=== PATIENT | female | born 1940 | race Caucasian/White ===

== ENCOUNTER → 2020-08-19 10:45 | Outpatient (CLI) | payer MEDICARE, SELFPAY ==
--- NOTE | ~2020-08-19 | XR_ITS ---
XR shoulder RT min 2V DATE: 08/19/2020 11:02 INDICATION: Right shoulder pain TECHNIQUE: 4 views COMPARISON: 04/13/2013 right shoulder FINDINGS: There is diffuse osteopenia. There is severe joint space narrowing and spurring at the right glenohumeral joint and mild inferior subluxation of the humeral head. No fracture or dislocation, periosteal reaction or bone destruction or abnormal soft tissue calcification is evident. IMPRESSION: Severe right glenohumeral osteoarthritis Diffuse osteopenia Reviewed, dictated and finalized at location A.
--- NOTE | ~2020-08-19 | XR_ITS ---
XR hip RT min 2V DATE: 08/19/2020 11:02 INDICATION: Right hip pain TECHNIQUE: AP and lateral views COMPARISON: None FINDINGS: No fracture or dislocation, avascular necrosis or bone destruction. IMPRESSION: No significant abnormality Reviewed, dictated and finalized at location A. IMPRESSION: No significant abnormality
== END ==
PROVIDERS: Visit Provider Physician Assistant
DX: M25.551 Pain in right hip (principal); M19.011 Primary osteoarthritis, right shoulder; M85.811 Other specified disorders of bone density and structure, right shoulder
CPT/HCPCS: 73030; 73502

== ENCOUNTER 2020-10-18 12:40 | Outpatient (CLI) | payer MEDICARE, SELFPAY ==
--- NOTE | ~2020-10-18 | CT_ITS ---
EXAMINATION: CT shoulder RT wo con DATE: 10/18/2020 13:51 INDICATION: Primary osteoarthritis of the right shoulder TECHNIQUE: High resolution computed tomography (CT) of the right shoulder was performed without intra venous contrast. Additional sagittal and coronal reconstructions were performed. Automated exposure c ontrol and iterative reconstruction technique were employed. The dose-length product was 446.77 mGy-c m. COMPARISON: Radiographs dated 08/19/2020 FINDINGS: Bone alignment is normal. No fracture. Moderate right acromioclavicular osteoarthritis. Advanced righ t glenohumeral osteoarthritis with remodeling with some loss of bone stock and flattening of the luigi cular surface of the superomedial aspect of the humeral head. There are large marginal osteophytes al pascual the inferior aspect of the humeral head. Additional remodeling and loss of bone stock at the fallon oid both anteriorly and more prominently posteriorly with marginal osteophytes is most prominent post eriorly. The remodeling results in approximately 20 degrees acquired retroversion of the glenoid. Moderate-sized right glenohumeral joint effusion. A couple small loose osteochondral bodies at the de ep subscapular recess. Residual tiny deposits of calcific debris at the posterior and axillary recess es of the joint space. There is extension of fluid into the subacromial/subdeltoid bursa which along with severe fatty atrophy of the supraspinatus muscle belly suggests and likely full-thickness rotato r cuff tear which is unable to be directly visualized on the non arthrographic, noncontrast CT. Addit ional mild fatty atrophy of the subscapularis and infraspinatus muscles. Heterotopic ossification filling the cephalad aspect of the intertubercular groove. The extra articul ar long head biceps tendon caudal to the level of the groove is either absent or significantly attenu ated suggesting at least partial tear. Visualized portion of the right lung is clear. No pathological ly enlarged lymphadenopathy at the right axilla or visualized portion of the right hilum and mediasti num. IMPRESSION: 1. Advanced right glenohumeral osteoarthritis with moderate-sized joint effusion. 2. Severe fatty atrophy of the supraspinatus muscle belly and fluid in the subacromial/subdeltoid bur sa suggesting a possible full-thickness rotator cuff tear. If this would affect clinical management w ould consider MRI for further evaluation. 3. Likely at least partial tear of the long head biceps tendon. Reviewed, dictated and finalized at location A. IMPRESSION: 1. Advanced right glenohumeral osteoarthritis with moderate-sized joint effusio n. 2. Severe fatty atrophy of the supraspinatus muscle belly and fluid in the suba cromial/subdeltoid bursa suggesting a possible full-thickness rotator cuff tear . If this would affect clinical management would consider MRI for further evalu ation. 3. Likely at least partial tear of the long head biceps tendon.
== END 2020-10-18 12:41 | disposition home or self-care (01) ==
PROVIDERS: PCP Family Medicine; Visit Provider Orthopaedic Surgery
DX: M19.011 Primary osteoarthritis, right shoulder (principal)
CPT/HCPCS: 73200

== ENCOUNTER 2020-11-20 12:08 | Outpatient (CLI) | payer MEDICARE, SELFPAY ==
--- NOTE | 2020-11-20 13:00 | ECG_ITS ---
Measurements Intervals [place] Rate: 60 P: 50 WA: 179 QRS: 38 QRSD: 94 T: 36 QT: 418 QTc: 421 Interpretive Statements SINUS RHYTHM NORMAL ECG Electronically Signed On 11-21-2020 8:37:05 CDT by Dain Travis D.O.
[2020-11-20 13:26] LABS: Basophils Percent Auto 0.5 % (0.2-1.2); Eosinophils Absolute Auto 0.1 K/mm3 (0-0.3); Eosinophils Percent Auto 1.3 % (0-4.4); Hematocrit 40.6 % (37.0-47.0); Hemoglobin 13.4 g/dL (12.0-15.0); Immature Granulocyte Absolute 0.01 K/mm3 (0.00-0.031); Immature Granulocyte Percent A 0.2 % (0-0.5); Lymphocytes Absolute Auto 0.99 K/mm3 (0.9-3.2); Lymphocytes Percent Auto 16.7 % (18.3-44.2); Mean Corpuscular Hemoglobin 33.2 pg (26-34); Mean Corpuscular Volume 100.5 fl (80-100); Monocytes Absolute Auto 0.5 K/mm3 (0.1-0.6); Monocytes Percent Auto 8.3 % (2.6-8.5); Neutrophils Absolute Auto 4.3 K/mm3 (1.3-6.7); Platelet Count Result 223 k/mm3 (150-375); Red Blood Count 4.04 M/mm3 (4.2-5.4); Red Cell Distribution Width 13.5 % (11.5-14.5); White Blood Count 5.9 K/mm3 (4.5-10.0)
[2020-11-20 13:37] LABS: Anion Gap 6 mmol/L (8-16); Blood Urea Nitrogen 25 mg/dL (7-17); Calcium 9.8 mg/dL (8.4-10.2); Carbon Dioxide 31 mmol/L (22-30); Chloride 100 mmol/L (98-107); Estimated Glomerular Filt Rate > 60; Glucose 102 mg/dL (65-110); Potassium 3.4 mmol/L (3.4-5.0); Sodium 137 mmol/L (137-145)
== END 2020-11-20 12:09 | disposition home or self-care (01) ==
LOC: ANHSURGERY 12:11
PROVIDERS: Anesthesiology; PCP Family Medicine; Visit Provider Orthopaedic Surgery
DX: Z01.812 Encounter for preprocedural laboratory examination (principal); I10 Essential (primary) hypertension; M19.011 Primary osteoarthritis, right shoulder
CPT/HCPCS: 36415; 80048; 85025; 87081; 93005

== ENCOUNTER 2020-12-06 13:19 | Outpatient (CLI) | payer MEDICARE, SELFPAY ==
--- NOTE | 2020-12-06 13:29 | ECHO_ITS ---
Patient Info Name: Sheila Fernández Age: 80 years : 1940 Gender: Female Ht: 65 in Wt: 180 lbs BSA: 1.96 m2 HR: 75 bpm BP: 134 / 79 mmHg Technical Quality: Fair Exam Date: 12/06/2020 2:14 PM Exam Location: [facility] Patient Status: Outpatient Admit Date: 12/06/2020 Staff Ordering Physician: Joel De Leon PA-C Freight Clerk: Maria Isabel Oliveros RDCS Attending Provider: Joel De Leon PA-C Referring Physician: Moises HAGAN; Exam Type: CA echo doppler color flow Study Info Indications - murmur Complete two-dimensional, color flow and Doppler transthoracic echocardiogram is performed. Summary 1. Complete two-dimensional, color flow and Doppler transthoracic echocardiogram is performed. 2. There is mildly increased left ventricular wall thickness. 3. Left ventricular systolic function is hyperdynamic, estimated at >70%. 4. The left ventricular diastolic function is grade I diastolic dysfunction. 5. Left atrial chamber dimension is mildly enlarged. 6. There is mild aortic valve calcification. 7. The aortic valve is trileaflet. 8. There is no aortic valve stenosis. 9. There is mild mitral valve regurgitation. 10. There is mild mitral valve calcification. 11. There is mild tricuspid valve regurgitation. 12. No pulmonary hypertension, estimated pulmonary arterial systolic pressure is 33 mmHg. Left Ventricle Left ventricular chamber dimension is normal. Left ventricular systolic function is hyperdynamic, estimated at >70%. There is mildly increased left ventricular wall thickness. Left ventricular septal wall motion is normal. The left ventricular diastolic function is grade I diastolic dysfunction. Right Ventricle Right ventricular chamber dimension is normal. Right ventricular systolic function is normal. Left Atria Left atrial chamber dimension is mildly enlarged. Right Atria Right atrial chamber dimension is normal. Atrial Septum Intact interatrial septum visualized by color flow imaging. Aortic Valve The aortic valve is trileaflet. There is no aortic valve stenosis. There is no aortic valve regurgitation. There is mild aortic valve calcification. Pulmonic Valve The pulmonic valve is normal. There is no pulmonic valve stenosis. There is no pulmonic regurgitation. Mitral Valve The mitral valve has normal leaflets. There is no mitral valve stenosis. There is mild mitral valve regurgitation. There is mild mitral valve calcification. Tricuspid Valve The tricuspid valve leaflets are normal. There is no significant tricuspid valve stenosis. There is mild tricuspid valve regurgitation. No pulmonary hypertension, estimated pulmonary arterial systolic pressure is 33 mmHg. Pericardium/Pleural The pericardium appears normal. There is no pericardial effusion. Inferior Vena Cava Normal inferior vena cava with >50% collapse upon inspiration consistent with normal right atrial pressure, 5 mmHg. Aorta The aortic root size at the sinus of Valsalva is normal. The prox ascending aorta size is normal. Left Ventricular Outflow Tract Name Value Normal LVOT 2D LVOT Diameter 2.0 cm LVOT Doppler
== END 2020-12-06 13:20 | disposition home or self-care (01) ==
PROVIDERS: PCP Family Medicine; Visit Provider Physician Assistant
DX: R01.1 Cardiac murmur, unspecified (principal); I34.0 Nonrheumatic mitral (valve) insufficiency; I36.1 Nonrheumatic tricuspid (valve) insufficiency; I35.1 Nonrheumatic aortic (valve) insufficiency
CPT/HCPCS: 93306

== ENCOUNTER 2020-12-12 01:14 | Day surgery (SDC) | payer MEDICARE, SELFPAY ==
[2020-11-20 12:17] VITALS: BMI 31.0
[2020-11-20 12:56] VITALS: BP 146/81; PULSE 62; RESP 16; TEMP 37.2; O2SAT 98
--- NOTE | 2020-12-11 16:52 | WPDANESEPPF ---
Anes - Initial Pre Proc Eval Procedure: Operation Date: 12/12/20 07:30 Proposed Procedures p Right Reverse Total Shoulder Arthroplasty - Mark Reynaga MD Date/Time: 12/11/20 16:52 Surgeon: Mark Reynaga MD Pre Op Diagnosis: primary OA right shoulder Patient Data Age: 80 Gender: F Height: 1.65 m Weight: 84.6 kg Last Vital Signs Temp 37.2 C 11/20/20 12:56 Pulse 62 11/20/20 12:56 Resp 16 11/20/20 12:56 BP 146/81 H 11/20/20 12:56 Pulse Ox 98 11/20/20 12:56 Allergies Allergy/AdvReac Type Severity Reaction Status Date / Time No Known Allergies Allergy Verified 12/12/20 06:14 Home Medications Medication Instructions Recorded Confirmed Type Glucosamine Sulf-Chondroitin 1 cap PO DAILY 04/11/19 12/12/20 History calcium carbonate-vitamin D3 1 tablet PO DAILY 04/11/19 12/12/20 History [Calcium 500 With D] multivitamin with minerals [Daily 1 tablet PO DAILY 04/11/19 12/12/20 History Multivitamin-Minerals] hydrochlorothiazide 25 mg tablet See Rx Instructions .ROUTE 05/25/20 12/12/20 Rx .COMPLEX #90 tablet cholecalciferol (vitamin D3) 50 mcg PO DAILY 11/20/20 12/12/20 History [Mtn-P-Fctusjv Forte] fish,bora,flax oils-om3,6,9no1 1 cap PO DAILY 11/20/20 12/12/20 History [[place] 3-6-9] ibuprofen 400 mg PO PRN PRN 11/20/20 12/12/20 History ferrous sulfate 325 mg (65 mg See Rx Instructions .ROUTE 11/21/20 12/12/20 Rx iron) tablet .COMPLEX #90 tablet irbesartan 300 mg tablet See Rx Instructions .ROUTE 11/21/20 12/12/20 Rx .COMPLEX #90 tablet Patient hx anesthesia problems: none Family hx anesthesia problems: none PMFSH Past Medical History Medical History Ankle fracture, right (~04/2019) Bilateral cataracts Fall as cause of accidental injury in home as place of occurrence History of ankle fracture HTN (hypertension) Laceration of occipital region of scalp Osteoarthritis Osteopenia Seasonal allergies Sleep apnea TIA (transient ischemic attack) 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 and removal Surgical History Surgical History History of appendectomy (~04/2014) History of bilateral cataract extraction (~2018) History of cataract surgery Status post laser ablation of incompetent vein (~11/2016) Status post phlebectomy (~12/2016) Family History Family History Grandparent Hypertension Family history of malignant neoplasm Mother Hypertension Family history of malignant neoplasm Sibling Family history of elevated blood lipids Father Family history of cardiovascular disease Family history of congestive heart failure Social History Social History Smoking packs per day: 0.5 Smoking cigarettes per day: 10.0 Years smoked: 4 Smoking pack-years: 2.00 Smoking status: Former smoker Tobacco type: cigarettes Smoking end date: 05/05/69 Alcohol intake: current Drinks per week: 21 Alcohol use details: WINE Living arrangements: alone Gender identity (if verbalized by the patient): Female Spiritual care concerns: No Agree to blood products: Yes Anes - Eval Final PreProcedure Day of Procedure 12/11/20 16:52 Patient weight: obese Heart: regular rate and rhythm Lungs: clear to auscultation and normal air movement Airway: Mallampati scale class II Neurological: alert and oriented Last oral intake: >/= 8 hours ASA classification: III Emergent: no Anesthetic plan: proceed Anesthesia type and monitoring: general ETT and standard monitoring Informed Consent: The patient's anesthetic plan and its attendant risks and benefits were discussed with the patient/family/POA. Questions were solicited and answers provided to the satisfaction of the patient/family/POA.
--- NOTE | 2020-12-11 16:54 | WPDANESPNB ---
Anes - Peripheral Nerve Block Date/Time: 12/11/20 16:54 I have discussed with the patient/family/POA the placement of a peripheral nerve block for post-operative pain management, including associated risks, benefits, complications, and side effects. Alternative methods of post-operative analgesia were detailed. Questions were solicited and answers provided to the satisfaction of the patient/family/POA. Time-Out: A pre-procedural Time-Out was completed immediately before starting the procedure and confirmed: Patient Identification, Site, Procedure, Patient Position and the Availability of Requisite Equipment. Clinical Indications: Acute post-operative pain management requested by the operative surgeon. Nerve Block Insertion Note Anes-nerve block: interscalene right Patient position: supine Skin prep: chlorhexidine Needle: 22 gauge, stimulating, insulated echogenic needle. Needle length: 50 mm Technique: ultrasound Injectate: bupivacaine 0.5% with epi 5 mcg/ml (30cc- no epi) Observations: tolerated well Complications: none Procedure start time:: 721 Procedure end time:: 724
[2020-12-12] VITALS (13 sets, daily range): BP systolic 108–151; BP diastolic 50–74; PULSE 63–84; RESP 12–20; TEMP 35.8–36.4; O2SAT 93–100
--- NOTE | ~2020-12-12 | XR_ITS ---
EXAMINATION: XR shoulder RT min 2V DATE: 12/12/2020 10:50 INDICATION: Reverse total right shoulder arthroplasty. Postop. TECHNIQUE: 2 views of right shoulder were obtained. COMPARISON: Right shoulder radiographs 08/19/2020 FINDINGS: There is a reverse stvm-rxk-gjbzob total right shoulder arthroplasty in near-anatomic align ment. No fracture. There is mild osteoarthritis of acromioclavicular joint. There is gas in the soft tissues, consistent with recent surgery. IMPRESSION: 1. Reverse scca-ezt-uytqta total right shoulder arthroplasty in near-anatomic alignment. Reviewed, dictated and finalized at location A. IMPRESSION: 1. Reverse mdcx-ibg-oswomi total right shoulder arthroplasty in near-anatomic a lignment.
[2020-12-12] MEDS: ACETAMINOPHEN 500 MG TABLET 1000 MG PO (06:20)
[2020-12-12] MEDS: LACTATED RINGERS 1,000 ML 30 ML IV CONT ×2 (06:30→10:15)
[2020-12-12] MEDS: TRANEXAMIC ACID 1,000MG/ISO100 1,000 MG/100 ML BAG 200 MG IVPB (07:07)
--- NOTE | 2020-12-12 07:20 | WPDHPUPDATE1 ---
History and Physical Update Update Date/Time: 12/12/20 07:20 History and Physical has been reviewed, including an updated exam of the patient. There are NO changes in the patient's condition. Risks, benefits, and alternatives have been discussed and questions answered. Patient agrees to proceed with procedure.
[2020-12-12] MEDS: ceFAZolin 2 GM/D5W 50 ML 2 GM/50 ML BAG IVPB ×2 (07:37→16:47)
[2020-12-12] MEDS: VANCOMYCIN HCL 1,000 MG VIAL 1000 MG TOPICAL (08:26)
--- NOTE | 2020-12-12 10:29 | W.PM.PROC2 ---
Procedure Note - Detailed Date of Procedure 12/12/20 Pre-op Diagnosis primary OA right shoulder Post-op Diagnosis same Procedure Performed Reverse total shoulder arthroplasty, right. Surgeon Mark Reynaga MD [employer] Tawnya Harkins PA-C Anesthesia general and regional ( Interscalene block.) Findings Moderate posterior bone loss. Significant proliferative capsulitis. Capsular laxity. Humerus 10? retroversion. Bone quality satisfactory. Description of Procedure Physician social and human services assistant, Tawnya Harkins PA-C, required for surgery; including patient positioning, draping, tissue retraction, maintaining instrument position, assisting joint reduction and dislocation, wound closure, and dressing/sling placement. OPERATIVE DETAILS: The patient was given an interscalene block in the preoperative area. Preoperative antibiotics were given. The patient was transferred to the operating room and a general anesthetic was administered. The beach chair position was used at 35-40 degrees. All bony prominences were padded. The head was carefully stabilized [facility] the [facility] maintain[facility]. A sterile prep and drape was performed in the usual manner with Chloraprep. A longitudinal incision was created at the anterior shoulder just lateral to the deltopectoral interval. Careful dissection was performed to expose the interval and protect the cephalic vein. The vein was retracted medially. The upper border of the pectoralis was slightly released. Anterior circumflex vessel branches were suture ligated. The biceps was tenodesed. A subscapularis tenotomy was performed. The inferior capsule was released, exposing the humeral head. Osteophytes were removed. Care was taken to stay on bone to protect the axillary nerve. The anatomic head cut was taken with the oscillating saw. Sounding and broaching was performed. The neck anteversion and inclination were carefully assessed. Head sizing and offset were determined. The cut protector was placed, and attention was turned to the glenoid. Retractors were placed. Releases were carried out for exposure. The subscapularis was mobilized, the inferior capsule and long head of triceps released, and the superior and middle glenohumeral ligaments released as well. Labral tissue was resected as needed. The sizing template was used to assess the baseplate position low on the glenoid. A guide pin was placed. The two step reaming system was used. Minimal reaming was used to accomplish a flat surface without violating the subchondral bone. Version was corrected according to preoperative templating. The central post was drilled. The real component was impacted into position. Supplemental screws were placed. The glenosphere was placed with the locking screw. The humeral components were trialed. The real humeral stem and tray, and insert were impacted into position. The shoulder was copiously irrigated periodically with pulsatile lavage. The shoulder was reduced and the subscapularis repaired with number 5 Ethibond suture modified hannah Luke sutures. The biceps tenodesis was incorporated with the pectoralis tendon repair. The deltopectoral space was reapproximated with number 2 Vicryl. The remained tissue was closed with 0 Quill and 2-0 Quill running suture and steri-strips. A sterile dressing and shoulder immobilizer was placed. The patient was transferred to the recovery room. Implants Wester Aequalis reversed glenoid base plate 25mm, reversed insert 9mm thickness; Aequalis Ascend Flex humeral stem size 4B. Aequalis Reversed II glenoid sphere 36 diameter; Reversed tray high offset at the 12 o'clock position. Estimated Blood Loss -200.0 Pathology none sent Complications No immediate complications Condition stable Disposition PACU
[2020-12-12] MEDS: fentaNYL CITRATE INJ (*CRX) 100 MCG/2 ML VIAL 25 MCG IV PUSH ×2 (10:42→10:57)
--- NOTE | 2020-12-12 11:30 | ADMGEN ---
This patient, Sheila Fernández, was admitted to Medical Room 247-. Patient/family oriented to hospital policies and general routines including ID bracelet, bed and alarms, visiting hours, pain management, procedures, bathroom and other care routines, personal items, smoking policy, room service/diet, and visiting hours. Information on how to activate the Rapid Response Team has been discussed. Patient/Family are encouraged to report perceived risks to care and to ask questions if they do not understand what they are told or what they should do.
[2020-12-12] MEDS: KETOROLAC 15 MG/ML VIAL (*BKC) IV PUSH ×2 (15:35→21:33)
[2020-12-12] MEDS: DOCUSATE SODIUM 100 MG CAPSULE PO (16:48)
[2020-12-12] MEDS: ASPIRIN 81 MG ENTERIC TABLET PO (16:48)
[2020-12-13] MEDS: oxyCODONE HCL (*CRX) 5 MG TAB IR PO (00:25)
[2020-12-13] MEDS: ceFAZolin 2 GM/D5W 50 ML 2 GM/50 ML BAG IVPB ×2 (00:26→08:15)
[2020-12-13 01:04] VITALS: BP 145/55; PULSE 72; RESP 18; TEMP 36.2; O2SAT 97
[2020-12-13] MEDS: KETOROLAC 15 MG/ML VIAL (*BKC) IV PUSH ×2 (03:23→08:15)
[2020-12-13 05:04] VITALS: BP 126/52; PULSE 64; RESP 18; TEMP 36.4; O2SAT 95
[2020-12-13] MEDS: ASPIRIN 81 MG ENTERIC TABLET PO (08:08)
[2020-12-13] MEDS: IRBESARTAN 150 MG TABLET 300 MG PO (08:08)
[2020-12-13] MEDS: DOCUSATE SODIUM 100 MG CAPSULE PO (08:08)
[2020-12-13] MEDS: THERAPEUTIC MULTIVITAMINS/MINERALS TAB (*BKC) 1 TABLET PO (08:08)
[2020-12-13] MEDS: CHOLECALCIFEROL 1,000 UNITS TABLET 2000 UNITS PO (08:08)
[2020-12-13] MEDS: hydroCHLOROthiazide 25 MG TABLET PO (08:08)
[2020-12-13 09:04] VITALS: BP 124/54; PULSE 62; RESP 18; TEMP 36.3; O2SAT 95
--- NOTE | 2020-12-13 09:07 | PM.DS ---
DS: Admitting Diagnosis Admitting Diagnosis Rotator cuff arthropathy DS: Discharge Diagnosis Discharge Diagnosis (1) Status post reverse total arthroplasty of right shoulder: Code(s): Z96.611 - Presence of right artificial shoulder joint Status: Acute Assessment and Plan: Postop day 1: Right reverse total shoulder arthroplasty. Patient tolerated procedure well. No complications. Pain manageable with pain medication. Notes some numbness still in her thumb and index finger. We discussed that this may take a few more hours to resolve. She is able to move her fingers, wrist, and elbow. We had a lengthy discussion regarding postoperative wound care, limitations, expectations, and exercises. Patient shows good understanding. He has had initial physical therapy and is tolerating it well. DVT prophylaxis: 81 mg baby aspirin b.i.d. for 14 days. Pain medication: Percocet. Ibuprofen. Patient has followup appointment with Dr. Reynaga in 3 weeks. DS: Summary Hospital Course Hospital Course: Right reverse total shoulder arthroplasty. No complications. Patient has had initial physical therapy and occupational therapy. Status at Discharge Functional status at discharge: independent ambulation Overall status at discharge: patient is progressing back to baseline Time Spent with Patient Time attestation: Total time spent providing and/or coordinating discharge services: Exam Narrative: Normal weight Female. Resting comfortably in chair. Wearing sling. Dressing dry and intact with no drainage. Moderate swelling. Moderate ecchymosis. No erythema. No hematoma. Range of motion limited due to pain. Calf nontender. Neurologic status intact. No varicosities. Distal pulses palpable. DS: Data Data Completed and Pending Labs on day of discharge: Labs from last 24 hours 12/12/20 06:12 Blood Type O Positive Antibody Screen Negative Discharge Plan Discharge Patient Disposition: Home, Self-Care Discharge Instructions: See instruction sheet Follow-up/Referrals: Tawnya Harkins PA [Physician Agricultural Education Instructor] - Discharge Medications: New aspirin 81 mg tablet,delayed release (DR/EC) 81 mg PO BID 14 Days Qty: 28 RF: 0 oxycodone-acetaminophen 5-325 mg tablet 1 - 2 tablet PO Q4-6H MDD 6 PRN (Reason: pain) Qty: 30 RF: 0 Continued multivitamin with minerals [Daily Multivitamin-Minerals] Tablet 1 tablet PO DAILY RF: 0 calcium carbonate-vitamin D3 [Calcium 500 With D] 500 mg(1,250mg) -400 unit Tablet 1 tablet PO DAILY RF: 0 Glucosamine Sulf-Chondroitin 500-400 mg Capsule 1 cap PO DAILY RF: 0 [place] 3-6-9 1,200 mg Capsule 1 cap PO DAILY RF: 0 Kod-Y-Vtbobbk Forte 50 mcg/drop (2, 000 unit/drop) Drops 50 mcg PO DAILY RF: 0 ibuprofen 400 mg Tablet 400 mg PO PRN PRN (Reason: Pain) RF: 0 hydrochlorothiazide 25 mg tablet See Rx Instructions .ROUTE .COMPLEX Qty: 90 RF: 3 ferrous sulfate 325 mg (65 mg iron) tablet See Rx Instructions .ROUTE .COMPLEX Qty: 90 RF: 2 irbesartan 300 mg tablet See Rx Instructions .ROUTE .COMPLEX Qty: 90 RF: 0
--- NOTE | 2020-12-13 10:00 | WPDANESPN ---
Anes - Prog Note Post-Op Date/Time: 12/13/20 10:00 Cardiovascular status: normal Respiratory status: normal Airway patency: baseline Mental status: baseline Post-Op hydration status: normal Vital Signs: Last Vital Signs Temp 36.4 C 12/13/20 05:04 Pulse 64 12/13/20 05:04 Resp 18 12/13/20 05:04 BP 126/52 L 12/13/20 05:04 Pulse Ox 95 12/13/20 05:04 Pain Score (VAS): 0/10 I/O: Intake & Output 12/12/20 12/13/20 12/13/20 23:59 07:59 15:59 Intake Total 590 750 240 Output Total 400 Balance 590 350 240 Post-procedural complaints: none Patient Feedback: Patient satisfied with anesthetic care.
== END 2020-12-13 12:55 | disposition home or self-care (01) ==
LOC: ANHSURGERY 05:45 → ANH2MED 11:21
PROVIDERS: PCP Family Medicine; Visit Provider Orthopaedic Surgery
PROC: (CPT 23472; principal; 2020-12-12 07:30)
DX: M19.011 Primary osteoarthritis, right shoulder (principal); G89.18 Other acute postprocedural pain; I10 Essential (primary) hypertension; G47.30 Sleep apnea, unspecified; Z86.73 Personal history of transient ischemic attack (TIA), and cerebral infarction without residual deficits; Z87.891 Personal history of nicotine dependence; E66.9 Obesity, unspecified; Z68.30 Body mass index [BMI] 30.0-30.9, adult
CPT/HCPCS: 23472; 64415; 36415; 73030; 80048; 85025; 86850; 86900; 86901; 87081; 93005; 97110; 97161; 97165; 97530; 97535; A4565; A9270; C1776; J0131; J0171; J0690; J1100; J1885; J2270; J2405; J2704; J2710; J2795; J3010; J3370; J7120

== ENCOUNTER 2021-04-06 12:09 | Outpatient (CLI) | payer MEDICARE, SELFPAY ==
--- NOTE | ~2021-04-06 | XR_ITS ---
EXAMINATION: XR chest 2V EXAM DATE: 04/06/2021 12:30 INDICATION: R05.9 - Cough, unspecified . TECHNIQUE: Frontal and lateral projections of the chest obtained and reviewed. There is no prior lester dy for comparison. FINDINGS: The lungs are clear. There are no pleural effusions. The cardiomediastinal silhouette is within normal limits. There is no pneumothorax suspected. Right shoulder replacement hardware. IMPRESSION: No acute cardiopulmonary findings. Reviewed, dictated and finalized at location B. L FLAT SURFACER
--- NOTE | ~2021-04-06 | XR_ITS ---
EXAMINATION: XR sinus min 3V DATE: 04/06/2021 12:30 INDICATION: Cough, unspecified. TECHNIQUE: 5 views of the paranasal sinuses were obtained. COMPARISON: Head CT 04/10/2019 FINDINGS: Bone alignment is normal. No fracture. The paranasal sinuses are clear. IMPRESSION: 1. Normal paranasal sinuses. Reviewed, dictated and finalized at location A. ER WASHER
== END 2021-04-06 12:10 | disposition home or self-care (01) ==
LOC: ANHIMG 12:11
PROVIDERS: PCP Family Medicine; Visit Provider Internal Medicine
DX: R05.9 Cough, unspecified (principal); J34.89 Other specified disorders of nose and nasal sinuses
CPT/HCPCS: 70220; 71046

== ENCOUNTER 2021-08-10 09:53 | Outpatient (CLI) | payer MEDICARE, SELFPAY ==
--- NOTE | ~2021-08-10 | CT_ITS ---
EXAMINATION: CT shoulder LT wo con DATE: 08/10/2021 10:16 INDICATION: Other specific arthropathies, not elsewhere classified. TECHNIQUE: Computed tomography (CT) of the left shoulder was performed without intravenous contrast. Automated exposure control and iterative reconstruction technique were employed. The dose-length prod uct was 442.79 mGy-cm. COMPARISON: Left shoulder radiographs 08/06/2021 FINDINGS: Bone alignment is normal. No fracture. There is severe osteoarthritis of the acromioclavicu lar joint. There is severe osteoarthritis of glenohumeral joint with bone volume loss of humeral head and glenoid. There is a large glenohumeral joint effusion with loose bodies. There is no asymmetric fatty atrophy of the rotator cuff muscle bellies. IMPRESSION: 1. Severe polyarticular osteoarthritis. 2. Large glenohumeral joint effusion with loose bodies. Reviewed, dictated and finalized at location A.
== END 2021-08-10 09:54 | disposition home or self-care (01) ==
PROVIDERS: PCP Internal Medicine; Visit Provider Orthopaedic Surgery
DX: M19.012 Primary osteoarthritis, left shoulder (principal); M24.012 Loose body in left shoulder; M25.412 Effusion, left shoulder
CPT/HCPCS: 73200

== ENCOUNTER 2021-09-05 11:45 | Outpatient (CLI) | payer MEDICARE, SELFPAY ==
[2021-09-05 12:59] LABS: Basophils Percent Auto 0.3 % (0.2-1.2); Eosinophils Absolute Auto 0.1 K/mm3 (0-0.3); Eosinophils Percent Auto 1.7 % (0-4.4); Hematocrit 36.5 % (37.0-47.0); Hemoglobin 12.2 g/dL (12.0-15.0); Immature Granulocyte Absolute 0.02 K/mm3 (0.00-0.031); Immature Granulocyte Percent A 0.3 % (0-0.5); Lymphocytes Absolute Auto 1.35 K/mm3 (0.9-3.2); Lymphocytes Percent Auto 23.2 % (18.3-44.2); Mean Corpuscular HGB Conc 33.4 g/dl (32-36); Mean Corpuscular Hemoglobin 32.8 pg (26-34); Mean Corpuscular Volume 98.1 fl (80-100); Mean Platelet Volume 10.4 fl (7.4-10.4); Monocytes Absolute Auto 0.5 K/mm3 (0.1-0.6); Monocytes Percent Auto 7.9 % (2.6-8.5); Neutrophils Absolute Auto 3.9 K/mm3 (1.3-6.7); Neutrophils Percent Auto 66.6 % (45.5-73.1); Platelet Count Result 240 k/mm3 (150-375); Red Blood Count 3.72 M/mm3 (4.2-5.4); Red Cell Distribution Width 14.5 % (11.5-14.5); White Blood Count 5.8 K/mm3 (4.5-10.0)
== END 2021-09-05 11:46 | disposition home or self-care (01) ==
LOC: ANHSURGERY 11:51
PROVIDERS: PCP Internal Medicine; Visit Provider Orthopaedic Surgery
DX: M12.812 Other specific arthropathies, not elsewhere classified, left shoulder (principal); Z01.818 Encounter for other preprocedural examination
CPT/HCPCS: 36415; 85025; 87081

== ENCOUNTER 2021-10-04 00:12 | Day surgery (SDC) | payer MEDICARE, SELFPAY ==
[2021-09-05 11:56] VITALS: BMI 30.9
--- NOTE | 2021-09-05 12:17 | PC.NURSE ---
Report to the Outpatient Waiting Room, entrance under the green pavilion located off [facility], at time _0600 on date __10/04/21 . OR Time: __729 . - You and your visitor will be asked a series of questions to screen for COVID 19 for your protection. - Only one visitor is allowed at this time. - The patient visitor is requested to leave or wait in car when not with patient. - A mask is required within the hospital. Patients may have clear liquids (water, carbonated beverages, clear teas, apple juice) until 3 hours prior to surgery with a maximum of 20 ounces. - No food from midnight until time of surgery - Infants may have breast milk until 4 hours before surgery, infant formula 6 hours prior to surgery. - Children will be allowed to drink immediately following surgery. If applicable, please bring a bottle or sippy cup to assist with drinking. Juice, water, soda, and popsicles are readily available. For infants on formula, please bring formula the day of surgery. Pacifiers are allowed. Take the following medications with a SIP of water the morning of surgery: _NONE Medications to discontinue per physician _ALL VITAMINS AND SUPPLEMENTS 3 DAYS PRE OP AND IBUPROFEN 7 DAYS PRE OP Date to take last dose__ALL VIT/SUPP 09/30/21 AND IBUPROFEN 09/26/21 Please no make-up, nail tongan, hairspray, perfume, deodorant, or body powder the day of surgery. No jewelry (including any body piercings) or valuables the day of surgery, leave them at home. Please take a shower or bath the night before, or the morning of, surgery with an antibacterial soap. Wear comfortable, loose fitting clothing. Children are encouraged to wear pajamas. - Jewelry must be removed prior to entering the operating room. Rings and piercings that are not removed may be cut off. - The hospital will not accept responsibility for valuables. - Please leave all valuables, including medications, at home the day of surgery. If you are going home after surgery, a licensed wrecker driver must drive you home. - NO public transportation without another adult. - We recommend that an adult stay with you for 24 hours following discharge. - We also recommend that you do not drive, make important decision, drink alcoholic beverages, or take any drugs that were not prescribed by your health care provider for at least 24 hours after your discharge time. Follow any additional instructions given to you from your surgeon. If you or anyone in your household have experienced Covid symptoms in the past week, please notify your surgeon or the nurse liaison at the phone number below for possible testing. VERBAL AND WRITTEN instructions given to __PATIENT and asked if any additional questions and then verbalized understanding. Patient advised to call surgeon office or pre surgery nurse liaison [phone] if any additional questions.
[2021-09-05 12:36] VITALS: BP 157/67; PULSE 70; RESP 18; TEMP 36.8; O2SAT 98
[2021-10-04] VITALS (15 sets, daily range): BP systolic 96–152; BP diastolic 57–78; PULSE 60–76; RESP 16–22; TEMP 36.1–36.9; O2SAT 93–100
--- NOTE | ~2021-10-04 | XR_ITS ---
EXAMINATION: XR shoulder LT min 2V DATE: 10/05/2021 11:56 INDICATION: Reversal total shoulder arthroplasty. Postop. TECHNIQUE: 2 views of left shoulder were obtained. COMPARISON: Left shoulder radiographs 08/06/2021 FINDINGS: There is a reverse kegm-pxo-bkraia total left shoulder arthroplasty in near-anatomic alignm ent. No fracture. There is moderate osteoarthritis of acromioclavicular joint. IMPRESSION: 1. Reverse uhfb-jqr-jvxpqd total left shoulder arthroplasty in near-anatomic alignment. 2. Moderate osteoarthritis of left acromioclavicular joint. Reviewed, dictated and finalized at location A. IMPRESSION: 1. Reverse mhqx-rth-jqpvel total left shoulder arthroplasty in near-anatomic al ignment. 2. Moderate osteoarthritis of left acromioclavicular joint.
[2021-10-04] MEDS: ACETAMINOPHEN 500 MG TABLET 1000 MG PO (06:33)
[2021-10-04] MEDS: LACTATED RINGERS 1,000 ML 30 ML IV CONT ×2 (06:52→10:21)
--- NOTE | 2021-10-04 06:54 | WPDANESEPPF ---
Anes - Initial Pre Proc Eval Procedure: Operation Date: 10/04/21 07:30 Proposed Procedures p Left Reverse Total Shoulder Arthroplasty - Mark Reynaga MD Date/Time: 10/04/21 06:54 Surgeon: Mark Reynaga MD Pre Op Diagnosis: left shoulder rotator cuff arthropathy Patient Data Age: 80 Gender: F Height: 1.66 m Weight: 83.8 kg Last Vital Signs Temp 36.9 C 10/04/21 06:11 Pulse 70 10/04/21 06:11 Resp 16 10/04/21 06:11 BP 152/70 H 10/04/21 06:11 Pulse Ox 98 10/04/21 06:11 O2 Del Method Room Air 10/04/21 06:11 Allergies Allergy/AdvReac Type Severity Reaction Status Date / Time No Known Allergies Allergy Verified 10/04/21 06:21 Home Medications Medication Instructions Recorded Confirmed Type calcium carbonate 500 mg-vitamin 1 tablet PO DAILY 04/11/19 10/04/21 History D3 10 mcg (400 unit) tablet (Calcium 500 With D) multivitamin with minerals (Daily 1 tablet PO DAILY 04/11/19 10/04/21 History Multivitamin-Minerals) cholecalciferol (vitamin D3) 50 mcg PO DAILY 11/20/20 10/04/21 History (Qae-G-Ouxkqnw Forte) ferrous sulfate 325 mg (65 mg See Rx Instructions .Route 11/21/20 10/04/21 Rx iron) tablet .COMPLEX #90 tabs chondrosomaine-S 1 tab-cap BYMOUTH DAILY 04/06/21 10/04/21 History fish, borage, flaxseed oils-omega 2 cap PO DAILY 04/06/21 10/04/21 History 3,6,9 comb no.1 1,200 mg capsule ([place] 3-6-9) cetirizine 10 mg tablet (Zyrtec) 10 mg PO DAILY PRN Allergy Symptoms 08/06/21 10/04/21 History fluticasone propionate 50 2 spray intranasal DAILY 08/06/21 10/04/21 History mcg/actuation nasal spray,suspension ibuprofen 400 mg tablet 400 mg PO Q6H PRN Pain 09/05/21 10/04/21 History solifenacin 10 mg tablet 10 mg PO DAILY #90 tabs 09/13/21 10/04/21 Rx atorvastatin 20 mg tablet 20 mg PO DAILY 10/04/21 10/04/21 History hydrochlorothiazide 25 mg tablet 25 mg PO DAILY 10/04/21 10/04/21 History irbesartan 300 mg tablet 300 mg PO DAILY 10/04/21 10/04/21 History Patient hx anesthesia problems: none Family hx anesthesia problems: none Results Review: All pre-operative results and documents have been reviewed as part of the pre-operative evaluation. [facility] Past Medical History Medical History Ankle fracture, right (~04/2019) Bilateral cataracts Cough DJD (degenerative joint disease) Encounter for Medicare annual wellness exam Encounter for routine adult health examination without abnormal findings Encounter to establish care Eustachian tube dysfunction Fall as cause of accidental injury in home as place of occurrence Hearing loss History of ankle fracture HTN (hypertension) Hyperlipidemia Iron deficiency anemia Laceration of occipital region of scalp Mitral valve regurgitation ARMEN (obstructive sleep apnea) Osteoarthritis Osteopenia Seasonal allergies Sleep apnea TIA (transient ischemic attack) Urinary urgency 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 and removal Surgical History Surgical History History of appendectomy (~04/2014) History of bilateral cataract extraction (~2018) History of cataract surgery History of reverse total replacement of right shoulder joint (~12/12/20) Status post laser ablation of incompetent vein (~11/2016) Status post phlebectomy (~12/2016) Family History Family History Grandparent Hypertension Family history of malignant neoplasm Mother Hypertension Family history of malignant neoplasm Sibling Family history of elevated blood lipids Father Family history of cardiovascular disease Family history of congestive heart failure Social History Social History Smoking packs per day: 0.5 Smoking cigarettes per day: 10.0 Years smoked: 4 Smoking pack-years: 2.00 Smoking status: Former smoke
[2021-10-04] MEDS: TRANEXAMIC ACID 1,000MG/ISO100 1,000 MG/100 ML BAG 200 MG IVPB (07:07)
--- NOTE | 2021-10-04 07:15 | WPDHPUPDATE1 ---
History and Physical Update Update Date/Time: 10/04/21 07:15 History and Physical has been reviewed, including an updated exam of the patient. There are NO changes in the patient's condition. Risks, benefits, and alternatives have been discussed and questions answered. Patient agrees to proceed with procedure.
--- NOTE | 2021-10-04 07:23 | WPDANESPNB ---
Anes - Peripheral Nerve Block Date/Time: 10/04/21 07:23 I have discussed with the patient/family/POA the placement of a peripheral nerve block for post-operative pain management, including associated risks, benefits, complications, and side effects. Alternative methods of post-operative analgesia were detailed. Questions were solicited and answers provided to the satisfaction of the patient/family/POA. Time-Out: A pre-procedural Time-Out was completed immediately before starting the procedure and confirmed: Patient Identification, Site, Procedure, Patient Position and the Availability of Requisite Equipment. Clinical Indications: Acute post-operative pain management requested by the operative surgeon. Nerve Block Insertion Note Anes-nerve block: interscalene left Patient position: supine Skin prep: chlorhexidine Needle: 22 gauge, stimulating, insulated echogenic needle. Needle length: 50 mm Technique: ultrasound Injectate: bupivacaine 0.5% with epi 5 mcg/ml (30cc no epi) and dexamethasone (mg) (8) Procedure start time:: 714 Procedure end time:: 719
[2021-10-04] MEDS: ceFAZolin 2 GM/D5W 50 ML 2 GM/50 ML BAG IVPB ×3 (07:32→23:46)
[2021-10-04] MEDS: VANCOMYCIN HCL 1,000 MG VIAL 1000 MG TOPICAL (08:43)
--- NOTE | 2021-10-04 11:28 | ADMGEN ---
This patient, Sheila Fernández, was admitted to 2 Medical Room 256-. Patient/family oriented to hospital policies and general routines including ID bracelet, bed and alarms, visiting hours, pain management, procedures, bathroom and other care routines, personal items, smoking policy, room service/diet, and visiting hours. Information on how to activate the Rapid Response Team has been discussed. Patient/Family are encouraged to report perceived risks to care and to ask questions if they do not understand what they are told or what they should do.
[2021-10-04] MEDS: SOLIFENACIN 5 MG TABLET 10 MG PO (13:30)
[2021-10-04] MEDS: ATORVASTATIN 20 MG TABLET PO (13:30)
[2021-10-04] MEDS: hydroCHLOROthiazide 25 MG TABLET PO (13:30)
[2021-10-04] MEDS: IRBESARTAN 150 MG TABLET 300 MG PO (13:30)
[2021-10-04] MEDS: ASPIRIN 81 MG ENTERIC TABLET PO (16:18)
--- NOTE | 2021-10-04 17:58 | W.PM.PROC2 ---
Procedure Note - Detailed Date of Procedure 10/04/21 Pre-op Diagnosis Left shoulder rotator cuff arthropathy Post-op Diagnosis Same Procedure Performed Reverse total shoulder arthroplasty, left. Surgeon Mark Reynaga MD Golf Club Weighter Tawnya Layne PA-C Anesthesia General and Regional (Interscalene block.) Findings Advanced arthritis with flattening of the humeral head. Proliferative synovitis. Significant osteophytes were quite soft. Otherwise bone quality was satisfactory. Significant posterior and some superior wear of the glenoid as identified on [address] scan. Based on the planning software, a 15 degree augment was used. This was placed at about the 1:30 position. Minimal reaming was necessary on the glenoid. Good screw purchase obtained. Description of Procedure The patient was given an interscalene block in the preoperative area. Preoperative antibiotics were given. The patient was transferred to the operating room and a general anesthetic was administered. The beach chair position was used at 45 degrees. All bony prominences were padded. The head was carefully stabilized on the [facility]. A sterile prep and drape was performed in the usual manner with ChloraPrep. A longitudinal incision was created at the anterior shoulder just lateral to the deltopectoral interval. Hydrogen peroxide was placed on the incision and then rinsed after one minute. Careful dissection was performed to expose the interval and protect the cephalic vein. The vein was retracted medially. The upper border of the pectoralis was released. Anterior circumflex vessel branches were suture ligated. The biceps was tenodesed. A subscapularis tenotomy was performed. The inferior capsule was released, exposing the humeral head. Osteophytes were removed. Care was taken to stay on bone to protect the axillary nerve. The anatomic head cut was taken with the oscillating saw. The guide pin was placed, central drilling performed, and the broach trial inserted. The neck anteversion and inclination were carefully assessed. The cut protector was placed, and attention was turned to the glenoid. Retractors were placed. Releases were carried out for exposure. The subscapularis was mobilized, the inferior capsule and long head of triceps released, and the superior and middle glenohumeral ligaments released as well. Labral tissue was resected as needed. The sizing template was used to assess the baseplate position. A guide pin was placed. The 15 degree angled Reamer was used. Minimal reaming was used to accomplish a flat surface without violating the subchondral bone. Version was corrected according to preoperative templating. The boss was drilled, and the real component was impacted into position. Supplemental locking screws were placed centrally, superiorly, and inferiorly. The glenosphere was impacted into the taper. The proximal humerus was reamed for the inset component. The humeral components were trialed. The real humeral stem, tray, and insert were impacted into position. The shoulder was copiously irrigated periodically with pulsatile lavage. The shoulder was reduced and stability confirmed. 1 gram of Vancomycin powder was placed in the joint. The biceps tenodesis was incorporated with the pectoralis tendon repair. The deltopectoral space was reapproximated with number 1 Vicryl. The remaining tissue was closed with 0 Quill and 2-0 Quill running suture and steri-strips. A sterile silver occlusive dressing and shoulder immobilizer were placed. The patient was transferred to the recovery room. Hydrogen peroxide was used after initial excision incision, and just prior to skin closure. Physician data control assistant, Tawnya Layne PA-C, required for surgery; including patient positioning, draping, tissue retraction, maintaining instrument position, wound closure, and dressing placement. Implants Shoulder Innovations reverse TSA size 0 stem. +0 polyethylene insert. 15 degree lateral
[2021-10-04] MEDS: FAMOTIDINE 20 MG TABLET PO (19:57)
[2021-10-05 00:46] VITALS: BP 122/58; PULSE 63; RESP 16; TEMP 36.8; O2SAT 98
[2021-10-05 06:04] VITALS: BP 126/60; PULSE 66; RESP 16; TEMP 36.4; O2SAT 97
[2021-10-05] MEDS: ceFAZolin 2 GM/D5W 50 ML 2 GM/50 ML BAG IVPB (07:54)
[2021-10-05] MEDS: ATORVASTATIN 20 MG TABLET PO (08:00)
[2021-10-05] MEDS: SOLIFENACIN 5 MG TABLET 10 MG PO (08:00)
[2021-10-05] MEDS: hydroCHLOROthiazide 25 MG TABLET PO (08:00)
[2021-10-05] MEDS: SENNA/DOCUSATE SODIUM TABLET 2 TAB PO (08:00)
[2021-10-05] MEDS: IRBESARTAN 150 MG TABLET 300 MG PO (08:00)
[2021-10-05] MEDS: ASPIRIN 81 MG ENTERIC TABLET PO (08:00)
[2021-10-05] MEDS: FAMOTIDINE 20 MG TABLET PO (08:00)
[2021-10-05] MEDS: polyethylene glycoL 3350 17 GM POWD.PACK PO (08:01)
--- NOTE | 2021-10-05 09:12 | WPDANESPN ---
Anes - Prog Note Post-Op Date/Time: 10/05/21 09:12 Vital Signs: Last Vital Signs Temp 36.4 C 10/05/21 06:04 Pulse 66 10/05/21 06:04 Resp 16 10/05/21 06:04 BP 126/60 10/05/21 06:04 Pulse Ox 97 10/05/21 06:04 O2 Del Method Room Air 10/04/21 22:03 O2 Flow Rate 6 10/04/21 10:35 Pain Score (VAS): 0 I/O: Intake & Output 10/04/21 10/05/21 10/05/21 23:59 07:59 15:59 Intake Total 690 500 Balance 690 500 Patient Feedback: Patient satisfied with anesthetic care.
--- NOTE | 2021-10-05 09:22 | PM.DS ---
DS: Admitting Diagnosis Discharge Date 10/05/21 Admitting Diagnosis Rotator cuff arthropathy DS: Discharge Diagnosis Discharge Diagnosis Plan Postop day 1: Left reverse total shoulder arthroplasty. Patient tolerated procedure well. No complications. Pain manageable with pain medication. No numbness or tingling. We had a lengthy discussion regarding postoperative wound care, limitations, expectations, and exercises. Patient shows good understanding. Patient has had initial physical therapy and is tolerating it well. DVT prophylaxis: 81 mg baby aspirin b.i.d. for 14 days. Short frequent walks. Pain medication: Percocet. Ibuprofen. Patient has followup appointment with Dr. Reynaga in 3 weeks DS: Summary Hospital Course Hospital Course: Left reverse total shoulder arthroplasty. No complications. Patient has had initial physical therapy and occupational therapy. Status at Discharge Functional status at discharge: independent ambulation Overall status at discharge: patient is progressing back to baseline Time Spent with Patient Time attestation: Total time spent providing and/or coordinating discharge services: Exam Narrative: Overweight 80 y/o Female. Resting comfortably in chair. Wearing sling. Dressing dry and intact with no drainage. Moderate swelling. Moderate ecchymosis. No erythema. No hematoma. Range of motion limited due to pain. Neurologic status intact. No varicosities. Distal pulses palpable. Discharge Plan Discharge Patient Disposition: Home, Self-Care Discharge Instructions: See green instruction sheet Patient has pain medications at home from previous surgery and does not want a new script. Stand Alone Forms: General Discharge Instructions Follow-up/Referrals: Tawnya Layne PA [Physician Rail Car Repair Carman] - Discharge Medications: New aspirin 81 mg tablet,delayed release (DR/EC) 81 mg PO BID 14 Days Qty: 28 0RF Continued cetirizine [Zyrtec] 10 mg tablet 10 mg PO DAILY PRN (Reason: Allergy Symptoms) fluticasone propionate 50 mcg/actuation spray,suspension 2 spray intranasal DAILY Rx Instructions: administer into each nostril solifenacin 10 mg tablet 10 mg PO DAILY Qty: 90 1RF [place] 3-6-9 1,200 mg capsule 2 cap PO DAILY chondrosomaine-S 1 tab-cap BYMOUTH DAILY Daily Multivitamin-Minerals Tablet 1 tablet PO DAILY calcium carbonate-vitamin D3 [Calcium 500 With D] 500 mg(1,250mg) -400 unit Tablet 1 tablet PO DAILY ibuprofen 400 mg Tablet 400 mg PO Q6H PRN (Reason: Pain) atorvastatin 20 mg tablet 20 mg PO DAILY Rx Instructions: TAKE 1 TABLET BY MOUTH EVERY DAY hydrochlorothiazide 25 mg tablet 25 mg PO DAILY Rx Instructions: TAKE 1 TABLET BY MOUTH EVERY DAY irbesartan 300 mg tablet 300 mg PO DAILY Rx Instructions: TAKE 1 TABLET BY MOUTH EVERY DAY Neh-J-Fmlagrm Forte 50 mcg/drop (2, 000 unit/drop) Drops 50 mcg PO DAILY ferrous sulfate 325 mg (65 mg iron) tablet See Rx Instructions .ROUTE .COMPLEX Qty: 90 2RF Dose Instruction: TAKE 1 TABLET BY MOUTH EVERY DAY Rx Instructions: TAKE 1 TABLET BY MOUTH EVERY DAY
[2021-10-05] MEDS: IBUPROFEN 400 MG TABLET PO (11:36)
== END 2021-10-05 12:50 | disposition home or self-care (01) ==
LOC: ANHSURGERY 05:56 → ANH2MED 11:19
PROVIDERS: PCP Internal Medicine; Visit Provider Orthopaedic Surgery
PROC: (CPT 23472; principal; 2021-10-04 07:30)
DX: M19.012 Primary osteoarthritis, left shoulder (principal); M65.812 Other synovitis and tenosynovitis, left shoulder; G89.18 Other acute postprocedural pain; M19.90 Unspecified osteoarthritis, unspecified site; I10 Essential (primary) hypertension; E78.5 Hyperlipidemia, unspecified; D50.0 Iron deficiency anemia secondary to blood loss (chronic); I34.0 Nonrheumatic mitral (valve) insufficiency; G47.33 Obstructive sleep apnea (adult) (pediatric); Z86.73 Personal history of transient ischemic attack (TIA), and cerebral infarction without residual deficits; Z87.891 Personal history of nicotine dependence; E66.9 Obesity, unspecified; Z68.30 Body mass index [BMI] 30.0-30.9, adult
CPT/HCPCS: 23472; 64415; 36415; 73030; 85025; 86850; 86900; 86901; 87081; 97110; 97161; 97165; 97530; 97535; A4565; A9270; J0131; J0171; J0330; J0690; J1100; J1885; J2270; J2405; J2704; J2795; J3010; J3370; J7120

== ENCOUNTER 2022-04-02 09:49 | Outpatient (CLI) | payer MEDICARE, SELFPAY | END 2022-04-02 09:50 | disposition home or self-care (01) | LOC: ANHAUDIO 09:50 | PROVIDERS: PCP Internal Medicine; Visit Provider Otolaryngology | DX: H90.42 Sensorineural hearing loss, unilateral, left ear, with unrestricted hearing on the contralateral side (principal) | CPT/HCPCS: 92557; 92567 ==

== ENCOUNTER 2022-09-18 12:21 | Outpatient (CLI) | payer MEDICARE, SELFPAY ==
--- NOTE | 2022-09-18 12:46 | ECHO_ITS ---
Patient Info Name: Sheila Fernández Age: 81 years : 1940 Gender: Female Ht: 66 in Wt: 180 lbs BSA: 1.97 m2 HR: 65 bpm BP: 147 / 72 mmHg Heart Rhythm: Sinus Rhythm Technical Quality: Good Exam Date: 09/18/2022 12:57 PM Exam Location: [facility] Pulmonary Patient Status: Outpatient Admit Date: 09/18/2022 Staff Ordering Physician: Felipe Bautista MD Business Machine Mechanic: Jessica Dewitt RDCS Attending Provider: Felipe Bautista MD Referring Physician: Michele WILLIS; Exam Type: CA echo doppler color flow Study Info Indications R01.1 - Cardiac murmur, unspecified Complete two-dimensional, color flow and Doppler transthoracic echocardiogram is performed. Summary 1. Complete two-dimensional, color flow and Doppler transthoracic echocardiogram is performed. 2. Left ventricular chamber dimension is normal. 3. Left ventricular systolic function is normal, estimated at 60-65%. 4. There is mild concentric increased left ventricular wall thickness. 5. The left ventricular diastolic function is grade I diastolic dysfunction. 6. E/e' 19 is elevated. 7. Left atrial chamber dimension is moderately enlarged. 8. Right atrial chamber dimension is mildly enlarged. 9. There is moderate aortic valve sclerosis. 10. The mitral valve has moderately calcified annulus. 11. There is mild tricuspid valve regurgitation. 12. No pulmonary hypertension, estimated pulmonary arterial systolic pressure is 34 mmHg. Left Ventricle E/e' 19 is elevated. Left ventricular chamber dimension is normal. Left ventricular systolic function is normal, estimated at 60-65%. There is mild concentric increased left ventricular wall thickness. The left ventricular diastolic function is grade I diastolic dysfunction. Right Ventricle Right ventricular systolic function is normal and with normal TAPSE 2.5 cm. Right ventricular chamber dimension is normal. Left Atria Left atrial chamber dimension is moderately enlarged. Right Atria Right atrial chamber dimension is mildly enlarged. Aortic Valve The aortic valve is trileaflet. There is moderate aortic valve sclerosis. There is no aortic valve stenosis. There is no aortic valve regurgitation. Pulmonic Valve There is no pulmonic regurgitation. Mitral Valve The mitral valve has moderately calcified annulus. There is no mitral valve stenosis. There is no mitral valve regurgitation. Tricuspid Valve There is mild tricuspid valve regurgitation. No pulmonary hypertension, estimated pulmonary arterial systolic pressure is 34 mmHg. Pericardium/Pleural There is no pericardial effusion. Inferior Vena Cava Normal inferior vena cava with >50% collapse upon inspiration consistent with normal right atrial pressure, 5 mmHg. Aorta The aortic root size at the sinus of Valsalva is normal. Left Ventricular Outflow Tract Name Value Normal LVOT 2D LVOT Diameter 1.9 cm LVOT Doppler LVOT Peak Gradient 14 mmHg LVOT Mean Gradient 9 mmHg LVOT VTI 45 cm LVOT VTI/AV VTI Ratio 0.8 LVOT Stroke Volume 130 ml LVOT CO 9.9 l/min
== END 2022-09-18 12:22 | disposition home or self-care (01) ==
PROVIDERS: PCP Internal Medicine; Visit Provider Internal Medicine
DX: R01.1 Cardiac murmur, unspecified (principal); I36.1 Nonrheumatic tricuspid (valve) insufficiency
CPT/HCPCS: 93306

== ENCOUNTER 2023-03-20 07:36 | Outpatient (CLI) | payer MEDICARE, SELFPAY ==
--- NOTE | ~2023-03-20 | US_ITS ---
Limited Abdominal Sonogram: Real-time sonographic imaging of the right upper quadrant was performed. Clinical History: Abnormal serum enzyme levels Findings: The liver appears echogenic, with no evidence of mass lesion or bile duct dilatation. Main portal vein demonstrates normal direction of flow. The gallbladder is well distended, and appears no rmal with no evidence of gallstone or wall thickening. The common bile duct measures 4 mm. Probable 8 mm cystic lesion at the pancreatic head region. Visualized aorta and IVC are unremarkable. Impression: Diffuse fatty infiltration of liver. Probable 8 mm cystic lesion at pancreatic head. Reviewed, dictated and finalized at location . HIKER Impression: Diffuse fatty infiltration of liver. Probable 8 mm cystic lesion at pancreatic head.
== END 2023-03-20 07:37 | disposition home or self-care (01) ==
PROVIDERS: PCP Internal Medicine; Visit Provider Internal Medicine
DX: R74.8 Abnormal levels of other serum enzymes (principal); K76.0 Fatty (change of) liver, not elsewhere classified
CPT/HCPCS: 76705

== ENCOUNTER 2023-04-04 08:31 | Outpatient (CLI) | payer MEDICARE, SELFPAY ==
--- NOTE | ~2023-04-04 | MR_ITS ---
EXAMINATION: MR MRCP wo/w con/w 3D wo ind DATE: 04/04/2023 09:57 INDICATION: Abnormal findings on diagnostic imaging. Cystic lesion in the pancreas. TECHNIQUE: Magnetic resonance imaging (MRI) of the abdomen was performed without and with 16 mL Multi Momo intravenous contrast. Sequences included coronal T2-weighted FS FSE, coronal T2-weighted FSE, a xial T1-weighted LAVA, coronal FS FIESTA, axial dual-echo T1-weighted SPGR, coronal lava-FLEX, sagitt al T2-weighted FSE, axial T2-weighted FSE, and axial DWI. Thick-slab T2-weighted FSE images were obta ined for magnetic resonance cholangiopancreatography (MRCP). Maximum intensity projection 3-D reconst ructions of the volumetric data were created by the technologist. Postcontrast sequences included cor onal LAVA-flex and time course of axial T1-weighted LAVA. COMPARISON: Abdomen MRI 08/07/2015, abdomen ultrasound 03/20/2023 FINDINGS: ABDOMEN MRI: There is diffuse hepatic steatosis. There are 2 masses in the liver measuring up to 18 m m with interrupted peripheral puddling of contrast, consistent with hemangiomas. There is a large sli ding hiatal hernia. The gallbladder and spleen are normal. There are 3 cystic lesions of the pancreas measuring up to 10 mm. The largest is stable from 08/07/15, but the other two are new from that time. The adrenal glands are normal. There are cysts in the kidneys measuring up to 3.4 cm on the left. The re are no dilated loops of bowel. There are no pathologically enlarged lymph nodes. There is no free intraperitoneal fluid. ABDOMEN MRCP: The common duct is normal and measures 5 mm. No choledocholithiasis. IMPRESSION: 1. Small cystic lesions of the pancreas. The differential diagnosis includes pseudocyst, intraductal papillary mucinous neoplasm (IPMN), mucinous cystic neoplasm (MCN), serous cystadenoma, and neuroendo crine tumor. Consider abdomen MRI without and with contrast in 2 years. Reviewed, dictated and finalized at location A. B IMPRESSION: 1. Small cystic lesions of the pancreas. The differential diagnosis includes ps eudocyst, intraductal papillary mucinous neoplasm (IPMN), mucinous cystic neopl asm (MCN), serous cystadenoma, and neuroendocrine tumor. Consider abdomen MRI w ithout and with contrast in 2 years.
== END 2023-04-04 08:32 | disposition home or self-care (01) ==
PROVIDERS: PCP Internal Medicine; Visit Provider Internal Medicine
DX: R93.5 Abnormal findings on diagnostic imaging of other abdominal regions, including retroperitoneum (principal)
CPT/HCPCS: 74183; 76376; A9577

== ENCOUNTER 2023-07-17 07:59 | Observation (INO) | payer MEDICARE, SELFPAY ==
[2023-07-17] VITALS (37 sets, daily range): BP systolic 93–188; BP diastolic 51–91; PULSE 81–160; RESP 13–28; TEMP 36.1–36.8; O2SAT 94–100; BMI 30.7
--- NOTE | ~2023-07-17 | XR_ITS ---
EXAMINATION: XR chest 2V DATE: 07/17/2023 09:03 INDICATION: Palpitations. Hypertension. TECHNIQUE: Frontal and lateral views of the chest were obtained. COMPARISON: Chest 2 views 04/06/2021 FINDINGS: There is no pneumonia, pleural effusion, or pneumothorax. The heart size is normal. There i s a moderate-sized hiatal hernia. There are bilateral shoulder arthroplasties. IMPRESSION: 1. Moderate-sized hiatal hernia. Reviewed, dictated and finalized at location A.
--- NOTE | 2023-07-17 08:08 | ECG_ITS ---
Measurements Intervals [place] Rate: 158 P: [place]: 0 QRS: 46 QRSD: 92 T: 0 QT: 288 QTc: 467 Interpretive Statements ATRIAL FLUTTER/TACHYCARDIA WITH RAPID VENTRICULAR RESPONSE ST-T WAVE ABNORMALITY IN ANTEROLATERAL LEADS- CONSIDER ISCHEMIA BASELINE ARTIFACT- I, II, AVR, AVL, V1 ABNORMAL ECG COMPARED TO ECG 11/20/2020 13:16:06 A[address] FLUTTER NOW PRESENT [address]-T WAVE ABNORMALITY NOW PRESENT Electronically Signed On 07-17-2023 9:33:15 CDT by Dain Travis D.O.
[2023-07-17] MEDS: dilTIAZem HCl INJ 25 MG/5 ML VIAL 10 MG IV PUSH ×3 (08:21→10:15)
[2023-07-17] MEDS: SODIUM CHLORIDE 0.9% IV 1,000 ML 999 ML IV CONT (08:25)
[2023-07-17 08:35] LABS: Basophils Percent Auto 0.4 % (0.2-1.2); Eosinophils Absolute Auto 0.1 K/mm3 (0-0.3); Eosinophils Percent Auto 0.9 % (0-4.4); Hemoglobin 13.8 g/dL (12.0-15.0); Immature Granulocyte Absolute 0.02 K/mm3 (0.00-0.031); Immature Granulocyte Percent A 0.3 % (0-0.5); Lymphocytes Absolute Auto 1.35 K/mm3 (0.9-3.2); Lymphocytes Percent Auto 19.9 % (18.3-44.2); Mean Corpuscular HGB Conc 33.7 g/dl (32-36); Mean Corpuscular Hemoglobin 34.9 pg (26-34); Mean Corpuscular Volume 103.8 fl (80-100); Mean Platelet Volume 10.9 fl (7.4-10.4); Monocytes Absolute Auto 0.6 K/mm3 (0.1-0.6); Monocytes Percent Auto 8.5 % (2.6-8.5); Neutrophils Absolute Auto 4.8 K/mm3 (1.3-6.7); Platelet Count Result 274 k/mm3 (150-375); Red Blood Count 3.95 M/mm3 (4.2-5.4); Red Cell Distribution Width 14.6 % (11.5-14.5); White Blood Count 6.8 K/mm3 (4.5-10.0)
--- NOTE | 2023-07-17 08:44 | ECG_ITS ---
Measurements Intervals [place] Rate: 118 P: [place]: 0 QRS: 39 QRSD: 90 T: -30 QT: 341 QTc: 479 Interpretive Statements ATRIAL FLUTTER/TACHYCARDIA WITH RAPID VENTRICULAR RESPONSE EARLY PRECORDIAL R/S TRANSITION NONSPECIFIC ST & T-WAVE ABNORMALITY- DIFFUSE LEADS BASELINE ARTIFACT- I, III, AVR, AVL, AVF, V1 ABNORMAL ECG COMPARED TO ECG 07/17/2023 08:10:56 HEART RATE HAS DECREASED Electronically Signed On 07-17-2023 9:35:53 CDT by Dain Travis D.O.
--- NOTE | 2023-07-17 08:44 | PC.NURSE ---
Nurse notified of lab redraw needed [facility]
[2023-07-17 09:16] LABS: Prothrombin Time 13.7 Seconds (11.1-14.7)
[2023-07-17 09:17] LABS: Partial Thromboplastin Time 25.9 Seconds (22.3-36.8)
--- NOTE | 2023-07-17 09:19 | ED.ARRPALP ---
HPI - Arrhythmia/Palpitations General Chief Complaint: Arrhythmia/Palpitations Stated Complaint: SVT Time Seen by Provider: 07/17/23 08:00 History of Present Illness HPI narrative: Patient is an 82-year-old female who presents ER with heart palpitations. She noticed around 2:00 a.m. that her heart was racing. No real chest pain or shortness of breath. She feels slightly lightheaded. Denies history of arrhythmia in the past. She went to her PCP this morning who noted that her heart rate was quite elevated and they brought her down to the ER for evaluation. Patient reports no caffeine or stimulant use. She does drink wine regularly and had 3-4 glasses last night. Patient appears to be in atrial flutter with a rate in the 150s. Related Data Home Medications Medication Instructions Recorded Confirmed calcium carbonate 500 mg-vitamin 1 tablet PO DAILY 04/11/19 07/17/23 D3 10 mcg (400 unit) tablet (Calcium 500 With D) multivitamin with minerals (Daily 1 tablet PO DAILY 04/11/19 07/17/23 Multivitamin-Minerals tablet) fish, borage, flaxseed oils-omega 1 cap PO DAILY 04/06/21 07/17/23 3,6,9 comb no.1 1,200 mg capsule ([place] 3-6-9) atorvastatin 20 mg tablet 20 mg PO DAILY 07/17/23 07/17/23 ferrous sulfate 325 mg (65 mg 325 mg PO Q12H 07/17/23 07/17/23 iron) tablet hydrochlorothiazide 25 mg tablet 25 mg PO DAILY 07/17/23 07/17/23 irbesartan 300 mg tablet 300 mg PO DAILY 07/17/23 07/17/23 Allergies Allergy/AdvReac Type Severity Reaction Status Date / Time solifenacin AdvReac Mild hair loss Verified 07/17/23 15:35 Review of Systems Review of Systems: All systems reviewed & are unremarkable except as noted in HPI and below Constitutional: Constitutional: Reports no additional constitutional complaints ENT: Reports system reviewed and no additional complaints, except as documented Cardiovascular: Cardiovascular: Denies chest pain, Reports rapid heart rate, Denies radiating jaw, neck or arm pain and Denies slow heart rate Respiratory: Respiratory: Reports no additional respiratory complaints Musculoskeletal: Musculoskeletal: Reports no additional musculoskeletal complaints Neurologic: Reports system reviewed and no additional complaints, except as documented [facility] Past Medical History Medical History (Updated 07/17/23 @ 14:55 by Esperanza Sawyer APRN) Actinic keratosis Alcohol consumption of four to five drinks per day Anemia Ankle fracture, right (~04/2019) Bilateral cataracts Bright red blood per rectum Cough Diaphragmatic hernia without obstruction or gangrene DJD (degenerative joint disease) Eczema coxsackium Eustachian tube dysfunction Fall as cause of accidental injury in home as place of occurrence Fatigue due to depression Gastro-esophageal reflux disease without esophagitis Hair loss History of ankle fracture HTN (hypertension) Hyperlipidemia Iron deficiency anemia Mitral valve regurgitation Obesity ARMEN (obstructive sleep apnea) Osteoarthritis Osteopenia Seasonal allergies Skin lesion Sleep apnea Thin nails TIA (transient ischemic attack) Urinary urgency 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 and removal Surgical History Surgical History History of appendectomy (~04/2014) History of bilateral cataract extraction (~2018) History of cataract surgery History of left shoulder replacement History of reverse total replacement of right shoulder joint (~12/12/20) Status post laser ablation of incompetent vein (~11/2016) Status post phlebectomy (~12/2016) Family History Family History (Updated 07/17/23 @ 15:58 by Mala Jones RN) Grandparent Family history of malignant neoplasm Hypertension Mother Family history of malignant neoplasm Hypertension Sibling Family history of elevated blood lipids Father Family history of cardiovascular disease Family history of congestive heart failure Grandparent Leukemia
[2023-07-17 09:21] LABS: Alanine Aminotransferase 34 U/L (6-35); Albumin Level 4.1 g/dL (3.5-5.1); Alkaline Phosphatase 95 U/L (38-126); Anion Gap 6 mmol/L (8-16); Aspartate Amino Transferase 43 U/L (14-36); Bilirubin,Total 0.6 mg/dL (0.2-1.3); Blood Urea Nitrogen 27 mg/dL (7-17); Calcium 9.4 mg/dL (8.4-10.2); Carbon Dioxide 27 mmol/L (22-30); Chloride 99 mmol/L (98-107); Estimated CRCL calculation 47 ml/min; Estimated Glomerular Filt Rate 60; Glucose 133 mg/dL (65-110); Potassium 3.6 mmol/L (3.4-5.0); Sodium 132 mmol/L (137-145)
[2023-07-17 09:33] LABS: NT Pro B Type Natriuretic Pept 2480 pg/mL (19.9-100); Troponin I 0.032 ng/mL (0.000-0.034)
[2023-07-17] MEDS: dilTIAZem 100 MG/100 ML 100 MG/100 ML BAG 10 MG IV CONT ×2 (10:15→18:46)
[2023-07-17] MEDS: ENOXAPARIN 80 MG/0.8 ML SYRINGE 85 MG SUB-Q (10:16)
[2023-07-17 10:54] LABS: Magnesium 1.8 mg/dL (1.6-2.3)
--- NOTE | 2023-07-17 11:36 | ECG_ITS ---
Measurements Intervals [place] Rate: 99 P: [place]: 0 QRS: 44 QRSD: 90 T: -70 QT: 346 QTc: 446 Interpretive Statements ATRIAL FLUTTER/TACHYCARDIA INCOMPLETE RIGHT BUNDLE BRANCH BLOCK NONSPECIFIC ST & T-WAVE ABNORMALITY- DIFFUSE LEADS ABNORMAL ECG COMPARED TO ECG 07/17/2023 08:46:39 HEART RATE HAS DECREASED Electronically Signed On 07-17-2023 12:45:52 CDT by Dain Travis D.O.
[2023-07-17 12:14] LABS: Troponin I 0.028 ng/mL (0.000-0.034)
--- NOTE | 2023-07-17 12:55 | PC.NURSE ---
food tray ordered
--- NOTE | 2023-07-17 14:28 | PM.IMHP ---
H&P: HPI History of Present Illness Date/Time: 07/17/23 14:28 Chief Complaint: Tachycardia Narrative: 82 y/o F presents here with tachycardia with PMH of YESI, HLD, ARMEN, daily alcohol use, and TIA. Patient presented here via EMS from Michele OSUNA's office. Patient at office for her 4 month BP check. Found to have elevated HR in the 150's. At arrival patient endorsed palpitations today and increased fatigue as of late. No previous palpitations. No associated chest pain, syncope, or dizziness that is new from baseline. Reports some head fullness/dizziness at baseline secondary to her allergies/congestion. No previous hx of dysrhythmia. Denies caffeine or stimulant use. Endorses daily ETOH consumption - approx 3-4 glasses of wine daily. Denies any previous history of thyroid dysfunction, CAD, or OH. not currently experiencing any palpitations or symptoms. Initial VS at presentation: 98.2 F, HR 158, RR 16, 118/66, 99% on RA. ED workup showed: normal WBC and Hgb, MCV 103.8, Na 132, glucose 133, AST 43, trop negative x3, TSH 1.99, and CXR showed moderate sized hiatal hernia. Initial EKG showed atrial flutter/tachycardia with RVR (rate 158). Review of Systems Review of Systems: All systems reviewed & are unremarkable except as noted in HPI and below [facility] Past Medical History Medical History (Updated 07/17/23 @ 14:55 by Esperanza Sawyer, [employer]) Actinic keratosis Alcohol consumption of four to five drinks per day Anemia Ankle fracture, right (~04/2019) Bilateral cataracts Bright red blood per rectum Cough Diaphragmatic hernia without obstruction or gangrene DJD (degenerative joint disease) Eczema coxsackium Eustachian tube dysfunction Fall as cause of accidental injury in home as place of occurrence Fatigue due to depression Gastro-esophageal reflux disease without esophagitis Hair loss History of ankle fracture HTN (hypertension) Hyperlipidemia Iron deficiency anemia Mitral valve regurgitation Obesity ARMEN (obstructive sleep apnea) Osteoarthritis Osteopenia Seasonal allergies Skin lesion Sleep apnea Thin nails TIA (transient ischemic attack) Urinary urgency 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 and removal Surgical History Surgical History History of appendectomy (~04/2014) History of bilateral cataract extraction (~2018) History of cataract surgery History of left shoulder replacement History of reverse total replacement of right shoulder joint (~12/12/20) Status post laser ablation of incompetent vein (~11/2016) Status post phlebectomy (~12/2016) Family History Family History (Updated 07/17/23 @ 15:58 by Mala Jones RN) Grandparent Family history of malignant neoplasm Hypertension Mother Family history of malignant neoplasm Hypertension Sibling Family history of elevated blood lipids Father Family history of cardiovascular disease Family history of congestive heart failure Grandparent Leukemia Social History Social History Smoking packs per day: 0.5 Smoking cigarettes per day: 10.0 Years smoked: 5 Smoking pack-years: 2.50 Smoking status: Former smoker Alcohol intake: current Drinks per week: 28 Alcohol use details: WINE Substance use: never Substance use type: does not use Other substance usage details: 3-4 glasses of wine/a bottle a day Do You Feel Safe in your Home?: Yes Lack of Transportation: No Lack of Food: Never True Current Housing: I Have Housing Concerned About Future Housing: No Difficulty Paying Gas/Electric Bills: No Difficulty Paying for Meds: No Currently Unemployed: No Education: High School Diploma/GED Difficulty w/ Childcare or Family Care: No Living arrangements: alone Gender identity (if verbalized by the patient): Female Spiritual care concerns: No Agree to blood products: Yes Meds Home Medications and Aller
--- NOTE | 2023-07-17 15:10 | ADMGEN ---
This patient, Sheila Fernández, was admitted to IMU Room 212-01. Patient/family oriented to hospital policies and general routines including ID bracelet, bed and alarms, visiting hours, pain management, procedures, bathroom and other care routines, personal items, smoking policy, room service/diet, and visiting hours. Information on how to activate the Rapid Response Team has been discussed. Patient/Family are encouraged to report perceived risks to care and to ask questions if they do not understand what they are told or what they should do.
[2023-07-17 17:52] LABS: Folic Acid > 20.0 ng/mL (2.76->20)
[2023-07-17] MEDS: FERROUS SULFATE 325 MG TABLET DR PO (20:08)
[2023-07-17] MEDS: ENOXAPARIN 100 MG/ML SYRINGE 84 MG SUB-Q (20:09)
[2023-07-17] MEDS: HYDROcodone/acetaminophen (*CRX) 5-325 MG TABLET 1 TAB PO (23:14)
[2023-07-18] VITALS (13 sets, daily range): BP systolic 114–129; BP diastolic 58–70; PULSE 72–105; RESP 18–20; TEMP 36.4–37.3; O2SAT 97–100
--- NOTE | 2023-07-18 | ECHO_ITS ---
Patient Info Name: Sheila Fernández Age: 82 years : 1940 Gender: Female Ht: 65 in Wt: 185 lbs BSA: 1.99 m2 HR: 99 bpm BP: 114 / 63 mmHg Heart Rhythm: Atrial Fibrillation Technical Quality: Fair Exam Date: 07/18/2023 10:18 AM Exam Location: Echo Lab Exam [place]: [facility] [place] [facility] [place] Patient Status: Inpatient Admit Date: 07/17/2023 Staff Ordering Physician: Esperanza Sawyer APRN Infant Nanny: Maria Isabel Oliveros RDCS Attending Provider: Juan R Patel MD Exam Type: CA echo doppler color flow Study Info Complete two-dimensional, color flow and Doppler transthoracic echocardiogram is performed. Summary 1. Complete two-dimensional, color flow and Doppler transthoracic echocardiogram is performed. 2. Left ventricular hypertrophy with normal size and vigorous systolic contractility. 3. Severe biatrial dilation. 4. Calcified mitral valve annulus. 5. Mildly stenotic aortic valve valve area 1.6 cm2. 6. Atrial fibrillation. Left Ventricle Left ventricular chamber dimension is normal. Left ventricular systolic function is normal, estimated at 65-70%. There is moderate concentric increased left ventricular wall thickness. The left ventricular diastolic function is indeterminate. Right Ventricle Right ventricular chamber dimension is normal. Left Atria Left atrial chamber dimension is severely enlarged. Right Atria Right atrial chamber dimension is severely enlarged. Aortic Valve The aortic valve is trileaflet. There is mild aortic valve sclerosis. There is mild aortic valve stenosis with a peak velocity of 240 cm/s, mean gradient of 14 mmHg, and aortic valve area of 1.4 cm2. Pulmonic Valve The pulmonic valve is not well visualized. Mitral Valve The mitral valve has normal leaflets. The mitral valve annulus is moderately calcified. Tricuspid Valve The tricuspid valve leaflets are normal. Pericardium/Pleural The pericardium appears normal. Aorta The aortic root size at the sinus of Valsalva is normal. Left Ventricular Outflow Tract Name Value Normal LVOT 2D LVOT Diameter 2.0 cm LVOT Doppler LVOT Peak Gradient 6 mmHg LVOT Mean Gradient 4 mmHg LVOT VTI 21 cm LVOT VTI/AV VTI Ratio 0.5 LVOT Stroke Volume 65 ml LVOT CO 17.6 l/min LVOT CI 8.8 l/min/m2 Pulmonic Valve Name Value Normal PV Doppler PV Peak Gradient 3 mmHg PV Regurgitation Doppler FL Peak End Diastolic Velocity 106 cm/s Mitral Valve Name Value Normal MV Doppler
[2023-07-18 06:00] LABS: Basophils Percent Auto 0.9 % (0.2-1.2); Eosinophils Absolute Auto 0.1 K/mm3 (0-0.3); Eosinophils Percent Auto 1.8 % (0-4.4); Hematocrit 37.6 % (37.0-47.0); Hemoglobin 12.6 g/dL (12.0-15.0); Hemoglobin A1C 4.9 % (<5.7); Immature Granulocyte Absolute 0.01 K/mm3 (0.00-0.031); Immature Granulocyte Percent A 0.2 % (0-0.5); Lymphocytes Absolute Auto 1.52 K/mm3 (0.9-3.2); Lymphocytes Percent Auto 33.9 % (18.3-44.2); Mean Corpuscular HGB Conc 33.5 g/dl (32-36); Mean Corpuscular Hemoglobin 35.3 pg (26-34); Mean Corpuscular Volume 105.3 fl (80-100); Mean Platelet Volume 10.7 fl (7.4-10.4); Monocytes Absolute Auto 0.6 K/mm3 (0.1-0.6); Monocytes Percent Auto 12.7 % (2.6-8.5); Neutrophils Absolute Auto 2.3 K/mm3 (1.3-6.7); Neutrophils Percent Auto 50.5 % (45.5-73.1); Platelet Count Result 221 k/mm3 (150-375); Red Blood Count 3.57 M/mm3 (4.2-5.4); Red Cell Distribution Width 14.6 % (11.5-14.5); White Blood Count 4.5 K/mm3 (4.5-10.0)
[2023-07-18 06:02] LABS: Alanine Aminotransferase 30 U/L (6-35); Albumin Level 3.9 g/dL (3.5-5.1); Alkaline Phosphatase 72 U/L (38-126); Anion Gap 4 mmol/L (8-16); Aspartate Amino Transferase 39 U/L (14-36); Bilirubin,Total 0.7 mg/dL (0.2-1.3); Blood Urea Nitrogen 30 mg/dL (7-17); Calcium 8.9 mg/dL (8.4-10.2); Carbon Dioxide 28 mmol/L (22-30); Chloride 100 mmol/L (98-107); Estimated CRCL calculation 52 ml/min; Estimated Glomerular Filt Rate > 60; Glucose 95 mg/dL (65-110); Potassium 3.5 mmol/L (3.4-5.0); Sodium 132 mmol/L (137-145)
--- NOTE | 2023-07-18 08:25 | PM.CNCAR ---
Assessment and Plan Assessment and plan (1) Atrial flutter with rapid ventricular response: Code(s): I48.92 - Unspecified atrial flutter Status: Acute Assessment and Plan: This is a new diagnosis. I discussed the pathophysiology, management strategies, and complications with her. She is currently rate controlled on Diltiazem gtt @ 10mg/hr Will continue with rate control strategy for now with plan for outpatient DCCV in ~4 weeks Will shift her to p.o. diltiazem today, 240mg daily [id number] score of 4 (female gender, age, HTN), so anticoagulation is indicated. Will d/c lovenox and start Eliquis 5mg p.o. b.i.d. Echo has been ordered and is pending She has ARMEN but does not use CPAP - encouraged compliance Alcohol moderation/cessation advised If her rate remains controlled on p.o. Diltiazem, she could be discharged later today from a cardiac perspective (2) Essential (primary) hypertension: Code(s): I10 - Essential (primary) hypertension Status: Chronic Assessment and Plan: At goal. (3) Hyperlipidemia: Qualifiers: Hyperlipidemia type: mixed hyperlipidemia Qualified Code(s): E78.2 - Mixed hyperlipidemia Code(s): E78.5 - Hyperlipidemia, unspecified Status: Acute Assessment and Plan: Continue statin. History of Present Illness History of Present Illness Consult date/time: 07/18/23 08:25 Requesting physician: Avinash Gutierrez MD Consult reason: atrial fibrillation Reason For Visit: A flutter w/RVR Narrative: Sheila Fernández is an 82 year old female with hypertension, hyperlipidemia, and new diagnosis of atrial flutter. She was at her primary care doctor's office yesterday for a blood pressure check when her heart rate was recognized to be elevated in the 150's. She was sent to the emergency department where an EKG performed showed atrial flutter with rapid ventricular response. She was given IV diltiazem which resulted in control of her heart rate and she was admitted for observation. She denies any history of cardiac problems including any arrhythmias. She did notice some palpitations yesterday but prior to that denies any palpitations, chest pain, shortness of breath. She does have lower extremity swelling when she eats too much salt. At the time of my visit with her she is lying comfortably in bed and has no complaints. Review of Systems Review of Systems: All systems reviewed & are unremarkable except as noted in HPI and below PMFSH Past Medical History Medical History Actinic keratosis Alcohol consumption of four to five drinks per day Anemia Ankle fracture, right (~04/2019) Bilateral cataracts Bright red blood per rectum Cough Diaphragmatic hernia without obstruction or gangrene DJD (degenerative joint disease) Eczema coxsackium Eustachian tube dysfunction Fall as cause of accidental injury in home as place of occurrence Fatigue due to depression Gastro-esophageal reflux disease without esophagitis Hair loss History of ankle fracture HTN (hypertension) Hyperlipidemia Iron deficiency anemia Mitral valve regurgitation Obesity ARMEN (obstructive sleep apnea) Osteoarthritis Osteopenia Seasonal allergies Skin lesion Sleep apnea Thin nails TIA (transient ischemic attack) Urinary urgency 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 and removal Surgical History Surgical History History of appendectomy (~04/2014) History of bilateral cataract extraction (~2018) History of cataract surgery History of left shoulder replacement History of reverse total replacement of right shoulder joint (~12/12/20) Status post laser ablation of incompetent vein (~11/2016) Status post phlebectomy (~12/2016) Family History Family History Grandparent Family history of malignant neoplasm Hyperten
[2023-07-18] MEDS: CALCIUM/VITAMIN D 500 MG/5 MCG (200 I.U.) TABLET PO (09:17)
[2023-07-18] MEDS: FERROUS SULFATE 325 MG TABLET DR PO (09:17)
[2023-07-18] MEDS: IRBESARTAN 150 MG TABLET 300 MG PO (09:17)
[2023-07-18] MEDS: THERAPEUTIC MULTIVITAMINS/MINERALS TAB (*BKC) 1 TABLET PO (09:17)
[2023-07-18] MEDS: dilTIAZem HCL CD 240 MG CAP.24HR PO (09:17)
[2023-07-18] MEDS: OMEGA 3 POLYUNSAT FATTY ACIDS 1 GM CAP PO (09:17)
[2023-07-18] MEDS: ATORVASTATIN 20 MG TABLET PO (09:18)
[2023-07-18] MEDS: hydroCHLOROthiazide 25 MG TABLET PO (09:18)
[2023-07-18] MEDS: POTASSIUM CHLORIDE 20 MEQ ER TABLET 40 MEQ PO (12:13)
[2023-07-18] MEDS: THIAMINE HCL 50 MG TABLET PO (12:14)
[2023-07-18] MEDS: APIXABAN 5 MG TABLET PO (12:14)
--- NOTE | 2023-07-18 14:20 | PM.DS ---
DS: Admitting Diagnosis Discharge Date 07/18/2023: Admitting Diagnosis (1) Atrial flutter with rapid ventricular response: ?Code(s): I48.92 - Unspecified atrial flutter ?Status:?Acute ?Assessment and Plan: - EKG, initial:? Atrial flutter/tachycardia with RVR, ST-T-wave abnormality in anterolateral leads, baseline artifact. When compared to EKG done in [address]-T-wave abnormality now present. - EKG, most recent repeat:? Atrial flutter/tachycardia, incomplete RBBB nonspecific ST and T-wave abnormality.? When compared to EKG done previously today, heart rate has decreased. - Troponin:? 0.032 -> 0.028 -> 0.030 - CHADSVasc: 6 - cardiology consulted, awaiting recs - started on diltiazem gtt, currently @10 mg/hr, given 10 mg IVP of dilt x3 - given Lovenox 85 mg SQ, continue as 1 mg/kg Q12H (84 mg) - previous echo (09/2022): EF 60-65%, LV systolic function normal grade 1 diastolic dysfunction no pulmonary HTN see full read for further details - update echo, BNP 2480 - add TSH w/reflex, historically normal - telemetry monitoring and admission to IMU (2) Alcohol consumption of four to five drinks per day: ?Code(s): Z78.9 - Other specified health status ?Status:?Acute ?Assessment and Plan: - daily drinker: 3-4 glasses of wine - AST 43, ALT 34, alk-phos 95, total bili 0.6 - no anemia, MCV 103.8 - add folate, thiamine, and B12 levels. Last done in 2020 and normal. - add thiamine and folic acid supplementation (3) HTN (hypertension): ?Code(s): I10 - Essential (primary) hypertension ?Status:?Acute ?Assessment and Plan: - chronic, currently 125/75 - continue home medications:? hydrochlorothiazide 25 mg p.o. daily and irbesartan 300 mg p.o. 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: Code(s): Z79.899 - Other intermediate accountant (current) drug therapy Status: Acute (2) Concussion: Code(s): S06.0X9A - Concussion with loss of consciousness of unspecified duration, initial encounter Status: Acute (3) Mitral murmur: Code(s): I34.0 - Nonrheumatic mitral (valve) insufficiency Status: Chronic (4) Essential (primary) hypertension: Code(s): I10 - Essential (primary) hypertension Status: Chronic (5) Atherosclerosis of aorta: Code(s): I70.0 - Atherosclerosis of aorta Status: Chronic (6) Obesity (BMI 30.0-34.9): Code(s): E66.9 - Obesity, unspecified Status: Acute (7) Arthritis of shoulder region, right: Code(s): M19.011 - Primary osteoarthritis, right shoulder Status: Acute (8) DJD (degenerative joint disease): Qualifiers: Osteoarthritis location: hand Osteoarthritis type: primary Laterality: bilateral Qualified Code(s): M19.041 - Primary osteoarthritis, right hand; M19.042 - Primary osteoarthritis, left hand Code(s): M19.90 - Unspecified osteoarthritis, unspecified site Status: Acute (9) Hyperlipidemia: Qualifiers: Hyperlipidemia type: mixed hyperlipidemia Qualified Code(s): E78.2 - Mixed hyperlipidemia Code(s): E78.5 - Hyperlipidemia, unspecified Status: Acute (10) Tinnitus: Qualifiers: Laterality: bilateral Qualified Code(s): H93.13 - Tinnitus, bilateral Code(s): H93.19 - Tinnitus, unspecified ear Status: Acute (11) Esophageal reflux: Qualifiers: Esophagitis presence: esophagitis presence not specified Qualified Code(s): K21.9 - Gastro-esophageal reflux disease without esophagitis Code(s): K21.9 - Gastro-esophageal reflux disease without esophagitis Status: Acute (12) Alcohol consumption of four to five drinks per day: Code(s): Z78.9 - Other specified health status Status: Acute (13) Atrial flutter with rapid ventricular response: Code(s): I48.92 - Unspecified atrial flutter Status: Acute
[2023-07-23 14:17] LABS: Vitamin B1 24 nmol/L (8-30)
== END 2023-07-18 16:36 | disposition home or self-care (01) ==
LOC: ANHED 09:46 → ANHIMU 11:33
PROVIDERS: Student in an Organized Health Care Education/Training Program; Admitting Provider Internal Medicine; Emergency Provider Emergency Medicine; PCP Internal Medicine; Visit Provider Family Medicine
DX: I48.92 Unspecified atrial flutter (principal); I45.10 Unspecified right bundle-branch block; K44.9 Diaphragmatic hernia without obstruction or gangrene; I10 Essential (primary) hypertension; E78.2 Mixed hyperlipidemia; D50.9 Iron deficiency anemia, unspecified; I35.0 Nonrheumatic aortic (valve) stenosis; I34.81 Nonrheumatic mitral (valve) annulus calcification; E66.9 Obesity, unspecified; Z68.30 Body mass index [BMI] 30.0-30.9, adult; G47.33 Obstructive sleep apnea (adult) (pediatric); Z86.73 Personal history of transient ischemic attack (TIA), and cerebral infarction without residual deficits; Z96.611 Presence of right artificial shoulder joint; Z87.891 Personal history of nicotine dependence; F10.90 Alcohol use, unspecified, uncomplicated; Z79.899 Other long term (current) drug therapy
CPT/HCPCS: 36415; 71046; 80053; 82607; 82746; 83036; 83735; 83880; 84425; 84443; 84484; 85025; 85610; 85730; 93005; 93306; 96361; 96365; 96366; 96372; 96375; 96376; 99285; A9270; G0378; J1650; J7030

== ENCOUNTER 2023-07-31 15:52 | Outpatient (CLI) | payer MEDICARE, SELFPAY ==
--- NOTE | ~2023-07-31 | DEXA_ITS ---
Bone Density Report Name: NAZARIO TATUM Age: 82 Sex: Female Ethnicity: White Date of : 1940 Indication: postmenopausal; screening for osteoporosis; height loss; Referring Provider: LILLY GIMENEZ Study: Bone densitometry was performed. Exam Date: July 31, 2023 Accession number: [id number] Bone Density: Region BMD T-score Z-score Classification AP Spine(L1-L4) 1.001 -0.4 2.3 Normal Femoral Neck (Left) 0.562 -2.6 -0.2 Osteoporosis Total Hip (Left) 0.841 -0.8 1.3 Normal Femoral Neck (Right) 0.571 -2.5 -0.2 Osteoporosis Total Hip (Right) 0.787 -1.3 0.8 Osteopenia Total Hip Mean 0.814 -1.1 1.1 Osteopenia World Health Organization criteria for BMD impression classify patients as: Normal (T-score at or above -1.0), Osteopenia (T-score between -1.0 and -2.5), or Osteoporosis (T-score at or below -2.5). 10-year Fracture Risk: FRAX not reported because: Some T-score for Spine Total or Hip Total or Femoral Neck at or below -2.5 Clinical Information Provided by Patient: Has used the following medications: Vitamin D, Calcium Patient maximum height was 66.5 No regular weight bearing exercise Does not regularly consume dairy products Onset of menses at age 17 Number of children 0 Impression: The patient has osteoporosis, based on the Left Femoral Neck T-score. Discussion: INCREASED RISK OF FRACTURE. BONE DENSITY IS UNDESIRABLY LOW AT ONE OR MORE SKELETAL SITES, CONSISTENT WITH POSTMENOPAUSAL OSTEOPOROSIS. This patient's lowest T-score meets the World Health Organization's (WHO) criteria for osteoporosis at one or more sites (T-score -2.5 or below). In untreated patients, the risk of osteoporotic fracture increases approximately two-fold for each 1.0 SD decrease in T-score. Low bone density is not the only risk factor for fracture; also consider factors such as patient's age, frailty or poor health, risk of falling, risk of injury, previous osteoporotic fracture, family history of osteoporosis, cigarette smoking, low body weight, etc. Not everyone with low bone mineral density has osteoporosis; osteomalacia and other metabolic bone disorders should also be considered. Patients who have osteoporosis should be evaluated for specific diseases and conditions (secondary causes) that may cause or contribute to bone loss. The [place] [employer]ocrinologists (AACE) and National Osteoporosis Foundation (NOF) recommend pharmacologic intervention for all postmenopausal women whose T-score is in this range. The patient should follow a healthful lifestyle (good nutrition with adequate calcium and vitamin D, and appropriate weight-bearing exercise). Follow-Up: Consider a repeat BMD and Vertebral Fracture Assessment (VFA) exam in 2 years or sooner if medically necessary, to reassess this p
== END 2023-07-31 15:53 | disposition home or self-care (01) ==
PROVIDERS: PCP Internal Medicine; Visit Provider Nurse Practitioner Family
DX: Z78.0 Asymptomatic menopausal state (principal); M81.0 Age-related osteoporosis without current pathological fracture; M85.851 Other specified disorders of bone density and structure, right thigh
CPT/HCPCS: 77080

== ENCOUNTER 2023-09-24 15:11 | Outpatient (CLI) | payer MEDICARE, SELFPAY ==
--- NOTE | ~2023-09-24 | MM_ITS ---
EXAMINATION: MM screening savage BI w tao HISTORY: Screening TECHNIQUE: Craniocaudal and mediolateral oblique 3-D tomosynthesis images were obtained and synthetic 2-D images were generated. CAD analysis was submitted and interpreted. COMPARISON: Comparison to multiple prior studies sequentially, with oldest reviewed study dated 01/30. BREAST PARENCHYMAL COMPOSITION: Not dense: There are scattered areas of fibroglandular density. FINDINGS: There is no evidence of suspicious mass, calcification, or architectural distortion to sugg est malignancy in either breast. There has been no suspicious interval change. IMPRESSION: 1. No mammographic evidence of malignancy. 2. Recommend routine screening mammography in one year. BI-RADS Category 1: Negative Reviewed, dictated and finalized at location A.
== END 2023-09-24 15:12 | disposition home or self-care (01) ==
LOC: ANHIMG 15:13
PROVIDERS: PCP Internal Medicine; Visit Provider Internal Medicine
DX: Z12.31 Encounter for screening mammogram for malignant neoplasm of breast (principal)
CPT/HCPCS: 77063; 77067

== ENCOUNTER 2023-11-10 01:07 | Day surgery (SDC) | payer MEDICARE, SELFPAY ==
[2023-11-07 11:15] VITALS: BMI 31.8
[2023-11-10] VITALS (11 sets, daily range): BP systolic 96–134; BP diastolic 62–105; PULSE 88–122; RESP 14–23; TEMP 36.3; O2SAT 96–98; BMI 30.8
--- NOTE | 2023-11-10 07:11 | WPDANESEPPF ---
Anes - Initial Pre Proc Eval Procedure: Operation Date: 11/10/23 09:00 Proposed Procedures p Electrical Cardioversion - Michael Bolden MD Date/Time: 11/10/23 07:11 Surgeon: Michael Bolden MD Pre Op Diagnosis: a-fib Patient Data Age: 82 Gender: F Height: 1.63 m Weight: 84.1 kg Allergies Allergy/AdvReac Type Severity Reaction Status Date / Time solifenacin AdvReac Mild hair loss Verified 11/07/23 11:26 Home Medications Medication Instructions Recorded Confirmed Type calcium carbonate 500 mg-vitamin 1 tablet PO DAILY 04/11/19 11/07/23 History D3 10 mcg (400 unit) tablet (Calcium 500 With D) multivitamin with minerals (Daily 1 tablet PO DAILY 04/11/19 07/31/23 History Multivitamin-Minerals tablet) fish, borage, flaxseed oils-omega 1 cap PO DAILY 04/06/21 07/31/23 History 3,6,9 comb no.1 1,200 mg capsule ([place] 3-6-9) triamcinolone acetonide 0.5 % 1 applic topical BID PRN eczema 05/02/23 07/31/23 Rx topical cream #30 grams ferrous sulfate 325 mg (65 mg 325 mg PO Q12H 07/17/23 07/31/23 History iron) tablet atorvastatin 20 mg tablet See Rx Instructions .Route 08/01/23 11/07/23 Rx .COMPLEX #90 tabs irbesartan 300 mg tablet See Rx Instructions .Route 08/01/23 11/07/23 Rx .COMPLEX #90 tabs hydrochlorothiazide 25 mg tablet 25 mg PO DAILY #90 tabs 08/08/23 11/07/23 Rx Xarelto 20 mg tablet (rivaroxaban) 20 mg PO DAILY #90 tabs 08/13/23 11/07/23 Rx diltiazem HCl 240 mg 240 mg PO QAM #30 caps 10/09/23 11/07/23 Rx capsule,extended release 24 hr, controlled Patient hx anesthesia problems: none Family hx anesthesia problems: none Results Review: All pre-operative results and documents have been reviewed as part of the pre-operative evaluation. [facility] Past Medical History Medical History Actinic keratosis Alcohol consumption of four to five drinks per day Anemia Ankle fracture, right (~04/2019) Bilateral cataracts Bright red blood per rectum Cough Diaphragmatic hernia without obstruction or gangrene DJD (degenerative joint disease) Eczema coxsackium Eustachian tube dysfunction Fall as cause of accidental injury in home as place of occurrence Fatigue due to depression Gastro-esophageal reflux disease without esophagitis Hair loss History of ankle fracture HTN (hypertension) Hyperlipidemia Iron deficiency anemia Mitral valve regurgitation Obesity ARMEN (obstructive sleep apnea) Osteoarthritis Osteopenia Seasonal allergies Skin lesion Sleep apnea Thin nails TIA (transient ischemic attack) Urinary urgency 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 and removal Surgical History Surgical History History of appendectomy (~04/2014) History of bilateral cataract extraction (~2018) History of cataract surgery History of left shoulder replacement History of reverse total replacement of right shoulder joint (~12/12/20) Status post laser ablation of incompetent vein (~11/2016) Status post phlebectomy (~12/2016) Family History Family History Grandparent Family history of malignant neoplasm Hypertension Mother Family history of malignant neoplasm Hypertension Sibling Family history of elevated blood lipids Father Family history of cardiovascular disease Family history of congestive heart failure Grandparent Leukemia Social History Social History Smoking packs per day: 0.5 Smoking cigarettes per day: 10.0 Years smoked: 5 Smoking pack-years: 2.50 Smoking status: Former smoker Alcohol intake: current Drinks per week: 28 Alcohol use details: WINE Substance use: never Substance use type: does not use Other substance usage details: 3-4 glasses of wine/a bottle a day Do You Feel Safe in your Home?: Yes Lack of Tr
--- NOTE | 2023-11-10 07:30 | ECG_ITS ---
Test Date: 2023-11-10 07:28:40 Measurements Intervals [place] Rate: 122 P: 0 TN: 0 QRS: 39 QRSD: 92 T: 11 QT: 288 QTc: 411 Interpretive Statements ATRIAL FIBRILLATION WITH RAPID VENTRICULAR RESPONSE INCOMPLETE RIGHT BUNDLE BRANCH BLOCK NONSPECIFIC ST & T-WAVE ABNORMALITY- DIFFUSE LEADS BASELINE ARTIFACT- I, II, III ABNORMAL ECG No previous ECG available for comparison Electronically Signed On 11-10-2023 08:25:13 CDT by Dain Travis D.O.
[2023-11-10 07:56] LABS: Anion Gap 12 mmol/L (4-12); Blood Urea Nitrogen 16 mg/dL (7-17); Calcium 9.7 mg/dL (8.4-10.2); Carbon Dioxide 26 mmol/L (22-30); Chloride 96 mmol/L (98-107); Estimated CRCL calculation 59 ml/min; Estimated Glomerular Filt Rate > 60; Glucose 98 mg/dL (65-110); Magnesium 1.5 mg/dL (1.6-2.3); Potassium 3.4 mmol/L (3.4-5.0); Sodium 134 mmol/L (137-145)
--- NOTE | 2023-11-10 08:56 | PM.IMHP ---
H&P: HPI History of Present Illness Date/Time: 11/10/23 08:56 Chief Complaint: Recently diagnosed atrial fibrillation, scheduled DC cardioversion Narrative: This is a 82-year-old patient with a history of hypertension and hyperlipidemia who was found to have atrial fibrillation in July of this year during on appointment with her PCP. She was admitted to the hospital and was treated with rate control and anticoagulation. Echocardiogram at the time of that admission did not show any LV dysfunction or significant valvular dysfunction. She does have mild aortic valve stenosis with a valve area of 1.6 cm2. There was also severe biatrial dilation. She was seen in the office in follow-up and was clinically stable an attempt at restoring sinus rhythm electrically has been recommended. She is admitted today for that purpose. Review of Systems Constitutional: Constitutional: Reports no additional constitutional complaints Eyes: Eyes: Reports no additional eye complaints ENT: Reports system reviewed and no additional complaints, except as documented Cardiovascular: Cardiovascular: Reports no additional cardiovascular complaints Respiratory: Respiratory: Reports no additional respiratory complaints Gastrointestinal: Gastrointestinal: Reports no additional gastrointestinal complaints Musculoskeletal: Musculoskeletal: Reports no additional musculoskeletal complaints Integumentary/Breasts: Skin/Breast: Reports system reviewed and no additional complaints, except as docu Neurologic: Reports system reviewed and no additional complaints, except as documented [facility] Past Medical History Medical History Actinic keratosis Alcohol consumption of four to five drinks per day Anemia Ankle fracture, right (~04/2019) Bilateral cataracts Bright red blood per rectum Cough Diaphragmatic hernia without obstruction or gangrene DJD (degenerative joint disease) Eczema coxsackium Eustachian tube dysfunction Fall as cause of accidental injury in home as place of occurrence Fatigue due to depression Gastro-esophageal reflux disease without esophagitis Hair loss History of ankle fracture HTN (hypertension) Hyperlipidemia Iron deficiency anemia Mitral valve regurgitation Obesity ARMEN (obstructive sleep apnea) Osteoarthritis Osteopenia Seasonal allergies Skin lesion Sleep apnea Thin nails TIA (transient ischemic attack) Urinary urgency 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 and removal Surgical History Surgical History History of appendectomy (~04/2014) History of bilateral cataract extraction (~2018) History of cataract surgery History of left shoulder replacement History of reverse total replacement of right shoulder joint (~12/12/20) Status post laser ablation of incompetent vein (~11/2016) Status post phlebectomy (~12/2016) Family History Family History Grandparent Family history of malignant neoplasm Hypertension Mother Family history of malignant neoplasm Hypertension Sibling Family history of elevated blood lipids Father Family history of cardiovascular disease Family history of congestive heart failure Grandparent Leukemia Social History Social History Smoking packs per day: 0.5 Smoking cigarettes per day: 10.0 Years smoked: 5 Smoking pack-years: 2.50 Smoking status: Former smoker Alcohol intake: current Drinks per week: 28 Alcohol use details: WINE Substance use: never Substance use type: does not use Other substance usage details: 3-4 glasses of wine/a bottle a day Do You Feel Safe in your Home?: Yes Lack of Transportation: No Lack of Food: Never True Current Housing: I Have Housing Concerned About Future Housing: No Difficulty Paying Gas/Electric Bills: No Difficu
--- NOTE | 2023-11-10 09:27 | WPDCARDPROC ---
Cardiac Cath Procedure Note Date of procedure:: 11/10/23 Performing physician:: Michael Bolden MD Indication:: Recent onset atrial fibrillation/persistent Brief clinical history:: This is an 82-year-old woman who was recently found to have atrial fibrillation which has been treated with rate control and anticoagulation. An attempt at restoring sinus rhythm electrically has been recommended for today. She is anticoagulated with Xarelto. Heart rate control is being provided with diltiazem. Procedure Procedure performed:: DC cardioversion Sedation/Medication given:: See separately dictated anesthesia no Estimated blood loss:: None Procedure note:: Patient was brought to the postanesthesia unit in the cath cardiac catheterization lab where she was in the postabsorptive state. Defibrillator patches were placed in the AP position. IV access was established in the right arm. She was then sedated by the anesthesia service. When she was well sedated she was counter shocked with 200 joules in a synchronized fashion which transiently restored sinus rhythm for about 3-4 complexes and then atrial fibrillation recurred. I tried this a 2nd time with the exact same response. Findings:: As above Conclusion:: 1. DC cardioversion of atrial fibrillation restoring sinus rhythm only transiently and and then resumption of rate controlled atrial fibrillation. Unsuccessful attempt at restoring and maintaining sinus rhythm Michael Bolden MD [facility]
== END 2023-11-10 12:18 | disposition home or self-care (01) ==
PROVIDERS: PCP Internal Medicine; Visit Provider Specialist
PROC: 5A2204Z Restoration of Cardiac Rhythm, Single (ICD-10-PCS; principal; 2023-11-10 09:00)
DX: I48.19 Other persistent atrial fibrillation (principal); I10 Essential (primary) hypertension; E78.5 Hyperlipidemia, unspecified; I35.0 Nonrheumatic aortic (valve) stenosis; G47.33 Obstructive sleep apnea (adult) (pediatric); D64.9 Anemia, unspecified; K21.9 Gastro-esophageal reflux disease without esophagitis; Z86.73 Personal history of transient ischemic attack (TIA), and cerebral infarction without residual deficits; Z79.01 Long term (current) use of anticoagulants; Z87.891 Personal history of nicotine dependence; E66.9 Obesity, unspecified; Z68.30 Body mass index [BMI] 30.0-30.9, adult
CPT/HCPCS: 36415; 80048; 83735; 92960; J7030

== ENCOUNTER 2024-01-28 08:24 | Outpatient (CLI) | payer MEDICARE, SELFPAY ==
--- NOTE | ~2024-01-28 | US_ITS ---
COMPLETE ABDOMINAL ULTRASOUND Ordering provider: Negra Carlos APRN History: . R74.01 - Elevation of levels of liver transaminase levels . Comparison: March 20, 2023 FINDINGS: LIVER: Normal size and increased echotexture. No focal hepatic lesions or perihepatic fluid collectio ns are identified. Hypoechoic lesion is seen in the right lobe measures 1.4 x 1 x 1.4 cm. Normal flow of the portal vein. GALLBLADDER: Sludge is seen. No evidence for stones, gallbladder wall thickening or pericholecystic f luid collections. A negative sonographic Diana's sign was noted. BILIARY DUCTS: No evidence for intra or extrahepatic biliary dilation. Common bile duct measures 6.3 mm in diameter which is within normal limits. PANCREAS: Normal echotexture and size. Cystic-appearing area of the head of the pancreas which measur es 1.2 x 0.6 x 0.8 cm. UPPER ABDOMINAL AORTA: Normal in caliber. IVC: Patent. FREE FLUID: None. IMPRESSION: Fat infiltration of the liver. Hypoechoic area in the right lobe of the liver which may be a complex cyst versus a small mass versus a fat sparing area. Follow-up advised. Gallbladder sludge. Small cystic area in the head of the pancreas. Unchanged from previous examination. Follow-up advised . Reviewed, dictated and finalized at location A. IMPRESSION: Fat infiltration of the liver. Hypoechoic area in the right lobe of the liver which may be a complex cyst vers us a small mass versus a fat sparing area. Follow-up advised. Gallbladder sludge. Small cystic area in the head of the pancreas. Unchanged from previous examinat ion. Follow-up advised.
== END 2024-01-28 08:25 | disposition home or self-care (01) ==
PROVIDERS: PCP Internal Medicine; Visit Provider Nurse Practitioner Family
DX: R74.01 Elevation of levels of liver transaminase levels (principal); K86.2 Cyst of pancreas
CPT/HCPCS: 76705

== ENCOUNTER 2024-03-29 11:06 | Outpatient (CLI) | payer MEDICARE, SELFPAY ==
--- NOTE | ~2024-03-29 | XR_ITS ---
XR chest 2V Ordering provider: Felipe Bautista MD History: 83 years Female with . R06.02 - Shortness of breath/COUGH/WHEEZING/WEAKNESS . Comparison: None. FINDINGS: MEDIASTINUM: The cardiac silhouette is not enlarged. LUNGS: No infiltrates, effusions or pneumothorax. Emphysematous changes of the lungs. Prominent bronc hovascular markings in the right lower lobe. Early pneumonia is not excluded. OTHER: No free air under the diaphragm. Bilateral shoulder arthroplasty. Degenerative the spine. IMPRESSION: Prominent bronchovascular markings in the right lower lobe with possible early pneumonia. Follow-up a dvised. Reviewed, dictated and finalized at location A. SCOUT IMPRESSION: Prominent bronchovascular markings in the right lower lobe with possible early pneumonia. Follow-up advised.
--- NOTE | ~2024-03-29 | CT_ITS ---
EXAMINATION: CT brain wo con DATE: 03/29/2024 12:02 INDICATION: Unspecified fall, initial encounter. TECHNIQUE: Computed tomography (CT) of the head was performed without intravenous contrast. The mA wa s adjusted according to patient size. Iterative reconstruction technique was employed. The dose-lengt h product was 605.33 mGy-cm. COMPARISON: Head CT 04/10/19 FINDINGS: There are scattered areas of low attenuation in the cerebral white matter. There is no intr acranial hemorrhage, acute infarction, or abnormal intracranial mass lesion. The ventricles are linh l in size. There are likely changes of ocular lens replacement surgeries. There is mild mucosal thick ening in the ethmoid sinuses. The mastoid air cells are normal. IMPRESSION: 1. Worsened moderate nonspecific cerebral white matter disease, which likely represents chronic small vessel ischemic disease. Reviewed, dictated and finalized at location A. WELDER IMPRESSION: 1. Worsened moderate nonspecific cerebral white matter disease, which likely re presents chronic small vessel ischemic disease.
[2024-03-29 11:52] LABS: Basophils Percent Auto 0.3 % (0.2-1.2); Eosinophils Percent Auto 0.2 % (0-4.4); Hematocrit 39.9 % (37.0-47.0); Hemoglobin 13.3 g/dL (12.0-15.0); Immature Granulocyte Absolute 0.02 K/mm3 (0.00-0.031); Immature Granulocyte Percent A 0.3 % (0-0.5); Lymphocytes Absolute Auto 0.66 K/mm3 (0.9-3.2); Lymphocytes Percent Auto 10.5 % (18.3-44.2); Mean Corpuscular HGB Conc 33.3 g/dl (32-36); Mean Corpuscular Hemoglobin 34.2 pg (26-34); Mean Corpuscular Volume 102.6 fl (80-100); Mean Platelet Volume 10.5 fl (7.4-10.4); Monocytes Absolute Auto 0.6 K/mm3 (0.1-0.6); Monocytes Percent Auto 9.7 % (2.6-8.5); Platelet Count Result 270 k/mm3 (150-375); Red Blood Count 3.89 M/mm3 (4.2-5.4); Red Cell Distribution Width 15.2 % (11.5-14.5); White Blood Count 6.3 K/mm3 (4.5-10.0)
[2024-03-29 12:11] LABS: Alanine Aminotransferase 58 U/L (6-35); Albumin Level 3.8 g/dL (3.5-5.1); Alkaline Phosphatase 109 U/L (38-126); Anion Gap 10 mmol/L (4-12); Aspartate Amino Transferase 99 U/L (14-36); Bilirubin,Total 1.2 mg/dL (0.2-1.3); Blood Urea Nitrogen 23 mg/dL (7-17); CRP 1.6 mg/dL (<1.0); Calcium 9.3 mg/dL (8.4-10.2); Carbon Dioxide 30 mmol/L (22-30); Chloride 94 mmol/L (98-107); Cholesterol 159 mg/dL (0-200); Estimated Glomerular Filt Rate > 60; Glucose 102 mg/dL (65-110); HDL Direct 71 mg/dL; Potassium 3.4 mmol/L (3.4-5.0); Sodium 134 mmol/L (137-145); Triglycerides 107 mg/dL (<150)
[2024-03-29 12:21] LABS: Add Urine Microscopic? YES; Appearance Urine Turbid (Clear); Bacteria Urine 4+ /hpf; Bilirubin Urine 3+ (Negative); Blood Urine Non-Hemolyzed Trace (Negative); Color Urine Dark Yellow (Yellow); Glucose Urine UA Negative (Negative); Ketones Urine 1+ mg/dL (Negative); Leukocyte Esterase Ur 3+ LEU/UL (Negative); Need Manual Microscopic Reviewed; Nitrate Urine Positive (Negative); Non Pathogenic Casts >20; Protein Urine 2+ mg/dL (Negative); RBC Urine 21-50 /hpf (0-2); Specific Grav Ur 1.027 (1.001-1.035); Squamous Epithelial Cell Urine Moderate /hpf (Few); WBC Clumps Urine Present /HPF; WBC Urine >100 /hpf (0-3); pH Urine 5.5 (5.0-9.0)
[2024-03-29 12:22] LABS: LDL Cholesterol Direct 56 mg/dL
[2024-03-29 12:32] LABS: Hemoglobin A1C 5.8 % (<5.7)
[2024-03-29 12:40] LABS: Thyroid Stimulating Hormone 0.316 uIU/mL (0.465-4.680)
[2024-03-29 12:49] LABS: Free T4 Free Thyroxine 2.78 ng/mL (0.78-2.19); Vitamin D 25 Hydroxy 62.7 ng/mL
[2024-03-29 14:50] LABS: Erythrocyte Sedimentation Rate 16 mm/hr (0-20)
== END 2024-03-29 11:07 | disposition home or self-care (01) ==
PROVIDERS: PCP Internal Medicine; Visit Provider Internal Medicine
DX: E55.9 Vitamin D deficiency, unspecified (principal); E78.5 Hyperlipidemia, unspecified; I10 Essential (primary) hypertension; R53.1 Weakness; R06.02 Shortness of breath; S09.90XA Unspecified injury of head, initial encounter; W19.XXXA Unspecified fall, initial encounter; Z13.29 Encounter for screening for other suspected endocrine disorder; Z13.1 Encounter for screening for diabetes mellitus; Z79.01 Long term (current) use of anticoagulants; Z79.899 Other long term (current) drug therapy
CPT/HCPCS: 36415; 70450; 71046; 80053; 80061; 81001; 82306; 83036; 84439; 84443; 85025; 85652; 86140; 87077; 87086; 87186

== ENCOUNTER 2024-03-30 11:26 | Outpatient (CLI) | payer MEDICARE, SELFPAY ==
[2024-03-31 09:27] LABS: Triiodothyronine T3 Free 2.9 pg/mL (2.3-4.2)
[2024-04-05 19:18] LABS: Thyroglobulin 29.6 ng/mL; Thyroglobulin Antibodies <1 IU/mL (< or = 1); Thyroid Peroxidase Antibodies 1 IU/mL (<9)
== END 2024-03-30 11:27 | disposition home or self-care (01) ==
LOC: ANHLAB 11:30
PROVIDERS: PCP Internal Medicine; Visit Provider Internal Medicine
DX: R79.89 Other specified abnormal findings of blood chemistry (principal)
CPT/HCPCS: 36415; 84432; 84481; 86376; 86800

== ENCOUNTER 2024-03-30 11:56 | Outpatient (CLI) | payer MEDICARE, SELFPAY ==
--- NOTE | ~2024-03-30 | US_ITS ---
EXAMINATION: US thyroid DATE: 03/30/2024 12:19 INDICATION: Other specified abnormal findings of blood chemistry. Hyperthyroidism. TECHNIQUE: Multiple ultrasound images of the thyroid were obtained. COMPARISON: None. FINDINGS: The right thyroid lobe measures 3.6 x 1.4 x 1.8 cm. The left thyroid lobe measures 2.5 x 1.4 x 1.4 c m. In the right thyroid lobe, there is a 6 mm solid, hypoechoic, wider than tall nodule with smooth margin without echogenic foci (TI-RADS TR4). In the right thyroid lobe, there is a 4 mm nodule. In th e left thyroid lobe, there is a 7 mm mixed cystic and solid, hypoechoic, wider than tall nodule with smooth margin without echogenic foci (TR3). IMPRESSION: 1. Small thyroid nodules, likely not clinically significant. No follow-up is needed. Reviewed, dictated and finalized at location A. NING MULE TENDER IMPRESSION: 1. Small thyroid nodules, likely not clinically significant. No follow-up is ne eded.
== END 2024-03-30 11:57 | disposition home or self-care (01) ==
LOC: MICIMG 11:56
PROVIDERS: PCP Internal Medicine; Visit Provider Internal Medicine
DX: R79.89 Other specified abnormal findings of blood chemistry (principal); E04.2 Nontoxic multinodular goiter
CPT/HCPCS: 76536

== ENCOUNTER 2024-06-28 09:02 | Outpatient (CLI) | payer MEDICARE, SELFPAY ==
--- NOTE | ~2024-06-28 | US_ITS ---
EXAMINATION: US venous doppler [facility] DATE: 06/28/2024 09:50 INDICATION: Bilateral lower limb pain and swelling. Asymptomatic varicose veins. TECHNIQUE: Grayscale ultrasound images without and with compression and Doppler ultrasound images of the bilateral lower extremity veins were obtained. COMPARISON: None. FINDINGS: The visualized portions of right common femoral vein, profunda (deep) femoral vein, femoral vein, pop liteal vein, posterior tibial veins, peroneal veins, gastrocnemius vein and greater saphenous vein ou tflow are patent. Subcutaneous edema at the right calf. The visualized portions of left common femoral vein, profunda femoral vein, femoral vein, popliteal v ein, posterior tibial veins, peroneal veins, gastrocnemius vein and greater saphenous vein outflow ar e patent. Subcutaneous edema at the left calf. IMPRESSION: 1. No deep venous thrombosis in either lower limb. Reviewed, dictated and finalized at location B. RUNNER
--- OUTSIDE RECORDS SUMMARY | 2024-06-28 09:40 | XMS_ITS | Clinical Summary ---
Author Organization [facility] Address [facility] [place] [address] Care Team Providers Care Vehicle Body Maker Name Role Phone Jorge Luis Peters MD Primary Care Provider [phone] Source Comments [facility],non-owned Affiliates and Associated Physician Practices is amultiple site organization consisting of ambulatory clinics and hospital sitesin [place], [place], [place] and [place]. This disclosure is being madepursuant to the Care Everywhere program and may not contain all information available regarding this patient. Last updated 18.[facility] [employer] Medications * Be aware that medications may not be up to date on this document. Alwaysverify current medications with the patient. Medication Sig Dispensed Refills Start Date End Date Status Multiple Vitamins-Minerals (CENTRUM SILVER) TABS Take 1 tablet by mouth DAILY. 12/11/2016 Active calcium citrate-vitamin D (CITRACAL PLUS D) 315-200 MG-UNIT tablet Take 1 tablet by mouth DAILY. 08/27/2016 Active hydroCHLOROthiazide (HYDRODIURIL) 25 MG tablet Take 25 mg by mouth DAILY. 07/21/2016 Active lisinopril (PRINIVIL; ZESTRIL) 40 MG tablet Take 40 mg by mouth DAILY. 07/21/2016 Active aspirin (ASPIRIN) 81 MG tablet Take 81 mg by mouth DAILY. 08/27/2016 Active Cyanocobalamin (B-12) 1000 MCG Take 1 tablet by mouth DAILY. 08/27/2016 Active Active Problems Problem Noted Date Diagnosed Date Venous insufficiency (chronic) (peripheral) 10/2016 Varicose veins of right lowe r extremity with other complications 08/27/2016 Family History Medical History Relation Name Comments Heart Disease Father Status: Deceas ed Cancer Mother Status: d Relation Name Status Comments Father Mother Social History Tobacco Use Types Packs/Day Years Used Date Smoking Tobacco: Former Cigarettes Q uit: 05/05/1972 Smokeless Tobacco: Never Alcohol Use Standard Drinks/Week Comments Yes 3 (1 standard drink = 0.6 oz pur e alcohol) Sex and Gender Information Value Date Recorded Sex Assigned at Not on file Gender Identity Not on file Sexual Orientation Not on file Last Filed Vital Signs Vital Sign Reading Time Taken Comments Blood Pressure 149/78 12/24/2016 2:57 PM CDT Pulse 77 12/24/2016 2:57 PM CDT Temperature 36.6 C (97.8 F) 12/16/2016 10:00 AM CDT Respiratory Rate 18 12/16/2016 10:45 AM CDT Oxygen Saturation 96% 12/24/2016 2:57 PM CDT Inhaled Oxygen Concentration - - Weight 88 kg (194 lb) 12/24/2016 2:57 PM CDT Height 165.1 cm (5' 5 ) 12/24/2016 2:57 PM CDT Body Mass Index 32.28 12/24/2016 2:57 PM CDT Plan of Treatment Health Maintenance Due Date Last Done Comments BONE DENSITY TESTING 1942 DTAP/TDAP/TD VACCINES (1 - Tdap) 1961 PNEUMOCOCCAL VACCINE 50+ (1 of 1 - PCV) 1992 ZOSTER VACCINE (1 of 2) 1992 Respiratory Syncytial Virus (RSV) Vaccine Pt: or over 60 yrs (1 - 1-dose 75+ series) 2017 COVID-19 VACCINE ( - 2023-2 5 season) 2024 INFLUENZA VACCINE (#1) 2024 DEPRESSION SCREENING 05/05/2024 HEPATITIS B VACCINE Aged Out No longe r eligible based on patient's age to complete this topic HIB VACCINE Aged Out No longer eligi ble based on patient's age to complete this topic HPV VACCINE Aged Out No longer eligi ble based on patient's age to complete this topic MENINGOCOCCAL (Group B) VACCINE Aged Out No longer eligible based on patient's age to complete this topic MENINGOCOCCAL VACCINE Aged Out No tiffanie diane eligible based on patient's age to complete this topic Care Teams Vehicle Body Maker Relationship Specialty Start Date End Date Jorge Luis Peters MD [address] [place] [address] PCP - General 04/12/14
--- OUTSIDE RECORDS SUMMARY | 2024-06-28 09:40 | XMS_ITS | Patient Health Summary ---
Author Organization [facility] Address [address] [place] [address] Care Team Providers Care Clinical Documentation Consultant Name Role Phone Jorge Luis Peters MD Primary Care Provider [phone] [facility],non-owned Affiliates and Associated Physician Practices is amultiple site organization consisting of ambulatory clinics and hospital sitesin [place], [place], [place] and [place]. This disclosure is being madepursuant to the Care Everywhere program and may not contain all information available regarding this patient. Last updated 18.[facility] Medications * Be aware that medications may not be up to date on this document. Alwaysverify current medications with the patient. * Multiple Vitamins-Minerals (CENTRUM SILVER) TABS(Started 12/11/2016) Take 1 tablet by mouth DAILY. * calcium citrate-vitamin D (CITRACAL PLUS D) 315-200 MG-UNIT tablet(Started 08/27/2016) Take 1 tablet by mouth DAILY. * hydroCHLOROthiazide (HYDRODIURIL) 25 MG tablet(Started 07/21/2016) Take 25 mg by mouth DAILY. * lisinopril (PRINIVIL; ZESTRIL) 40 MG tablet(Started 07/21/2016) Take 40 mg by mouth DAILY. * aspirin (ASPIRIN) 81 MG tablet(Started 08/27/2016) Take 81 mg by mouth DAILY. * Cyanocobalamin (B-12) 1000 MCG(Started 08/27/2016) Take 1 tablet by mouth DAILY. Active Problems Problem Noted Date Diagnosed Date Venous insufficiency (chronic) (peripheral) 10/2016 Varicose veins of right lowe r extremity with other complications 08/27/2016 Social History Tobacco Use Types Packs/Day Years [...] Mass Index 32.28 12/24/2016 2:57 PM CDT Procedures * BASIC METABOLIC PANEL (CALCIUM TOTAL)(Performed 12/16/2016) * FECAL LEUKOCYTES(Performed 04/08/2014) * CULTURE STOOL+ E COLI SHIGA-LIKE TOXIN(Performed 04/08/2014) * C DIFFICILE GDH AG + TOXIN A+B(Performed 04/08/2014) Results * (ABNORMAL) BASIC METABOLIC PANEL (CALCIUM TOTAL) (12/16/2016 7:00 AM CDT) BUN 27(H) 7 - 26 mg/dL [facility] Creatinine 0.8 0.6 - 1.2 mg/dL [facility] Sodium 142 136 - 145 mmol/L [facility] Potassium 3.5 3.5 - 4.5 mmol/L [facility] Chloride 102 98 - 107 mmol/L [facility] CO2 29 22 - 29 mmol/L [facility] Glucose 105 70 - 115 mg/dL [facility] Calcium 9.1 8.4 - 10.2 mg/dL [facility] Anion Gap 15 8 - 18 [facility] BUN/Creatinine Ratio 34(H) 7 - 23 [facility] Osmolality Calculated 299 270 - 300 mOsm/kg [facility] eGFR >60 >60 mL/min/1.7 3 m2 [facility] Blood specimen (specimen) BLOOD SPECIMEN / Unknown 12/16/2016 7:00 AM CDT 12/16/2016 7:03 AM CDT Robbi Ramos MD LAB - CHEMISTRY [facility] [address] [phone] * CULTURE STOOL+ E COLI SHIGA-LIKE TOXIN (04/08/2014 7:00 AM COUNTER TACKER) Culture Feces No Salmonella, Shigella, Yersinia, Campylobacter or Escherichia Coli 0157:H7 isolated. Negative for Shiga Toxin by Immunoassay. [facility] Stool specimen (specimen) STOOL SPECIMEN / Unknown 04/08/2014 7:00 AM COUNTER TACKER 04/08/2014 1:56 PM COUNTER TACKER Narrative [facility] - 04/12/2014 12:14 PM COUNTER TACKER AndersonSpecimen#[id number] Sergei Loc/Rm/Bed: 2 SURG Historical Provider LAB - MICROBIOLOG Y ORDERABLES Performing Organization Address City/[facility]/ZIP Co de Phone Number [address] [phone] * CLOSTRIDIUM DIFFICILE [facility] + TOXIN A+B (04/08/2014 7:00 AM COUNTER TACKER) C difficile Antigen Negative Negative [facility] C difficile Toxin Negative Negative [facility] Stool specimen (specimen) STOOL SPECIMEN / Unknown 04/08/2014 7:00 AM COUNTER TACKER 04/08/2014 1:56 PM COUNTER TACKER Narrative [facility] - 04/08/2014 8:13 PM COUNTER TACKER AndersonSpecimen#[id number] Sergei Loc/Rm/Bed: 2 SURG Historical Provider LAB - MICROBIOLOG Y ORDERABLES Performing Organization Address [facility]/ZIP Co de Phone Number [address] [phone] * FECAL LEUKOCYTES (04/08/2014 7:00 AM COUNTER TACKER) Fecal Leukocytes No White Blood Cells seen. [facility] Stool specimen (specimen) STOOL SPECIMEN / Unknown 04/08/2014 7:00 AM COUNTER TACKER 04/08/2014 1:56 PM COUNTER TACKER Narrative [facility] - 04/08/2014 3:59 PM COUNTER TACKER AndersonSpecimen#[id number] Sergei Loc/Rm/Bed: 2 SURG/203/01 Historical Provider LAB - BODY FLUID ORDERABLES [address] [phone] Care Teams Clinical Documentation Consultant Relationship Specialty Start Date End Date Jorge Luis Peters MD [address] [place] [address] PCP - General 04/12/14
--- OUTSIDE RECORDS SUMMARY | 2024-06-28 09:40 | XMS_ITS | Referral Summary ---
Author Organization [facility] Address [address] [place] [address] Care Team Providers Care Guest Services Associate Name Role Phone Jorge Luis Peters MD Primary Care Provider [phone] Source Comments [facility],non-owned Affiliates and Associated Physician Practices is amultiple site organization consisting of ambulatory clinics and hospital sitesin [place], [place], [place] and [place]. This disclosure is being madepursuant to the Care Everywhere program and may not contain all information available regarding this patient. Last updated 18.[facility] [employer] Medications * Be aware that medications may [...] 12/24/2016 2:57 PM CDT Plan of Treatment Not on file Care Teams Guest Services Associate Relationship Specialty Start Date End Date Jorge Luis Peters MD [address] [place] [id number] PCP - General 04/12/14
== END 2024-06-28 09:03 | disposition home or self-care (01) ==
PROVIDERS: PCP Internal Medicine; Visit Provider Internal Medicine
DX: M79.89 Other specified soft tissue disorders (principal)
CPT/HCPCS: 93970

== ENCOUNTER 2024-08-06 07:19 | Outpatient (CLI) | payer MEDICARE, SELFPAY ==
--- NOTE | ~2024-08-06 | US_ITS ---
Limited Abdominal Sonogram: Real-time sonographic imaging of the right upper quadrant was performed. Clinical History: Abnormal serum enzyme levels Findings: The liver demonstrate nodular contour, compatible cirrhosis. No mass lesion or intrahepati c below dilatation seen. Main portal vein demonstrates normal direction of flow. The gallbladder is w ell distended, and appears normal with no evidence of gallstone or wall thickening. The common bile d uct measures 6 mm. The visualized pancreas, aorta, and IVC are unremarkable. Also mildly prominent p eripancreatic lymph node measuring 1 cm in maximum diameter. Impression: Cirrhotic morphology of liver. No hepatic mass seen. Mildly prominent probable peripancreatic lymph node measuring 1 cm in diameter, nonspecific. Reviewed, dictated and finalized at location M. Impression: Cirrhotic morphology of liver. No hepatic mass seen. Mildly prominent probable peripancreatic lymph node measuring 1 cm in diameter, nonspecific.
--- OUTSIDE RECORDS SUMMARY | 2024-08-06 07:22 | XMS_ITS | Clinical Summary ---
Author Organization [facility] Address [facility] [facility] [place] [address] Care Team Providers Care Chief Pilot Name Role Phone Jorge Luis Peters MD Primary Care Provider [phone] Source Comments [facility],non-owned Affiliates and Associated Physician Practices is amultiple site organization consisting of ambulatory clinics and hospital sitesin [place], [place], [place] and [place]. This disclosure is being madepursuant to the Care Everywhere program and may not contain all information available regarding this patient. Last updated 18.[facility] Intuit Medications * Be aware that medications may [...] to complete this topic MENINGOCOCCAL (Group B) VACC INE SHARED DECISION-MAKING Aged Out No longer eligibl e based on patient's age to complete this topic MENINGOCOCCAL GROUPS A/C/Y/W VACCINE Aged Out No longer eligible b ased on patient's age to complete this topic Care Teams Chief Pilot Relationship Specialty Start Date End Date Jorge Luis Peters MD [address] [place] [address] PCP - General 04/12/14
== END 2024-08-06 07:20 | disposition home or self-care (01) ==
PROVIDERS: PCP Internal Medicine; Visit Provider Nurse Practitioner Family
DX: R74.8 Abnormal levels of other serum enzymes (principal)
CPT/HCPCS: 76705

== ENCOUNTER 2024-10-13 20:09 | Inpatient (IN) | payer MEDICARE, SELFPAY ==
--- NOTE | ~2024-10-13 | XR_ITS ---
XR chest 2V Ordering provider: Chevy Bull MD History: 83 years Female with . chest pain, SOB . Comparison: March 29, 2024 FINDINGS: MEDIASTINUM: The cardiac silhouette is slightly enlarged. LUNGS: No pneumothorax. Bilateral basal atelectasis versus pneumonia with bilateral pleural effusion. OTHER: No free air under the diaphragm. Bilateral shoulder arthroplasty. IMPRESSION: Bilateral basal atelectasis versus pneumonia with bilateral pleural effusion. Slight cardiomegaly. Possibility of pericardial effusion cannot be excluded. Reviewed, dictated and finalized at location A.
--- NOTE | 2024-10-13 20:11 | ECG_ITS ---
Test Date: 2024-10-13 20:17:05 Measurements Intervals [place] Rate: 98 P: 0 [place]: 0 QRS: 50 QRSD: 99 T: -36 QT: 356 QTc: 455 Interpretive Statements ATRIAL FIBRILLATION WITH ABERRANT CONDUCTION OR VENTRICULAR PREMATURE COMPLEXES LOW QRS VOLTAGE IN PRECORDIAL LEADS INCOMPLETE RIGHT BUNDLE BRANCH BLOCK BORDERLINE ST-T WAVE ABNORMALITY- ANTEROLAT/INF LEADS BASELINE ARTIFACT- I, II ABNORMAL ECG Compared to ECG 11/10/2023 07:28:40 HEART RATE HAS DECREASED Electronically Signed On 10-14-2024 06:00:21 CDT by Dain Travis D.O.
--- OUTSIDE RECORDS SUMMARY | 2024-10-13 20:11 | XMS_ITS | Clinical Summary ---
Author Organization [facility] Address [facility] [facility] [place] [address] Care Team Providers Care Veneer Manufacturer Name Role Phone Jorge Luis Peters MD Primary Care Provider Source Comments [facility],non-owned Affiliates and Associated Physician Practices is amultiple site organization consisting of ambulatory clinics and hospital sitesin [place], [place], [place] and [place]. This disclosure is being madepursuant to the Care Everywhere program and may not contain all information available regarding this patient. Last updated 18.[facility] Symptify Medications * Be aware that medications may not be up to date on this document. Alwaysverify current medications with the patient. Multiple Vitamins-Mineral s (CENTRUM SILVER) TABS Take 1 tablet by mouth DAILY. 12/11/2016 Active calcium citrate-vitamin D (CITRACAL PLUS D) 315-200 MG-UNIT tablet Take 1 tablet by mouth DAILY. 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
--- OUTSIDE RECORDS SUMMARY | 2024-10-13 20:11 | XMS_ITS ---
Author Name Auto Generated, Auto Generated Organization [facility] Address [address] [place] [address] Phone [phone] Care Team Providers Care Records Technician Name Role Phone Alannah Soto Unavailable Unavailable Juan Bautistaor Toño Unavailable [phone] Functional Status No Results Mental Status No Results Allergies and Intolerances Name Onset Date Reaction Severity solifenacin (Allergy) FriOct 04 12:27:00 EDT 20 red (food color) (Allergy) FriOct 04 12:27:00 E DT 2024 Encounters Program Name Primary Diagnosis Admission Date/Time Dis charge Date/Time [facility] FriJul 05 19:00:00 EST 2024Aug 27 19:59:00 EDT 2024 Home Care Essential (primary) hypertension FriSeptember 23 20:00:00 EDT 2024 null FriJun 30 19:00 :00 EST 2024 Medications Medication Directions Start Date End Date metoprolol succinate ER 50 mg tablet,extended release 24 hr 1 TAB TABLET, EXTENDED RELEASE 24 HR Oral 2 Times Daily FriSeptember 24 01:00:00 EDT 2024 atorvastatin 20 mg tablet 1 TAB TABLET O ral Every 1 Day FriSeptember 24:00:00 EDT 2024 potassium chloride ER 10 mEq tablet,extended release 1 TAB TABLET, EXTENDED RELEASE Oral Every 1 Day FriSeptember 24:00:00 EDT 2024 furosemide 20 mg tablet 1 TAB TABLET Ora l Every 1 Day FriSeptember 24:00:00 EDT 2024 Xarelto 20 mg tablet 1 TAB TABLET Oral E very 1 Day FriSeptember 24:00:00 EDT 2024 irbesartan 300 mg tablet 1 TAB TABLET Or al Every 1 Day FriSeptember 24 01:00:00 EDT 2024 Super B-50 Complex capsule 1 CAP CAPSULE Oral Every 1 Day FriSeptember 24 01:00:00 EDT 2024 Hair,Skin and Nails tablet 2 GUMMIES TAB LET Oral Every 1 Day FriSeptember 24 01:00:00 EDT 2024 Calcium 600 mg D3 800 IU 1 TAB Oral 2 Ti mes Daily FriSeptember 24 01:00:00 EDT 2024 Cipro 250 mg tablet 1 TAB TABLET Oral 2 Times Daily for 10 Days FriSeptember 24 01:00:00 EDT 2024Oct 04 00:59:00 EDT 2024 acetaminophen 500 mg tablet 1-2 TAB TABL ET Oral PRN Every 6 Hours PRN PAIN OR FEVER FriSeptember 24 01:00:00 EDT 2024 Problems Active Concerns * Localized edema* Code: * Start Date: FriJul 06 00:00:00 EST 2024 * End Date: * Text: * Weakness* Code: * Start Date: FriJul 06 00:00:00 EST 2024 * End Date: * Text: * Personal history of transient ischemic attack (TIA), and cerebral infarction without residual deficits* Code: * Start Date: FriJul 06 00:00:00 EST 2024 * End Date: * Text: * Cognitive communication deficit* Code: * Start Date: FriJul 06 00:00:00 EST 2024 * End Date: * Text: * Presence of left artificial shoulder joint* Code: * Start Date: FriSeptember 24 00:00:00 EDT 2024 * End Date: * Text: * Presence of right artificial shoulder joint* Code: * Start Date: FriSeptember 24 00:00:00 EDT 2024 * End Date: * Text: * Personal history of nicotine dependence* Code: * Start Date: FriSeptember 24 00:00:00 EDT 2024 * End Date: * Text: * 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 therapy* Code: * Start Date: FriSeptember 24 00:00:00 EDT 2024 * End Date: * Text: * Dependence on other enabling machines and devices* Code: * Start Date: FriSeptember 24 00:00:00 EDT 2024 * End Date: * Text: * Thyrotoxicosis, unspecified without thyrotoxic crisis or storm* Code: * Start Date: FriSeptember 24 00:00:00 EDT 2024 * End Date: * Text: * Anemia, unspecified* Code: * Start Date: FriSeptember 24 00:00:00 EDT 2024 * End Date: * Text: * Hyperlipidemia, unspecified* Code: * Start Date: FriSeptember 24 00:00:00 EDT 2024 * End Date: * Text: * Orthostatic hypotension* Code: * Start Date: FriSeptember 24 00:00:00 EDT 2024 * End Date: * Text: * Obstructive sleep apnea (adult) (pediatric)* Code: * Start Date: FriSeptember 24 00:00:00 EDT 2024 * End Date: * Text: * Unspecified cataract* Code: * Start Date: FriSeptember 24 00:00:00 EDT 2024 * End Date: * Text: * Gastro-esophageal reflux disease without esophagitis* Code: * Start Date: FriSeptember 24 00:00:00 EDT 2024 * End Date: * Text: * Cardiac murmur, unspecified* Code: * Start Date: FriSeptember 24 00:00:00 EDT 2024 * End Date: * Text: * Other seasonal allergic rhinitis* Code: * Start Date: FriSeptember 24 00:00:00 EDT 2024 * End Date: * Text: * Other specified disorders of bone density and structure, unspecified site* Code: * Start Date: FriSeptember 24 00:00:00 EDT 2024 * End Date: * Text: * Unspecified hearing loss, bilateral* Code: * Start Date: FriSeptember 24 00:00:00 EDT 2024 * End Date: * Text: * Cyst of pancreas* Code: * Start Date: FriSeptember 24 00:00:00 EDT 2024 * End Date: * Text: * Unspecified atrial fibrillation* Code: * Start Date: FriSeptember 24 00:00:00 EDT 2024 * End Date: * Text: * Essential (primary) hypertension* Code: * Start Date: FriSeptember 24 00:00:00 EDT 2024 * End Date: * Text: Reason for Referral
[2024-10-13 20:13] VITALS: BP 104/63; PULSE 98; RESP 22; TEMP 36.7; O2SAT 99
[2024-10-13 21:08] VITALS: O2SAT 96
[2024-10-13 21:12] LABS: Basophils Percent Auto 0.4 % (0.2-1.2); Eosinophils Absolute Auto 0.1 K/mm3 (0-0.3); Eosinophils Percent Auto 1.5 % (0-4.4); Hematocrit 25.5 % (37.0-47.0); Immature Granulocyte Absolute 0.02 K/mm3 (0.00-0.031); Immature Granulocyte Percent A 0.4 % (0-0.5); Lymphocytes Absolute Auto 0.64 K/mm3 (0.9-3.2); Lymphocytes Percent Auto 14.1 % (18.3-44.2); Mean Corpuscular HGB Conc 27.1 g/dl (32-36); Mean Corpuscular Hemoglobin 19.3 pg (26-34); Mean Corpuscular Volume 71.4 fl (80-100); Mean Platelet Volume 10.3 fl (7.4-10.4); Monocytes Absolute Auto 0.8 K/mm3 (0.1-0.6); Monocytes Percent Auto 17.1 % (2.6-8.5); Neutrophils Percent Auto 66.5 % (45.5-73.1); Nucleated Red Blood Cells Perc 1.1 % (0.0-0.2); Platelet Count Result 332 k/mm3 (150-375); Red Blood Count 3.57 M/mm3 (4.2-5.4); Red Cell Distribution Width 20.1 % (11.5-14.5); White Blood Count 4.6 K/mm3 (4.5-10.0)
--- NOTE | 2024-10-13 21:14 | ED_ITS ---
HPI - General Adult General Chief complaint: Chest Pain Stated complaint: chest pain, sob Time Seen by Provider: 10/13/24 20:49 History of Present Illness HPI narrative: 83-year-old female with history of AFib anticoagulation presenting for progressive dyspnea over last several months. [facility] Since then she has had progressively worse swelling of her lower extremities and now has pain edema to her hips. She has been unable to participate in physical therapy due to dyspnea on minimal amounts of exertion. She is unable to lay flat at night. She denies fevers chills chest pain abdominal pain urinary symptoms nausea vomiting diarrhea. She has no history of congestive heart failure. Related Data Home Medications ?Medication ?Instructions ?Recorded ?Confirmed ?Last Taken ?Type biotin 10,000 mcg chewable tablet 20,000 mcg PO 04/27/24 10/12/24 Unknown History (Hair, Skin and Nails (biotin)) vitamin B complex 1 tablet PO DAILY 04/30/24 10/12/24 Unknown History Calcium BYMOUTH 09/08/24 10/12/24 Unknown History Allergies Allergy/AdvReac Type Severity Reaction Status Date / Time red dye AdvReac Severe Rash Verified 10/13/24 20:09 solifenacin AdvReac Mild hair loss Verified 10/13/24 20:09 [facility] Past Medical History Medical History Actinic keratosis Alcohol consumption of four to five drinks per day Anemia Ankle fracture, right (~04/2019) Bilateral cataracts Bilateral edema of lower extremity BMI 27.0-27.9,adult BMI 28.0-28.9,adult BMI 29.0-29.9,adult BMI 30.0-30.9,adult BMI 31.0-31.9,adult BMI 34.0-34.9,adult Bright red blood per rectum Cough Diaphragmatic hernia without obstruction or gangrene DJD (degenerative joint disease) Eczema coxsackium Eustachian tube dysfunction Fall Fall as cause of accidental injury in home as place of occurrence Fatigue due to depression Gastro-esophageal reflux disease without esophagitis Hair loss History of ankle fracture HTN (hypertension) Hyperlipidemia Hyperthyroidism Impaired functional mobility, balance, gait, and endurance Iron deficiency anemia Mitral valve regurgitation Obesity Orthostatic hypotension ARMEN (obstructive sleep apnea) Osteoarthritis Osteopenia Pedal edema Seasonal allergies Skin lesion Sleep apnea Thin nails TIA (transient ischemic attack) Urinary urgency 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 and removal Weakness Surgical History Surgical History History of appendectomy (~04/2014) History of bilateral cataract extraction (~2018) History of cataract surgery History of left shoulder replacement History of reverse total replacement of right shoulder joint (~12/12/20) Status post laser ablation of incompetent vein (~11/2016) Status post phlebectomy (~12/2016) Family History Family History Grandparent Family history of malignant neoplasm Hypertension Mother Family history of malignant neoplasm Hypertension Sibling Family history of elevated blood lipids Father Family history of cardiovascular disease Family history of congestive heart failure Grandparent Leukemia Social History Social History Smoking packs per day: 0.5 Smoking cigarettes per day: 10.0 Years smoked: 5 Smoking pack-years: 2.50 Smoking status: Former smoker Alcohol intake: current Drinks per week: 28 Alcohol use details: WINE Substance use: never Substance use type: does not use Other substance usage details: 3-4 glasses of wine/a bottle a day Do You Feel Safe in your Home?: Yes Lack of Transportation: No Lack of Food: Never True Current Housing: I Have Housing Concerned About Future Housing: No Difficulty Paying Gas/Electric Bills: No Difficulty Paying for Meds: No Currently Unemployed: No Education: High School Diploma/GED Difficulty w/ Childcare or Family Care: No Living arrangements: alone Gender identity (if verbalized by the patient): Female Spiritual care concerns: No Agree to blood products: Yes Exam 2 Narrative: APPEARANCE: No apparent distress. Head: atraumatic. EYES: EOMI, NOSE: Atraumatic NECK: Trachea midline RESPIRATORY: 4-5 word dyspnea saturating well on room air, faint end-expiratory wheeze, CARDIOVASCULAR: RRR, pitting edema through the hips ABDOMINAL: Non-distended soft nontender MUSCULOSKELETAl: No obvious deformities NEURO: Alert. Moving 4/4 extremities SKIN:: Warm, dry. Normal color PSYCHIATRIC: Normal affect Course Vital Signs Vital signs: Vital Signs Temperature 98.1 F 10/13/24 20:13 Pulse Rate 98 10/13/24 20:13 Respiratory Rate 22 H 10/13/24 20:13 Blood Pressure 104/63 10/13/24 20:13 Pulse Oximetry 99 10/13/24 20:13 Oxygen Delivery Room Air 10/13/24 20:13 Temperature 98.1 F 10/13/24 20:13 Pulse Rate 98 10/13/24 20:13 Respiratory Rate 22 H 10/13/24 20:13 Blood Pressure 104/63 10/13/24 20:13 Pulse Oximetry 96 10/13/24 21:08 Oxygen Delivery Room Air 10/13/24 21:08 Medical Decision Making MDM Narrative Medical decision making narrative: -Course: This is an 83-year-old female presenting for worsening shortness of breath. She has had progressively worse swelling of her lower extremities. She has orthopnea. Workup significant for hemoglobin of 6.9 with an MCV of 71. Rectal exam did not reveal melanotic or bloody stools. Hemoccult negative. Patient received 1 normal PRBCs for symptomatic anemia. BNP elevated at 2300. Tropes negative. EKG showed Atrial fibrillation Chest x- ray shows mild cardiomegaly w/ pleural effusion. Review of previous echocardiogram 07/16 showed vigorous systolic contractility significant biatrial enlargement and mild aortic stenosis w/ area of 1.4-1.6cm2. Patient given 40 mg of IV Lasix for diuresis. Patient be admitted hospital for further management. -DDX includes but is not limited to: Symptomatic anemia, GI bleed, high output heart failure, congestive heart failure, debility Vital Signs Vital Signs: Vital Signs Temperature 98.1 F 10/13/24 20:13 Pulse Rate 98 10/13/24 20:13 Respiratory Rate 22 H 10/13/24 20:13 Blood Pressure 104/63 10/13/24 20:13 Pulse Oximetry 99 10/13/24 20:13 Oxygen Delivery Room Air 10/13/24 20:13 Temperature 98.1 F 10/13/24 20:13 Pulse Rate 98 10/13/24 20:13 Respiratory Rate 22 H 10/13/24 20:13 Blood Pressure 104/63 10/13/24 20:13 Pulse Oximetry 96 10/13/24 21:08 Oxygen Delivery Room Air 10/13/24 21:08 Lab Data 10/13/24 21:07 10/13/24 21:07 Labs: Lab Results 10/13/24 Range/Units 21:07 WBC 4.6 (4.5-10.0) K/mm3 RBC 3.57 L (4.2-5.4) M/mm3 Hgb 6.9 L* D (12.0-15.0) g/dL Hct 25.5 L (37.0-47.0) % MCV 71.4 L (80-100) fl MCH 19.3 L (26-34) pg MCHC 27.1 L (32-36) g/dl RDW 20.1 H (11.5-14.5) % Plt Count 332 (150-375) k/mm3 MPV 10.3 (7.4-10.4) fl Immature Gran % (Auto) 0.4 (0-0.5) % Neut % (Auto) 66.5 (45.5-73.1) % Lymph % (Auto) 14.1 L (18.3-44.2) % Calloway % (Auto) 17.1 H (2.6-8.5) % Eos % (Auto) 1.5 (0-4.4) % Baso % (Auto) 0.4 (0.2-1.2) % Lymph # (Auto) 0.64 L (0.9-3.2) K/mm3 Calloway # (Auto) 0.8 H (0.1-0.6) K/mm3 Eos # (Auto) 0.1 (0-0.3) K/mm3 Baso # (Auto) 0.0 (0.0-0.1) K/mm3 Abs Immat Gran (auto) 0.02 (0.00-0.031) K/mm3 Absolute Neuts (auto) 3.0 (1.3-6.7) K/mm3 Absolute Nucleated RBC 0.050 H (0.0-0.012) K/mm3 Band Neutrophils % 0 (0-6) % Nucleated RBC % 1.1 H (0.0-0.2) % Platelet Estimate Adequate (Adequate) Hypochromasia 1+ Target Cells 1+ Ovalocytes 1+ Schistocytes None seen PT 19.6 H (11.1-14.7) Seconds INR 1.7 APTT 31.4 (22.3-36.8) Seconds Sodium 141 (137-145) mmol/L Potassium 3.6 (3.4-5.0) mmol/L Chloride 102 (98-107) mmol/L Carbon Dioxide 33 H (22-30) mmol/L Anion Gap 6 (4-12) mmol/L BUN 29 H (7-17) mg/dL Creatinine 0.99 (0.7-1.0) mg/dL Estim Creat Clear Calc 44 ml/min Estimated GFR 54 L (59 - ) Glucose 90 (65-110) mg/dL Calcium 8.5 (8.4-10.2) mg/dL Iron Pending TIBC Pending % Saturation Pending Ferritin Pending Total Bilirubin 0.8 (0.2-1.3) mg/dL AST 44 H (14-36) U/L ALT 34 (6-35) U/L Alkaline Phosphatase 103 (38-126) U/L Troponin I < 0.012 (0.000-0.034) ng/mL NT-Pro-B Natriuret Pep 2300 H (19.9-100) pg/mL Total Protein 6.5 (6.3-8.2) g/dL Albumin 3.5 (3.5-5.1) g/dL Lipase 111 (23-300) U/L Vitamin B12 Pending Folate Pending TSH (Reflex) Pending Influenza A (RT-PCR) Negative (Negative) Influenza B (RT-PCR) Negative (Negative) RSV (RT-PCR) Negative (Negative) SARS-CoV-2 RNA (RT-PCR) Negative (Negative) Discharge Plan Discharge Clinical Impression: Debility, Anemia, Edema, Orthopnea Patient Disposition: Still a Patient Condition: Stable Patient Language: Andorran Prescriptions: No Action potassium chloride [Klor-Con 10] 10 mEq tablet extended release 10 meq PO DAILY 30 Days Qty: 30 2RF Xarelto 20 mg tablet 20 mg PO DAILY Qty: 90 0RF Rx Instructions: must administer with evening meal Hair, Skin and Nails (biotin) 10,000 mcg tablet,chewable 20,000 mcg PO vitamin B complex Tablet 1 tablet PO DAILY Calcium BYMOUTH furosemide 20 mg tablet 20 mg PO QAM Qty: 90 1RF Rx Instructions: Please D/C the HCTZ. Thank you metoprolol succinate 50 mg tablet extended release 24 hr 50 mg PO BID Qty: 180 1RF irbesartan 300 mg tablet See Rx Instructions .ROUTE .COMPLEX Qty: 90 1RF Dose Instruction: TAKE 1 TABLET BY MOUTH EVERY DAY Rx Instructions: TAKE 1 TABLET BY MOUTH EVERY DAY atorvastatin 20 mg tablet See Rx Instructions .ROUTE .COMPLEX Qty: 90 0RF Dose Instruction: TAKE 1 TABLET BY MOUTH EVERY DAY Rx Instructions: TAKE 1 TABLET BY MOUTH EVERY DAY ciprofloxacin HCl 250 mg tablet 250 mg PO Q12H Qty: 20 0RF Follow-up/Referrals: Felipe Bautista MD [Primary Care Provider] -
--- OUTSIDE RECORDS SUMMARY | 2024-10-13 21:25 | XMS_ITS | Clinical Summary ---
Author Organization [facility] Address [facility] [facility] [address] [place] [address] Care Team Providers Care Junior Staff Accountant Name Role Phone Jorge Luis Peters MD Primary Care Provider [phone] Source Comments [facility],non-owned Affiliates and Associated Physician Practices is amultiple site organization consisting of ambulatory clinics and hospital sitesin [place], [place], [place] and [place]. This disclosure is being madepursuant to the Care Everywhere program and may not contain all information available regarding this patient. 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
--- OUTSIDE RECORDS SUMMARY | 2024-10-13 21:25 | XMS_ITS ---
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
[2024-10-13 21:32] LABS: Hemoglobin 6.9 g/dL (12.0-15.0)
[2024-10-13 21:35] LABS: Band Neutrophils Percent 0 % (0-6); Hypochromasia 1+; Ovalocytes 1+; Platelet Estimate Adequate (Adequate); Schistocytes None Seen; Target Cells 1+
[2024-10-13 21:41] LABS: Alanine Aminotransferase 34 U/L (6-35); Albumin Level 3.5 g/dL (3.5-5.1); Alkaline Phosphatase 103 U/L (38-126); Anion Gap 6 mmol/L (4-12); Aspartate Amino Transferase 44 U/L (14-36); Bilirubin,Total 0.8 mg/dL (0.2-1.3); Blood Urea Nitrogen 29 mg/dL (7-17); Calcium 8.5 mg/dL (8.4-10.2); Carbon Dioxide 33 mmol/L (22-30); Chloride 102 mmol/L (98-107); Estimated CRCL calculation 44 ml/min; Estimated Glomerular Filt Rate 54; Glucose 90 mg/dL (65-110); Lipase 111 U/L (23-300); Potassium 3.6 mmol/L (3.4-5.0); Sodium 141 mmol/L (137-145); Total Protein 6.5 g/dL (6.3-8.2)
[2024-10-13 21:48] LABS: Influenza A QL RT-PCR Negative (Negative); Influenza B QL RT-PCR Negative (Negative); RSV RNA, RT-PCR Negative (Negative); SARS-CoV-2 RNA PCR Negative (Negative)
[2024-10-13 21:53] LABS: NT Pro B Type Natriuretic Pept 2300 pg/mL (19.9-100); Troponin I < 0.012 ng/mL (0.000-0.034)
[2024-10-13 22:08] LABS: INR 1.7; Prothrombin Time 19.6 Seconds (11.1-14.7)
[2024-10-13 22:09] LABS: Partial Thromboplastin Time 31.4 Seconds (22.3-36.8)
--- NOTE | 2024-10-13 23:44 | ECG_ITS ---
Test Date: 2024-10-13 23:28:55 Measurements Intervals [place] Rate: 97 P: 0 [place]: 0 QRS: 60 QRSD: 93 T: -36 QT: 358 QTc: 455 Interpretive Statements ATRIAL FIBRILLATION INCOMPLETE RIGHT BUNDLE BRANCH BLOCK DELAYED PRECORDIAL R/S TRANSITION NONSPECIFIC ST & T-WAVE ABNORMALITY- INF/LAT LEADS BASELINE ARTIFACT- I, II, III, AVR, AVL, AVF, V1 ABNORMAL ECG Compared to ECG 10/13/2024 20:17:05 NO SIGNIFICANT CHANGE Electronically Signed On 10-14-2024 05:50:35 CDT by Dain Travis D.O.
[2024-10-14] VITALS (22 sets, daily range): BP systolic 114–142; BP diastolic 70–95; PULSE 55–109; RESP 16–28; TEMP 36.2–36.7; O2SAT 93–100; BMI 36.9
--- NOTE | 2024-10-14 | ECHO_ITS ---
Patient Info Name: Sheila Fernández Age: 83 years : 1940 Gender: Female Ht: 65 in Wt: 199 lbs BSA: 2.07 m2 HR: 100 bpm BP: 117 / 81 mmHg Technical Quality: Good Exam Date: 10/14/2024 8:33 AM Patient Status: I Admit Date: 10/14/2024 Exam Type: CA echo doppler color flow Complete two-dimensional, color flow and Doppler transthoracic echocardiogram is performed. Staff Referring Physician: Chevy Bull [employer] Silverer: Misty Oneal Attending Provider: Verónica Alvarado Summary 1. Complete two-dimensional, color flow and Doppler transthoracic echocardiogram is performed. 2. The left ventricle is normal in size and systolic function. There is severe concentric hypertrophy. The left ventricular ejection fraction is visually estimated to be 60-65%. 3. The right ventricle is moderately dilated with normal systolic function. 4. There is a atrial septal defect. 5. The aortic valve is trileaflet and heavily calcified. The Doppler gradients are suboptimal and there appears to be at least mild aortic stenosis visually. 6. The tricuspid valve is normal. There is malcoaptation of the tricuspid valve leaflets likely secondary to annular dilatation. There is massive tricuspid regurgitation. 7. Dilated inferior vena cava with <50% collapse upon inspiration consistent with significantly elevated right atrial pressure, 15 mmHg. 8. Pulmonary arterial systolic pressure is estimated at 63 mmHg. There is moderate pulmonary hypertension. 9. There is small amount of pericardial effusion. Left Ventricle The left ventricle is normal in size and systolic function. There is severe concentric hypertrophy. The left ventricular ejection fraction is visually estimated to be 60-65%. Right Ventricle The right ventricle is moderately dilated with normal systolic function. Left Atria The left atrium is mildly dilated. Right Atria The right atrium is severely dilated. Atrial Septum There is a atrial septal defect. Aortic Valve The aortic valve is trileaflet and heavily calcified. The Doppler gradients are suboptimal and there appears to be at least mild aortic stenosis visually. Pulmonic Valve The pulmonic valve is grossly normal. There is trace pulmonic valve regurgitation. Mitral Valve The mitral valve leaflets open well. There is mild mitral regurgitation. Tricuspid Valve The tricuspid valve is normal. There is malcoaptation of the tricuspid valve leaflets likely secondary to annular dilatation. There is massive tricuspid regurgitation. Pulmonary Arteries Pulmonary arterial systolic pressure is estimated at 63 mmHg. There is moderate pulmonary hypertension. Pericardium/Pleural There is small amount of pericardial effusion. Inferior Vena Cava Dilated inferior vena cava with <50% collapse upon inspiration consistent with significantly elevated right atrial pressure, 15 mmHg. Aorta The proximal ascending aorta and the visualized portions of measures 3.9 cm in diameter. Left Ventricular Outflow Tract Name Value Normal LVOT 2D LVOT Diameter 1.9 cm LVOT Doppler LVOT Peak Velocity 210 cm/s LVOT Peak Gradient 18 mmHg LVOT Mean Gradient 8 mmHg LVOT VTI 31 cm LVOT VTI/AV VTI Ratio 0.7 LVOT Stroke Volume 84 ml LVOT CO 9.7 l/min LVOT CI 4.7 l/min/m2 Pulmonic Valve Name Value Normal PV Doppler PV Peak Velocity 115 cm/s PV Peak Gradient 5 mmHg Mitral Valve Name Value Normal MV 2D/MM MV Area (Planimetry) 5.3 cm2 MV Doppler MV Peak Gradient 6 mmHg MV Mean Gradient 2 mmHg MV Area (Cont Eq VTI) 3.5 cm2 MV Regurgitation Doppler MR Peak Gradient 108 mmHg Tricuspid Valve Name Value Normal TV Regurgitation Doppler TR Peak Velocity 346 cm/s TR Peak Gradient 48 mmHg Estimated PAP/RSVP RA Pressure 15 mmHg <=5 PA Systolic Pressure 63 mmHg <36 RV Systolic Pressure 63 mmHg <36 TV Annular TDI TV Lateral Therese s' Velocity 9.3 cm/s >=9.5 Aortic Valve Name Value Normal AV 2D/MM AV Area (Planimetry) 1.3 cm2 AV Doppler AV Peak Velocity 231 cm/s AV Peak Gradient 21 mmHg AV Mean Gradient 11 mmHg AV VTI 43 cm AV Area (Cont Eq VTI) 1.9 cm2 >=3.0 AV Area (Cont Eq Josue) 2.5 cm2 AV DI (Josue) 0.91 AV Regurgitation 2D LVOT Area 2.7 cm2 Ventricles Name Value Normal LV Dimensions 2D/MM IVS Diastolic Thickness (2D) 1.5 cm 0.6-1.0 LVID Diastole (2D) 3.6 cm 3.8-5.2 LVIW Diastolic Thickness (2D) 1.4 cm 0.6-0.9 LVID Systole (2D) 2.9 cm 2.2-3.5 LVOT Diameter 1.9 cm LV Mass (2D Cubed) 193.51 g 67.00-162.00 LV Mass Index (2D Cubed) 94 g/m2 43-95 Relative Wall Thickness (2D) 0.81 <=0.42 LV Fractional Shortening/Ejection Fraction 2D/MM LV Fractional Shortening (2D) 19 % 27-45 LV EF (2D Teichholz) 40 % LV Diastolic Volume (4C MOD) 51 ml LV EF (4C MOD) 57 % LV Diastolic Volume (2C MOD) 59 ml LV EF (2C MOD) 64 % LV Diastolic Volume (BP MOD) 59 ml 46-106 LV Diastolic Volume Index (BP MOD) 29 ml/m2 29-61 LV Systolic Volume (BP MOD) 23 ml 14-42 LV Systolic Volume Index (BP MOD) 11 ml/m2 8-24 LV EF (BP MOD) 62 % 54-74 LV Diastolic Length (4C) 6.3 cm LV Systolic Length (4C) 5.7 cm LV Stroke Volume (4C MOD) 29 ml Atria Name Value Normal LA Dimensions LA Volume (4C A-L) 74 ml LA Volume (BP A-L) 74 ml RA Dimensions RA Systolic Major [place] Length (4C) 6.6 cm 2.2-2.8 RA Area (4C) 27.5 cm2 <=18.0 Report Signatures
[2024-10-14 00:35] LABS: Thyroid Stimulating Hormone Reflex 0.034 uIU/mL (0.465-4.68)
[2024-10-14] MEDS: SODIUM CHLORIDE 0.9% IV 250 ML 30 ML IV CONT (00:50)
[2024-10-14] MEDS: TUBING, BLOOD SET 1 EACH XX (00:51)
[2024-10-14 00:55] LABS: Iron 26 ug/dL (37-170)
[2024-10-14 01:03] LABS: Troponin I < 0.012 ng/mL (0.000-0.034)
[2024-10-14 01:03] LABS: Percent Iron Saturation 6 % (20-50)
[2024-10-14 01:33] LABS: Ferritin 5.93 ng/mL (11.1-264)
--- NOTE | 2024-10-14 01:40 | ADMGEN ---
This patient, Sheila Fernández, was admitted to Medical Room 250-01. Patient/family oriented to hospital policies and general routines including ID bracelet, bed and alarms, visiting hours, pain management, procedures, bathroom and other care routines, personal items, smoking policy, room service/diet, and visiting hours. Information on how to activate the Rapid Response Team has been discussed. Patient/Family are encouraged to report perceived risks to care and to ask questions if they do not understand what they are told or what they should do.
[2024-10-14 02:02] LABS: Folic Acid > 20.0 ng/mL (2.76->20); Vitamin B12 > 1000.0 pg/mL (239-931)
--- NOTE | 2024-10-14 04:29 | PM.IMHP ---
H&P: HPI History of Present Illness Date/Time: 10/14/24 04:29 Chief Complaint: Shortness of breath Narrative: 83-year-old female with a past medical history diastolic heart failure, chronic atrial fibrillation on chronic anticoagulation with Xarelto,obstructive sleep apnea intolerant to CPAP, essential hypertension, heavy alcohol consumption, GERD and hyperthyroidism among other comorbidities who presented to the ER with shortness of breath. The patient reports that she is always somewhat short of breath but became more acutely short of breath on the day of presentation to the ER. She has noticed progressive lower extremity swelling over the last several weeks up to mid the last couple of months. Her lower extremity edema is increased from her lower extremities up into her thighs and abdomen. She reports chronic orthopnea and sleeps in a recliner. However she has noticed increased orthopnea if she laser recliner completely flat. She denies any palpitations or chest pain. She has become so short of breath that she is no longer able to participate in physical therapy. She denies any fevers or chills. She has noticed abdominal distension. She denies any dysuria and did not start having any increased urinary frequency above her baseline until after I gave her Lasix. She actually denies history of heart failure but prior echo does demonstrate diastolic dysfunction and she is on Lasix at home. She did have a prior outpatient visit with Gastroenterology July 2024. She had prior abdominal ultrasound in March 2023 demonstrating hepatic steatosis and MRCP in April of 2023 demonstrating cyst of the pancreas. She had her last EGD in 2004 demonstrating hiatal hernia and last colonoscopy in 2018 demonstrating diverticuli and uncomplicated internal hemorrhoids. Her labs at that time had demonstrated resolution of prior iron deficiency anemia according to GI office notes. She denies any hematochezia or melena. Her last bowel movement was on the day of presentation to the hospital and was normally formed. According to the medical record... The patient's weight back in July was 79 kg August she had increased up to 84 kg and in September she was 93 kg she is now up to 100 kg. (21 kg up in 3 months) Patient provided majority of history with supplementation from past medical records. Review of Systems Review of Systems: 12 systems were reviewed with pertinent positives and negatives per HPI. Except as documented in the HPI, all other systems were reviewed and are negative. [facility] Past Medical History Medical History (Updated 10/14/24 @ 08:35 by Lauren Damon DO) Chronic anticoagulation Chronic atrial fibrillation Hearing loss, bilateral Osteoporosis Impaired functional mobility, balance, gait, and endurance Orthostatic hypotension Hyperthyroidism HTN (hypertension) Eczema coxsackium Anemia Alcohol consumption of four to five drinks per day Actinic keratosis Diaphragmatic hernia without obstruction or gangrene Hyperlipidemia DJD (degenerative joint disease) Mitral valve regurgitation Iron deficiency anemia ARMEN (obstructive sleep apnea) Intolerant to CPAP and noncompliant with oral appliance Ankle fracture, right (~04/2019) Gastro-esophageal reflux disease without esophagitis Osteoarthritis 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 and removal TIA (transient ischemic attack) Seasonal allergies Surgical History Surgical History History of left shoulder replacement History of reverse total replacement of right shoulder joint (~12/12/20) History of bilateral cataract extraction (~2018) Status post phlebectomy (~12/2016) Status post laser ablation of incompetent vein (~11/2016) History of appendectomy (~04/2014) Family History Family History Grandparent Family history of malignant neoplasm Hypertension Mother Family history of malignant neoplasm Hypertension Sibling Family history of elevated blood lipids Father Family history of cardiovascular disease Family history of congestive heart failure Grandparent Leukemia Social History Social History (Updated 10/14/24 @ 08:42 by Lauren Damon DO) Social History: Code status: Full code (she states she would not want to be on ventilator long-term are to have long-term feeding tube.) Healthcare power of garden worker: Merly Pedersen (stepdaughter) Smoking packs per day: 0.5 Smoking cigarettes per day: 10.0 Years smoked: 5 Smoking pack-years: 2.50 Smoking status: Former smoker Alcohol intake: current Drinks per week: 1 Alcohol use details: Patient used to drink 4-7 glasses of wine a day. She states she is down to 1 glass a day. Substance use: never Substance use type: does not use Do You Feel Safe in your Home?: Yes Lack of Transportation: No Lack of Food: Never True Current Housing: I Have Housing Concerned About Future Housing: No Difficulty Paying Gas/Electric Bills: No Difficulty Paying for Meds: No Currently Unemployed: No Education: Trade/Vocational Certificate Difficulty w/ Childcare or Family Care: No Living arrangements: alone Additional living arrangements comments: She has been from her 2nd for about 20 years. She has 1 adopted daughter and 2 stepdaughters. She ambulates with a walker. Gender identity (if verbalized by the patient): Female Spiritual care concerns: No Agree to blood products: Yes Meds Home Medications and Allergies Home Medications ?Medication ?Instructions ?Recorded ?Confirmed ?Type biotin 10,000 mcg chewable tablet 20,000 mcg PO DAILY 04/27/24 10/14/24 History (Hair, Skin and Nails (biotin)) vitamin B complex 1 tablet PO DAILY 04/30/24 10/14/24 History metoprolol succinate 50 mg 50 mg PO BID #180 tabs 06/09/24 10/14/24 Rx tablet,extended release 24 hr irbesartan 300 mg tablet See Rx Instructions .Route 07/02/24 10/14/24 Rx .COMPLEX #90 tabs atorvastatin 20 mg tablet See Rx Instructions .Route 07/22/24 10/14/24 Rx .COMPLEX #90 tabs Xarelto 20 mg tablet (rivaroxaban) 20 mg PO DAILY #90 tabs 08/11/24 10/14/24 Rx potassium chloride 10 mEq 10 meq PO DAILY 30 days #30 tabs 08/11/24 10/14/24 Rx tablet,extended release (Klor-Con) Calcium 600 mg BYMOUTH BID 09/08/24 10/14/24 History furosemide 20 mg tablet 20 mg PO QAM #90 tabs 09/08/24 10/14/24 Rx Allergies Allergy/AdvReac Type Severity Reaction Status Date / Time red dye AdvReac Severe Rash Verified 10/13/24 20:09 solifenacin AdvReac Mild hair loss Verified 10/13/24 20:09 Vital Signs Vital Signs - 24 hr 10/13/24 20:13 10/13/24 21:08 10/14/24 00:21 Temperature 98.1 F Pulse Rate 98 109 H Respiratory Rate 22 H 22 H Blood Pressure 104/63 114/85 Pulse Oximetry 99 96 99 Oxygen Delivery Room Air Room Air 10/14/24 00:43 10/14/24 01:04 10/14/24 01:37 Temperature 97.6 F 97.6 F Pulse Rate 84 90 109 H Respiratory Rate 26 H 24 H 22 H Blood Pressure 122/95 H 122/76 114/85 Pulse Oximetry 98 99 99 Oxygen Delivery 10/14/24 01:39 10/14/24 01:42 10/14/24 01:46 Temperature 97.6 F 97.6 F Pulse Rate 85 55 L 55 L Respiratory Rate 16 16 Blood Pressure 120/70 120/70 Pulse Oximetry 99 100 Oxygen Delivery 10/14/24 02:00 10/14/24 02:04 10/14/24 02:44 Temperature 97.6 F 97.6 F Pulse Rate 55 L 102 H Respiratory Rate 16 16 Blood Pressure 120/70 120/70 Pulse Oximetry 99 100 Oxygen Delivery Room Air 10/14/24 03:04 10/14/24 04:04 Temperature 97.1 F L 98.0 F Pulse Rate 104 H 92 Respiratory Rate 20 28 H Blood Pressure 122/85 137/95 H Pulse Oximetry 95 95 Oxygen Delivery Exam Narrative: Weight 100.8 kg BMI 37 Const: Other: Acutely ill-appearing, obese, appears stated HENMT: Other: Significant conjunctival pallor, no scleral icterus, pupils are equal and reactive with bilateral lens implants noted, head is normocephalic atraumatic, crowded posterior oropharynx, large neck circumference Eyes: Other: See above Neck: Other: See above Resp: Other: Crackles anterior posterior lung babb, end-expiratory wheezing, tachypnea Cardio: Other: Irregularly irregular, mildly tachycardic, 2+ bilateral radial and pedal pulses GI: Other: Obese, soft, hypoactive bowel sounds, nontender Skin: Other: Legs are tight in weeping, generalized pallor, non jaundice, no petechiae Neuro: Other: Alert oriented x4, speech is clear, no facial asymmetry, moves all extremities equally Extrem: Other: 3+ pitting edema up through the thighs and into the abdomen skin is tight weak being, no cyanosis, no clubbing Psych: Other: Appropriate mood and affect, cooperative, judgment and insight intact H&P: Results Labs Labs: Laboratory Tests 10/13/24 21:07 10/13/24 21:07 10/13/24 10/13/24 10/14/24 21:07 23:01 00:35 WBC 4.6 RBC 3.57 L Hgb 6.9 L* D Hct 25.5 L MCV 71.4 L MCH 19.3 L MCHC 27.1 L RDW 20.1 H Plt Count 332 MPV 10.3 Immature Gran % (Auto) 0.4 Neut % (Auto) 66.5 Lymph % (Auto) 14.1 L [place] % (Auto) 17.1 H Eos % (Auto) 1.5 Baso % (Auto) 0.4 Lymph # (Auto) 0.64 L [place] # (Auto) 0.8 H Eos # (Auto) 0.1 Baso # (Auto) 0.0 Abs Immat Gran (auto) 0.02 Absolute Neuts (auto) 3.0 Absolute Nucleated RBC 0.050 H Band Neutrophils % 0 Nucleated RBC % 1.1 H Platelet Estimate Adequate Hypochromasia 1+ Target Cells 1+ Ovalocytes 1+ Schistocytes None seen PT 19.6 H INR 1.7 APTT 31.4 Sodium 141 Potassium 3.6 Chloride 102 Carbon Dioxide 33 H Anion Gap 6 BUN 29 H Creatinine 0.99 Estim Creat Clear Calc 44 Estimated GFR 54 L Glucose 90 Calcium 8.5 Iron 26 L TIBC 470 H % Saturation 6 L Ferritin 5.93 L Total Bilirubin 0.8 AST 44 H ALT 34 Alkaline Phosphatase 103 Troponin I < 0.012 < 0.012 NT-Pro-B Natriuret Pep 2300 H Total Protein 6.5 Albumin 3.5 Lipase 111 Vitamin B12 > 1000.0 H Folate > 20.0 H TSH (Reflex) 0.034 L Free T4 Pending Influenza A (RT-PCR) Negative Influenza B (RT-PCR) Negative RSV (RT-PCR) Negative SARS-CoV-2 RNA (RT-PCR) Negative Blood Type O Positive Antibody Screen Negative Crossmatch See Detail Impressions Chest X-Ray 10/13/24 21:38 IMPRESSION: Bilateral basal atelectasis versus pneumonia with bilateral pleural effusion. Slight cardiomegaly. Possibility of pericardial effusion cannot be excluded. EKG: AFib the with apparent duct conduction delay are premature complexes low-voltage QRS precordial leads incomplete right bundle-branch block minimal ST depression with new ST T-wave deviation compared to prior cardiology interpretation pending Assessment and Plan Assessment and plan (1) Symptomatic anemia: Code(s): D64.9 - Anemia, unspecified Status: Acute (2) Acute exacerbation of CHF (congestive heart failure): Qualifiers: Heart failure type: unspecified Qualified Code(s): I50.9 - Heart failure, unspecified Code(s): I50.9 - Heart failure, unspecified Status: Acute (3) Chronic anticoagulation: Code(s): Z79.01 - watermaster (current) use of anticoagulants Status: Acute Plan Patient has acute on chronic anemia with low% saturation, low ferritin low iron and high TIBC all parameters consistent with iron deficiency anemia with specimen being obtained from initial labs in the ER. Patient received 1 unit packed red blood cells after anemia labs have been obtained. I will order 1 dose of Venofer 500 mg IV x1. Patient will benefit from oral iron supplementation. She states she has quit taking oral iron supplements in the past due to constipation but that was many years ago. Will hold patient's home Xarelto. Patient does have evidence of congestive heart failure with marked edema and 21 kg weight gain. Patient has dyspnea on exertion, orthopnea and likely has some component of diastolic heart failure and possible high-output heart failure given acute anemia. Will give dose of IV Lasix following blood transfusion and then start patient on b.i.d. Lasix 40 mg. Will monitor strict I&O's and daily weights. Will obtain echocardiogram to evaluate the patient's current cardiac function. Patient's last echo was 2 years ago. Will repeat CBC and electrolyte panel in a.m.. Will continue patient's home beta-siri and angiotensin receptor siri. Patient denies heartburn symptoms but will place patient on Protonix and check stool occult blood. Will place consult to Gastroenterology. Quality VTE Prophylaxis VTE prophylaxis: mechanical ordered (SCDs) Hospitalist MIPS Advance Care Plan I have confirmed that the patient's Advanced Care Plan is present, code status is documented, or surrogate decision maker is listed in patient medical record.: Yes Medication Reconciliation I have utilized all available resources to obtain, update and review the patients current medications (includes all prescriptions, OTC, herbals, cannabis, and nutritional supplements).: Yes
[2024-10-14] MEDS: FUROSEMIDE INJ 40 MG/4 ML VIAL IV PUSH ×2 (04:49→17:21)
[2024-10-14 05:59] LABS: Hematocrit 28.4 % (37.0-47.0); Hemoglobin 7.8 g/dL (12.0-15.0); Immature Platelet Fraction Pct 5.1 % (0.9-11.2); Mean Corpuscular HGB Conc 27.5 g/dl (32-36); Mean Corpuscular Hemoglobin 20.7 pg (26-34); Mean Corpuscular Volume 75.3 fl (80-100); Mean Platelet Volume 11.4 fl (7.4-10.4); Platelet Count Result 267 k/mm3 (150-375); Red Blood Count 3.77 M/mm3 (4.2-5.4); Red Cell Distribution Width 21.9 % (11.5-14.5); White Blood Count 4.9 K/mm3 (4.5-10.0)
[2024-10-14 06:09] LABS: Anion Gap 8 mmol/L (4-12); Blood Urea Nitrogen 28 mg/dL (7-17); Calcium 8.2 mg/dL (8.4-10.2); Carbon Dioxide 28 mmol/L (22-30); Chloride 104 mmol/L (98-107); Estimated CRCL calculation 49 ml/min; Estimated Glomerular Filt Rate 58; Glucose 137 mg/dL (65-110); Potassium 3.8 mmol/L (3.4-5.0); Sodium 140 mmol/L (137-145)
[2024-10-14 06:15] LABS: Free T4 Free Thyroxine Reflex 2.24 ng/dL (0.78-2.19)
[2024-10-14 06:19] LABS: Magnesium 2.1 mg/dL (1.6-2.3)
--- NOTE | 2024-10-14 07:05 | PM.IMPN ---
Progress Note: A&P Assessment and Plan (1) Symptomatic anemia: Code(s): D64.9 - Anemia, unspecified Status: Acute Assessment and Plan: H/H 6.9/25.5 on admission, given 1pRBC. Repeat H/H 7.8/28.4. - Iron panel: iron 26, TIBC 470, % sat 6, ferritin 5.93 - B12 and folate WNL - IV iron 400 mg x1 on 10/14 - holding chronic anticoagulation for afib, xarelto 20 mg daily on hold. SCD for DVT ppx. - Per ED note rectal exam did not reveal melanotic or bloody stools. Hemoccult negative. (2) Acute exacerbation of CHF (congestive heart failure): Qualifiers: Heart failure type: unspecified Qualified Code(s): I50.9 - Heart failure, unspecified Code(s): I50.9 - Heart failure, unspecified Status: Acute Assessment and Plan: No prior history of CHF. Risk factors: HTN and Afib [facility] cardi[facility] on 08[facility]. Remain off diltiazem. Continue metoprolol. Continue Xarelto for stroke ppx. - Symptoms: lower extremity edema with dyspnea and orthopnea - Current home medications: lasix 20 mg daily, irbesartan 300 mg daily, metoprolol 50 mg BID - Started on lasix 40 mg IV BID, remains on home irbesartan and metoprolol - BNP: 2300, Trop negative - EKG: Afib - Chest XR: Bilateral basal atelectasis vs pneumonia with bilateral pleural effusion and slight cardiomegaly. Possiblity of pericardial effusion cannot be excluded. Likely atelectasis secondary to effusion and not pneumonia given patient is afebrile without leukocytosis - Echo ordered Prior echo 07/18/23: LV hypertrophy with normal size and vigorous systolic contractility. Normal EF. - Monitor vital signs, I&Os, BUN/creatinine, daily weights, neuro status and patient is a fall risk - Monitor serum electrolytes, Keep serum Potassium>4 and serum Magnesium>2 and CBC (3) Essential (primary) hypertension: Code(s): I10 - Essential (primary) hypertension Status: Chronic Assessment and Plan: Chronic - continue metoprolol 50 mg BID, irbesartan 150 mg daily - started on lasix 40 mg IV BID - blood pressures remain stable, continue to monitor (4) Abnormal thyroid stimulating hormone (TSH) level: Code(s): R79.89 - Other specified abnormal findings of blood chemistry Status: Acute Assessment and Plan: TSH 0.034 with T4 2.24. Per patient followed by PCP. Evaluated by endocrinology on 09/07/24, per their note patients labs are normal based on biotin Monitor. Time Spent With Patient Time with patient: 25 - 35 minutes Subjective Date/time seen: 10/14/24 07:05 Interval history: 83 year old female with past medical history of atrial fibrillation on anticoagulation, hypertension, hyperlipidemia, iron deficiency anemia, GERD, and ARMEN presents to the hospital for lower extremity edema, dyspnea and orthopnea. Patient is pleasant lying comfortably in bed. She continues to endorse dyspnea with exertion but notes that her shortness of breath at rest has resolved. She continues to endorse bilateral lower extremity edema up to her hips. States that she takes her medications as scheduled but notes intermittently missing her Lasix about once a month. She has no other complaints denying chest pain, palpitations, nausea/vomiting, abdominal pain. Review of Systems Review of Systems: All systems reviewed & are unremarkable except as noted in HPI and below Exam Narrative: AF HR 100 RR 20 SPO2 93 BP 117/81 General: female in no acute respiratory distress who is nontoxic appearing, lying semi recumbent in bed. HEENT: Normocephalic. Atraumatic. Extraocular movement intact. Sclera clear and anicteric. No facial asymmetry. Chest: Lungs are crackles to auscultation bilateral lower bases. No wheezes. CV: Heart was irregular irregular rate and rhythm. Abd: Abdomen was soft. Nontender. Nondistended. Positive bowel sounds. Ext: No clubbing, cyanosis. DP pulses bilaterally. Bilateral lower extremity edema extending to the mid thigh. No weeping noted. Neuro: Patient is alert and oriented x3. Speech is clear. Objective Data Vital Signs Vital Signs: Vital Signs - 24 hr 10/13/24 20:13 10/13/24 21:08 10/14/24 00:21 Temperature 98.1 F Pulse Rate 98 109 H Respiratory Rate 22 H 22 H Blood Pressure 104/63 114/85 Pulse Oximetry 99 96 99 Oxygen Delivery Room Air Room Air 10/14/24 00:43 10/14/24 01:04 10/14/24 01:37 Temperature 97.6 F 97.6 F Pulse Rate 84 90 109 H Respiratory Rate 26 H 24 H 22 H Blood Pressure 122/95 H 122/76 114/85 Pulse Oximetry 98 99 99 Oxygen Delivery 10/14/24 01:39 10/14/24 01:42 10/14/24 01:46 Temperature 97.6 F 97.6 F Pulse Rate 85 55 L 55 L Respiratory Rate 16 16 Blood Pressure 120/70 120/70 Pulse Oximetry 99 100 Oxygen Delivery 10/14/24 02:00 10/14/24 02:04 10/14/24 02:44 Temperature 97.6 F 97.6 F Pulse Rate 55 L 102 H Respiratory Rate 16 16 Blood Pressure 120/70 120/70 Pulse Oximetry 99 100 Oxygen Delivery Room Air 10/14/24 03:04 10/14/24 04:00 10/14/24 04:04 Temperature 97.1 F L 98.0 F Pulse Rate 104 H 98 92 Respiratory Rate 20 28 H Blood Pressure 122/85 137/95 H Pulse Oximetry 95 95 Oxygen Delivery 10/14/24 06:05 Temperature 98.0 F Pulse Rate 100 Respiratory Rate 20 Blood Pressure 117/81 Pulse Oximetry 95 Oxygen Delivery Intake/Output Intake/Output: Intake & Output 10/11/24 10/12/24 10/13/24 10/14/24 23:59 23:59 23:59 23:59 Intake Total 350 Output Total 450 Balance -100 Meds/Results Medications: Active Medications Generic Name Dose Route Start Last Admin Trade Name Freq PRN Reason Stop Dose Admin Atorvastatin Calcium 20 mg 10/14/24 09:00 Atorvastatin 20 Mg Tablet BY MOUTH DAILY [facility] Calcium Carbonate 500 mg 10/14/24 09:00 Calcium Carbonate (Oscal) 500 Mg Tablet PO BID [facility] Furosemide 40 mg 10/14/24 17:00 Furosemide Inj 40 Mg/4 Ml Vial IV PUSH BID [facility] Iron Sucrose 400 mg/ Iron 275 mls @ 78.571 mls/hr 10/14/24 06:56 Sucrose 100 mg/ Sodium IVPB 10/14/24 10:25 Chloride ONCE ONE Irbesartan 150 mg 10/14/24 09:00 Irbesartan 150 Mg Tablet PO DAILY [facility] Metoprolol Succinate 50 mg 10/14/24 09:00 Metoprolol Succinate Ext Rel 50 Mg Tabcr PO Q12HR [facility] Perflutren Lipid Microsphere 0 ml 10/13/24 23:45 Perflutren Lipid Microspheres 1.5 Ml Vial Diluted To 10 Ml Total Volume IV PUSH 10/16/24 23:45 ONCE PRN adequate visualization Protocol Perflutren Lipid Microsphere 0 ml 10/14/24 04:36 Perflutren Lipid Microspheres 1.5 Ml Vial Diluted To 10 Ml Total Volume IV PUSH 10/17/24 04:36 ONCE PRN adequate visualization Protocol Potassium Chloride 10 meq 10/14/24 08:00 Potassium Chloride 10 Meq Er Tablet PO DAILY@0800 [facility] Rivaroxaban 20 mg 10/14/24 17:00 Rivaroxaban 20 Mg Tablet PO DAILY@1700 [facility] Vitamin B Complex 1 cap 10/14/24 09:00 Vitamin B Complex Capsule PO DAILY [facility] Radiology Results: ITS Impressions Chest X-Ray 10/13/24 21:38 IMPRESSION: Bilateral basal atelectasis versus pneumonia with bilateral pleural effusion. Slight cardiomegaly. Possibility of pericardial effusion cannot be excluded. Labs Labs: Laboratory Results - last 24 hr 10/13/24 10/13/24 10/14/24 21:07 23:01 00:35 WBC 4.6 RBC 3.57 L Hgb 6.9 L* D Hct 25.5 L MCV 71.4 L MCH 19.3 L MCHC 27.1 L RDW 20.1 H Plt Count 332 MPV 10.3 Immature Gran % (Auto) 0.4 Neut % (Auto) 66.5 Lymph % (Auto) 14.1 L Gallia % (Auto) 17.1 H Eos % (Auto) 1.5 Baso % (Auto) 0.4 Lymph # (Auto) 0.64 L Gallia # (Auto) 0.8 H Eos # (Auto) 0.1 Baso # (Auto) 0.0 Abs Immat Gran (auto) 0.02 Absolute Neuts (auto) 3.0 Absolute Nucleated RBC 0.050 H Band Neutrophils % 0 Nucleated RBC % 1.1 H Platelet Estimate Adequate % Immature Plt Fraction Hypochromasia 1+ Target Cells 1+ Ovalocytes 1+ Schistocytes None seen PT 19.6 H INR 1.7 APTT 31.4 Sodium 141 Potassium 3.6 Chloride 102 Carbon Dioxide 33 H Anion Gap 6 BUN 29 H Creatinine 0.99 Estim Creat Clear Calc 44 Estimated GFR 54 L Glucose 90 Calcium 8.5 Magnesium Iron 26 L TIBC 470 H % Saturation 6 L Ferritin 5.93 L Total Bilirubin 0.8 AST 44 H ALT 34 Alkaline Phosphatase 103 Troponin I < 0.012 < 0.012 NT-Pro-B Natriuret Pep 2300 H Total Protein 6.5 Albumin 3.5 Lipase 111 Vitamin B12 > 1000.0 H Folate > 20.0 H TSH (Reflex) 0.034 L Free T4 2.24 H Influenza A (RT-PCR) Negative Influenza B (RT-PCR) Negative RSV (RT-PCR) Negative SARS-CoV-2 RNA (RT-PCR) Negative Blood Type O Positive Antibody Screen Negative Crossmatch See Detail 10/14/24 05:14 WBC 4.9 RBC 3.77 L Hgb 7.8 L Hct 28.4 L MCV 75.3 L D MCH 20.7 L D MCHC 27.5 L RDW 21.9 H Plt Count 267 MPV 11.4 H Immature Gran % (Auto) Neut % (Auto) Lymph % (Auto) Gallia % (Auto) Eos % (Auto) Baso % (Auto) Lymph # (Auto) Gallia # (Auto) Eos # (Auto) Baso # (Auto) Abs Immat Gran (auto) Absolute Neuts (auto) Absolute Nucleated RBC Band Neutrophils % Nucleated RBC % Platelet Estimate % Immature Plt Fraction 5.1 Hypochromasia Target Cells Ovalocytes Schistocytes PT INR APTT Sodium 140 Potassium 3.8 Chloride 104 Carbon Dioxide 28 Anion Gap 8 BUN 28 H Creatinine 0.93 Estim Creat Clear Calc 49 Estimated GFR 58 L Glucose 137 H Calcium 8.2 L Magnesium 2.1 Iron TIBC % Saturation Ferritin Total Bilirubin AST ALT Alkaline Phosphatase Troponin I NT-Pro-B Natriuret Pep Total Protein Albumin Lipase Vitamin B12 Folate TSH (Reflex) Free T4 Influenza A (RT-PCR) Influenza B (RT-PCR) RSV (RT-PCR) SARS-CoV-2 RNA (RT-PCR) Blood Type Antibody Screen Crossmatch Quality VTE Prophylaxis VTE prophylaxis: mechanical ordered
[2024-10-14] MEDS: IRON SUCROSE COMPLEX 400 MG, IRON SUCROSE COMPLEX 100 MG in SODIUM CHLORIDE 0.9% IV 250 ML 78.57 MG IVPB (08:35)
[2024-10-14] MEDS: IRBESARTAN 150 MG TABLET PO (08:36)
[2024-10-14] MEDS: VITAMIN B COMPLEX CAPSULE 1 CAP PO (08:36)
[2024-10-14] MEDS: CALCIUM CARBONATE (OSCAL) 500 MG TABLET PO ×2 (08:36→17:21)
[2024-10-14] MEDS: POTASSIUM CHLORIDE 10 MEQ ER TABLET PO (08:36)
[2024-10-14] MEDS: METOPROLOL SUCCINATE EXT REL 50 MG TABCR PO ×2 (08:36→20:09)
[2024-10-14] MEDS: ATORVASTATIN 20 MG TABLET BY MOUTH (08:36)
[2024-10-14] MEDS: PANTOPRAZOLE SODIUM IV 40 MG VIAL IV PUSH ×2 (09:45→20:09)
--- NOTE | 2024-10-14 18:03 | P.CONGI_ITS ---
Assessment and Plan Assessment and plan (1) Iron deficiency anemia: Code(s): D50.9 - Iron deficiency anemia, unspecified Status: Acute Assessment and Plan: This patient has a history of recurrent iron deficiency anemia, with a comprehensive workup (upper and lower endoscopies) five years ago yielding negative results. This long-standing, non-aggressive presentation reduces the likelihood of a new malignancy. Considering the prior negative scopes, repeat EGD and colonoscopy are not anticipated to identify a source of bleeding. Consequently, attention is now directed to the small bowel, with arteriovenous malformations being a likely etiology (by frequency), likely exacerbated by her (necessary) anticoagulation. We will arrange for an outpatient capsule endoscopy to further investigate this possibility post-discharge. Ongoing management will include serial hemoglobin monitoring by her primary care physician and outpatient iron infusions to ensure complete repletion of iron stores. GI Consult Note Consult date/time: 10/14/24 18:03 Reason for consult: Iron deficiency anemia HPI: Sheila Fernández is an 83-year-old female admitted yesterday with atrial fibrillation (worsening), progressive dyspnea over several weeks, and lower extremity edema. Her medical history includes obstructive sleep apnea and she is on Xarelto for anticoagulation. On admission, she was found to have severe iron deficiency anemia (hemoglobin 6.9, ferritin 5.93, iron saturation 6%). Prior GI workup for iron deficiency anemia in December 2018 (normal EGD, colonoscopy with diverticulosis/hemorrhoids) was negative for active bleeding sources. During this hospitalization, she received an iron infusion and packed red blood cell transfusion. Review of Systems 2 Review of Systems: All systems reviewed & are unremarkable except as noted in HPI and below [facility] Past Medical History Medical History (Updated 10/14/24 @ 18:07 by Flash Mo MD) Chronic anticoagulation Chronic atrial fibrillation Hearing loss, bilateral Osteoporosis Impaired functional mobility, balance, gait, and endurance Orthostatic hypotension Hyperthyroidism HTN (hypertension) Eczema coxsackium Anemia Alcohol consumption of four to five drinks per day Actinic keratosis Diaphragmatic hernia without obstruction or gangrene Hyperlipidemia DJD (degenerative joint disease) Mitral valve regurgitation Iron deficiency anemia ARMEN (obstructive sleep apnea) Intolerant to CPAP and noncompliant with oral appliance Ankle fracture, right (~04/2019) Gastro-esophageal reflux disease without esophagitis Osteoarthritis 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 and removal TIA (transient ischemic attack) Seasonal allergies Surgical History Surgical History History of left shoulder replacement History of reverse total replacement of right shoulder joint (~12/12/20) History of bilateral cataract extraction (~2018) Status post phlebectomy (~12/2016) Status post laser ablation of incompetent vein (~11/2016) History of appendectomy (~04/2014) Family History Family History Grandparent Family history of malignant neoplasm Hypertension Mother Family history of malignant neoplasm Hypertension Sibling Family history of elevated blood lipids Father Family history of cardiovascular disease Family history of congestive heart failure Grandparent Leukemia Social History Social History (Updated 10/14/24 @ 08:42 by Lauren Damon DO) Social History: Code status: Full code (she states she would not want to be on ventilator long- term are to have long-term feeding tube.) Healthcare power of peanut separator: Merly Pedersen (stepdaughter) Smoking packs per day: 0.5 Smoking cigarettes per day: 10.0 Years smoked: 5 Smoking pack-years: 2.50 Smoking status: Former smoker Alcohol intake: current Drinks per week: 1 Alcohol use details: Patient used to drink 4-7 glasses of wine a day. She states she is down to 1 glass a day. Substance use: never Substance use type: does not use Do You Feel Safe in your Home?: Yes Lack of Transportation: No Lack of Food: Never True Current Housing: I Have Housing Concerned About Future Housing: No Difficulty Paying Gas/Electric Bills: No Difficulty Paying for Meds: No Currently Unemployed: No Education: Trade/Vocational Certificate Difficulty w/ Childcare or Family Care: No Living arrangements: alone Additional living arrangements comments: She has been from her 2nd for about 20 years. She has 1 adopted daughter and 2 stepdaughters. She ambulates with a walker. Gender identity (if verbalized by the patient): Female Spiritual care concerns: No Agree to blood products: Yes Meds Home Medications and Allergies Home Medications ?Medication ?Instructions ?Recorded ?Confirmed ?Type biotin 10,000 mcg chewable tablet 20,000 mcg PO DAILY 04/27/24 10/14/24 History (Hair, Skin and Nails (biotin)) vitamin B complex 1 tablet PO DAILY 12/27/24 06/12/25 History metoprolol succinate 50 mg 50 mg PO BID #180 tabs 06/09/24 10/14/24 Rx tablet,extended release 24 hr irbesartan 300 mg tablet See Rx Instructions .Route 07/02/24 10/14/24 Rx .COMPLEX #90 tabs atorvastatin 20 mg tablet See Rx Instructions .Route 07/22/24 10/14/24 Rx .COMPLEX #90 tabs Xarelto 20 mg tablet (rivaroxaban) 20 mg PO DAILY #90 tabs 08/11/24 10/14/24 Rx potassium chloride 10 mEq 10 meq PO DAILY 30 days #30 tabs 08/11/24 10/14/24 Rx tablet,extended release (Klor-Con) Calcium 600 mg BYMOUTH BID 09/08/24 10/14/24 History furosemide 20 mg tablet 20 mg PO QAM #90 tabs 09/08/24 10/14/24 Rx Allergies Allergy/AdvReac Type Severity Reaction Status Date / Time red dye AdvReac Severe Rash Verified 10/13/24 20:09 solifenacin AdvReac Mild hair loss Verified 10/13/24 20:09 Vital Signs Vital Signs - 24 hr 10/13/24 20:13 10/13/24 21:08 10/14/24 00:21 Temperature 98.1 F Pulse Rate 98 109 H Respiratory Rate 22 H 22 H Blood Pressure 104/63 114/85 Pulse Oximetry 99 96 99 Oxygen Delivery Room Air Room Air 10/14/24 00:43 10/14/24 01:04 10/14/24 01:37 Temperature 97.6 F 97.6 F Pulse Rate 84 90 109 H Respiratory Rate 26 H 24 H 22 H Blood Pressure 122/95 H 122/76 114/85 Pulse Oximetry 98 99 99 Oxygen Delivery 10/14/24 01:39 10/14/24 01:42 10/14/24 01:46 Temperature 97.6 F 97.6 F Pulse Rate 85 55 L 55 L Respiratory Rate 16 16 Blood Pressure 120/70 120/70 Pulse Oximetry 99 100 Oxygen Delivery 10/14/24 02:00 10/14/24 02:04 10/14/24 02:44 Temperature 97.6 F 97.6 F Pulse Rate 55 L 102 H Respiratory Rate 16 16 Blood Pressure 120/70 120/70 Pulse Oximetry 99 100 Oxygen Delivery Room Air 10/14/24 03:04 10/14/24 04:00 10/14/24 04:04 Temperature 97.1 F L 98.0 F Pulse Rate 104 H 98 92 Respiratory Rate 20 28 H Blood Pressure 122/85 137/95 H Pulse Oximetry 95 95 Oxygen Delivery 10/14/24 06:05 10/14/24 08:00 10/14/24 08:00 Temperature 98.0 F Pulse Rate 100 102 H Respiratory Rate 20 Blood Pressure 117/81 Pulse Oximetry 95 Oxygen Delivery Room Air 10/14/24 08:36 10/14/24 09:33 10/14/24 12:00 Temperature 97.4 F L Pulse Rate 100 88 Respiratory Rate 20 Blood Pressure 140/80 Pulse Oximetry 93 96 Oxygen Delivery Room Air 10/14/24 12:00 10/14/24 14:00 10/14/24 16:00 Temperature 97.3 F L 97.3 F L Pulse Rate 82 91 90 Respiratory Rate 20 20 Blood Pressure 142/83 H 140/80 Pulse Oximetry 96 96 Oxygen Delivery 10/14/24 16:00 Temperature Pulse Rate 89 Respiratory Rate Blood Pressure Pulse Oximetry Oxygen Delivery Exam 2 Narrative: AF HR 100 RR 20 SPO2 93 BP 117/81 General: female in no acute respiratory distress who is nontoxic appearing, lying semi recumbent in bed. HEENT: Normocephalic. Atraumatic. Extraocular movement intact. Sclera clear and anicteric. No facial asymmetry. Chest: Lungs are crackles to auscultation bilateral lower bases. No wheezes. CV: Heart was irregular irregular rate and rhythm. Abd: Abdomen was soft. Nontender. Nondistended. Positive bowel sounds. Ext: No clubbing, cyanosis. DP pulses bilaterally. Bilateral lower extremity edema extending to the mid thigh. No weeping noted. Neuro: Patient is alert and oriented x3. Speech is clear. Results Labs 10/14/24 05:14 10/14/24 05:14 Labs: Short CBC 10/13/24 10/14/24 Range/Units 21:07 05:14 WBC 4.6 4.9 (4.5-10.0) K/mm3 Hgb 6.9 L* D 7.8 L (12.0-15.0) g/dL Hct 25.5 L 28.4 L (37.0-47.0) % Plt Count 332 267 (150-375) k/mm3 BMP 10/13/24 10/14/24 21:07 05:14 Sodium 141 140 Potassium 3.6 3.8 Chloride 102 104 Carbon Dioxide 33 H 28 BUN 29 H 28 H Creatinine 0.99 0.93 Glucose 90 137 H Calcium 8.5 8.2 L Cardiac Enzymes 10/13/24 10/14/24 Range/Units 21:07 00:35 Troponin I < 0.012 < 0.012 (0.000-0.034) ng/mL Liver Function 10/13/24 Range/Units 21:07 Total Bilirubin 0.8 (0.2-1.3) mg/dL AST 44 H (14-36) U/L ALT 34 (6-35) U/L Alkaline Phosphatase 103 (38-126) U/L Albumin 3.5 (3.5-5.1) g/dL
[2024-10-15] VITALS (11 sets, daily range): BP systolic 104–124; BP diastolic 62–73; PULSE 62–103; RESP 16–17; TEMP 36.4–36.8; O2SAT 91–97
--- NOTE | 2024-10-15 | ECHO_ITS ---
Patient Info Name: Sheila Fernández Age: 83 years : 1940 Gender: Female Ht: 65 in Wt: 217 lbs BSA: 2.17 m2 HR: 72 bpm BP: 108 / 62 mmHg Technical Quality: Good Exam Date: 10/15/2024 2:20 PM Patient Status: I Admit Date: 10/14/2024 Exam Type: CA echo limited w bubble study Complete two-dimensional, color flow and Doppler transthoracic echocardiogram is performed with agitated saline. Staff Referring Physician: Verónica Alvarado Lidar Technician: Lynn Nuñez Attending Provider: Verónica Alvarado Contrast/Agitated Saline Contrast/Ag. Saline: Agitated Saline Amount: 20.00 ml Administered By: Lynn Nuñez Existing IV Access: Yes IV Access Condition: patent with no signs of infiltration Summary 1. Agitated saline study did not review any [id number] shunting. 2. Consider outpatient re-evaluation of atrial septum with transesophageal echocardiogram or other forms of advanced imaging. Atrial Septum Agitated saline study did not review any [id number] shunting. Report Signatures
[2024-10-15 06:01] LABS: Hematocrit 26.5 % (37.0-47.0); Hemoglobin 7.5 g/dL (12.0-15.0); Mean Corpuscular HGB Conc 28.3 g/dl (32-36); Mean Corpuscular Hemoglobin 20.4 pg (26-34); Mean Platelet Volume 10.5 fl (7.4-10.4); Platelet Count Result 260 k/mm3 (150-375); Red Blood Count 3.68 M/mm3 (4.2-5.4); Red Cell Distribution Width 21.7 % (11.5-14.5); White Blood Count 5.3 K/mm3 (4.5-10.0)
[2024-10-15 06:17] LABS: Alanine Aminotransferase 26 U/L (6-35); Albumin Level 3.1 g/dL (3.5-5.1); Alkaline Phosphatase 103 U/L (38-126); Anion Gap 4 mmol/L (4-12); Aspartate Amino Transferase 40 U/L (14-36); Bilirubin,Total 1.1 mg/dL (0.2-1.3); Blood Urea Nitrogen 26 mg/dL (7-17); Calcium 8.2 mg/dL (8.4-10.2); Carbon Dioxide 34 mmol/L (22-30); Chloride 100 mmol/L (98-107); Estimated CRCL calculation 50 ml/min; Estimated Glomerular Filt Rate 60; Glucose 88 mg/dL (65-110); Potassium 3.5 mmol/L (3.4-5.0); Sodium 138 mmol/L (137-145); Total Protein 5.8 g/dL (6.3-8.2)
[2024-10-15] MEDS: POTASSIUM CHLORIDE 10 MEQ ER TABLET PO (08:40)
[2024-10-15] MEDS: ATORVASTATIN 20 MG TABLET BY MOUTH (08:41)
[2024-10-15] MEDS: PANTOPRAZOLE SODIUM IV 40 MG VIAL IV PUSH ×2 (08:41→20:25)
[2024-10-15] MEDS: IRBESARTAN 150 MG TABLET PO (08:41)
[2024-10-15] MEDS: METOPROLOL SUCCINATE EXT REL 50 MG TABCR PO ×2 (08:41→20:20)
[2024-10-15] MEDS: VITAMIN B COMPLEX CAPSULE 1 CAP PO (08:41)
[2024-10-15] MEDS: FUROSEMIDE INJ 40 MG/4 ML VIAL IV PUSH ×2 (08:41→16:43)
[2024-10-15] MEDS: CALCIUM CARBONATE (OSCAL) 500 MG TABLET PO ×2 (08:41→16:43)
--- NOTE | 2024-10-15 08:48 | P.PNIM_ITS ---
Progress Note: A&P Assessment and Plan (1) Symptomatic anemia: Code(s): D64.9 - Anemia, unspecified Status: Acute Assessment and Plan: H/H 6.9/25.5 on admission, given 1pRBC. Repeat H/H 7.8/28.4. - H/H stable at 7.5/26.5 on am labs - Iron panel: iron 26, TIBC 470, % sat 6, ferritin 5.93 - B12 and folate WNL - IV iron 400 mg x1 on 10/14 - holding chronic anticoagulation for afib, xarelto 20 mg daily on hold. SCD for DVT ppx. See Atrial fibrillation plan below. - Per ED note rectal exam did not reveal melanotic or bloody stools. Hemoccult negative. - GI consulted Considering the prior negative scopes, repeat EGD and colonoscopy are not anticipated to identify a source of bleeding. Consequently, attention is now directed to the small bowel, with arteriovenous malformations being a likely etiology (by frequency), likely exacerbated by her (necessary) anticoagulation. Plan for outpatient capsule endoscopy to further investigate this possibility post-discharge. Ongoing management will include serial hemoglobin monitoring by her primary care physician and outpatient iron infusions to ensure complete repletion of iron stores. (2) Acute exacerbation of CHF (congestive heart failure): Qualifiers: Heart failure type: unspecified Qualified Code(s): I50.9 - Heart f ailure, unspecified Code(s): I50.9 - Heart failure, unspecified Status: Acute Assessment and Plan: No prior history of CHF. Risk factors: HTN and Afib Previously seen by [facility] cardiologyMercedes on 08/02. Remain off diltiazem. Continue metoprolol. Continue Xarelto for stroke ppx. - Symptoms: lower extremity edema with dyspnea and orthopnea - Current home medications: lasix 20 mg daily, irbesartan 300 mg daily, metoprolol 50 mg BID - Started on lasix 40 mg IV BID, remains on home irbesartan and metoprolol - BNP: 2300, Trop negative - EKG: Afib - Chest XR: Bilateral basal atelectasis vs pneumonia with bilateral pleural effusion and slight cardiomegaly. Possibility of pericardial effusion cannot be excluded. Likely atelectasis secondary to effusion and not pneumonia given patient is afebrile without leukocytosis - Echo: LVEF 60-65% with severe concentric hypertrophy, atrial septal defect, heavily calcified aortic valve with mild , massive tricuspid regurgitation, and moderate pulmonary hypertension. Given ASD seen on echo will order bubble study to further evaluate. - Monitor vital signs, I&Os, BUN/creatinine, daily weights, neuro status and patient is a fall risk - Monitor serum electrolytes, Keep serum Potassium>4 and serum Magnesium>2 and CBC - Evaluated by cardiology Continue lasix 40 mg IV BID Patient continues to have 3+ pitting edema to the bilateral lower extremities extending to the mid thigh. Shortness of breath is improved since admission. Continues to endorse dyspnea with exertion. (3) Atrial fibrillation: Code(s): I48.91 - Unspecified atrial fibrillation Status: Acute Assessment and Plan: Patient is persistently in atrial fibrillation Rate controlled on metoprolol 50 mg b.i.d. Given her anemia and concern for GI bleed, anticoagulation Xarelto is currently on hold Cardiology evaluated patient continue holding Xarelto at this time with plan of follow-up in the outpatient setting for a possible left atrial appendage closure Plan for CT scan to assess left atrial appendage for thrombus as well as sizing for device Follow-up in 2-[address] scan to further discuss procedure (4) Atrial septal defect: Code(s): Q21.10 - Atrial septal defect, unspecified Status: Acute Assessment and Plan: Echo showing atrial septal defect Will obtain a bubble study to further evaluate and confirm atrial septal defect is in fact present Cardiology following (5) Essential (primary) hypertension: Code(s): I10 - Essential (primary) hypertension Status: Chronic Assessment and Plan: Chronic - continue metoprolol 50 mg BID, irbesartan 150 mg daily - started on lasix 40 mg IV BID - blood pressures remain stable, continue to monitor (6) Abnormal thyroid stimulating hormone (TSH) level: Code(s): R79.89 - Other specified abnormal findings of blood chemistry Status: Acute Assessment and Plan: TSH 0.034 with T4 2.24. Per patient followed by PCP. Evaluated by endocrinology on 09/07/24, per their note patients labs are normal based on biotin Monitor. Time Spent With Patient Time with patient: 25 - 35 minutes Subjective Date/time seen: 10/15/24 08:48 Interval history: 83 year old female with past medical history of atrial fibrillation on anticoagulation, hypertension, hyperlipidemia, iron deficiency anemia, GERD, and ARMEN presents to the hospital for lower extremity edema, dyspnea and orthopnea. Patient is pleasant sitting up comfortably in her chair with daughter bedside. She states that her shortness of breath is about the same as yesterday but does note that is improved since admission. She continues to endorse increased dyspnea with exertion but again states that this has improved since admission. She also endorses continued bilateral lower extremity edema and states that this has started weeping again. She has no other complaints denying chest pain, palpitations, nausea/vomiting, abdominal pain, and dizziness/lightheadedness. Spoke with Dr. Wasserman in regards to patient's anticoagulation and he states to continue holding at this time with plan of follow-up in the outpatient setting to discuss a left atrial appendage closure given patient's anemia and concern of GI bleed. He is in agreement with the bubble study to re-evaluate the patient's ASD. He states that this will also be followed in the outpatient setting. Review of Systems Review of Systems: All systems reviewed & are unremarkable except as noted in HPI and below Exam Narrative: AF HR 68 RR 16 Spo2 94 BP 108/62 General: female in no acute respiratory distress who is nontoxic appearing, lying semi recumbent in bed. HEENT: Normocephalic. Atraumatic. Extraocular movement intact. Sclera clear and anicteric. No facial asymmetry. Chest: Lungs are crackles to auscultation bilateral lower bases. No wheezes. CV: Heart was irregular irregular rate and rhythm. Abd: Abdomen was soft. Nontender. Nondistended. Positive bowel sounds. Ext: No clubbing, cyanosis. DP pulses bilaterally. Bilateral lower extremity edema extending to the mid thigh. Weeping noted. Neuro: Patient is alert and oriented x3. Speech is clear. Objective Data Vital Signs Vital Signs: Vital Signs - 24 hr 10/14/24 09:33 10/14/24 12:00 10/14/24 12:00 Temperature 97.4 F L Pulse Rate 88 82 Respiratory Rate 20 Blood Pressure 140/80 Pulse Oximetry 93 96 Oxygen Delivery Room Air 10/14/24 14:00 10/14/24 16:00 10/14/24 16:00 Temperature 97.3 F L 97.3 F L Pulse Rate 91 90 89 Respiratory Rate 20 20 Blood Pressure 142/83 H 140/80 Pulse Oximetry 96 96 Oxygen Delivery 10/14/24 19:49 10/14/24 20:00 10/14/24 20:00 Temperature 97.8 F Pulse Rate 93 83 Respiratory Rate 16 Blood Pressure 132/86 Pulse Oximetry 97 Oxygen Delivery Room Air 10/14/24 20:09 10/15/24 00:00 10/15/24 01:21 Temperature 97.7 F Pulse Rate 85 103 H 62 Respiratory Rate 16 Blood Pressure 119/73 Pulse Oximetry 93 Oxygen Delivery 10/15/24 04:00 10/15/24 06:14 10/15/24 08:41 Temperature 98.1 F Pulse Rate 78 72 72 Respiratory Rate 16 Blood Pressure 104/64 Pulse Oximetry 93 Oxygen Delivery Intake/Output Intake/Output: Intake & Output 10/12/24 10/13/24 10/14/24 10/15/24 23:59 23:59 23:59 23:59 Intake Total 1965 400 Output Total 2150 1200 Balance -185 -800 Meds/Results Medications: Active Medications Generic Name Dose Route Start Last Admin Trade Name Freq PRN Reason Stop Dose Admin Atorvastatin Calcium 20 mg 10/14/24 09:00 10/15/24 08:41 Atorvastatin 20 Mg Tablet BY MOUTH 20 mg DAILY [place] Administration Calcium Carbonate 500 mg 10/14/24 09:00 10/15/24 08:41 Calcium Carbonate (Oscal) 500 Mg Tablet PO 500 mg BID [place] Administration Furosemide 40 mg 10/14/24 17:00 10/15/24 08:41 Furosemide Inj 40 Mg/4 Ml Vial IV PUSH 40 mg BID [place] Administration Irbesartan 150 mg 10/14/24 09:00 10/15/24 08:41 Irbesartan 150 Mg Tablet PO 150 mg DAILY [place] Administration Metoprolol Succinate 50 mg 10/14/24 09:00 10/15/24 08:41 Metoprolol Succinate Ext Rel 50 Mg Tabcr PO 50 mg Q12HR [place] Administration Pantoprazole Sodium 40 mg 10/14/24 09:00 10/15/24 08:41 Pantoprazole Sodium Iv 40 Mg Vial IV PUSH 40 mg Q12HR [place] Administration Perflutren Lipid Microsphere 0 ml 10/13/24 23:45 Perflutren Lipid Microspheres 1.5 Ml Vial Diluted To 10 Ml Total Volume IV PUSH 10/16/24 23:45 ONCE PRN adequate visualization Protocol Perflutren Lipid Microsphere 0 ml 10/14/24 04:36 Perflutren Lipid Microspheres 1.5 Ml Vial Diluted To 10 Ml Total Volume IV PUSH 10/17/24 04:36 ONCE PRN adequate visualization Protocol Perflutren Lipid Microsphere 0 ml 10/15/24 08:47 Perflutren Lipid Microspheres 1.5 Ml Vial Diluted To 10 Ml Total Volume IV PUSH 10/18/24 08:47 ONCE PRN adequate visualization Protocol Potassium Chloride 10 meq 10/14/24 08:00 10/15/24 08:40 Potassium Chloride 10 Meq Er Tablet PO 10 meq DAILY@0800 [facility] Administration Rivaroxaban 20 mg 10/14/24 17:00 Rivaroxaban 20 Mg Tablet PO DAILY@1700 [facility] Vitamin B Complex 1 cap 10/14/24 09:00 10/15/24 08:41 Vitamin B Complex Capsule PO 1 cap DAILY [facility] Administration Radiology Results: ITS Impressions Chest X-Ray 10/13/24 21:38 IMPRESSION: Bilateral basal atelectasis versus pneumonia with bilateral pleural effusion. Slight cardiomegaly. Possibility of pericardial effusion cannot be excluded. Labs Labs: Laboratory Results - last 24 hr 10/15/24 05:37 WBC 5.3 RBC 3.68 L Hgb 7.5 L Hct 26.5 L MCV 72.0 L MCH 20.4 L MCHC 28.3 L RDW 21.7 H Plt Count 260 MPV 10.5 H Sodium 138 Potassium 3.5 Chloride 100 Carbon Dioxide 34 H Anion Gap 4 BUN 26 H Creatinine 0.90 Estim Creat Clear Calc 50 Estimated GFR 60 Glucose 88 Calcium 8.2 L Total Bilirubin 1.1 AST 40 H ALT 26 Alkaline Phosphatase 103 Total Protein 5.8 L Albumin 3.1 L Quality VTE Prophylaxis VTE prophylaxis: mechanical ordered
--- NOTE | 2024-10-15 13:01 | PM.CNCAR ---
Assessment and Plan Assessment and plan (1) Acute exacerbation of CHF (congestive heart failure): Qualifiers: Heart failure type: unspecified Qualified Code(s): I50.9 - Heart failure, unspecified Code(s): I50.9 - Heart failure, unspecified Status: Acute (2) Chronic atrial fibrillation: Code(s): I48.20 - Chronic atrial fibrillation, unspecified Status: Acute (3) Tricuspid regurgitation: Code(s): I07.1 - Rheumatic tricuspid insufficiency Status: Acute (4) Aortic stenosis: Code(s): I35.0 - Nonrheumatic aortic (valve) stenosis Status: Acute Plan 83-year-old woman with chronic diastolic heart failure, persistent atrial fibrillation, and hyperlipidemia presented with shortness of breath found to be anemic the exacerbated by Xarelto in setting of AV malformation Persistent atrial fibrillation -rate control on Toprol 50 mg p.o. b.i.d. -given her severe anemia and risk of bleeding, can hold her Xarelto for now -I have discussed in depth with her the alternative option to decreasing stroke risk with left atrial appendage occlusion device -patient and her daughter have agreed to proceed forward -I will set her up with CT scan to assess left atrial appendage for thrombus as well as sizing for device -I will see her in clinic in 2-[address] scan to discuss the risks, benefits, and alternatives Chronic diastolic heart failure with RV dilation -continue Lasix 40 mg IV push b.i.d. Atrial septal defect -we will perform an agitated saline study today to confirm if the atrial septal defect is present -if present, it would explain her RV dilation as well as her severe right atrial dilation Mild aortic stenosis -the echocardiogram has had poor visualization but there is at least mild aortic stenosis by visualization -the CT scan for the left atrial appendage sizing will provide further clarification -if more information is required, we can reassess on the transesophageal echocardiogram that will need to be perform either way after Amulet device deployed Massive tricuspid regurgitation -this is likely secondary to annular dilatation from severe right atrial as well as RV dilation -this will need to be addressed likely in the outpatient setting with possible conversation on tricuspid clip versus endovascular valve replacement Patient of Dr. Bolden who can provide longitudinal cardiac care. She can see me for the LAAO in 2-4 weeks History of Present Illness History of Present Illness Consult date/time: 10/15/24 13:01 Requesting physician: Verónica Alvarado PA-C Reason For Visit: Shortness of breath Narrative: 83-year-old woman with chronic diastolic heart failure, persistent atrial fibrillation, and hyperlipidemia presented with shortness of breath found to be anemic the exacerbated by Xarelto in setting of AV malformation. In discussion with her daughter at bedside, it would appear that her exertional shortness of breath has been worsening since spring time of last year. She we used to be able to live on her own and take care of her activities of daily living with some exertional shortness of breath. However in the last few months, they have noted that she continually need more aid with her activities of daily living such as changing herself given her exertional dyspnea. They would also find her to be in the same clothes because of the shortness of breath from exertion. This has accumulated to the point where she is now in the assisted living facility where more aid can be provided to her. They have also noted lower extremity swelling that has worsened over the last few months. She has some mild degree of orthopnea that is stable. No syncopal events. No complaints of exertional chest pain. Review of Systems Cardiovascular: Cardiovascular: Reports as per HPI Respiratory: Respiratory: Reports as per HPI [facility] Past Medical History Medical History (Updated 10/15/24 @ 13:11 by Gutierrez Wasserman MD) Chronic anticoagulation Chronic atrial fibrillation Hearing loss, bilateral Osteoporosis Impaired functional mobility, balance, gait, and endurance Orthostatic hypotension Hyperthyroidism HTN (hypertension) Eczema coxsackium Anemia Alcohol consumption of four to five drinks per day Actinic keratosis Diaphragmatic hernia without obstruction or gangrene Hyperlipidemia DJD (degenerative joint disease) Mitral valve regurgitation Iron deficiency anemia ARMEN (obstructive sleep apnea) Intolerant to CPAP and noncompliant with oral appliance Ankle fracture, right (~04/2019) Gastro-esophageal reflux disease without esophagitis Osteoarthritis 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 and removal TIA (transient ischemic attack) Seasonal allergies Surgical History Surgical History History of left shoulder replacement History of reverse total replacement of right shoulder joint (~12/12/20) History of bilateral cataract extraction (~2018) Status post phlebectomy (~12/2016) Status post laser ablation of incompetent vein (~11/2016) History of appendectomy (~04/2014) Family History Family History Grandparent Family history of malignant neoplasm Hypertension Mother Family history of malignant neoplasm Hypertension Sibling Family history of elevated blood lipids Father Family history of cardiovascular disease Family history of congestive heart failure Grandparent Leukemia Social History Social History (Updated 10/14/24 @ 08:42 by Lauren Damon DO) Social History: Code status: Full code (she states she would not want to be on ventilator long-term are to have long-term feeding tube.) Healthcare power of regulatory attorney: Merly Pedersen (stepdaughter) Smoking packs per day: 0.5 Smoking cigarettes per day: 10.0 Years smoked: 5 Smoking pack-years: 2.50 Smoking status: Former smoker Alcohol intake: current Drinks per week: 1 Alcohol use details: Patient used to drink 4-7 glasses of wine a day. She states she is down to 1 glass a day. Substance use: never Substance use type: does not use Do You Feel Safe in your Home?: Yes Lack of Transportation: No Lack of Food: Never True Current Housing: I Have Housing Concerned About Future Housing: No Difficulty Paying Gas/Electric Bills: No Difficulty Paying for Meds: No Currently Unemployed: No Education: Trade/Vocational Certificate Difficulty w/ Childcare or Family Care: No Living arrangements: alone Additional living arrangements comments: She has been from her 2nd for about 20 years. She has 1 adopted daughter and 2 stepdaughters. She ambulates with a walker. Gender identity (if verbalized by the patient): Female Spiritual care concerns: No Agree to blood products: Yes Meds Home Medications and Allergies Home Medications ?Medication ?Instructions ?Recorded ?Confirmed ?Type biotin 10,000 mcg chewable tablet 20,000 mcg PO DAILY 04/27/24 10/14/24 History (Hair, Skin and Nails (biotin)) vitamin B complex 1 tablet PO DAILY 04/30/24 10/14/24 History metoprolol succinate 50 mg 50 mg PO BID #180 tabs 06/09/24 10/14/24 Rx tablet,extended release 24 hr irbesartan 300 mg tablet See Rx Instructions .Route 07/02/24 10/14/24 Rx .COMPLEX #90 tabs atorvastatin 20 mg tablet See Rx Instructions .Route 07/22/24 10/14/24 Rx .COMPLEX #90 tabs Xarelto 20 mg tablet (rivaroxaban) 20 mg PO DAILY #90 tabs 08/11/24 10/14/24 Rx potassium chloride 10 mEq 10 meq PO DAILY 30 days #30 tabs 08/11/24 10/14/24 Rx tablet,extended release (Klor-Con) Calcium 600 mg BYMOUTH BID 09/08/24 10/14/24 History furosemide 20 mg tablet 20 mg PO QAM #90 tabs 09/08/24 10/14/24 Rx Allergies Allergy/AdvReac Type Severity Reaction Status Date / Time red dye AdvReac Severe Rash Verified 10/13/24 20:09 solifenacin AdvReac Mild hair loss Verified 10/13/24 20:09 Vital Signs Vital Signs - 24 hr 10/14/24 14:00 10/14/24 16:00 10/14/24 16:00 Temperature 36.3 C L 36.3 C L Pulse Rate 91 90 89 Respiratory Rate 20 20 Blood Pressure 142/83 H 140/80 Pulse Oximetry 96 96 Oxygen Delivery 10/14/24 19:49 10/14/24 20:00 10/14/24 20:00 Temperature 36.6 C Pulse Rate 93 83 Respiratory Rate 16 Blood Pressure 132/86 Pulse Oximetry 97 Oxygen Delivery Room Air 10/14/24 20:09 10/15/24 00:00 10/15/24 01:21 Temperature 36.5 C Pulse Rate 85 103 H 62 Respiratory Rate 16 Blood Pressure 119/73 Pulse Oximetry 93 Oxygen Delivery 10/15/24 04:00 10/15/24 06:14 10/15/24 08:00 Temperature 36.7 C 36.6 C Pulse Rate 78 72 68 Respiratory Rate 16 16 Blood Pressure 104/64 108/62 Pulse Oximetry 93 94 Oxygen Delivery 10/15/24 08:41 10/15/24 09:59 10/15/24 10:21 Temperature Pulse Rate 72 Respiratory Rate Blood Pressure Pulse Oximetry Oxygen Delivery Room Air Room Air Exam Const: General: no acute distress HENMT: Mouth: Yes moist mucous membranes Eyes: EOM: EOMs intact bilaterally Neck: Neck: no JVD Resp: Effort & Inspection: normal respiratory effort Auscultation: clear to auscultation bilaterally Cardio: Rate: regular rate Rhythm: abnormal rhythm Heart sounds: Murmur heart sound present Extrem: General: edema and pedal edema Results Labs and Meds 10/15/24 05:37 10/15/24 05:37 Lab results: Cardiac Enzymes 10/15/24 Range/Units 05:37 AST 40 H (14-36) U/L CBC 10/15/24 Range/Units 05:37 WBC 5.3 (4.5-10.0) K/mm3 RBC 3.68 L (4.2-5.4) M/mm3 Hgb 7.5 L (12.0-15.0) g/dL Hct 26.5 L (37.0-47.0) % Plt Count 260 (150-375) k/mm3 Comprehensive Metabolic Panel 10/15/24 Range/Units 05:37 Sodium 138 (137-145) mmol/L Potassium 3.5 (3.4-5.0) mmol/L Chloride 100 (98-107) mmol/L Carbon Dioxide 34 H (22-30) mmol/L BUN 26 H (7-17) mg/dL Creatinine 0.90 (0.7-1.0) mg/dL Glucose 88 (65-110) mg/dL Calcium 8.2 L (8.4-10.2) mg/dL AST 40 H (14-36) U/L ALT 26 (6-35) U/L Alkaline Phosphatase 103 (38-126) U/L Total Protein 5.8 L (6.3-8.2) g/dL Albumin 3.1 L (3.5-5.1) g/dL Intake and Output 10/14/24 10/15/24 10/15/24 23:59 07:59 15:59 Intake Total 740 400 240 Output Total 1700 1200 Balance -960 -800 240 Intake: Oral 740 400 240 Output: Urine 1700 1200 Other: # Unmeasured Voids 6 Number of Bowel Movements Today 1 Patient Weight 10/15/24 23:59 Weight 98.7 kg
[2024-10-16] VITALS (11 sets, daily range): BP systolic 93–120; BP diastolic 54–71; PULSE 71–93; RESP 16–22; TEMP 36.4–37; O2SAT 94–100
[2024-10-16 05:51] LABS: Hematocrit 26.2 % (37.0-47.0); Hemoglobin 7.5 g/dL (12.0-15.0); Mean Corpuscular HGB Conc 28.6 g/dl (32-36); Mean Corpuscular Hemoglobin 20.7 pg (26-34); Mean Corpuscular Volume 72.4 fl (80-100); Mean Platelet Volume 10.6 fl (7.4-10.4); Platelet Count Result 273 k/mm3 (150-375); Red Blood Count 3.62 M/mm3 (4.2-5.4); Red Cell Distribution Width 22.5 % (11.5-14.5); White Blood Count 5.2 K/mm3 (4.5-10.0)
[2024-10-16 06:14] LABS: Alanine Aminotransferase 23 U/L (6-35); Albumin Level 3.1 g/dL (3.5-5.1); Alkaline Phosphatase 119 U/L (38-126); Anion Gap 3 mmol/L (4-12); Aspartate Amino Transferase 34 U/L (14-36); Bilirubin,Total 0.7 mg/dL (0.2-1.3); Blood Urea Nitrogen 24 mg/dL (7-17); Calcium 8.1 mg/dL (8.4-10.2); Carbon Dioxide 37 mmol/L (22-30); Chloride 98 mmol/L (98-107); Estimated CRCL calculation 47 ml/min; Estimated Glomerular Filt Rate 56; Glucose 95 mg/dL (65-110); Potassium 3.3 mmol/L (3.4-5.0); Sodium 138 mmol/L (137-145); Total Protein 5.7 g/dL (6.3-8.2)
--- NOTE | 2024-10-16 08:30 | PM.IMPN ---
Progress Note: A&P Assessment and Plan (1) Symptomatic anemia: Code(s): D64.9 - Anemia, unspecified Status: Acute Assessment and Plan: H/H 6.9/25.5 on admission, given 1pRBC. Repeat H/H 7.8/28.4. - H/H stable at 7.5/26.2 on am labs - Iron panel: iron 26, TIBC 470, % sat 6, ferritin 5.93 - B12 and folate WNL - IV iron 400 mg x1 on 10/14 - holding chronic anticoagulation for afib, xarelto 20 mg daily on hold. SCD for DVT ppx. See Atrial fibrillation plan below. - Per ED note rectal exam did not reveal melanotic or bloody stools. Hemoccult negative. - GI consulted Considering the prior negative scopes, repeat EGD and colonoscopy are not anticipated to identify a source of bleeding. Consequently, attention is now directed to the small bowel, with arteriovenous malformations being a likely etiology (by frequency), likely exacerbated by her (necessary) anticoagulation. Plan for outpatient capsule endoscopy to further investigate this possibility post-discharge. Ongoing management will include serial hemoglobin monitoring by her primary care physician and outpatient iron infusions to ensure complete repletion of iron stores. (2) Acute exacerbation of CHF (congestive heart failure): Qualifiers: Heart failure type: unspecified Qualified Code(s): I50.9 - Heart failure, unspecified Code(s): I50.9 - Heart failure, unspecified Status: Acute Assessment and Plan: No prior history of CHF. Risk factors: HTN and Afib [facility] on 08[facility]. Remain off diltiazem. Continue metoprolol. Continue Xarelto for stroke ppx. - Symptoms: lower extremity edema with dyspnea and orthopnea - Current home medications: lasix 20 mg daily, irbesartan 300 mg daily, metoprolol 50 mg BID - Lasix increased to 60 mg IV BID given continued pitting edema to BLE, started on spironolactone 25 mg daily, remains on home irbesartan and metoprolol - BNP: 2300, Trop negative - EKG: Afib - Chest XR: Bilateral basal atelectasis vs pneumonia with bilateral pleural effusion and slight cardiomegaly. Possibility of pericardial effusion cannot be excluded. Likely atelectasis secondary to effusion and not pneumonia given patient is afebrile without leukocytosis - Echo: LVEF 60-65% with severe concentric hypertrophy, atrial septal defect, heavily calcified aortic valve with mild , massive tricuspid regurgitation, and moderate pulmonary hypertension. Given ASD seen on echo will order bubble study to further evaluate. - Monitor vital signs, I&Os, BUN/creatinine, daily weights, neuro status and patient is a fall risk - Monitor serum electrolytes, Keep serum Potassium>4 and serum Magnesium>2 and CBC - Evaluated by cardiology Lasix was increased. Now on 60 mg IV q.12 Spironolactone also added which is also reasonable. Follow electrolytes. Patient continues to have 3+ pitting edema to the bilateral lower extremities extending to the mid thigh. Lasix increased to 60 mg IV BID. Started on spironolactone 25 mg daily. Cardiology continues to follow. (3) Atrial fibrillation: Code(s): I48.91 - Unspecified atrial fibrillation Status: Acute Assessment and Plan: Patient is persistently in atrial fibrillation Rate controlled on metoprolol 50 mg b.i.d. Given her anemia and concern for GI bleed, anticoagulation Xarelto is currently on hold Cardiology evaluated patient continue holding Xarelto at this time with plan of follow-up in the outpatient setting for a possible left atrial appendage closure Plan for CT scan to assess left atrial appendage for thrombus as well as sizing for device Follow-up in 2-[address] scan to further discuss procedure (4) Atrial septal defect: Code(s): Q21.10 - Atrial septal defect, unspecified Status: Acute Assessment and Plan: Echo showing atrial septal defect Bubble study did not review any right to left shunting, consider outpatient EUFEMIA to reevaluate Cardiology following (5) Essential (primary) hypertension: Code(s): I10 - Essential (primary) hypertension Status: Chronic Assessment and Plan: Chronic - continue metoprolol 50 mg BID, irbesartan 150 mg daily - started on lasix 60 mg IV BID - blood pressures remain stable, continue to monitor (6) Abnormal thyroid stimulating hormone (TSH) level: Code(s): R79.89 - Other specified abnormal findings of blood chemistry Status: Acute Assessment and Plan: TSH 0.034 with T4 2.24. Per patient followed by PCP. Evaluated by endocrinology on 09/07/24, per their note patients labs are normal based on biotin Monitor. Time Spent With Patient Time with patient: 25 - 35 minutes Subjective Date/time seen: 10/16/24 08:30 Interval history: 83 year old female with past medical history of atrial fibrillation on anticoagulation, hypertension, hyperlipidemia, iron deficiency anemia, GERD, and ARMEN presents to the hospital for lower extremity edema, dyspnea and orthopnea. Patient is pleasant sitting up comfortably in her chair with her legs elevated. She continues to endorse lower extremity swelling but states that it has slightly improved since admission. She also states that her dyspnea with exertion has slightly improved as well. She has no other complaints denying chest pain, shortness a breath, palpitations, nausea/vomiting, abdominal pain. Review of Systems Review of Systems: All systems reviewed & are unremarkable except as noted in HPI and below Exam Narrative: AF HR 78 RR 18 SpO2 100 BP 110/54 General: female in no acute respiratory distress who is nontoxic appearing, sitting up in chair HEENT: Normocephalic. Atraumatic. Extraocular movement intact. Sclera clear and anicteric. No facial asymmetry. Chest: Lungs are crackles to auscultation bilateral lower bases. No wheezes. CV: Heart was irregular irregular rate and rhythm. Abd: Abdomen was soft. Nontender. Nondistended. Positive bowel sounds. Ext: No clubbing, cyanosis. DP pulses bilaterally. Bilateral lower extremity edema extending to the mid thigh. Weeping noted. Neuro: Patient is alert and oriented x3. Speech is clear. Objective Data Vital Signs Vital Signs: Vital Signs - 24 hr 10/15/24 08:41 10/15/24 09:00 10/15/24 09:59 Temperature Pulse Rate 72 Respiratory Rate Blood Pressure Pulse Oximetry Oxygen Delivery Room Air Room Air 10/15/24 10:21 10/15/24 12:00 10/15/24 12:00 Temperature 98 F Pulse Rate 86 100 Respiratory Rate 17 Blood Pressure 124/68 Pulse Oximetry 93 Oxygen Delivery Room Air 10/15/24 16:00 10/15/24 16:00 10/15/24 20:00 Temperature 98.2 F Pulse Rate 89 78 71 Respiratory Rate 17 16 Blood Pressure 120/73 Pulse Oximetry 91 97 Oxygen Delivery Room Air 10/15/24 20:00 10/15/24 20:18 10/15/24 20:20 Temperature 97.6 F Pulse Rate 95 94 71 Respiratory Rate 16 Blood Pressure 107/63 Pulse Oximetry 97 Oxygen Delivery 10/16/24 00:00 10/16/24 01:00 10/16/24 04:00 Temperature 97.6 F Pulse Rate 87 86 88 Respiratory Rate 16 Blood Pressure 103/71 Pulse Oximetry 97 Oxygen Delivery 10/16/24 04:38 10/16/24 08:00 Temperature 97.8 F 98.0 F Pulse Rate 87 71 Respiratory Rate 16 18 Blood Pressure 108/65 120/62 Pulse Oximetry 98 94 Oxygen Delivery Intake/Output Intake/Output: Intake & Output 10/13/24 10/14/24 10/15/24 10/16/24 23:59 23:59 23:59 23:59 Intake Total 1965 1000 350 Output Total 2150 2100 1000 Balance -185 1100 -650 Meds/Results Medications: Active Medications Generic Name Dose Route Start Last Admin Trade Name Freq PRN Reason Stop Dose Admin Atorvastatin Calcium 20 mg 10/14/24 09:00 10/15/24 08:41 Atorvastatin 20 Mg Tablet BY MOUTH 20 mg DAILY [facility] Administration Calcium Carbonate 500 mg 10/14/24 09:00 10/15/24 16:43 Calcium Carbonate (Oscal) 500 Mg Tablet PO 500 mg BID [facility] Administration Furosemide 40 mg 10/14/24 17:00 10/15/24 16:43 Furosemide Inj 40 Mg/4 Ml Vial IV PUSH 40 mg BID [facility] Administration Irbesartan 150 mg 10/14/24 09:00 10/15/24 08:41 Irbesartan 150 Mg Tablet PO 150 mg DAILY [facility] Administration Metoprolol Succinate 50 mg 10/14/24 09:00 10/15/24 20:20 Metoprolol Succinate Ext Rel 50 Mg Tabcr PO 50 mg Q12HR [facility] Administration Pantoprazole Sodium 40 mg 10/14/24 09:00 10/15/24 20:25 Pantoprazole Sodium Iv 40 Mg Vial IV PUSH 40 mg Q12HR [facility] Administration Perflutren Lipid Microsphere 0 ml 10/13/24 23:45 Perflutren Lipid Microspheres 1.5 Ml Vial Diluted To 10 Ml Total Volume IV PUSH 10/16/24 23:45 ONCE PRN adequate visualization Protocol Perflutren Lipid Microsphere 0 ml 10/14/24 04:36 Perflutren Lipid Microspheres 1.5 Ml Vial Diluted To 10 Ml Total Volume IV PUSH 10/17/24 04:36 ONCE PRN adequate visualization Protocol Perflutren Lipid Microsphere 0 ml 10/15/24 08:47 Perflutren Lipid Microspheres 1.5 Ml Vial Diluted To 10 Ml Total Volume IV PUSH 10/18/24 08:47 ONCE PRN adequate visualization Protocol Potassium Chloride 10 meq 10/14/24 08:00 10/15/24 08:40 Potassium Chloride 10 Meq Er Tablet PO 10 meq DAILY@0800 [facility] Administration Rivaroxaban 20 mg 10/14/24 17:00 Rivaroxaban 20 Mg Tablet PO DAILY@1700 [facility] Vitamin B Complex 1 cap 10/14/24 09:00 10/15/24 08:41 Vitamin B Complex Capsule PO 1 cap DAILY [facility] Administration Radiology Results: ITS Impressions Chest X-Ray 10/13/24 21:38 IMPRESSION: Bilateral basal atelectasis versus pneumonia with bilateral pleural effusion. Slight cardiomegaly. Possibility of pericardial effusion cannot be excluded. Labs Labs: Laboratory Results - last 24 hr 10/16/24 05:28 WBC 5.2 RBC 3.62 L Hgb 7.5 L Hct 26.2 L MCV 72.4 L MCH 20.7 L MCHC 28.6 L RDW 22.5 H Plt Count 273 MPV 10.6 H Sodium 138 Potassium 3.3 L Chloride 98 Carbon Dioxide 37 H Anion Gap 3 L BUN 24 H Creatinine 0.96 Estim Creat Clear Calc 47 Estimated GFR 56 L Glucose 95 Calcium 8.1 L Total Bilirubin 0.7 AST 34 ALT 23 Alkaline Phosphatase 119 Total Protein 5.7 L Albumin 3.1 L Quality VTE Prophylaxis VTE prophylaxis: mechanical ordered
--- NOTE | 2024-10-16 09:15 | P.PNCA_ITS ---
Progress Note: A&P Assessment and Plan (1) Acute exacerbation of CHF (congestive heart failure): Qualifiers: Heart failure type: unspecified Qualified Code(s): I50.9 - Heart failure, unspecified Code(s): I50.9 - Heart failure, unspecified Status: Acute (2) Chronic atrial fibrillation: Code(s): I48.20 - Chronic atrial fibrillation, unspecified Status: Acute (3) Tricuspid regurgitation: Code(s): I07.1 - Rheumatic tricuspid insufficiency Status: Acute (4) Aortic stenosis: Code(s): I35.0 - Nonrheumatic aortic (valve) stenosis Status: Acute Plan 83-year-old woman with chronic diastolic heart failure, persistent atrial fibrillation, and hyperlipidemia presented with shortness of breath found to be anemic the exacerbated by Xarelto in setting of AV malformation Persistent atrial fibrillation -rate control on Toprol 50 mg p.o. b.i.d. -given her severe anemia and risk of bleeding, can hold her Xarelto for now - CT scan to assess left atrial appendage for thrombus as well as sizing for device as outpatient - follow-up in clinic in 2-[address] scan to discuss the risks, benefits, and alternatives Chronic diastolic heart failure with RV dilation - Lasix was increased. Now on 60 mg IV q.12 Spironolactone also added which is also reasonable. Follow electrolytes. Atrial septal defect -if present, it would explain her RV dilation as well as her severe right atrial dilation Mild aortic stenosis -the echocardiogram has had poor visualization but there is at least mild aortic stenosis by visualization -the CT scan for the left atrial appendage sizing will provide further clarification -if more information is required, we can reassess on the transesophageal echocardiogram that will need to be perform either way after Amulet device deployed Massive tricuspid regurgitation -this is likely secondary to annular dilatation from severe right atrial as well as RV dilation -this will need to be addressed likely in the outpatient setting with possible conversation on tricuspid clip versus endovascular valve replacement Patient of Dr. Bolden who can provide longitudinal cardiac care. Follow-up with Dr. Wasserman for the [facility] in 2-4 weeks Subjective Date/time seen: 10/16/24 09:15 Interval history: 83-year-old woman with chronic diastolic heart failure, persistent atrial fibrillation, and hyperlipidemia presented with shortness of breath found to be anemic the exacerbated by Xarelto in setting of AV malformation. In discussion with her daughter at bedside, it would appear that her exertional shortness of breath has been worsening since spring time of last year. She we used to be able to live on her own and take care of her activities of daily living with some exertional shortness of breath. However in the last few months, they have noted that she continually need more aid with her activities of daily living such as changing herself given her exertional dyspnea. Date of service 10/16/2024 does feel little bit less swollen but still short of breath walking to and from the bathroom. No chest pain. Review of Systems Constitutional: Constitutional: Denies chills Eyes: Eyes: Denies blurry vision ENT: Reports Normal hearing present Cardiovascular: Cardiovascular: Denies chest pain, Reports pedal edema and Reports leg edema Respiratory: Respiratory: Reports dyspnea Gastrointestinal: Gastrointestinal: Denies abdominal pain Genitourinary: Genitourinary: Denies hematuria Exam Narrative: Appears stated age Const: General: no acute distress HENMT: Mouth: Yes moist mucous membranes Eyes: Sclera: sclerae normal Neck: Neck: no JVD Resp: Effort & Inspection: normal respiratory effort Auscultation: wheezes Cardio: Rate: regular rate Rhythm: abnormal rhythm Heart sounds: Murmur heart sound present GI: Inspection: non-distended GI Palp: Yes Soft to palpation Skin: General skin exam: normal color Neuro: Speech: normal speech Sensory Exam: normal sensation Extrem: General: edema and pedal edema Other: massive lower extremity edema to the hips Psych: Mental Status: mental status grossly normal Objective Data Vital Signs Vital Signs: Vital Signs - 24 hr 10/15/24 09:59 10/15/24 10:21 10/15/24 12:00 Temperature 36.6 C Pulse Rate 86 Respiratory Rate 17 Blood Pressure 124/68 Pulse Oximetry 93 Oxygen Delivery Room Air Room Air 10/15/24 12:00 10/15/24 16:00 10/15/24 16:00 Temperature 36.8 C Pulse Rate 100 89 78 Respiratory Rate 17 Blood Pressure 120/73 Pulse Oximetry 91 Oxygen Delivery 10/15/24 20:00 10/15/24 20:00 10/15/24 20:18 Temperature 36.4 C Pulse Rate 71 95 94 Respiratory Rate 16 16 Blood Pressure 107/63 Pulse Oximetry 97 97 Oxygen Delivery Room Air 10/15/24 20:20 10/16/24 00:00 10/16/24 01:00 Temperature 36.4 C Pulse Rate 71 87 86 Respiratory Rate 16 Blood Pressure 103/71 Pulse Oximetry 97 Oxygen Delivery 10/16/24 04:00 10/16/24 04:38 10/16/24 08:00 Temperature 36.6 C 36.7 C Pulse Rate 88 87 71 Respiratory Rate 16 18 Blood Pressure 108/65 120/62 Pulse Oximetry 98 94 Oxygen Delivery Intake/Output Intake/Output: Intake & Output 10/13/24 10/14/24 10/15/24 10/16/24 23:59 23:59 23:59 23:59 Intake Total 1965 1000 350 Output Total 2150 2100 1000 Balance -185 1100 -650 Meds/Results Medications: Active Medications Generic Name Dose Route Start Last Admin Trade Name Freq PRN Reason Stop Dose Admin Atorvastatin Calcium 20 mg 10/14/24 09:00 10/15/24 08:41 Atorvastatin 20 Mg Tablet BY MOUTH 20 mg DAILY [facility] Administration Calcium Carbonate 500 mg 10/14/24 09:00 10/15/24 16:43 Calcium Carbonate (Oscal) 500 Mg Tablet PO 500 mg BID [facility] Administration Furosemide 60 mg 10/16/24 09:00 Furosemide Inj 100 Mg/10 Ml Vial IV PUSH BID [facility] Irbesartan 150 mg 10/14/24 09:00 10/15/24 08:41 Irbesartan 150 Mg Tablet PO 150 mg DAILY [facility] Administration Metoprolol Succinate 50 mg 10/14/24 09:00 10/15/24 20:20 Metoprolol Succinate Ext Rel 50 Mg Tabcr PO 50 mg Q12HR [facility] Administration Pantoprazole Sodium 40 mg 10/14/24 09:00 10/15/24 20:25 Pantoprazole Sodium Iv 40 Mg Vial IV PUSH 40 mg Q12HR [facility] Administration Perflutren Lipid Microsphere 0 ml 10/15/24 08:47 Perflutren Lipid Microspheres 1.5 Ml Vial Diluted To 10 Ml Total Volume IV PUSH 10/18/24 08:47 ONCE PRN adequate visualization Protocol Potassium Chloride 10 meq 10/14/24 08:00 10/15/24 08:40 Potassium Chloride 10 Meq Er Tablet PO 10 meq DAILY@0800 [facility] Administration Rivaroxaban 20 mg 10/14/24 17:00 Rivaroxaban 20 Mg Tablet PO DAILY@1700 [facility] Spironolactone 25 mg 10/16/24 09:00 Spironolactone 25 Mg Tablet PO QAM [facility] Vitamin B Complex 1 cap 10/14/24 09:00 10/15/24 08:41 Vitamin B Complex Capsule PO 1 cap DAILY [facility] Administration Radiology Results: ITS Impressions Chest X-Ray 10/13/24 21:38 IMPRESSION: Bilateral basal atelectasis versus pneumonia with bilateral pleural effusion. Slight cardiomegaly. Possibility of pericardial effusion cannot be excluded. Labs Labs: Laboratory Results - last 24 hr 10/16/24 05:28 WBC 5.2 RBC 3.62 L Hgb 7.5 L Hct 26.2 L MCV 72.4 L MCH 20.7 L MCHC 28.6 L RDW 22.5 H Plt Count 273 MPV 10.6 H Sodium 138 Potassium 3.3 L Chloride 98 Carbon Dioxide 37 H Anion Gap 3 L BUN 24 H Creatinine 0.96 Estim Creat Clear Calc 47 Estimated GFR 56 L Glucose 95 Calcium 8.1 L Total Bilirubin 0.7 AST 34 ALT 23 Alkaline Phosphatase 119 Total Protein 5.7 L Albumin 3.1 L
[2024-10-16] MEDS: POTASSIUM CHLORIDE 20 MEQ ER TABLET 40 MEQ PO (09:52)
[2024-10-16] MEDS: IRBESARTAN 150 MG TABLET PO (09:52)
[2024-10-16] MEDS: ATORVASTATIN 20 MG TABLET BY MOUTH (09:52)
[2024-10-16] MEDS: PANTOPRAZOLE SODIUM IV 40 MG VIAL IV PUSH ×2 (09:53→21:59)
[2024-10-16] MEDS: POTASSIUM CHLORIDE 10 MEQ ER TABLET PO (09:53)
[2024-10-16] MEDS: CALCIUM CARBONATE (OSCAL) 500 MG TABLET PO ×2 (09:53→16:54)
[2024-10-16] MEDS: METOPROLOL SUCCINATE EXT REL 50 MG TABCR PO ×2 (09:53→21:59)
[2024-10-16] MEDS: VITAMIN B COMPLEX CAPSULE 1 CAP PO (09:53)
[2024-10-16] MEDS: SPIRONOLACTONE 25 MG TABLET PO (10:09)
[2024-10-16] MEDS: FUROSEMIDE INJ 100 MG/10 ML VIAL 60 MG IV PUSH ×2 (10:09→16:54)
[2024-10-17] VITALS (13 sets, daily range): BP systolic 96–129; BP diastolic 53–77; PULSE 82–105; RESP 16–18; TEMP 36.3–37.2; O2SAT 95–100
[2024-10-17 05:38] LABS: Hematocrit 28.1 % (37.0-47.0); Hemoglobin 7.8 g/dL (12.0-15.0); Mean Corpuscular HGB Conc 27.8 g/dl (32-36); Mean Corpuscular Hemoglobin 20.5 pg (26-34); Mean Corpuscular Volume 73.9 fl (80-100); Mean Platelet Volume 10.6 fl (7.4-10.4); Platelet Count Result 291 k/mm3 (150-375); Red Cell Distribution Width 23.3 % (11.5-14.5); White Blood Count 5.1 K/mm3 (4.5-10.0)
[2024-10-17 05:57] LABS: Alanine Aminotransferase 25 U/L (6-35); Albumin Level 3.1 g/dL (3.5-5.1); Alkaline Phosphatase 112 U/L (38-126); Aspartate Amino Transferase 38 U/L (14-36); Bilirubin,Total 0.7 mg/dL (0.2-1.3); Blood Urea Nitrogen 24 mg/dL (7-17); Calcium 8.2 mg/dL (8.4-10.2); Carbon Dioxide > 40 mmol/L (22-30); Chloride 94 mmol/L (98-107); Estimated CRCL calculation 43 ml/min; Estimated Glomerular Filt Rate 50; Glucose 94 mg/dL (65-110); Potassium 3.4 mmol/L (3.4-5.0); Sodium 139 mmol/L (137-145); Total Protein 5.9 g/dL (6.3-8.2)
--- NOTE | 2024-10-17 08:38 | PM.IMPN ---
Progress Note: A&P Assessment and Plan (1) Symptomatic anemia: Code(s): D64.9 - Anemia, unspecified Status: Acute Assessment and Plan: H/H 6.9/25.5 on admission, given 1pRBC. Repeat H/H 7.8/28.4. - H/H stable at 7.8/28.1 on am labs - Iron panel: iron 26, TIBC 470, % sat 6, ferritin 5.93 - B12 and folate WNL - IV iron 400 mg x1 on 10/14 - holding chronic anticoagulation for afib, xarelto 20 mg daily on hold. SCD and low dose lovenox for DVT ppx. See Atrial fibrillation plan below. - Per ED note rectal exam did not reveal melanotic or bloody stools. Hemoccult negative. - GI consulted Considering the prior negative scopes, repeat EGD and colonoscopy are not anticipated to identify a source of bleeding. Consequently, attention is now directed to the small bowel, with arteriovenous malformations being a likely etiology (by frequency), likely exacerbated by her (necessary) anticoagulation. Plan for outpatient capsule endoscopy to further investigate this possibility post-discharge. Ongoing management will include serial hemoglobin monitoring by her primary care physician and outpatient iron infusions to ensure complete repletion of iron stores. (2) Acute exacerbation of CHF (congestive heart failure): Qualifiers: Heart failure type: unspecified Qualified Code(s): I50.9 - Heart failure, unspecified Code(s): I50.9 - Heart failure, unspecified Status: Acute Assessment and Plan: No prior history of CHF. Risk factors: HTN and Afib Previously [facility] on [facility]. Remain off diltiazem. Continue metoprolol. Continue Xarelto for stroke ppx. - Symptoms: lower extremity edema with dyspnea and orthopnea - Current home medications: lasix 20 mg daily, irbesartan 300 mg daily, metoprolol 50 mg BID - Lasix increased to 60 mg IV BID given continued pitting edema to BLE, started on spironolactone 25 mg daily, remains on home irbesartan and metoprolol - BNP: 2300, Trop negative - EKG: Afib - Chest XR: Bilateral basal atelectasis vs pneumonia with bilateral pleural effusion and slight cardiomegaly. Possibility of pericardial effusion cannot be excluded. Likely atelectasis secondary to effusion and not pneumonia given patient is afebrile without leukocytosis - Echo: LVEF 60-65% with severe concentric hypertrophy, atrial septal defect, heavily calcified aortic valve with mild , massive tricuspid regurgitation, and moderate pulmonary hypertension. Given ASD seen on echo will order bubble study to further evaluate. - Monitor vital signs, I&Os, BUN/creatinine, daily weights, neuro status and patient is a fall risk - Monitor serum electrolytes, Keep serum Potassium>4 and serum Magnesium>2 and CBC - Evaluated by cardiology Lasix was increased. Now on 60 mg IV q.12 Spironolactone also added which is also reasonable. Follow electrolytes. Bicarb levels continue to rise, likely secondary to continued diuresis causing contraction alkalosis. Patient remains asymptomatic. Will obtain a VBG in the am to further assess pH level. (3) Atrial fibrillation: Code(s): I48.91 - Unspecified atrial fibrillation Status: Acute Assessment and Plan: Patient is persistently in atrial fibrillation Rate controlled on metoprolol 50 mg b.i.d. Given her anemia and concern for GI bleed, anticoagulation Xarelto is currently on hold Cardiology evaluated patient continue holding Xarelto at this time with plan of follow-up in the outpatient setting for a possible left atrial appendage closure. Started on low dose lovenox for DVT ppx. Plan for CT scan to assess left atrial appendage for thrombus as well as sizing for device Follow-up in 2-[address] scan to further discuss procedure (4) Atrial septal defect: Code(s): Q21.10 - Atrial septal defect, unspecified Status: Acute Assessment and Plan: Echo showing atrial septal defect Bubble study did not review any right to left shunting, consider outpatient EUFEMIA to reevaluate Cardiology following (5) Essential (primary) hypertension: Code(s): I10 - Essential (primary) hypertension Status: Chronic Assessment and Plan: Chronic - continue metoprolol 50 mg BID, irbesartan 150 mg daily - started on lasix 60 mg IV BID and spironolactone 25 mg daily - blood pressures remain stable, continue to monitor (6) Abnormal thyroid stimulating hormone (TSH) level: Code(s): R79.89 - Other specified abnormal findings of blood chemistry Status: Acute Assessment and Plan: TSH 0.034 with T4 2.24. Per patient followed by PCP. Evaluated by endocrinology on 09/07/24, per their note patients labs are normal based on biotin Monitor. Time Spent With Patient Time with patient: 25 - 35 minutes Subjective Date/time seen: 10/17/24 08:38 Interval history: 83 year old female with past medical history of atrial fibrillation on anticoagulation, hypertension, hyperlipidemia, iron deficiency anemia, GERD, and ARMEN presents to the hospital for lower extremity edema, dyspnea and orthopnea. Patient is pleasant sitting up comfortably in her chair. She continues to endorse shortness of breath worse with exertion. She continues to have bilateral lower extremity swelling but states that it is improving each day. She has no other complaints denying chest pain, palpitations, nausea/vomiting, abdominal pain. Review of Systems Review of Systems: All systems reviewed & are unremarkable except as noted in HPI and below Exam Narrative: AF HR 91 RR 18 SPO2 100 BP 117/58 General: female in no acute respiratory distress who is nontoxic appearing, sitting up in chair HEENT: Normocephalic. Atraumatic. Extraocular movement intact. Sclera clear and anicteric. No facial asymmetry. Chest: Lungs are diminished to auscultation bilateral lower bases. No wheezes. CV: Heart was irregular irregular rate and rhythm. Abd: Abdomen was soft. Nontender. Nondistended. Positive bowel sounds. Ext: No clubbing, cyanosis. DP pulses bilaterally. Bilateral lower extremity edema 3+ to the knee and 1+ extending to the mid thigh . Weeping noted. Neuro: Patient is alert and oriented x3. Speech is clear. Objective Data Vital Signs Vital Signs: Vital Signs - 24 hr 10/16/24 09:53 10/16/24 12:00 10/16/24 12:00 Temperature 97.8 F Pulse Rate 71 78 88 Respiratory Rate 18 Blood Pressure 110/54 L Pulse Oximetry 100 Oxygen Delivery 10/16/24 16:00 10/16/24 16:00 10/16/24 20:00 Temperature 97.6 F Pulse Rate 85 81 87 Respiratory Rate 18 Blood Pressure 120/64 Pulse Oximetry 100 Oxygen Delivery 10/16/24 21:04 10/16/24 21:04 10/16/24 21:59 Temperature 98.6 F Pulse Rate 88 88 Respiratory Rate 22 H Blood Pressure 93/60 L Pulse Oximetry 99 98 Oxygen Delivery Room Air 10/17/24 00:00 10/17/24 00:13 10/17/24 04:00 Temperature 98.4 F Pulse Rate 93 86 97 Respiratory Rate 16 Blood Pressure 129/77 Pulse Oximetry 95 Oxygen Delivery 10/17/24 08:04 Temperature 97.6 F Pulse Rate 105 H Respiratory Rate 17 Blood Pressure 114/73 Pulse Oximetry 95 Oxygen Delivery Intake/Output Intake/Output: Intake & Output 10/14/24 10/15/24 10/16/24 10/17/24 23:59 23:59 23:59 23:59 Intake Total 1965 1000 1150 250 Output Total 2150 2100 3600 500 Balance -185 -1100 -2450 -250 Meds/Results Medications: Active Medications Generic Name Dose Route Start Last Admin Trade Name Freq PRN Reason Stop Dose Admin Atorvastatin Calcium 20 mg 10/14/24 09:00 10/16/24 09:52 Atorvastatin 20 Mg Tablet BY MOUTH 20 mg DAILY [place] Administration Calcium Carbonate 500 mg 10/14/24 09:00 10/16/24 16:54 Calcium Carbonate (Oscal) 500 Mg Tablet PO 500 mg BID [place] Administration Furosemide 60 mg 10/16/24 09:00 10/16/24 16:54 Furosemide Inj 100 Mg/10 Ml Vial IV PUSH 60 mg BID [place] Administration Irbesartan 150 mg 10/14/24 09:00 10/16/24 09:52 Irbesartan 150 Mg Tablet PO 150 mg DAILY [place] Administration Metoprolol Succinate 50 mg 10/14/24 09:00 10/16/24 21:59 Metoprolol Succinate Ext Rel 50 Mg Tabcr PO 50 mg Q12HR [place] Administration Pantoprazole Sodium 40 mg 10/14/24 09:00 10/16/24 21:59 Pantoprazole Sodium Iv 40 Mg Vial IV PUSH 40 mg Q12HR [place] Administration Perflutren Lipid Microsphere 0 ml 10/15/24 08:47 Perflutren Lipid Microspheres 1.5 Ml Vial Diluted To 10 Ml Total Volume IV PUSH 10/18/24 08:47 ONCE PRN adequate visualization Protocol Potassium Chloride 10 meq 10/14/24 08:00 10/16/24 09:53 Potassium Chloride 10 Meq Er Tablet PO 10 meq DAILY@0800 [place] Administration Rivaroxaban 20 mg 10/14/24 17:00 Rivaroxaban 20 Mg Tablet PO DAILY@1700 [facility] Spironolactone 25 mg 10/16/24 09:00 10/16/24 10:09 Spironolactone 25 Mg Tablet PO 25 mg QAM [facility] Administration Vitamin B Complex 1 cap 10/14/24 09:00 10/16/24 09:53 Vitamin B Complex Capsule PO 1 cap DAILY [place] Administration Radiology Results: ITS Impressions Chest X-Ray 10/13/24 21:38 IMPRESSION: Bilateral basal atelectasis versus pneumonia with bilateral pleural effusion. Slight cardiomegaly. Possibility of pericardial effusion cannot be excluded. Labs Labs: Laboratory Results - last 24 hr 10/17/24 04:55 WBC 5.1 RBC 3.80 L Hgb 7.8 L Hct 28.1 L MCV 73.9 L MCH 20.5 L MCHC 27.8 L RDW 23.3 H Plt Count 291 MPV 10.6 H Sodium 139 Potassium 3.4 Chloride 94 L Carbon Dioxide > 40 H Anion Gap BUN 24 H Creatinine 1.05 H Estim Creat Clear Calc 43 Estimated GFR 50 L Glucose 94 Calcium 8.2 L Total Bilirubin 0.7 AST 38 H ALT 25 Alkaline Phosphatase 112 Total Protein 5.9 L Albumin 3.1 L Quality VTE Prophylaxis VTE prophylaxis: mechanical ordered
[2024-10-17] MEDS: VITAMIN B COMPLEX CAPSULE 1 CAP PO (08:56)
[2024-10-17] MEDS: METOPROLOL SUCCINATE EXT REL 50 MG TABCR PO ×2 (08:56→21:33)
[2024-10-17] MEDS: ATORVASTATIN 20 MG TABLET BY MOUTH (08:56)
[2024-10-17] MEDS: POTASSIUM CHLORIDE 10 MEQ ER TABLET PO (08:56)
[2024-10-17] MEDS: FUROSEMIDE INJ 100 MG/10 ML VIAL 60 MG IV PUSH ×2 (08:56→17:52)
[2024-10-17] MEDS: PANTOPRAZOLE SODIUM IV 40 MG VIAL IV PUSH ×2 (08:56→21:33)
[2024-10-17] MEDS: CALCIUM CARBONATE (OSCAL) 500 MG TABLET PO ×2 (08:56→17:52)
[2024-10-17] MEDS: SPIRONOLACTONE 25 MG TABLET PO (08:56)
[2024-10-17] MEDS: IRBESARTAN 150 MG TABLET PO (08:57)
--- NOTE | 2024-10-17 10:00 | PM.PNCARD ---
Progress Note: A&P Assessment and Plan (1) Acute exacerbation of CHF (congestive heart failure): Qualifiers: Heart failure type: unspecified Qualified Code(s): I50.9 - Heart failure, unspecified Code(s): I50.9 - Heart failure, unspecified Status: Acute (2) Chronic atrial fibrillation: Code(s): I48.20 - Chronic atrial fibrillation, unspecified Status: Acute (3) Tricuspid regurgitation: Code(s): I07.1 - Rheumatic tricuspid insufficiency Status: Acute (4) Aortic stenosis: Code(s): I35.0 - Nonrheumatic aortic (valve) stenosis Status: Acute Plan 83-year-old woman with chronic diastolic heart failure, persistent atrial fibrillation, and hyperlipidemia presented with shortness of breath found to be anemic the exacerbated by Xarelto in setting of AV malformation Persistent atrial fibrillation -rate control on Toprol 50 mg p.o. b.i.d. -given her severe anemia and risk of bleeding, can hold her Xarelto for now - CT scan to assess left atrial appendage for thrombus as well as sizing for device as outpatient - follow-up in clinic in 2-[address] scan to discuss the risks, benefits, and alternatives Chronic diastolic heart failure with RV dilation -continue IV furosemide. BUN and creatinine have bumped up a little bit. May need to reduce the rate of diuresis. Will not make any changes today but follow renal function and adjust as need be. Potassium is low today at 3.4. Will replace with 40 mEq of potassium chloride p.o. x1. Spironolactone also added which is also reasonable. Follow electrolytes. Atrial septal defect -if present, it would explain her RV dilation as well as her severe right atrial dilation Mild aortic stenosis -the echocardiogram has had poor visualization but there is at least mild aortic stenosis by visualization -the CT scan for the left atrial appendage sizing will provide further clarification -if more information is required, we can reassess on the transesophageal echocardiogram that will need to be perform either way after Amulet device deployed Massive tricuspid regurgitation -this is likely secondary to annular dilatation from severe right atrial as well as RV dilation -this will need to be addressed likely in the outpatient setting with possible conversation on tricuspid clip versus endovascular valve replacement Patient of Dr. Bolden who can provide longitudinal cardiac care. Follow-up with Dr. Ko for the LAAO in 2-4 weeks She at least needs DVT dose prophylaxis enoxaparin so will initiate 40 mg subQ daily. I actually think she would tolerate full anticoagulation until her appendage occluder is performed which obviously would protect her from having a stroke but will start was some low-dose enoxaparin to make sure her hemoglobin does not drop significantly. Subjective Date/time seen: 10/17/24 10:00 Interval history: 83-year-old woman with chronic diastolic heart failure, persistent atrial fibrillation, and hyperlipidemia presented with shortness of breath found to be anemic the exacerbated by Xarelto in setting of AV malformation. In discussion with her daughter at bedside, it would appear that her exertional shortness of breath has been worsening since spring time of last year. She we used to be able to live on her own and take care of her activities of daily living with some exertional shortness of breath. However in the last few months, they have noted that she continually need more aid with her activities of daily living such as changing herself given her exertional dyspnea. Date of service 10/16/2024 does feel little bit less swollen but still short of breath walking to and from the bathroom. No chest pain. Date of service 10/17/2024: She is still swollen and short of breath. No chest pain. Review of Systems Constitutional: Constitutional: Denies chills Eyes: Eyes: Denies blurry vision ENT: Reports Normal hearing present Cardiovascular: Cardiovascular: Reports as per HPI, Denies chest pain, Reports pedal edema, Reports leg edema and Reports dyspnea Respiratory: Respiratory: Reports as per HPI and Reports dyspnea Gastrointestinal: Gastrointestinal: Denies abdominal pain Genitourinary: Genitourinary: Denies hematuria Neurologic: Reports Normal hearing present Exam Narrative: Appears stated age Const: General: no acute distress HENMT: Mouth: Yes moist mucous membranes Eyes: Sclera: sclerae normal EOM: EOMs intact bilaterally Neck: Neck: no JVD Resp: Effort & Inspection: normal respiratory effort Auscultation: clear to auscultation bilaterally and wheezes Cardio: Rate: regular rate Rhythm: abnormal rhythm Heart sounds: Murmur heart sound present GI: Inspection: non-distended Skin: General skin exam: normal color Neuro: Cranial nerves: Yes Normal hearing present Speech: normal speech Sensory Exam: normal sensation Extrem: General: edema and pedal edema Other: massive lower extremity edema to the hips Psych: Mental Status: mental status grossly normal Objective Data Vital Signs Vital Signs: Vital Signs - 24 hr 10/16/24 12:00 10/16/24 12:00 10/16/24 16:00 Temperature 36.6 C 36.4 C Pulse Rate 78 88 85 Respiratory Rate 18 18 Blood Pressure 110/54 L 120/64 Pulse Oximetry 100 100 Oxygen Delivery 10/16/24 16:00 10/16/24 20:00 10/16/24 21:04 Temperature 37.0 C Pulse Rate 81 87 88 Respiratory Rate 22 H Blood Pressure 93/60 L Pulse Oximetry 99 Oxygen Delivery 10/16/24 21:04 10/16/24 21:59 10/17/24 00:00 Temperature Pulse Rate 88 93 Respiratory Rate Blood Pressure Pulse Oximetry 98 Oxygen Delivery Room Air 10/17/24 00:13 10/17/24 04:00 10/17/24 08:04 Temperature 36.9 C 36.4 C Pulse Rate 86 97 105 H Respiratory Rate 16 17 Blood Pressure 129/77 114/73 Pulse Oximetry 95 95 Oxygen Delivery 10/17/24 08:56 Temperature Pulse Rate 105 H Respiratory Rate Blood Pressure Pulse Oximetry Oxygen Delivery Intake/Output Intake/Output: Intake & Output 10/14/24 10/15/24 10/16/24 10/17/24 23:59 23:59 23:59 23:59 Intake Total 1965 1000 1150 250 Output Total 2150 2100 3600 500 Balance -185 -1100 -2450 -250 Meds/Results Medications: Active Medications Generic Name Dose Route Start Last Admin Trade Name Joseq PRN Reason Stop Dose Admin Atorvastatin Calcium 20 mg 10/14/24 09:00 10/17/24 08:56 Atorvastatin 20 Mg Tablet BY MOUTH 20 mg DAILY [place] Administration Calcium Carbonate 500 mg 10/14/24 09:00 10/17/24 08:56 Calcium Carbonate (Oscal) 500 Mg Tablet PO 500 mg BID [place] Administration Furosemide 60 mg 10/16/24 09:00 10/17/24 08:56 Furosemide Inj 100 Mg/10 Ml Vial IV PUSH 60 mg BID [place] Administration Irbesartan 150 mg 10/14/24 09:00 10/17/24 08:57 Irbesartan 150 Mg Tablet PO 150 mg DAILY [place] Administration Metoprolol Succinate 50 mg 10/14/24 09:00 10/17/24 08:56 Metoprolol Succinate Ext Rel 50 Mg Tabcr PO 50 mg Q12HR [place] Administration Pantoprazole Sodium 40 mg 10/14/24 09:00 10/17/24 08:56 Pantoprazole Sodium Iv 40 Mg Vial IV PUSH 40 mg Q12HR [place] Administration Perflutren Lipid Microsphere 0 ml 10/15/24 08:47 Perflutren Lipid Microspheres 1.5 Ml Vial Diluted To 10 Ml Total Volume IV PUSH 10/18/24 08:47 ONCE PRN adequate visualization Protocol Potassium Chloride 10 meq 10/14/24 08:00 10/17/24 08:56 Potassium Chloride 10 Meq Er Tablet PO 10 meq DAILY@0800 [place] Administration Rivaroxaban 20 mg 10/14/24 17:00 Rivaroxaban 20 Mg Tablet PO DAILY@1700 [facility] Spironolactone 25 mg 10/16/24 09:00 10/17/24 08:56 Spironolactone 25 Mg Tablet PO 25 mg QAM [place] Administration Vitamin B Complex 1 cap 10/14/24 09:00 10/17/24 08:56 Vitamin B Complex Capsule PO 1 cap DAILY [place] Administration Radiology Results: ITS Impressions Chest X-Ray 10/13/24 21:38 IMPRESSION: Bilateral basal atelectasis versus pneumonia with bilateral pleural effusion. Slight cardiomegaly. Possibility of pericardial effusion cannot be excluded. Labs Labs: Laboratory Results - last 24 hr 10/17/24 04:55 WBC 5.1 RBC 3.80 L Hgb 7.8 L Hct 28.1 L MCV 73.9 L MCH 20.5 L MCHC 27.8 L RDW 23.3 H Plt Count 291 MPV 10.6 H Sodium 139 Potassium 3.4 Chloride 94 L Carbon Dioxide > 40 H Anion Gap BUN 24 H Creatinine 1.05 H Estim Creat Clear Calc 43 Estimated GFR 50 L Glucose 94 Calcium 8.2 L Total Bilirubin 0.7 AST 38 H ALT 25 Alkaline Phosphatase 112 Total Protein 5.9 L Albumin 3.1 L
[2024-10-17] MEDS: POTASSIUM CHLORIDE 20 MEQ ER TABLET 40 MEQ PO (11:35)
[2024-10-18] VITALS (10 sets, daily range): BP systolic 110–123; BP diastolic 52–73; PULSE 79–95; RESP 16–20; TEMP 36.5–36.7; O2SAT 99–100
[2024-10-18 04:32] LABS: Fractional Inspired Oxygen 21 %; HCO3 VBG 33.3 mEq/l (24.0-30.0); PCO2 VBG 49.9 mmHg (42.0-48.0)
[2024-10-18 04:35] LABS: Device ROOM AIR; pH VBG 7.442 (7.300-7.400)
[2024-10-18 05:14] LABS: Hematocrit 27.6 % (37.0-47.0); Hemoglobin 7.6 g/dL (12.0-15.0); Mean Corpuscular HGB Conc 27.5 g/dl (32-36); Mean Corpuscular Hemoglobin 21.1 pg (26-34); Mean Corpuscular Volume 76.7 fl (80-100); Mean Platelet Volume 10.9 fl (7.4-10.4); Platelet Count Result 274 k/mm3 (150-375); Red Cell Distribution Width 24.4 % (11.5-14.5); White Blood Count 5.8 K/mm3 (4.5-10.0)
[2024-10-18 05:24] LABS: Alanine Aminotransferase 25 U/L (6-35); Albumin Level 3.2 g/dL (3.5-5.1); Alkaline Phosphatase 129 U/L (38-126); Aspartate Amino Transferase 36 U/L (14-36); Bilirubin,Total 0.6 mg/dL (0.2-1.3); Blood Urea Nitrogen 23 mg/dL (7-17); Carbon Dioxide > 40 mmol/L (22-30); Chloride 93 mmol/L (98-107); Estimated CRCL calculation 37 ml/min; Estimated Glomerular Filt Rate 44; Glucose 109 mg/dL (65-110); Potassium 3.3 mmol/L (3.4-5.0); Sodium 139 mmol/L (137-145); Total Protein 5.9 g/dL (6.3-8.2)
[2024-10-18] MEDS: SPIRONOLACTONE 25 MG TABLET PO (08:04)
[2024-10-18] MEDS: POTASSIUM CHLORIDE 10 MEQ ER TABLET PO (08:04)
[2024-10-18] MEDS: VITAMIN B COMPLEX CAPSULE 1 CAP PO (08:04)
[2024-10-18] MEDS: CALCIUM CARBONATE (OSCAL) 500 MG TABLET PO ×2 (08:04→16:22)
[2024-10-18] MEDS: METOPROLOL SUCCINATE EXT REL 50 MG TABCR PO ×2 (08:04→21:32)
[2024-10-18] MEDS: ATORVASTATIN 20 MG TABLET BY MOUTH (08:04)
[2024-10-18] MEDS: ENOXAPARIN 40 MG/0.4 ML SYRINGE SUB-Q (08:05)
[2024-10-18] MEDS: IRBESARTAN 150 MG TABLET PO (08:05)
[2024-10-18] MEDS: FUROSEMIDE INJ 100 MG/10 ML VIAL 60 MG IV PUSH ×2 (08:06→16:22)
[2024-10-18] MEDS: PANTOPRAZOLE SODIUM IV 40 MG VIAL IV PUSH ×2 (08:11→21:32)
--- NOTE | 2024-10-18 08:41 | PM.IMPN ---
Progress Note: A&P Assessment and Plan (1) Symptomatic anemia: Code(s): D64.9 - Anemia, unspecified Status: Acute Assessment and Plan: H/H 6.9/25.5 on admission, given 1pRBC. Repeat H/H 7.8/28.4. - H/H stable at 7.8/28.1 on am labs - Iron panel: iron 26, TIBC 470, % sat 6, ferritin 5.93 - B12 and folate WNL - IV iron 400 mg x1 on 10/14 - started on po iron supplementation - holding chronic anticoagulation for afib, xarelto 20 mg daily on hold. SCD and low dose lovenox for DVT ppx. See Atrial fibrillation plan below. - Per ED note rectal exam did not reveal melanotic or bloody stools. Hemoccult negative. - GI consulted Considering the prior negative scopes, repeat EGD and colonoscopy are not anticipated to identify a source of bleeding. Consequently, attention is now directed to the small bowel, with arteriovenous malformations being a likely etiology (by frequency), likely exacerbated by her (necessary) anticoagulation. Plan for outpatient capsule endoscopy to further investigate this possibility post-discharge. Ongoing management will include serial hemoglobin monitoring by her primary care physician and outpatient iron infusions to ensure complete repletion of iron stores. (2) Acute exacerbation of CHF (congestive heart failure): Qualifiers: Heart failure type: unspecified Qualified Code(s): I50.9 - Heart failure, unspecified Code(s): I50.9 - Heart failure, unspecified Status: Acute Assessment and Plan: No prior history of CHF. Risk factors: HTN and Afib Previously [facility] cardiologyMercedes on 08/02. Remain off diltiazem. Continue metoprolol. Continue Xarelto for stroke ppx. - Symptoms: lower extremity edema with dyspnea and orthopnea - Current home medications: lasix 20 mg daily, irbesartan 300 mg daily, metoprolol 50 mg BID - Lasix increased to 60 mg IV BID given continued pitting edema to BLE, started on spironolactone 25 mg daily, remains on home irbesartan and metoprolol - BNP: 2300, Trop negative - EKG: Afib - Chest XR: Bilateral basal atelectasis vs pneumonia with bilateral pleural effusion and slight cardiomegaly. Possibility of pericardial effusion cannot be excluded. Likely atelectasis secondary to effusion and not pneumonia given patient is afebrile without leukocytosis - Echo: LVEF 60-65% with severe concentric hypertrophy, atrial septal defect, heavily calcified aortic valve with mild , massive tricuspid regurgitation, and moderate pulmonary hypertension. Given ASD seen on echo will order bubble study to further evaluate. - Monitor vital signs, I&Os, BUN/creatinine, daily weights, neuro status and patient is a fall risk - Monitor serum electrolytes, Keep serum Potassium>4 and serum Magnesium>2 and CBC - Evaluated by cardiology Lasix was increased. Now on 60 mg IV q.12 Spironolactone also added which is also reasonable. Follow electrolytes. Bicarb levels continue to rise, likely secondary to continued diuresis causing contraction alkalosis. Patient remains asymptomatic. VBG: pH 7.442, pCO2 49.9, HCO3 33.3. VBG to ABG conversion per uptodate showed WNL ABG values. Continue diuretics as scheduled. (3) Atrial fibrillation: Code(s): I48.91 - Unspecified atrial fibrillation Status: Acute Assessment and Plan: Patient is persistently in atrial fibrillation Rate controlled on metoprolol 50 mg b.i.d. Given her anemia and concern for GI bleed, anticoagulation Xarelto is currently on hold Cardiology evaluated patient continue holding Xarelto at this time with plan of follow-up in the outpatient setting for a possible left atrial appendage closure. Started on low dose lovenox for DVT ppx. Plan for CT scan to assess left atrial appendage for thrombus as well as sizing for device Follow-up in 2-[address] scan to further discuss procedure (4) Atrial septal defect: Code(s): Q21.10 - Atrial septal defect, unspecified Status: Acute Assessment and Plan: Echo showing atrial septal defect Bubble study did not review any right to left shunting, consider outpatient EUFEMIA to reevaluate Cardiology following (5) Essential (primary) hypertension: Code(s): I10 - Essential (primary) hypertension Status: Chronic Assessment and Plan: Chronic - continue metoprolol 50 mg BID, irbesartan 150 mg daily - started on lasix 60 mg IV BID and spironolactone 25 mg daily - blood pressures remain stable, continue to monitor (6) Abnormal thyroid stimulating hormone (TSH) level: Code(s): R79.89 - Other specified abnormal findings of blood chemistry Status: Acute Assessment and Plan: TSH 0.034 with T4 2.24. Per patient followed by PCP. Evaluated by endocrinology on 09/07/24, per their note patients labs are normal based on biotin Monitor. Time Spent With Patient Time with patient: 25 - 35 minutes Subjective Date/time seen: 10/18/24 08:41 Interval history: 83 year old female with past medical history of atrial fibrillation on anticoagulation, hypertension, hyperlipidemia, iron deficiency anemia, GERD, and ARMEN presents to the hospital for lower extremity edema, dyspnea and orthopnea. Patient is pleasant sitting up in her chair with daughter at bedside. She states that her shortness of breath with exertion has slightly improved since admission. She continues to endorse weakness with states that this is slightly improved with continued therapy. She notes that her legs are feeling less tight and appear to improved as well, noting she has increased range of motion to the ankles. She has no other complaints denying chest pain, palpitations, nausea/vomiting, abdominal pain. Review of Systems Review of Systems: All systems reviewed & are unremarkable except as noted in HPI and below Exam Narrative: AF HR 93 RR 19 SpO2 100 BP 110/68 General: female in no acute respiratory distress who is nontoxic appearing, sitting up in chair HEENT: Normocephalic. Atraumatic. Extraocular movement intact. Sclera clear and anicteric. No facial asymmetry. Chest: Lungs are clear to the uppers with slight diminishment to auscultation bilateral lower bases. No wheezes. CV: Heart was irregular irregular rate and rhythm. Abd: Abdomen was soft. Nontender. Nondistended. Positive bowel sounds. Ext: No clubbing, cyanosis. DP pulses bilaterally. Bilateral lower extremity edema 3+ to the knee and trivial edema to the mid thigh . Weeping noted but improved. Neuro: Patient is alert and oriented x3. Speech is clear. Objective Data Vital Signs Vital Signs: Vital Signs - 24 hr 10/17/24 08:56 10/17/24 12:00 10/17/24 12:23 Temperature 97.3 F L Pulse Rate 105 H 90 91 Respiratory Rate 18 Blood Pressure 117/58 L Pulse Oximetry 100 Oxygen Delivery 10/17/24 16:00 10/17/24 18:06 10/17/24 20:00 Temperature 97.5 F L Pulse Rate 89 82 83 Respiratory Rate 17 Blood Pressure 96/58 L Pulse Oximetry 97 Oxygen Delivery 10/17/24 20:00 10/17/24 21:45 10/17/24 23:20 Temperature 98.3 F 98.9 F Pulse Rate 90 90 85 Respiratory Rate 18 18 18 Blood Pressure 106/69 107/53 L Pulse Oximetry 99 99 98 Oxygen Delivery Room Air 10/18/24 00:00 10/18/24 04:00 10/18/24 08:02 Temperature 97.9 F Pulse Rate 90 82 85 Respiratory Rate 16 Blood Pressure 123/67 Pulse Oximetry 99 Oxygen Delivery 10/18/24 08:04 Temperature Pulse Rate 85 Respiratory Rate Blood Pressure Pulse Oximetry Oxygen Delivery Intake/Output Intake/Output: Intake & Output 10/15/24 10/16/24 10/17/24 10/18/24 23:59 23:59 23:59 23:59 Intake Total 1000 1150 2120 Output Total 2100 3600 2800 500 Balance -1100 -2450 -680 -500 Meds/Results Medications: Active Medications Generic Name Dose Route Start Last Admin Trade Name Freq PRN Reason Stop Dose Admin Atorvastatin Calcium 20 mg 10/14/24 09:00 10/18/24 08:04 Atorvastatin 20 Mg Tablet BY MOUTH 20 mg DAILY [place] Administration Calcium Carbonate 500 mg 10/14/24 09:00 10/18/24 08:04 Calcium Carbonate (Oscal) 500 Mg Tablet PO 500 mg BID [place] Administration Enoxaparin Sodium 40 mg 10/18/24 09:00 10/18/24 08:05 Enoxaparin 40 Mg/0.4 Ml Syringe SUB-Q 40 mg DAILY [place] Administration Furosemide 60 mg 10/16/24 09:00 10/18/24 08:06 Furosemide Inj 100 Mg/10 Ml Vial IV PUSH 60 mg BID [place] Administration Irbesartan 150 mg 10/14/24 09:00 10/18/24 08:05 Irbesartan 150 Mg Tablet PO 150 mg DAILY [place] Administration Metoprolol Succinate 50 mg 10/14/24 09:00 10/18/24 08:04 Metoprolol Succinate Ext Rel 50 Mg Tabcr PO 50 mg Q12HR [place] Administration Pantoprazole Sodium 40 mg 10/14/24 09:00 10/18/24 08:11 Pantoprazole Sodium Iv 40 Mg Vial IV PUSH 40 mg Q12HR [place] Administration Perflutren Lipid Microsphere 0 ml 10/15/24 08:47 Perflutren Lipid Microspheres 1.5 Ml Vial Diluted To 10 Ml Total Volume IV PUSH 10/18/24 08:47 ONCE PRN adequate visualization Protocol Potassium Chloride 10 meq 10/14/24 08:00 10/18/24 08:04 Potassium Chloride 10 Meq Er Tablet PO 10 meq DAILY@0800 [facility] Administration Rivaroxaban 20 mg 10/14/24 17:00 Rivaroxaban 20 Mg Tablet PO DAILY@1700 [facility] Spironolactone 25 mg 10/16/24 09:00 10/18/24 08:04 Spironolactone 25 Mg Tablet PO 25 mg QAM [facility] Administration Vitamin B Complex 1 cap 10/14/24 09:00 10/18/24 08:04 Vitamin B Complex Capsule PO 1 cap DAILY [facility] Administration Radiology Results: ITS Impressions Chest X-Ray 10/13/24 21:38 IMPRESSION: Bilateral basal atelectasis versus pneumonia with bilateral pleural effusion. Slight cardiomegaly. Possibility of pericardial effusion cannot be excluded. Labs Labs: Laboratory Results - last 24 hr 10/18/24 10/18/24 04:22 04:25 WBC 5.8 RBC 3.60 L Hgb 7.6 L Hct 27.6 L MCV 76.7 L MCH 21.1 L MCHC 27.5 L RDW 24.4 H Plt Count 274 MPV 10.9 H VBG pH 7.442 H* VBG pCO2 49.9 H VBG pO2 37.0 VBG HCO3 33.3 H O2 Delivery Device Room air O2 Liters/Min Not Reportable FiO2 21 Sodium 139 Potassium 3.3 L Chloride 93 L Carbon Dioxide > 40 H Anion Gap BUN 23 H Creatinine 1.19 H Estim Creat Clear Calc 37 Estimated GFR 44 L Glucose 109 Calcium 8.0 L Total Bilirubin 0.6 AST 36 ALT 25 Alkaline Phosphatase 129 H Total Protein 5.9 L Albumin 3.2 L Quality VTE Prophylaxis VTE prophylaxis: mechanical ordered
[2024-10-18] MEDS: FERROUS GLUCONATE 324 MG TABLET PO (16:30)
[2024-10-19] VITALS (9 sets, daily range): BP systolic 96–114; BP diastolic 45–81; PULSE 65–91; RESP 18–22; TEMP 36.3–36.6; O2SAT 95–99
[2024-10-19 05:22] LABS: Hematocrit 28.5 % (37.0-47.0); Hemoglobin 7.8 g/dL (12.0-15.0); Immature Platelet Fraction Pct 8.1 % (0.9-11.2); Mean Corpuscular HGB Conc 27.4 g/dl (32-36); Mean Corpuscular Hemoglobin 20.9 pg (26-34); Mean Corpuscular Volume 76.4 fl (80-100); Platelet Count Result 221 k/mm3 (150-375); Red Blood Count 3.73 M/mm3 (4.2-5.4); Red Cell Distribution Width 26.5 % (11.5-14.5); White Blood Count 5.4 K/mm3 (4.5-10.0)
[2024-10-19 05:36] LABS: Alanine Aminotransferase 24 U/L (6-35); Albumin Level 2.9 g/dL (3.5-5.1); Alkaline Phosphatase 117 U/L (38-126); Aspartate Amino Transferase 39 U/L (14-36); Bilirubin,Total 0.7 mg/dL (0.2-1.3); Blood Urea Nitrogen 26 mg/dL (7-17); Calcium 7.9 mg/dL (8.4-10.2); Carbon Dioxide > 40 mmol/L (22-30); Chloride 93 mmol/L (98-107); Estimated CRCL calculation 46 ml/min; Estimated Glomerular Filt Rate 56; Glucose 87 mg/dL (65-110); Potassium 3.6 mmol/L (3.4-5.0); Sodium 136 mmol/L (137-145); Total Protein 5.7 g/dL (6.3-8.2)
[2024-10-19] MEDS: FERROUS GLUCONATE 324 MG TABLET PO (08:48)
[2024-10-19] MEDS: CALCIUM CARBONATE (OSCAL) 500 MG TABLET PO (08:48)
[2024-10-19] MEDS: VITAMIN B COMPLEX CAPSULE 1 CAP PO (08:48)
[2024-10-19] MEDS: IRBESARTAN 150 MG TABLET PO (08:48)
[2024-10-19] MEDS: SPIRONOLACTONE 25 MG TABLET PO (08:48)
[2024-10-19] MEDS: ATORVASTATIN 20 MG TABLET BY MOUTH (08:49)
[2024-10-19] MEDS: PANTOPRAZOLE SODIUM IV 40 MG VIAL IV PUSH (08:49)
[2024-10-19] MEDS: FUROSEMIDE INJ 100 MG/10 ML VIAL 60 MG IV PUSH (08:49)
[2024-10-19] MEDS: ENOXAPARIN 40 MG/0.4 ML SYRINGE SUB-Q (08:49)
[2024-10-19] MEDS: METOPROLOL SUCCINATE EXT REL 50 MG TABCR PO (08:49)
[2024-10-19] MEDS: POTASSIUM CHLORIDE 10 MEQ ER TABLET PO (08:49)
--- NOTE | 2024-10-19 10:12 | P.CDI_ITS ---
CDI Query Clarification Request Please clarify type and acuity of heart failure if known. * Acute * Chronic * Acute on Chronic * Unknown * Systolic * Diastolic * Combined Systolic and Diastolic * Unknown The medical chart reflects the followin-year-old female with history of AFib anticoagulation presenting for progressive dyspnea over last several months. Patient was moved into [facility] in June. Since then she has had progressively worse swelling of her lower extremities and now has pain edema to her hips. She has been unable to participate in physical therapy due to dyspnea on minimal amounts of exertion. She is unable to lay flat at night. She denies fevers chills chest pain abdominal pain urinary symptoms nausea vomiting diarrhea. She has no history of congestive heart failure. Hospitalist documented: (2) Acute exacerbation of CHF (congestive heart failure): Qualifiers: Heart failure type: unspecified Qualified Code(s): I50.9 - Heart failure, unspecified Code(s): I50.9 - Heart failure, unspecified Status: Acute Assessment and Plan: No prior history of CHF. Risk factors: HTN and Afib Previously [facility] by [facility] cardiologyMercedes on 08/02. Remain off diltiazem. Continue metoprolol. Continue Xarelto for stroke ppx. - Symptoms: lower extremity edema with dyspnea and orthopnea - Current home medications: lasix 20 mg daily, irbesartan 300 mg daily, metoprolol 50 mg BID - Lasix increased to 60 mg IV BID given continued pitting edema to BLE, started on spironolactone 25 mg daily, remains on home irbesartan and metoprolol - BNP: 2300, Trop negative - EKG: Afib - Chest XR: Bilateral basal atelectasis vs pneumonia with bilateral pleural effusion and slight cardiomegaly. Possibility of pericardial effusion cannot be excluded. Likely atelectasis secondary to effusion and not pneumonia given patient is afebrile without leukocytosis - Echo: LVEF 60-65% with severe concentric hypertrophy, atrial septal defect, heavily calcified aortic valve with mild , massive tricuspid regurgitation, and moderate pulmonary hypertension. Given ASD seen on echo will order bubble study to further evaluate. - Monitor vital signs, I&Os, BUN/creatinine, daily weights, neuro status and patient is a fall risk - Monitor serum electrolytes, Keep serum Potassium>4 and serum Magnesium>2 and CBC - Evaluated by cardiology Lasix was increased. Now on 60 mg IV q.12 Spironolactone also added which is also reasonable. Follow electrolytes. Cardiology documented: 83-year-old woman with chronic diastolic heart failure, persistent atrial fibrillation, and hyperlipidemia presented with shortness of breath found to be anemic the exacerbated by Xarelto in setting of AV malformation Persistent atrial fibrillation -rate control on Toprol 50 mg p.o. b.i.d. -given her severe anemia and risk of bleeding, can hold her Xarelto for now - CT scan to assess left atrial appendage for thrombus as well as sizing for device as outpatient - follow-up in clinic in 2-[address] scan to discuss the risks, benefits, and alternatives Chronic diastolic heart failure with RV dilation -continue IV furosemide. BUN and creatinine have bumped up a little bit. May need to reduce the rate of diuresis. Will not make any changes today but follow renal function and adjust as need be. Potassium is low today at 3.4. Will replace with 40 mEq of potassium chloride p.o. x1. Spironolactone also added which is also reasonable. Follow electrolytes. ECHO 10/14 Summary 1. Complete two-dimensional, color flow and Doppler transthoracic echocardiogram is performed. 2. The left ventricle is normal in size and systolic function. There is severe concentric hypertrophy. The left ventricular ejection fraction is visually estimated to be 60-65%. 3. The right ventricle is moderately dilated with normal systolic function. 4. There is a atrial septal defect. 5. The aortic valve is trileaflet and heavily calcified. The Doppler gradients are suboptimal and there appears to be at least mild aortic stenosis visually. 6. The tricuspid valve is normal. There is malcoaptation of the tricuspid valve leaflets likely secondary to annular dilatation. There is massive tricuspid regurgitation. 7. Dilated inferior vena cava with <50% collapse upon inspiration consistent with significantly elevated right atrial pressure, 15 mmHg. 8. Pulmonary arterial systolic pressure is estimated at 63 mmHg. There is moderate pulmonary hypertension. 9. There is small amount of pericardial effusion. Lasix 60 mg IV BID 10/13 BNP 2300 <Blanca Boateng RN - Last Filed: 10/19/24 10:17> Clarified Diagnosis Clarified Diagnosis: acute on chronic diastolic heart failure <Verónica Alvarado PA-C - Last Filed: 10/19/24 16:07>
--- NOTE | 2024-10-19 15:11 | P.DS_ITS ---
DS: Admitting Diagnosis Discharge Date 10/19/2024 Admitting Diagnosis symptomatic anemia acute exacerbation of CHF afib asd htn abnormal tsh DS: Discharge Diagnosis Discharge Diagnosis (1) Symptomatic anemia: Code(s): D64.9 - Anemia, unspecified Status: Acute (2) Acute exacerbation of CHF (congestive heart failure): Qualifiers: Heart failure type: unspecified Qualified Code(s): I50.9 - Heart failure, unspecified Code(s): I50.9 - Heart failure, unspecified Status: Acute (3) Atrial fibrillation: Code(s): I48.91 - Unspecified atrial fibrillation Status: Acute (4) Atrial septal defect: Code(s): Q21.10 - Atrial septal defect, unspecified Status: Acute (5) Essential (primary) hypertension: Code(s): I10 - Essential (primary) hypertension Status: Chronic (6) Abnormal thyroid stimulating hormone (TSH) level: Code(s): R79.89 - Other specified abnormal findings of blood chemistry Status: Acute DS: Summary Hospital Course Reason for hospitalization: symptomatic anemia acute exacerbation of CHF afib asd htn abnormal tsh Hospital Course: 83 year old female with past medical history of atrial fibrillation on anticoagulation, hypertension, hyperlipidemia, iron deficiency anemia, GERD, and ARMEN presents to the hospital for lower extremity edema, dyspnea and orthopnea. On admission patients H/H was 6.9/25.5 and she was given a unit pRBC. H/H responded appropriately and remained stable throughout the rest of admission. GI was consulted for concern of GI bleed. Anticoagulation placed on hold. Per GI considering the prior negative scopes, repeat EGD and colonoscopy are not anticipated to identify a source of bleeding. Plan for outpatient capsule endoscopy to further investigate. GI also recommended ongoing management will include serial hemoglobin monitoring by her primary care physician and outpatient iron infusions to ensure complete repletion of iron stores. Outpatient iron infusion ordered at [facility]. Patient is to also obtain an H/H in 5 days to reassess. PCP to follow. During admission patient was also treated for a heart failure exacerbation. BNP elevated and chest xr showed bilateral basal atelectasis vs pneumonia with bilateral pleural effusion and slight cardiomegaly. Possibility of pericardial effusion cannot be excluded. L ikely atelectasis secondary to effusion and not pneumonia given patient is afebrile without leukocytosis. Patient started on IV lasix and po spironolactone. Echo showed LVEF 60-65% with severe concentric hypertrophy, atrial septal defect, heavily calcified aortic valve with mild , massive tricuspid regurgitation, and moderate pulmonary hypertension. Given ASD seen on echo a bubble study was done and did not review any right to left shunting. Cardiology was consulted. Per cardiology continue holding Xarelto given severeity of anemia at this time with plan of follow-up in the outpatient [facility] for a possible left atrial appendage closure. Plan for CT scan to assess left atrial appendage for thrombus as well as sizing for device. Follow-up in 2-[address] scan to further discuss procedure. At time of discharge patients PO lasix was increased and she was continued on spironolactone At time of discharge patient had no complaints denying chest pain, shortness of breath, palpitations, nausea/vomiting, dizziness/lightheadedness and abdominal pain. Patient discharged in a stable condition to SNF. she is to follow up with her pcp in 1 week and cardiology as scheduled. Status at Discharge Functional status at discharge: uses cane/walker Time Spent with Patient Time attestation: Total time spent providing and/or coordinating discharge services: Time spent: Greater than 30 minutes Exam Narrative: AF HR 65 RR 18 SPO2 99 BP 105/51 General: female in no acute respiratory distress who is nontoxic appearing, sitting up in chair HEENT: Normocephalic. Atraumatic. Extraocular movement intact. Sclera clear and anicteric. No facial asymmetry. Chest: Lungs are clear to auscultation. No wheezes. CV: Heart was irregular irregular rate and rhythm. Abd: Abdomen was soft. Nontender. Nondistended. Positive bowel sounds. Ext: No clubbing, cyanosis. DP pulses bilaterally. Bilateral lower extremity edema 2+ to the calves and 1+ to the knee without weeping. Neuro: Patient is alert and oriented x3. Speech is clear. DS: Data Data Completed and Pending Completed studies during hospitalization: chest xr Labs on day of discharge: Labs from last 24 hours 10/19/24 05:00 WBC 5.4 RBC 3.73 L Hgb 7.8 L Hct 28.5 L MCV 76.4 L MCH 20.9 L MCHC 27.4 L RDW 26.5 H Plt Count 221 MPV 11.0 H % Immature Plt Fraction 8.1 Sodium 136 L Potassium 3.6 Chloride 93 L Carbon Dioxide > 40 H Anion Gap BUN 26 H Creatinine 0.95 Estim Creat Clear Calc 46 Estimated GFR 56 L Glucose 87 Calcium 7.9 L Total Bilirubin 0.7 AST 39 H ALT 24 Alkaline Phosphatase 117 Total Protein 5.7 L Albumin 2.9 L Discharge Plan Discharge Attending physician on discharge: Saud Richardson Consulting providers: Jose C Roberts Discharging Clinician: Verónica Alvarado Anticipated Discharge Date/Time: 10/19/24 14:58 Patient Disposition: SNF Activity: as tolerated Diet: as tolerated and heart healthy Discharge Instructions: Discharge disposition: Patient was anemic on admission requiring blood transfusion, blood levels remain stable Evaluated by GI for concern of GI bleed Plan for outpatient capsule endoscopy to further investigate this possibility post-discharge. Ongoing management will include serial hemoglobin monitoring by her primary care physician and outpatient iron infusions to ensure complete repletion of ir on stores. Iron infusion has been ordered. [facility] [place] to call for appointment. Obtain a blood draw in 5 days to reassess hemoglobin levels. Follow up with GI Given the patients anemia her xarelto has been placed on hold Cardiology aware, plan for follow up in clinic in 2-[address] Wasserman Patient treated for a heart failure exacerbation during admission Take medications as prescribed Lasix dose increased from 20 mg daily to 40 mg twice a day Started on spironolactone 25 mg daily Attached is information on these medications Maintain a cardiac diet, 2 g sodium, do not over hydrate Remain active Monitor urine output Daily weights, if you gain more than 3 lb within 1 day or 5 lb in 1 week notify your primary care provider Monitor blood pressures Take caution while standing, rising, or moving Change positions slowly taking a break between each position change If you standing feel dizzy sit back down and take a break Follow up with night clerk auditor Encouraged to continue with yearly vaccinations Return to the emergency department if he developed sudden shortness of breath, chest pain, nausea, vomiting, upset stomach or intractable diarrhea Return to the emergency department if you develop fever greater than 101.5 Follow-up with the primary care physician within 1-2 weeks Thank you for choosing [facility] for your healthcare needs Patient Instructions: Heart Failure (DC), Gastrointestinal Bleeding (DC) Patient Language: Zambian Stand Alone Forms: General Discharge Information Follow-up/Referrals: Felipe Bautista MD [Primary Care Provider] - Gutierrez Wasserman MD [Physician] - 2 Weeks Discharge Medications: New spironolactone 25 mg Tablet 25 mg PO QAM Qty: 30 0RF ferrous gluconate 324 mg (38 mg iron) Tablet 324 mg PO BIDWM Qty: 60 0RF Continued potassium chloride [Klor-Con 10] 10 mEq tablet extended release 10 meq PO DAILY 30 Days Qty: 30 2RF Hair, Skin and Nails (biotin) 10,000 mcg tablet,chewable 20,000 mcg PO DAILY vitamin B complex Tablet 1 tablet PO DAILY Calcium 600 mg BYMOUTH BID metoprolol succinate 50 mg tablet extended release 24 hr 50 mg PO BID Qty: 180 1RF irbesartan 300 mg tablet See Rx Instructions .ROUTE .COMPLEX Qty: 90 1RF Dose Instruction: TAKE 1 TABLET BY MOUTH EVERY DAY Rx Instructions: TAKE 1 TABLET BY MOUTH EVERY DAY atorvastatin 20 mg tablet See Rx Instructions .ROUTE .COMPLEX Qty: 90 0RF Dose Instruction: TAKE 1 TABLET BY MOUTH EVERY DAY Rx Instructions: TAKE 1 TABLET BY MOUTH EVERY DAY Changed furosemide 20 mg tablet 40 mg PO BID Qty: 90 1RF Rx Instructions: Please D/C the HCTZ. Thank you Held Xarelto 20 mg tablet 20 mg PO DAILY Qty: 90 0RF Hold Instructions: Resume on 11/02/24. Hold until follow up with cardiology and GI. Rx Instructions: must administer with evening meal Other Ambulatory Orders: Basic Metabolic Panel (Routine) Timeframe: 5 Days Location: Determined by Patient Ordered By: Verónica Alvarado Hemoglobin and Hematocrit (Routine) Timeframe: 5 Days Location: Determined by Patient Ordered By: Verónica Alvarado Date of admission: 10/14/24 00:06 Primary Care Provider: Felipe Bautista Admitting Provider: Lauren Damon Attending physician on admission: Verónica Alvarado Condition: Stable Hospitalist MIPS Heart Failure (Exclusion) Patient has history of Heart Transplant or Left Ventricular Assistive Device?: No IF YES, STOP HERE Heart Failure (Qualifier) Patient has current or prior documentation of LVEF less than or equal to 40%, or mod/servere depressed LVSF?: No IF NO, STOP HERE
== END 2024-10-19 17:50 | DRG 291 ==
LOC: ANHED 22:58 → ANH2MED 10-14 00:18
PROVIDERS: Student in an Organized Health Care Education/Training Program; Admitting Provider Internal Medicine; Emergency Provider Emergency Medicine; PCP Internal Medicine; Visit Provider Student in an Organized Health Care Education/Training Program
DX: I11.0 Hypertensive heart disease with heart failure (principal); I50.33 Acute on chronic diastolic (congestive) heart failure; I48.19 Other persistent atrial fibrillation; D50.9 Iron deficiency anemia, unspecified; I36.1 Nonrheumatic tricuspid (valve) insufficiency; I34.0 Nonrheumatic mitral (valve) insufficiency; I35.0 Nonrheumatic aortic (valve) stenosis; E78.5 Hyperlipidemia, unspecified; E03.9 Hypothyroidism, unspecified; K44.9 Diaphragmatic hernia without obstruction or gangrene; K21.9 Gastro-esophageal reflux disease without esophagitis; L30.9 Dermatitis, unspecified; G47.33 Obstructive sleep apnea (adult) (pediatric); M85.80 Other specified disorders of bone density and structure, unspecified site; M19.90 Unspecified osteoarthritis, unspecified site; F10.90 Alcohol use, unspecified, uncomplicated; Z20.822 Contact with and (suspected) exposure to COVID-19; Z96.612 Presence of left artificial shoulder joint; Z96.611 Presence of right artificial shoulder joint; Z79.01 Long term (current) use of anticoagulants; Z86.73 Personal history of transient ischemic attack (TIA), and cerebral infarction without residual deficits; Z87.891 Personal history of nicotine dependence
CPT/HCPCS: 36415; 36430; 71046; 80048; 80053; 82607; 82728; 82746; 82803; 83540; 83550; 83690; 83735; 83880; 84439; 84443; 84484; 85025; 85027; 85055; 85610; 85730; 86850; 86900; 86901; 86923; 87637; 93005; 93306; 93308; 96361; 96374; 96375; 97110; 97116; 97161; 97165; 97530; 97535; 99285; A9270; J1650; J1756; J1938; J2470; J7050; P9016

== ENCOUNTER 2024-11-30 05:27 | Outpatient (CLI) | payer MEDICARE, SELFPAY ==
--- OUTSIDE RECORDS SUMMARY | 2024-11-30 05:30 | XMS_ITS | Clinical Summary ---
Author Organization [facility] Address [facility] [facility] [place] [address] Care Team Providers Care Master Baker Name Role Phone Jorge Luis Peters MD Primary Care Provider [phone] Source Comments [facility],non-owned Affiliates and Associated Physician Practices is amultiple site organization consisting of ambulatory clinics and hospital sitesin [place], [place], [place] and [place]. This disclosure is being madepursuant to the Care Everywhere program and may not contain all information available regarding this patient. Last updated 18.[facility] Cordium Medications * Be aware that medications may [...] on file Legal Sex Female 5:31 PM [employer] Gender Identity Not on file Sexual Orientation [...] season) 2024 DEPRESSION SCREENING 05/05/2024 INFLUENZA VACCINE (#1) 2025 HEPATITIS B VACCINE Aged Out No [...] age to complete this topic Care Teams Master Baker Relationship Specialty Start Date End Date Jorge Luis Peters MD [address] [place] [id number] PCP - General 04/12/14
--- OUTSIDE RECORDS SUMMARY | 2024-11-30 05:30 | XMS_ITS ---
Author Name Auto Generated, Auto Generated Organization [facility] Address [address] [place] [address] Phone [phone] Care Team Providers Care Driller'S Offsider Name Role Phone Ivette Ford Unavailable Summer Garcia Unavailable Bronwyn Lopes Unavailable Functional Status No Results Mental Status No Results Allergies and Intolerances Name Onset Date Reaction Severity solifenacin (Allergy) FriOct 04 12:27:00 EDT 20 25 red (food color) (Allergy) FriOct 04 12:27:00 E DT 2024 Encounters Program Name Primary Diagnosis Admission Date/Time Dis charge Date/Time Assisted Living Area Hypertensive heart disease with heart failure FriNov 02 08:00:00 EDT 20[facility] FriOct 19 14:15:00 EDT 2024Nov 02 07:00:00 EDT 2024 [facility] September 23 20:00 :00 EDT 2024Oct 13 19:59:59 EDT 2024 [facility] FriJul 05 19:00:00 EST 2024Aug 27 19:59:00 EDT 2024 [facility] FriNov 02 20:00:00 EDT 2024 null FriJun 30 19:00 :00 EST 2024Nov 02 08:23:00 EDT 2024 Immunizations Name Dates Status TST-PPD intradermal Sat Oct 23 01:00:00 EDT 2024 Completed TST-PPD intradermal [facility] Oct 21 01:00:00 ED2024 Completed Medications Medication Directions Start Date End Date polyethylene glycoL 3350 17 gram/dose oral powder 4.1oz bottle POWDER (GRAM) Oral 2 Times Daily for 1 Day Indication: Capsule Endoscopy Prep At lunch time (day before procedure) Fri11/29/2024 you should mix 4.1oz bottle of MiraLAX with 34oz of Gatorade (no red or purple) and refrigerate for later.At 6pm (Fri11/29/2024 day before procedure) begin drinking MiraLAX mixture, try to drink 8oz every 15min until its finished. Remember no clear liquids after 10pm FriNov 29 01:00:00 EDT 2024Nov 30 00:59:00 ED2024 Blood Pressure Kit 1 KIT Other 2 Times Monthly Indication: vital signs PSYCHOLOGY ASSOCIATE to obtain FriNov 03 01:00:00 ED2024 T.E.D. Anti-Embolism Stocking 1 EACH Other 2 Times Daily Indication: edema PSYCHOLOGY ASSOCIATE to apply Trey hose in the AM and remove at HS. FriNov 04 01:00:00 ED2024 vitamin B complex tablet 1 tablet TABLET Oral 1 Time Daily Indication: supplement PSYCHOLOGY ASSOCIATE supervision x1 FriNov 02 15:00:00 2024 biotin 10,000 mcg capsule 2 capsules CAP ANITA Oral 1 Time Daily Indication: supplement PSYCHOLOGY ASSOCIATE supervision x12 capsules = 20,000mcg FriNov 02 15:00:00 ED2024 spironolactone 25 mg tablet 1 tablet TAB LET Oral 1 Time Daily Indication: heart failure PSYCHOLOGY ASSOCIATE supervision x1 FriNov 02 15:00:00 2024 ferrous gluconate 324 mg (38 mg iron) tablet 1 tablet TABLET Oral 2 Times Daily Indication: anemia PSYCHOLOGY ASSOCIATE supervision x1, x4 FriNov 02 15:00:00 ED2024 irbesartan 300 mg tablet 1 tablet TABLET Oral 1 Time Daily Indication: HTN BP and/or Pulse Hold: Systolic Blood Pressure < 100 Hold;PSYCHOLOGY ASSOCIATE supervision x1 FriNov 02 15:00:00 ED2024 atorvastatin 20 mg tablet 1 tablet TABLE T Oral 1 Time Daily Indication: HDL PSYCHOLOGY ASSOCIATE supervision x1 FriNov 02 15:00:00 ED2024 Calcium-500 500 mg (as calcium carbonate 1,250 mg) chewable tablet 1 tablet TABLET,CHEWABLE Oral 2 Times Daily Indication: supplement PSYCHOLOGY ASSOCIATE supervision x1, x4 FriNov 02 15:00:00 EDT 2024 furosemide 40 mg tablet 40 mg TABLET Ora l 2 Times Daily Indication: heart failure PSYCHOLOGY ASSOCIATE supervision x1, x2 FriNov 02 15:00:00 EDT 2024 metoprolol succinate ER 50 mg tablet,extended release 24 hr 1 tablet TABLET, EXTENDED RELEASE 24 HR Oral 2 Times Daily Indication: HTN BP and/or Pulse Hold: Systolic Blood Pressure < 100 Hold;PSYCHOLOGY ASSOCIATE supervision x1, x4 FriNov 02 15:00:00 EDT 2024 Nystop 100,000 unit/gram topical powder One application POWDER (GRAM) Topical 2 Times Daily Indication: Redness PSYCHOLOGY ASSOCIATE apply powder to red skin folds in groin area BID FriNov 02 15:00:00 ED2024 potassium chloride ER 20 mEq tablet,extended release 2 tablets TABLET, EXTENDED RELEASE Oral 1 Time Daily Indication: hypokalemia PSYCHOLOGY ASSOCIATE supervision x1 FriNov 02 15:00:00 ED2024 TubersoL 5 tub. unit/0.1 mL intradermal injection solution 0.1 Milliliter VIAL (ML) Intradermal 1 Time Weekly for 1 Week Indication: . 1 Step PPD- Read between 48 and 72 hours FriOct 20 18:00:00 EDT 2024Oct 27 17:59:00 EDT 2024 TubersoL 5 tub. unit/0.1 mL intradermal injection solution 1 Application VIAL (ML) Other 1 Time Weekly for 1 Week Indication: . Read results between 48-72 hours after 1st and 2nd (1 week apart). Any reading of 10mm or greater results in a positive test, an x-ray will need to be ordered as a follow up. FriOct 20 17:00:00 EDT 2024Oct 27 16:59:00 EDT 2024 potassium chloride ER 20 mEq tablet,extended release 2 tabs TABLET, EXTENDED RELEASE Oral 1 Time Daily Indication: hypokalemia FriOct 21 09:00:00 EDT 2024Nov 02 01:00:00 EDT 2024 vitamin B complex tablet 1 tablet TABLET Oral 1 Time Daily Indication: supplement FriOct 19 14:00:00 EDT 2024Nov 02 01:00:00 EDT 2024 metoprolol succinate ER 50 mg tablet,extended release 24 hr 50 mg TABLET, EXTENDED RELEASE 24 HR Oral 1 Time Daily Indication: HTN FriOct 19 19:00:00 EDT 2024Oct 19 19:12:00 EDT 2024 biotin 10,000 mcg capsule 20,000 mcg CAP ANITA Oral 1 Time Daily Indication: supplement FriOct 19 19:00:00 EDT 2024Nov 02:00:00 EDT 2024 spironolactone 25 mg tablet 25 mg TABLET Oral 1 Time Daily Indication: heart failure FriOct 19 19:00:00 EDT 2024Nov 02:00:00 EDT 2024 ferrous gluconate 324 mg (38 mg iron) tablet 1 tab TABLET Oral 2 Times Daily Indication: anemia FriOct 19 19:00:00 EDT 2024Nov 02:00:00 EDT 2024 irbesartan 300 mg tablet 300 mg TABLET O ral 1 Time Daily Indication: HTN FriOct 19 19:00:00 EDT 2024Nov 02:00:00 EDT 2024 atorvastatin 20 mg tablet 20 mg TABLET O ral 1 Time Daily Indication: HDL FriOct 20 21:00:00 EDT 2024Nov 02 01:00:00 EDT 2024 potassium chloride ER 10 mEq tablet,extended release 10 meq TABLET, EXTENDED RELEASE Oral 1 Time Daily Indication: supplement FriOct 19 19:00:00 EDT 2024Oct 20 18:51:00 EDT 2024 Calcium-500 500 mg (as calcium carbonate 1,250 mg) chewable tablet 500 mg TABLET,CHEWABLE Oral 2 Times Daily Indication: supplement FriOct 19 19:00:00 EDT 2024Nov 02:00:00 EDT 2024 furosemide 40 mg tablet 40 mg TABLET Ora l 2 Times Daily Indication: heart failure FriOct 19 19:00:00 EDT 2024Nov 02:00:00 EDT 2024 Xarelto 20 mg tablet 20 mg TABLET Oral 1 Time Daily Indication: a-fib FriNov 02 19:00:00 EDT 2024Oct 19 19:15:00 EDT 2024 metoprolol succinate ER 50 mg tablet,extended release 24 hr 50 mg TABLET, EXTENDED RELEASE 24 HR Oral 2 Times Daily Indication: HTN FriOct 19 19:00:00 EDT 2024Nov 02:00:00 EDT 2024 Xarelto 20 mg tablet 20 mg TABLET Oral 1 Time Daily Indication: a-fib FriNov 02 07:00:00 EDT 2024Oct 20 00:26:00 EDT 2024 Nystop 100,000 unit/gram topical powder One application POWDER (GRAM) Topical 2 Times Daily Indication: Redness Apply powder to red skin folds in groin area BID FriOct 20 00:30:00 EDT 2024Nov 02 01:00:00 EDT 2024 metoprolol succinate ER 50 mg tablet,extended release 24 hr 1 TAB TABLET, EXTENDED RELEASE 24 HR Oral 2 Times Daily FriSeptember 24 01:00:00 EDT 2024Oct 13 01:00:00 EDT 2024 atorvastatin 20 mg tablet 1 TAB TABLET O ral Every 1 Day FriSeptember 24:00:00 EDT 2024Oct 13:00:00 EDT 2024 potassium chloride ER 10 mEq tablet,extended release 1 TAB TABLET, EXTENDED RELEASE Oral Every 1 Day FriSeptember 24:00:00 EDT 2024Oct 13 01:00:00 EDT 2024 furosemide 20 mg tablet 1 TAB TABLET Ora l Every 1 Day FriSeptember 24:00:00 EDT 2024Oct 13 01:00:00 EDT 2024 Xarelto 20 mg tablet 1 TAB TABLET Oral E very 1 Day FriSeptember 24:00:00 EDT 2024Oct 13 01:00:00 EDT 2024 irbesartan 300 mg tablet 1 TAB TABLET Or al Every 1 Day FriSeptember 24:00:00 EDT 2024Oct 13 01:00:00 EDT 2024 Super B-50 Complex capsule 1 CAP CAPSULE Oral Every 1 Day FriSeptember 24:00:00 EDT 2024Oct 13 01:00:00 EDT 2024 Hair,Skin and Nails tablet 2 GUMMIES TAB LET Oral Every 1 Day FriSeptember 24 01:00:00 EDT 2024Oct 13 01:00:00 EDT 2024 Calcium 600 mg D3 800 IU 1 TAB Oral 2 Times Bebeto y FriSeptember 24:00:00 EDT 2024Oct 13 01:00:00 EDT 2024 Cipro 250 mg tablet 1 TAB TABLET Oral 2 Times Daily for 10 Days FriSeptember 24 01:00:00 EDT 2024Oct 04 00:59:00 EDT 2024 acetaminophen 500 mg tablet 1-2 TAB TABL ET Oral PRN Every 6 Hours PRN PAIN OR FEVER FriSeptember 24 01:00:00 EDT 2024Oct 13 01:00:00 EDT 2024 Problems Active Concerns * [...] * End Date: * Text: * Other supervisor intermediates (current) drug therapy* Code: * Start Date: [...] 2024 * End Date: * Text: * Atrial septal defect, unspecified* Code: * Start Date: FriOct 19 00:00:00 EDT 2024 * End Date: * Text: * Hypertensive heart disease with heart failure* Code: * Start Date: FriOct 19 00:00:00 EDT 2024 * End Date: * Text: * Abnormal results of thyroid function studies* Code: * Start Date: FriOct 19 00:00:00 EDT 2024 * End Date: * Text: * Iron deficiency anemia, unspecified* Code: * Start Date: FriOct 19 00:00:00 EDT 2024 * End Date: * Text: * Pleural effusion, not elsewhere classified* Code: * Start Date: FriOct 19 00:00:00 EDT 2024 * End Date: * Text: * Nonrheumatic aortic (valve) stenosis* Code: * Start Date: FriOct 19 00:00:00 EDT 2024 * End Date: * Text: * Pulmonary hypertension, unspecified* Code: * Start Date: FriOct 19 00:00:00 EDT 2024 * End Date: * Text: * Acute on chronic diastolic (congestive) heart failure* Code: * Start Date: FriOct 19 00:00:00 EDT 2024 * End Date: * Text: * Rheumatic tricuspid insufficiency* Code: * Start Date: FriOct 19 00:00:00 EDT 2024 * End Date: * Text: * Chronic atrial fibrillation, unspecified* Code: * Start Date: FriOct 19 00:00:00 EDT 2024 * End Date: * Text: * Alcohol dependence, uncomplicated* Code: * Start Date: FriOct 19 00:00:00 EDT 2024 * End Date: * Text: * supervisor intermediates (current) use of anticoagulants* Code: * Start Date: FriOct 19 00:00:00 EDT 2024 * End Date: * Text: * Primary generalized (osteo)arthritis* Code: * Start Date: FriOct 19 00:00:00 EDT 2024 * End Date: FriNov 03 00:00:00 EDT 2024 * Text: * Hypokalemia* Code: * Start Date: FriOct 19 00:00:00 EDT 2024 * End Date: * Text: * Abnormal uterine and vaginal bleeding, unspecified* Code: * Start Date: FriOct 19 00:00:00 EDT 2024 * End Date: * Text: * Polyosteoarthritis, unspecified* Code: * Start Date: FriOct 19 00:00:00 EDT 2024 * End Date: * Text: * Alcohol abuse, uncomplicated* Code: * Start Date: FriOct 19 00:00:00 EDT 2024 * End Date: * Text: * Muscle weakness (generalized)* Code: * Start Date: FriNov 03 00:00:00 EDT 2024 * End Date: * Text: * Other fatigue* Code: * Start Date: FriNov 03 00:00:00 EDT 2024 * End Date: * Text: * Need for assistance with personal care* Code: * Start Date: FriNov 03 00:00:00 EDT 2024 * End Date: * Text: * Mild cognitive impairment of uncertain or unknown etiology* Code: * Start Date: FriNov 08 00:00:00 EDT 2024 * End Date: * Text: * [id number] Sheila receives a therapeutic diet. (12)* Code: * Start Date: FriOct 27 00:00:00 EDT 2024 * End Date: * Text: [id number] Sheila receives a therapeutic diet. (12) * MANISocial Services- Sheila's wishes will be followed (Advanced Directive/Code Status).* Code: * Start Date: FriOct 27 00:00:00 EDT 2024 * End Date: * Text: MANISocial ServicesVito Sosa's wishes will be followed (Advanced Directive/Code Status). * ABDULAZIZSFeliSocial Services- Sheila will be involved in goal development to the best of his or her ability.* Code: * Start Date: FriOct 27 00:00:00 EDT 2024 * End Date: * Text: MANISocial ServicesViot Sosa will be involved in goal development to the best of his or her ability. * MANISocial ServicesVito Sosa has family/friends who are supportive.* Code: * Start Date: FriOct 27 00:00:00 EDT 2024 * End Date: * Text: MANISocial ServicesVito Sosa has family/friends who are supportive. * MANISocial ServicesVito Sosa's mobility level is different than prior level due to current medical condition.* Code: * Start Date: FriOct 27 00:00:00 EDT 2024 * End Date: * Text: MANISocial ServicesVito Sosa's mobility level is different than prior level due to current medical condition. * ABDULAZIZSFeliSocial ServicesVito Sosa will be involved in discharge planning.* Code: * Start Date: FriOct 27 00:00:00 EDT 2024 * End Date: * Text: ABDULAZIZSFeliSocial ServicesVito Sosa will be involved in discharge planning. * MANIFalls Vito Sosa is at risk for falls/injury as evidenced by: history of falls, cognitive status/behavior, vision status, continence, mobility, balance.* Code: * Start Date: FriNov 01 00:00:00 EDT 2024 * End Date: * Text: MANIFalls Vito Sosa is at risk for falls/injury as evidenced by: history of falls, cognitive status/behavior, vision status, continence, mobility, balance. * LSS_Pain - Sheila is experiencing pain or is at high risk for pain.* Code: * Start Date: FriNov 01 00:00:00 EDT 2024 * End Date: * Text: LSS_Pain - Sheila is experiencing pain or is at high risk for pain. * LSS_Skin Integrity - (Potential Alteration of)- Sheila is at risk for developing impaired skin integrity.* Code: * Start Date: FriNov 01 00:00:00 EDT 2024 * End Date: * Text: LSS_Skin Integrity - (Potential Alteration of)- Sheila is at risk for developing impaired skinintegrity. * LSS_ADLs - Sheila has ADL selfcare deficit related to decreased mobility and muscle weakness* Code: * Start Date: FriNov 01 00:00:00 EDT 2024 * End Date: * Text: MANIADLs - Sheila has ADL selfcare deficit related to decreased mobility and muscle weakness Vital Signs Vital Sign Measurement Date Systolic Blood Pressure 118.00 mm[Hg] FriNov 29 22:56:35 EDT 2024 Diastolic Blood Pressure 78.00 mm[Hg] FriNov 29 22:56:35 EDT 2024 Heart Rate 87.00 /min FriNov 29:56 :35 EDT 2024 Systolic Blood Pressure 119.00 mm[Hg] FriNov 29 08:27:42 EDT 2024 Diastolic Blood Pressure 66.00 mm[Hg] FriNov 29 08:27:42 EDT 2024 Systolic Blood Pressure 119.00 mm[Hg] FriNov 29 08:27:42 EDT 2024 Diastolic Blood Pressure 66.00 mm[Hg] FriNov 29 08:27:42 EDT 2024 Heart Rate 90.00 /min FriNov 29 08:27 :42 EDT 2024 Systolic Blood Pressure 85.00 mm[Hg] FriNov 28:27:35 EDT 2024 Diastolic Blood Pressure 60.00 mm[Hg] FriNov 28 22:27:35 EDT 2024 Heart Rate 87.00 /min FriNov 28:27 :35 EDT 2024 Systolic Blood Pressure 112.00 mm[Hg] FriNov 28 10:04:50 EDT 2025 Diastolic Blood Pressure 63.00 mm[Hg] FriNov 28 10:04:50 EDT 2024 Systolic Blood Pressure 112.00 mm[Hg] FriNov 28 10:04:50 EDT 2024 Diastolic Blood Pressure 63.00 mm[Hg] FriNov 28 10:04:50 EDT 2024 Heart Rate 88.00 /min FriNov 28 10:04 :50 EDT 2024 Systolic Blood Pressure 112.00 mm[Hg] FriNov 28 08:34:40 EDT 2024 Diastolic Blood Pressure 63.00 mm[Hg] FriNov 28 08:34:40 EDT 2024 Heart Rate 80.00 /min FriNov 28 08:34 :40 EDT 2024 Systolic Blood Pressure 91.00 mm[Hg] Sat Nov 27 20:36:19 EDT 2024 Diastolic Blood Pressure 56.00 mm[Hg] Sat Nov 27 20:36:19 EDT 2024 Heart Rate 73.00 /min Sat Nov 27 20:36 :19 EDT 2024 Systolic Blood Pressure 103.00 mm[Hg] Sat Nov 27 08:38:39 EDT 2024 Diastolic Blood Pressure 66.00 mm[Hg] Sat Nov 27 08:38:39 EDT 2024 Systolic Blood Pressure 103.00 mm[Hg] Sat Nov 27 08:38:39 EDT 2024 Diastolic Blood Pressure 66.00 mm[Hg] Sat Nov 27 08:38:39 EDT 2024 Heart Rate 103.00 /min FriNov 27 08:38 :39 EDT 2024 Systolic Blood Pressure 103.00 mm[Hg] FriNov 27 08:18:25 EDT 2024 Diastolic Blood Pressure 66.00 mm[Hg] FriNov 27 08:18:25 EDT 2024 Heart Rate 103.00 /min FriNov 27 08:18 :25 EDT 2024 Systolic Blood Pressure 97.00 mm[Hg] FriNov 26 19:26:38 EDT 2024 Diastolic Blood Pressure 53.00 mm[Hg] FriNov 26 19:26:38 EDT 2024 Heart Rate 75.00 /min FriNov 26 19:26 :38 EDT 2024 Systolic Blood Pressure 99.00 mm[Hg] FriNov 26 09:03:29 EDT 2024 Diastolic Blood Pressure 69.00 mm[Hg] FriNov 26 09:03:29 EDT 2024 Systolic Blood Pressure 99.00 mm[Hg] FriNov 26 09:03:29 EDT 2025 Diastolic Blood Pressure 69.00 mm[Hg] FriNov 26 09:03:29 EDT 2024 Heart Rate 81.00 /min FriNov 26 09:03 :29 EDT 2024 Systolic Blood Pressure 83.00 mm[Hg] FriNov 25 19:30:05 EDT 2024 Diastolic Blood Pressure 43.00 mm[Hg] FriNov 25 19:30:05 EDT 2024 Heart Rate 59.00 /min FriNov 25 19:30 :05 EDT 2024 Systolic Blood Pressure 111.00 mm[Hg] FriNov 25 08:41:09 EDT 2024 Diastolic Blood Pressure 71.00 mm[Hg] FriNov 25 08:41:09 EDT 2024 Systolic Blood Pressure 111.00 mm[Hg] FriNov 25 08:41:09 EDT 2024 Diastolic Blood Pressure 71.00 mm[Hg] FriNov 25 08:41:09 EDT 2024 Heart Rate 82.00 /min FriNov 25 08:41 :09 EDT 2024 Systolic Blood Pressure 120.00 mm[Hg] FriNov 24 21:14:44 EDT 2024 Diastolic Blood Pressure 63.00 mm[Hg] FriNov 24 21:14:44 EDT 2024 Heart Rate 73.00 /min FriNov 24 21:14 :44 EDT 2024 Systolic Blood Pressure 104.00 mm[Hg] FriNov 24 11:16:20 EDT 2024 Diastolic Blood Pressure 66.00 mm[Hg] FriNov 24 11:16:20 EDT 2024 Systolic Blood Pressure 104.00 mm[Hg] FriNov 24 11:16:20 EDT 2024 Diastolic Blood Pressure 66.00 mm[Hg] FriNov 24 11:16:20 EDT 2024 Heart Rate 69.00 /min FriNov 24 11:16 :20 EDT 2024 Systolic Blood Pressure 120.00 mm[Hg] FriNov 23 19:40:51 EDT 2024 Diastolic Blood Pressure 56.00 mm[Hg] FriNov 23 19:40:51 EDT 2024 Heart Rate 62.00 /min FriNov 23 19:40 :51 EDT 2024 Systolic Blood Pressure 110.00 mm[Hg] FriNov 23 10:19:12 EDT 2024 Diastolic Blood Pressure 67.00 mm[Hg] FriNov 23 10:19:12 EDT 2024 Systolic Blood Pressure 110.00 mm[Hg] FriNov 23 10:19:12 EDT 2024 Diastolic Blood Pressure 67.00 mm[Hg] FriNov 23 10:19:12 EDT 2024 Heart Rate 78.00 /min FriNov 23 10:19 :12 EDT 2024 Systolic Blood Pressure 112.00 mm[Hg] FriNov 22 21:09:36 EDT 2024 Diastolic Blood Pressure 76.00 mm[Hg] FriNov 22 21:09:36 EDT 2024 Heart Rate 100.00 /min FriNov 22 21:09 :36 EDT 5 Systolic Blood Pressure 96.00 mm[Hg] FriNov 22 11:59:43 EDT 2024 Diastolic Blood Pressure 67.00 mm[Hg] FriNov 22 11:59:43 EDT 2024 Systolic Blood Pressure 96.00 mm[Hg] FriNov 22 11:59:43 EDT 2024 Diastolic Blood Pressure 67.00 mm[Hg] FriNov 22 11:59:43 EDT 2024 Heart Rate 83.00 /min FriNov 22 11:59 :43 EDT 2024 Systolic Blood Pressure 144.00 mm[Hg] [place] Nov 21 23:12:05 EDT 2024 Diastolic Blood Pressure 62.00 mm[Hg] [place] Nov 21 23:12:05 EDT 2024 Heart Rate 66.00 /min FriNov 21 23:12 :05 EDT 2024 Systolic Blood Pressure 94.00 mm[Hg] FriNov 21 09:46:22 EDT 2024 Diastolic Blood Pressure 63.00 mm[Hg] Sun Nov 21 09:46:22 EDT 2024 Systolic Blood Pressure 94.00 mm[Hg] FriNov 21 09:46:22 EDT 2024 Diastolic Blood Pressure 63.00 mm[Hg] Sun Nov 21 09:46:22 EDT 2024 Heart Rate 77.00 /min Sun Nov 21 09:46 :22 EDT 2024 Systolic Blood Pressure 108.00 mm[Hg] Sat Nov 20 20:06:07 EDT 2024 Diastolic Blood Pressure 68.00 mm[Hg] Sat Nov 20 20:06:07 EDT 2024 Heart Rate 84.00 /min Sat Nov 20 20:06 :07 EDT 2024 Systolic Blood Pressure 130.00 mm[Hg] [facility] Nov 20 10:11:30 EDT 2024 Diastolic Blood Pressure 82.00 mm[Hg] Sat Nov 19 10:11:30 EDT 2024 Systolic Blood Pressure 130.00 mm[Hg] Fri 19 10:11:30 EDT 2024 Diastolic Blood Pressure 82.00 mm[Hg] Fri 19 10:11:30 EDT 2024 Heart Rate 69.00 /min Fri 19 10:11 :30 EDT 2024 Systolic Blood Pressure 96.00 mm[Hg] Fri 18 20:42:35 EDT 2024 Diastolic Blood Pressure 59.00 mm[Hg] Fri 18 20:42:35 EDT 2024 Heart Rate 78.00 /min FriNov 19 20:42 :35 EDT 2024 Systolic Blood Pressure 125.00 mm[Hg] Fri 18 10:40:33 EDT 2024 Diastolic Blood Pressure 62.00 mm[Hg] FriNov 19 10:40:33 EDT 2024 Systolic Blood Pressure 125.00 mm[Hg] FriNov 19 10:40:33 EDT 2024 Diastolic Blood Pressure 62.00 mm[Hg] FriNov 19 10:40:33 EDT 2024 Heart Rate 70.00 /min FriNov 19 10:40 :33 EDT 2024 Systolic Blood Pressure 113.00 mm[Hg] FriNov 18 20:08:22 EDT 2024 Diastolic Blood Pressure 41.00 mm[Hg] FriNov 18 20:08:22 EDT 2024 Heart Rate 67.00 /min FriNov 18 20:08 :22 EDT 2024 Systolic Blood Pressure 132.00 mm[Hg] [place] 17 10:28:09 EDT 2024 Diastolic Blood Pressure 77.00 mm[Hg] [place] 17 10:28:09 EDT 2024 Systolic Blood Pressure 132.00 mm[Hg] [place] 17 10:28:09 EDT 2024 Diastolic Blood Pressure 77.00 mm[Hg] Fri 17 10:28:09 EDT 2024 Heart Rate 69.00 /min Fri 17 10:28 :09 EDT 2024 Systolic Blood Pressure 86.00 mm[Hg] FriNov 17 19:44:09 EDT 2024 Diastolic Blood Pressure 47.00 mm[Hg] FriNov 17 19:44:09 EDT 2024 Heart Rate 83.00 /min FriNov 17 19:44 :09 EDT 2024 Systolic Blood Pressure 128.00 mm[Hg] FriNov 17 09:41:10 EDT 2024 Diastolic Blood Pressure 80.00 mm[Hg] FriNov 17 09:41:10 EDT 2024 Systolic Blood Pressure 128.00 mm[Hg] FriNov 17 09:41:10 EDT 2024 Diastolic Blood Pressure 80.00 mm[Hg] FriNov 17 09:41:10 EDT 2024 Heart Rate 80.00 /min FriNov 17 09:41 :10 EDT 2024 Systolic Blood Pressure 128.00 mm[Hg] FriNov 17 09:19:24 EDT 202 Diastolic Blood Pressure 80.00 mm[Hg] FriNov 17 09:19:24 EDT 2024 Pulse Oximetry 94.00 % FriNov 17 09:19 :24 EDT 2024 Body weight 186.20 [lb_av] FriNov 17 09:19 :24 EDT 2024 Heart Rate 80.00 /min FriNov 17 09:19 :24 EDT 2024 Body temperature 97.60 [degF] FriNov 17 09:1 9:24 EDT 2024 Respiratory rate 18.00 /min FriNov 17 09:1 9:24 EDT 2024 Systolic Blood Pressure 111.00 mm[Hg] FriNov 16 20:12:17 EDT 2024 Diastolic Blood Pressure 61.00 mm[Hg] FriNov 16 20:12:17 EDT 2024 Heart Rate 78.00 /min FriNov 16 20:12 :17 EDT 2024 Systolic Blood Pressure 103.00 mm[Hg] FriNov 16 08:26:42 EDT 2024 Diastolic Blood Pressure 60.00 mm[Hg] FriNov 16 08:26:42 EDT 2024 Systolic Blood Pressure 103.00 mm[Hg] FriNov 16 08:26:42 EDT 2024 Diastolic Blood Pressure 60.00 mm[Hg] FriNov 16 08:26:42 EDT 2024 Heart Rate 68.00 /min FriNov 16 08:26 :42 EDT 2024 Systolic Blood Pressure 127.00 mm[Hg] FriNov 15 21:01:49 EDT 2024 Diastolic Blood Pressure 64.00 mm[Hg] FriNov 15 21:01:49 EDT 2024 Heart Rate 75.00 /min FriNov 15 21:01 :49 EDT 2024 Systolic Blood Pressure 103.00 mm[Hg] Mon Riki 14 09:18:19 EDT 2024 Diastolic Blood Pressure 65.00 mm[Hg] Fri 14 09:18:19 EDT 2024 Systolic Blood Pressure 103.00 mm[Hg] Fri 14 09:18:19 EDT 2024 Diastolic Blood Pressure 65.00 mm[Hg] Fri 14 09:18:19 EDT 5 Heart Rate 76.00 /min FriNov 15 09:18 :19 EDT 2024 Systolic Blood Pressure 108.00 mm[Hg] Sun Nov 14 21:54:44 EDT 202 Diastolic Blood Pressure 69.00 mm[Hg] Sun Nov 14 21:54:44 EDT 2024 Heart Rate 82.00 /min [place] Nov 14 21:54 :44 EDT 2024 Systolic Blood Pressure 109.00 mm[Hg] [place] Nov 14 10:36:05 EDT 2024 Diastolic Blood Pressure 63.00 mm[Hg] [place] Nov 14 10:36:05 EDT 2024 Systolic Blood Pressure 109.00 mm[Hg] [place] Nov 14 10:36:05 EDT 2024 Diastolic Blood Pressure 63.00 mm[Hg] [place] Nov 14 10:36:05 EDT 2024 Heart Rate 83.00 /min [place] Nov 14 10:36 :05 EDT 2024 Systolic Blood Pressure 88.00 mm[Hg] Sat Nov 12 19:49:20 EDT 2024 Diastolic Blood Pressure 61.00 mm[Hg] Sat Nov 12 19:49:20 EDT 2024 Heart Rate 105.00 /min Sat Nov 13 19:49 :20 EDT 2024 Systolic Blood Pressure 127.00 mm[Hg] Sat Nov 13 10:48:57 EDT 2024 Diastolic Blood Pressure 76.00 mm[Hg] Sat Nov 13 10:48:57 EDT 2024 Systolic Blood Pressure 127.00 mm[Hg] Sat Nov 13 10:48:57 EDT 2024 Diastolic Blood Pressure 76.00 mm[Hg] Sat Nov 13 10:48:57 EDT 2024 Heart Rate 59.00 /min Sat Nov 13 10:48 :57 EDT 2024 Systolic Blood Pressure 100.00 mm[Hg] FriNov 12 19:35:08 EDT 2024 Diastolic Blood Pressure 60.00 mm[Hg] FriNov 12 19:35:08 EDT 2024 Heart Rate 86.00 /min FriNov 12 19:35 :08 EDT 2024 Systolic Blood Pressure 138.00 mm[Hg] FriNov 12 09:00:34 EDT 2024 Diastolic Blood Pressure 80.00 mm[Hg] FriNov 12 09:00:34 EDT 2024 Systolic Blood Pressure 138.00 mm[Hg] FriNov 12 09:00:34 EDT 2024 Diastolic Blood Pressure 80.00 mm[Hg] FriNov 12 09:00:34 EDT 2024 Heart Rate 90.00 /min FriNov 12 09:00 :34 EDT 2024 Systolic Blood Pressure 82.00 mm[Hg] [place] Nov 11 19:46:31 EDT 2024 Diastolic Blood Pressure 56.00 mm[Hg] FriNov 11 19:46:31 EDT 2024 Heart Rate 82.00 /min [place] Nov 11 19:46 :31 EDT 2024 Systolic Blood Pressure 120.00 mm[Hg] [place] Nov 11 09:25:27 EDT 2024 Diastolic Blood Pressure 75.00 mm[Hg] [facility] Nov 11 09:25:27 EDT 2024 Systolic Blood Pressure 120.00 mm[Hg] [facility] Nov 11 09:25:27 EDT 2024 Diastolic Blood Pressure 75.00 mm[Hg] [facility] Nov 11 09:25:27 EDT 2024 Heart Rate 65.00 /min [facility] Nov 11 09:25 :27 EDT 2024 Systolic Blood Pressure 135.00 mm[Hg] FriNov 10 19:31:37 EDT 2024 Diastolic Blood Pressure 57.00 mm[Hg] FriNov 10 19:31:37 EDT 2024 Heart Rate 92.00 /min FriNov 10 19:31 :37 EDT 2024 Systolic Blood Pressure 127.00 mm[Hg] FriNov 10 10:41:11 EDT 2024 Diastolic Blood Pressure 79.00 mm[Hg] FriNov 10 10:41:11 EDT 2024 Systolic Blood Pressure 127.00 mm[Hg] FriNov 10 10:41:11 EDT 2024 Diastolic Blood Pressure 79.00 mm[Hg] FriNov 10 10:41:11 EDT 2024 Heart Rate 81.00 /min FriNov 10 10:41 :11 EDT 2024 Systolic Blood Pressure 105.00 mm[Hg] FriNov 09 20:19:50 EDT 2024 Diastolic Blood Pressure 56.00 mm[Hg] FriNov 09 20:19:50 EDT 2024 Heart Rate 62.00 /min FriNov 09 20:19 :50 EDT 5 Systolic Blood Pressure 127.00 mm[Hg] FriNov 09 10:25:41 EDT 202 Diastolic Blood Pressure 65.00 mm[Hg] FriNov 09 10:25:41 EDT 2024 Systolic Blood Pressure 127.00 mm[Hg] FriNov 09 10:25:41 EDT 2024 Diastolic Blood Pressure 65.00 mm[Hg] FriNov 09 10:25:41 EDT 2024 Heart Rate 70.00 /min FriNov 09 10:25 :41 EDT 2024 Systolic Blood Pressure 138.00 mm[Hg] FriNov 08 22:40:14 EDT 2024 Diastolic Blood Pressure 85.00 mm[Hg] FriNov 08 22:40:14 EDT 2024 Heart Rate 92.00 /min FriNov 08 22:40 :14 EDT 2024 Systolic Blood Pressure 136.00 mm[Hg] FriNov 08 08:11:58 EDT 2024 Diastolic Blood Pressure 83.00 mm[Hg] FriNov 08 08:11:58 EDT 202 Systolic Blood Pressure 136.00 mm[Hg] FriNov 08 08:11:58 EDT 202 Diastolic Blood Pressure 83.00 mm[Hg] FriNov 08 08:11:58 EDT 2024 Heart Rate 90.00 /min FriNov 08 08:11 :58 EDT 2024 Systolic Blood Pressure 113.00 mm[Hg] FriNov 07 19:41:46 EDT 2024 Diastolic Blood Pressure 63.00 mm[Hg] FriNov 07 19:41:46 EDT 2024 Heart Rate 88.00 /min FriNov 07 19:41 :46 EDT 2024 Systolic Blood Pressure 134.00 mm[Hg] FriNov 07 10:20:05 EDT 2024 Diastolic Blood Pressure 80.00 mm[Hg] FriNov 07 10:20:05 EDT 2024 Systolic Blood Pressure 134.00 mm[Hg] FriNov 07 10:20:05 EDT 2024 Diastolic Blood Pressure 80.00 mm[Hg] FriNov 07 10:20:05 EDT 2024 Heart Rate 90.00 /min FriNov 07 10:20 :05 EDT 2024 Systolic Blood Pressure 143.00 mm[Hg] [facility] Nov 06 19:58:02 EDT 2024 Diastolic Blood Pressure 84.00 mm[Hg] [facility] Nov 06 19:58:02 EDT 2024 Heart Rate 90.00 /min Sat Nov 06 19:58 :02 EDT 2024 Systolic Blood Pressure 124.00 mm[Hg] Sat Nov 05 10:59:56 EDT 2024 Diastolic Blood Pressure 75.00 mm[Hg] Sat Nov 06 10:59:56 EDT 2024 Systolic Blood Pressure 124.00 mm[Hg] Sat Nov 06 10:59:56 EDT 2024 Diastolic Blood Pressure 75.00 mm[Hg] Sat Nov 06 10:59:56 EDT 2024 Heart Rate 75.00 /min Sat Nov 06 10:59 :56 EDT 2024 Systolic Blood Pressure 95.00 mm[Hg] FriNov 05 21:42:06 EDT 2024 Diastolic Blood Pressure 62.00 mm[Hg] FriNov 05 21:42:06 EDT 2024 Heart Rate 95.00 /min FriNov 05 21:42 :06 EDT 2024 Systolic Blood Pressure 129.00 mm[Hg] FriNov 05 10:51:08 EDT 2024 Diastolic Blood Pressure 66.00 mm[Hg] FriNov 05 10:51:08 EDT 2024 Systolic Blood Pressure 129.00 mm[Hg] FriNov 05 10:51:08 EDT 2024 Diastolic Blood Pressure 66.00 mm[Hg] FriNov 05 10:51:08 EDT 2024 Heart Rate 90.00 /min FriNov 05 10:51 :08 EDT 2024 Systolic Blood Pressure 105.00 mm[Hg] FriNov 04 19:47:55 EDT 2024 Diastolic Blood Pressure 59.00 mm[Hg] FriNov 04 19:47:55 EDT 2024 Heart Rate 81.00 /min FriNov 04 19:47 :55 EDT 2024 Systolic Blood Pressure 126.00 mm[Hg] FriNov 04 11:12:27 EDT 2024 Diastolic Blood Pressure 73.00 mm[Hg] FriNov 04 11:12:27 EDT 2024 Systolic Blood Pressure 126.00 mm[Hg] FriNov 04 11:12:27 EDT 2024 Diastolic Blood Pressure 73.00 mm[Hg] FriNov 04 11:12:27 EDT 2024 Heart Rate 84.00 /min FriNov 04 11:12 :27 EDT 2024 Systolic Blood Pressure 122.00 mm[Hg] FriNov 03 22:15:45 EDT 2024 Diastolic Blood Pressure 74.00 mm[Hg] FriNov 03 22:15:45 EDT 2024 Heart Rate 84.00 /min FriNov 03 22:15 :45 EDT 2024 Systolic Blood Pressure 122.00 mm[Hg] FriNov 03 15:22:18 EDT 2024 Diastolic Blood Pressure 74.00 mm[Hg] FriNov 03 15:22:18 EDT 2024 Pulse Oximetry 94.00 % FriNov 03 15:22 :18 EDT 2024 Body weight 202.40 [lb_av] FriNov 03 15:22 :18 EDT 2024 Heart Rate 84.00 /min FriNov 03 15:22 :18 EDT 2024 Body temperature 97.40 [degF] FriNov 03 15:2 2:18 EDT 2024 Respiratory rate 18.00 /min FriNov 03 15:2 2:18 EDT 2024 Systolic Blood Pressure 122.00 mm[Hg] FriNov 03 11:45:22 EDT 2024 Diastolic Blood Pressure 74.00 mm[Hg] FriNov 03 11:45:22 EDT 2024 Systolic Blood Pressure 122.00 mm[Hg] FriNov 03 11:45:22 EDT 2024 Diastolic Blood Pressure 74.00 mm[Hg] FriNov 03 11:45:22 EDT 2024 Heart Rate 84.00 /min FriNov 03 11:45 :22 EDT 2024 Systolic Blood Pressure 131.00 mm[Hg] FriNov 02 21:10:30 EDT 2024 Diastolic Blood Pressure 79.00 mm[Hg] FriNov 02 21:10:30 EDT 2024 Heart Rate 88.00 /min FriNov 02 21:10 :30 EDT 2024 Systolic Blood Pressure 121.00 mm[Hg] FriNov 02 09:35:25 EDT 2024 Diastolic Blood Pressure 68.00 mm[Hg] FriNov 02 09:35:25 EDT 2024 Systolic Blood Pressure 121.00 mm[Hg] FriNov 02 09:35:25 EDT 2024 Diastolic Blood Pressure 68.00 mm[Hg] FriNov 02 09:35:25 EDT 2024 Systolic Blood Pressure 121.00 mm[Hg] FriNov 02 09:35:25 EDT 2024 Diastolic Blood Pressure 68.00 mm[Hg] FriNov 02 09:35:25 EDT 2024 Pulse Oximetry 94.00 % FriNov 02 09:35 :25 EDT 2024 Body weight 203.60 [lb_av] FriNov 02 09:35 :25 EDT 2024 Heart Rate 85.00 /min FriNov 02 09:35 :25 EDT 2024 Heart Rate 85.00 /min FriNov 02 09:35 :25 EDT 2024 Body temperature 98.00 [degF] FriNov 02 09:3 5:25 EDT 2024 Respiratory rate 20.00 /min FriNov 02 09:3 5:25 EDT 2024 Systolic Blood Pressure 92.00 mm[Hg] FriNov 02 01:00:00 EDT 2024 Diastolic Blood Pressure 62.00 mm[Hg] FriNov 02 01:00:00 EDT 2024 Pulse Oximetry 95.00 % FriNov 02 01:00 :00 EDT 2024 Heart Rate 90.00 /min FriNov 02 01:00 :00 EDT 2024 Body weight 205.80 [lb_av] FriNov 02 01:00 :00 EDT 2024 Body temperature 98.20 [degF] FriNov 02 01:0 0:00 EDT 2024 Respiratory rate 18.00 /min FriNov 02 01:0 0:00 EDT 2024 Body Height 65.00 [in_i] FriNov 02 01:00 :00 EDT 2024 Systolic Blood Pressure 108.00 mm[Hg] FriNov 01 22:40:09 EDT 2024 Diastolic Blood Pressure 60.00 mm[Hg] FriNov 01 22:40:09 EDT 2024 Pulse Oximetry 96.00 % FriNov 01 22:40 :09 EDT 2024 Heart Rate 99.00 /min FriNov 01 22:40 :09 EDT 2024 Body temperature 97.80 [degF] FriNov 01 22:4 0:09 EDT 2024 Respiratory rate 18.00 /min FriNov 01 22:4 0:09 EDT 2024 Systolic Blood Pressure 108.00 mm[Hg] FriNov 01 21:51:02 EDT 2024 Diastolic Blood Pressure 60.00 mm[Hg] FriNov 01 21:51:02 EDT 2024 Heart Rate 99.00 /min FriNov 01 21:51 :02 EDT 2024 Body weight 206.60 [lb_av] FriNov 01 09:39 :36 EDT 5 Systolic Blood Pressure 124.00 mm[Hg] FriNov 01 08:35:43 EDT 2024 Diastolic Blood Pressure 80.00 mm[Hg] FriNov 01 08:35:43 EDT 2024 Pulse Oximetry 93.00 % FriNov 01 08:35 :43 EDT 2024 Heart Rate 92.00 /min FriNov 01 08:35 :43 EDT 2024 Body temperature 98.20 [degF] FriNov 01 08:3 5:43 EDT 2024 Respiratory rate 20.00 /min FriNov 01 08:3 5:43 EDT 2024 Systolic Blood Pressure 124.00 mm[Hg] FriNov 01 08:35:10 EDT 2024 Diastolic Blood Pressure 80.00 mm[Hg] FriNov 01 08:35:10 EDT 2024 Systolic Blood Pressure 124.00 mm[Hg] FriNov 01 08:35:10 EDT 2024 Diastolic Blood Pressure 80.00 mm[Hg] FriNov 01 08:35:10 EDT 2024 Heart Rate 92.00 /min FriNov 01 08:35 :10 EDT 2024 Systolic Blood Pressure 108.00 mm[Hg] [place] Oct 31 20:18:31 EDT 2024 Diastolic Blood Pressure 58.00 mm[Hg] [place] Oct 31 20:18:31 EDT 2024 Systolic Blood Pressure 108.00 mm[Hg] [place] Oct 31 20:18:31 EDT 2024 Diastolic Blood Pressure 58.00 mm[Hg] [place] Oct 31 20:18:31 EDT 2024 Pulse Oximetry 98.00 % [place] Oct 31 20:18 :31 EDT 2024 Heart Rate 84.00 /min [place] Oct 31 20:18 :31 EDT 2024 Heart Rate 84.00 /min [facility] [facility] 29 20:18 :31 EDT 2024 Body temperature 98.00 [degF] Sun Oct 31 20:1 8:31 EDT 2024 Respiratory rate 20.00 /min Sun Oct 31 20:1 8:31 EDT 2024 Systolic Blood Pressure 145.00 mm[Hg] Sun Oct 31 09:08:01 EDT 2024 Diastolic Blood Pressure 65.00 mm[Hg] Sun Oct 31 09:08:01 EDT 2024 Systolic Blood Pressure 145.00 mm[Hg] Sun [facility] 29 09:08:01 EDT 2024 Diastolic Blood Pressure 65.00 mm[Hg] Sun [facility] 29 09:08:01 EDT 2024 Heart Rate 84.00 /min Sun [facility] 29 09:08 :01 EDT 2024 Systolic Blood Pressure 145.00 mm[Hg] Sun [facility] 29 09:04:20 EDT 2024 Diastolic Blood Pressure 65.00 mm[Hg] Sun [facility] 29 09:04:20 EDT 2024 Pulse Oximetry 94.00 % Sun [facility] 29 09:04 :20 EDT 2024 Body weight 207.20 [lb_av] Sun [facility] 29 09:04 :20 EDT 2024 Heart Rate 84.00 /min Sun [facility] 29 09:04 :20 EDT 2024 Body temperature 98.00 [degF] Sun [facility] 29 09:0 4:20 EDT 2024 Respiratory rate 20.00 /min Sun [facility] 29 09:0 4:20 EDT 2024 Systolic Blood Pressure 118.00 mm[Hg] Sat [facility] 28 20:36:20 EDT 2024 Diastolic Blood Pressure 68.00 mm[Hg] Sat [facility] 28 20:36:20 EDT 2024 Systolic Blood Pressure 118.00 mm[Hg] Sat [facility] 28 20:36:20 EDT 2024 Diastolic Blood Pressure 68.00 mm[Hg] Sat [facility] 28 20:36:20 EDT 2024 Pulse Oximetry 99.00 % Sat [facility] 28 20:36 :20 EDT 2024 Heart Rate 88.00 /min Sat [facility] 28 20:36 :20 EDT 2024 Heart Rate 88.00 /min Sat [facility] 28 20:36 :20 EDT 2024 Body temperature 97.40 [degF] Sat [facility] 28 20:3 6:20 EDT 2024 Respiratory rate 20.00 /min Sat [facility] 28 20:3 6:20 EDT 2024 Systolic Blood Pressure 116.00 mm[Hg] Sat [facility] 28 09:27:24 EDT 2024 Diastolic Blood Pressure 73.00 mm[Hg] Sat [facility] 28 09:27:24 EDT 2024 Systolic Blood Pressure 116.00 mm[Hg] Sat [facility] 28 09:27:24 EDT 2024 Diastolic Blood Pressure 73.00 mm[Hg] Sat [facility] 28 09:27:24 EDT 2024 Systolic Blood Pressure 116.00 mm[Hg] Sat [facility] 28 09:27:24 EDT 2024 Diastolic Blood Pressure 73.00 mm[Hg] Sat [facility] 28 09:27:24 EDT 2024 Pulse Oximetry 97.00 % [facility] Stalin 28 09:27 :24 EDT 5 Body weight 211.80 [lb_av] [facility] Stalin 28 09:27 :24 EDT 2024 Heart Rate 96.00 /min [facility] Stalin 09:27 :24 EDT 2024 Heart Rate 96.00 /min [facility] Stalin 28 09:27 :24 EDT 2024 Body temperature 98.20 [degF] [facility] Stalin 28 09:2 7:24 EDT 5 Respiratory rate 20.00 /min [facility] Stalin 09:2 7:24 EDT 5 Systolic Blood Pressure 98.00 mm[Hg] Fri Stalin 20:17:25 EDT 2024 Diastolic Blood Pressure 64.00 mm[Hg] Fri Stalin 20:17:25 EDT 2024 Systolic Blood Pressure 98.00 mm[Hg] FriOct 29 20:17:25 EDT 2024 Diastolic Blood Pressure 64.00 mm[Hg] FriOct 29 20:17:25 EDT 2024 Pulse Oximetry 96.00 % FriOct 29 20:17 :25 EDT 2024 Heart Rate 95.00 /min FriOct 29 20:17 :25 EDT 2024 Heart Rate 95.00 /min FriOct 29 20:17 :25 EDT 2024 Body temperature 98.20 [degF] Fri Stalin 20:1 7:25 EDT 2024 Respiratory rate 18.00 /min Fri Stalin 20:1 7:25 EDT 2024 Body weight 210.00 [lb_av] FriOct 29 14:03 :17 EDT 2024 Systolic Blood Pressure 125.00 mm[Hg] FriOct 29 09:27:33 EDT 2024 Diastolic Blood Pressure 84.00 mm[Hg] FriOct 29 09:27:33 EDT 2024 Systolic Blood Pressure 125.00 mm[Hg] FriOct 29 09:27:33 EDT 2024 Diastolic Blood Pressure 84.00 mm[Hg] FriOct 29 09:27:33 EDT 2024 Heart Rate 100.00 /min FriOct 29 09:27 :33 EDT 2024 Systolic Blood Pressure 125.00 mm[Hg] FriOct 29 08:55:25 EDT 2024 Diastolic Blood Pressure 84.00 mm[Hg] FriOct 29 08:55:25 EDT 2024 Pulse Oximetry 92.00 % FriOct 29 08:55 :25 EDT 2024 Heart Rate 100.00 /min FriOct 29 08:55 :25 EDT 2024 Body temperature 98.30 [degF] FriOct 29 08:5 5:25 EDT 2024 Respiratory rate 18.00 /min FriOct 29 08:5 5:25 EDT 2024 Systolic Blood Pressure 105.00 mm[Hg] FriOct 28 22:55:06 EDT 2024 Diastolic Blood Pressure 56.00 mm[Hg] [place] Oct 28 22:55:06 EDT 2024 Systolic Blood Pressure 105.00 mm[Hg] [place] Oct 28 22:55:06 EDT 2024 Diastolic Blood Pressure 56.00 mm[Hg] [place] Oct 28 22:55:06 EDT 2024 Pulse Oximetry 95.00 % [place] Oct 28 22:55 :06 EDT 2024 Heart Rate 96.00 /min [place] Oct 28 22:55 :06 EDT 2024 Heart Rate 96.00 /min [place] Oct 28 22:55 :06 EDT 2024 Body temperature 98.20 [degF] [facility] Oct 28 22:5 5:06 EDT 2024 Respiratory rate 16.00 /min [place] Oct 28 22:5 5:06 EDT 2024 Body weight 210.40 [lb_av] FriOct 28 10:35 :23 EDT 2024 Systolic Blood Pressure 114.00 mm[Hg] FriOct 28 09:37:38 EDT 2024 Diastolic Blood Pressure 55.00 mm[Hg] [place] Oct 28 09:37:38 EDT 2024 Pulse Oximetry 96.00 % [place] Oct 28 09:37 :38 EDT 2024 Heart Rate 103.00 /min FriOct 28 09:37 :38 EDT 2024 Body temperature 98.00 [degF] [place] Oct 28 09:3 7:38 EDT 2024 Respiratory rate 18.00 /min [place] Oct 28 09:3 7:38 EDT 2024 Systolic Blood Pressure 114.00 mm[Hg] FriOct 28 08:40:19 EDT 2024 Diastolic Blood Pressure 55.00 mm[Hg] [place] Oct 28 08:40:19 EDT 2024 Systolic Blood Pressure 114.00 mm[Hg] [place] Oct 28 08:40:19 EDT 2024 Diastolic Blood Pressure 55.00 mm[Hg] [place] Oct 28 08:40:19 EDT 2024 Heart Rate 103.00 /min FriOct 28 08:40 :19 EDT 2024 Systolic Blood Pressure 102.00 mm[Hg] FriOct 27 20:17:13 EDT 2024 Diastolic Blood Pressure 58.00 mm[Hg] FriOct 27 20:17:13 EDT 2024 Systolic Blood Pressure 102.00 mm[Hg] FriOct 27 20:17:13 EDT 2024 Diastolic Blood Pressure 58.00 mm[Hg] FriOct 27 20:17:13 EDT 2024 Pulse Oximetry 97.00 % FriOct 27 20:17 :13 EDT 2024 Heart Rate 89.00 /min FriOct 27 20:17 :13 EDT 2024 Heart Rate 89.00 /min FriOct 27 20:17 :13 EDT 2024 Body temperature 98.00 [degF] FriOct 27 20:1 7:13 EDT 2024 Respiratory rate 18.00 /min FriOct 27 20:1 7:13 EDT 2024 Body weight 210.20 [lb_av] FriOct 27 15:22 :36 EDT 2024 Systolic Blood Pressure 127.00 mm[Hg] FriOct 27 08:59:04 EDT 2024 Diastolic Blood Pressure 60.00 mm[Hg] FriOct 27 08:59:04 EDT 2024 Systolic Blood Pressure 127.00 mm[Hg] FriOct 27 08:59:04 EDT 2024 Diastolic Blood Pressure 60.00 mm[Hg] FriOct 27 08:59:04 EDT 2024 Heart Rate 87.00 /min FriOct 27 08:59 :04 EDT 2024 Systolic Blood Pressure 127.00 mm[Hg] FriOct 27 08:46:34 EDT 2024 Diastolic Blood Pressure 60.00 mm[Hg] FriOct 27 08:46:34 EDT 2024 Pulse Oximetry 92.00 % FriOct 27 08:46 :34 EDT 2024 Heart Rate 87.00 /min FriOct 27 08:46 :34 EDT 2024 Body temperature 98.20 [degF] FriOct 27 08:4 6:34 EDT 2024 Respiratory rate 20.00 /min FriOct 27 08:4 6:34 EDT 2024 Systolic Blood Pressure 151.00 mm[Hg] FriOct 26 20:14:57 EDT 2024 Diastolic Blood Pressure 81.00 mm[Hg] FriOct 26 20:14:57 EDT 2024 Systolic Blood Pressure 151.00 mm[Hg] FriOct 26 20:14:57 EDT 2024 Diastolic Blood Pressure 81.00 mm[Hg] FriOct 26 20:14:57 EDT 2024 Pulse Oximetry 95.00 % FriOct 26 20:14 :57 EDT 2024 Heart Rate 127.00 /min FriOct 26 20:14 :57 EDT 2024 Heart Rate 127.00 /min FriOct 26 20:14 :57 EDT 2024 Body temperature 98.40 [degF] FriOct 26 20:1 4:57 EDT 2024 Respiratory rate 20.00 /min FriOct 26 20:1 4:57 EDT 2024 Systolic Blood Pressure 119.00 mm[Hg] FriOct 26 08:59:27 EDT 2024 Diastolic Blood Pressure 68.00 mm[Hg] FriOct 26 08:59:27 EDT 2024 Systolic Blood Pressure 119.00 mm[Hg] FriOct 26 08:59:27 EDT 2024 Diastolic Blood Pressure 68.00 mm[Hg] FriOct 26 08:59:27 EDT 2024 Heart Rate 76.00 /min FriOct 26 08:59 :27 EDT 2024 Systolic Blood Pressure 119.00 mm[Hg] FriOct 26 08:35:07 EDT 2024 Diastolic Blood Pressure 68.00 mm[Hg] FriOct 26 08:35:07 EDT 2024 Pulse Oximetry 97.00 % FriOct 26 08:35 :07 EDT 2024 Heart Rate 76.00 /min FriOct 26 08:35 :07 EDT 2024 Body temperature 97.70 [degF] FriOct 26 08:3 5:07 EDT 2024 Respiratory rate 20.00 /min FriOct 26 08:3 5:07 EDT 2024 Systolic Blood Pressure 110.00 mm[Hg] FriOct 26 01:13:43 EDT 2024 Diastolic Blood Pressure 65.00 mm[Hg] FriOct 26 01:13:43 EDT 2024 Pulse Oximetry 98.00 % FriOct 26 01:13 :43 EDT 2024 Heart Rate 95.00 /min FriOct 26 01:13 :43 EDT 2024 Body temperature 98.50 [degF] FriOct 26 01:1 3:43 EDT 2024 Respiratory rate 20.00 /min FriOct 26 01:1 3:43 EDT 2024 Systolic Blood Pressure 110.00 mm[Hg] FriOct 25 20:59:02 EDT 2024 Diastolic Blood Pressure 65.00 mm[Hg] FriOct 25 20:59:02 EDT 2024 Heart Rate 95.00 /min FriOct 25 20:59 :02 EDT 2024 Systolic Blood Pressure 121.00 mm[Hg] FriOct 25 08:39:54 EDT 2024 Diastolic Blood Pressure 71.00 mm[Hg] FriOct 25 08:39:54 EDT 2024 Systolic Blood Pressure 121.00 mm[Hg] FriOct 25 08:39:54 EDT 2024 Diastolic Blood Pressure 71.00 mm[Hg] FriOct 25 08:39:54 EDT 2024 Systolic Blood Pressure 121.00 mm[Hg] FriOct 25 08:39:54 EDT 2024 Diastolic Blood Pressure 71.00 mm[Hg] FriOct 25 08:39:54 EDT 2024 Pulse Oximetry 97.00 % FriOct 25 08:39 :54 EDT 2024 Heart Rate 84.00 /min FriOct 25 08:39 :54 EDT 2024 Heart Rate 84.00 /min FriOct 25 08:39 :54 EDT 2024 Body temperature 98.00 [degF] FriOct 25 08:3 9:54 EDT 2024 Respiratory rate 16.00 /min FriOct 25 08:3 9:54 EDT 2024 Systolic Blood Pressure 102.00 mm[Hg] [place] Oct 24 21:32:49 EDT 2024 Diastolic Blood Pressure 52.00 mm[Hg] [place] Oct 24 21:32:49 EDT 2024 Pulse Oximetry 97.00 % FriOct 24 21:32 :49 EDT 2024 Heart Rate 102.00 /min FriOct 24 21:32 :49 EDT 2024 Body temperature 97.80 [degF] FriOct 24 21:3 2:49 EDT 2024 Respiratory rate 18.00 /min [place] Oct 24 21:3 2:49 EDT 2024 Systolic Blood Pressure 102.00 mm[Hg] [place] Oct 24 20:57:42 EDT 2024 Diastolic Blood Pressure 52.00 mm[Hg] [place] Oct 24 20:57:42 EDT 2025 Heart Rate 102.00 /min Sun [facility] 22 20:57 :42 EDT 5 Systolic Blood Pressure 132.00 mm[Hg] Sun Stalin 22 08:48:30 EDT 2024 Diastolic Blood Pressure 53.00 mm[Hg] Sun [facility] 22 08:48:30 EDT 2024 Pulse Oximetry 96.00 % Sun [facility] 22 08:48 :30 EDT 5 Heart Rate 84.00 /min Sun [facility] 22 08:48 :30 EDT 2024 Body temperature 98.00 [degF] Sun [facility] 22 08:4 8:30 EDT 5 Respiratory rate 20.00 /min Sun Stalin 08:4 8:30 EDT 5 Systolic Blood Pressure 132.00 mm[Hg] Sun [facility] 22 08:47:27 EDT 2024 Diastolic Blood Pressure 53.00 mm[Hg] Sun Oct 24 08:47:27 EDT 2024 Systolic Blood Pressure 132.00 mm[Hg] Sun Oct 24 08:47:27 EDT 2024 Diastolic Blood Pressure 53.00 mm[Hg] Sun Oct 24 08:47:27 EDT 2024 Heart Rate 84.00 /min Sun Oct 24 08:47 :27 EDT 2024 Systolic Blood Pressure 97.00 mm[Hg] Sun Stalin 22 00:02:12 EDT 2024 Diastolic Blood Pressure 56.00 mm[Hg] Sun Oct 24 00:02:12 EDT 2024 Pulse Oximetry 96.00 % Sun Oct 24 00:02 :12 EDT 2024 Heart Rate 97.00 /min Sun Oct 24 00:02 :12 EDT 2024 Body temperature 98.20 [degF] Sun [facility] 22 00:0 2:12 EDT 2024 Respiratory rate 18.00 /min Sun Oct 24 00:0 2:12 EDT 2024 Systolic Blood Pressure 97.00 mm[Hg] Sat Oct 23 21:09:27 EDT 2024 Diastolic Blood Pressure 56.00 mm[Hg] Sat Stalin 21:09:27 EDT 2024 Heart Rate 97.00 /min Sat Stalin 21:09 :27 EDT 2024 Body weight 209.80 [lb_av] Sat Stalin 21 13:41 :51 EDT 2024 Systolic Blood Pressure 116.00 mm[Hg] Sat [facility] 21 08:49:13 EDT 2024 Diastolic Blood Pressure 75.00 mm[Hg] Sat [facility] 21 08:49:13 EDT 2025 Systolic Blood Pressure 116.00 mm[Hg] Sat Stalin 21 08:49:13 EDT 5 Diastolic Blood Pressure 75.00 mm[Hg] Sat [facility] 21 08:49:13 EDT 2024 Systolic Blood Pressure 116.00 mm[Hg] Sat [facility] 21 08:49:13 EDT 2024 Diastolic Blood Pressure 75.00 mm[Hg] Sat Stalin 21 08:49:13 EDT 2024 Pulse Oximetry 96.00 % [facility] Stalin 21 08:49 :13 EDT 2024 Heart Rate 83.00 /min Sat Stalin 21 08:49 :13 EDT 2024 Heart Rate 83.00 /min [facility] Stalin 21 08:49 :13 EDT 2024 Body temperature 98.20 [degF] [facility] Stalin 21 08:4 9:13 EDT 2024 Respiratory rate 18.00 /min [facility] Stalin 21 08:4 9:13 EDT 2024 Systolic Blood Pressure 98.00 mm[Hg] Fri 20 21:10:54 EDT 2024 Diastolic Blood Pressure 64.00 mm[Hg] Fri 20 21:10:54 EDT 2024 Systolic Blood Pressure 98.00 mm[Hg] Fri 20 21:10:54 EDT 2024 Diastolic Blood Pressure 64.00 mm[Hg] Fri 20 21:10:54 EDT 2024 Pulse Oximetry 95.00 % Fri 20 21:10 :54 EDT 2024 Heart Rate 76.00 /min Fri 20 21:10 :54 EDT 2024 Heart Rate 76.00 /min Fri 20 21:10 :54 EDT 2024 Body temperature 98.20 [degF] Fri 20 21:1 0:54 EDT 2024 Respiratory rate 18.00 /min Fri 20 21:1 0:54 EDT 2024 Body weight 209.00 [lb_av] Fri 20 14:45 :17 EDT 2024 Systolic Blood Pressure 115.00 mm[Hg] Fri 20 09:04:47 EDT 2024 Diastolic Blood Pressure 68.00 mm[Hg] Fri 20 09:04:47 EDT 2024 Systolic Blood Pressure 115.00 mm[Hg] Fri 20 09:04:47 EDT 2024 Diastolic Blood Pressure 68.00 mm[Hg] Fri 20 09:04:47 EDT 2024 Heart Rate 77.00 /min Fri 20 09:04 :47 EDT 2024 Systolic Blood Pressure 115.00 mm[Hg] Fri 20 08:30:52 EDT 2024 Diastolic Blood Pressure 68.00 mm[Hg] Fri 20 08:30:52 EDT 2024 Pulse Oximetry 95.00 % Fri 20 08:30 :52 EDT 2024 Heart Rate 77.00 /min Fri 20 08:30 :52 EDT 2024 Body temperature 98.00 [degF] Fri 20 08:3 0:52 EDT 2024 Respiratory rate 18.00 /min Fri 20 08:3 0:52 EDT 2024 Systolic Blood Pressure 124.00 mm[Hg] [facility] Stalin 19 23:40:57 EDT 2024 Diastolic Blood Pressure 72.00 mm[Hg] [place] Stalin 19 23:40:57 EDT 2024 Pulse Oximetry 99.00 % [facility] Stalin 19 23:40 :57 EDT 2024 Heart Rate 94.00 /min [facility] Stalin 19 23:40 :57 EDT 2024 Body temperature 97.50 [degF] [facility] 19 23:4 0:57 EDT 2024 Respiratory rate 22.00 /min [facility] 19 23:4 0:57 EDT 2024 Systolic Blood Pressure 124.00 mm[Hg] [facility] Stalin 19 22:59:12 EDT 2024 Diastolic Blood Pressure 72.00 mm[Hg] [place] Stalin 19 22:59:12 EDT 2024 Heart Rate 94.00 /min [facility] 19 22:59 :12 EDT 2024 Body weight 209.80 [lb_av] Fri 19 14:39 :42 EDT 2024 Body weight 209.80 [lb_av] [facility] 19 14:24 :56 EDT 2024 Systolic Blood Pressure 101.00 mm[Hg] [facility] 19 10:01:01 EDT 2024 Diastolic Blood Pressure 81.00 mm[Hg] [facility] 19 10:01:01 EDT 2024 Systolic Blood Pressure 101.00 mm[Hg] [facility] 19 10:01:01 EDT 2024 Diastolic Blood Pressure 81.00 mm[Hg] [facility] 19 10:01:01 EDT 2024 Systolic Blood Pressure 101.00 mm[Hg] [facility] 19 10:01:01 EDT 2024 Diastolic Blood Pressure 81.00 mm[Hg] [facility] 19 10:01:01 EDT 2024 Pulse Oximetry 96.00 % [facility] 19 10:01 :01 EDT 2024 Heart Rate 88.00 /min [facility] 19 10:01 :01 EDT 2024 Heart Rate 88.00 /min [facility] 19 10:01 :01 EDT 2024 Body temperature 98.00 [degF] [facility] 19 10:0 1:01 EDT 2024 Respiratory rate 18.00 /min [facility] 19 10:0 1:01 EDT 2024 Systolic Blood Pressure 118.00 mm[Hg] Fri Stalin 18 20:40:26 EDT 2024 Diastolic Blood Pressure 58.00 mm[Hg] Fri [facility] 18 20:40:26 EDT 2024 Systolic Blood Pressure 118.00 mm[Hg] Fri [facility] 18 20:40:26 EDT 2024 Diastolic Blood Pressure 58.00 mm[Hg] Fri [facility] 18 20:40:26 EDT 2024 Pulse Oximetry 97.00 % Fri [facility] 18 20:40 :26 EDT 2024 Heart Rate 78.00 /min Fri [facility] 18 20:40 :26 EDT 2024 Heart Rate 78.00 /min Fri [facility] 18 20:40 :26 EDT 2024 Body temperature 98.00 [degF] Fri [facility] 18 20:4 0:26 EDT 2024 Respiratory rate 18.00 /min Fri [facility] 18 20:4 0:26 EDT 2024 Body weight 210.00 [lb_av] Fri Stalin 18 15:33 :57 EDT 2024 Body Height 65.00 [in_i] Fri [facility] 18 12:52 :40 EDT 2024 Body Height 65.00 [in_i] Fri [facility] 18 11:33 :45 EDT 2024 Systolic Blood Pressure 121.00 mm[Hg] Fri [facility] 18 10:01:22 EDT 2024 Diastolic Blood Pressure 70.00 mm[Hg] Fri [facility] 18 10:01:22 EDT 2024 Systolic Blood Pressure 121.00 mm[Hg] Fri [facility] 18 10:01:22 EDT 2024 Diastolic Blood Pressure 70.00 mm[Hg] Fri [facility] 18 10:01:22 EDT 2024 Systolic Blood Pressure 121.00 mm[Hg] Fri [facility] 18 10:01:22 EDT 2024 Diastolic Blood Pressure 70.00 mm[Hg] Fri [facility] 18 10:01:22 EDT 2024 Pulse Oximetry 92.00 % Fri 18 10:01 :22 EDT 2024 Heart Rate 74.00 /min Fri 18 10:01 :22 EDT 2024 Heart Rate 74.00 /min Fri 18 10: :22 EDT 2024 Body temperature 97.80 [degF] Fri 18 10:0 1:22 EDT 2024 Respiratory rate 18.00 /min FriOct 20 10:0 1:22 EDT 2024 Systolic Blood Pressure 107.00 mm[Hg] Fri 18 00:35:00 EDT 2024 Diastolic Blood Pressure 57.00 mm[Hg] Fri 18 00:35:00 EDT 2024 Pulse Oximetry 98.00 % Fri 18 00:35 :00 EDT 2024 Heart Rate 87.00 /min Fri 18 00:35 :00 EDT 2024 Body temperature 97.70 [degF] Fri 18 00:3 5:00 EDT 2024 Respiratory rate 20.00 /min FriOct 20 00:3 5:00 EDT 2024 Systolic Blood Pressure 107.00 mm[Hg] Fri 17 23:43:01 EDT 2024 Diastolic Blood Pressure 57.00 mm[Hg] Fri 17 23:43:01 EDT 2024 Pulse Oximetry 98.00 % FriOct 19 23:43 :01 EDT 2024 Heart Rate 87.00 /min FriOct 19 23:43 :01 EDT 2024 Body temperature 97.70 [degF] FriOct 19 23:4 3:01 EDT 2024 Respiratory rate 20.00 /min Fri 17 23:4 3:01 EDT 2024 Systolic Blood Pressure 111.00 mm[Hg] Fri 17 21:15:30 EDT 2024 Diastolic Blood Pressure 62.00 mm[Hg] Fri 17 21:15:30 EDT 2024 Heart Rate 89.00 /min FriOct 19 21:15 :30 EDT 2024 Reason for Referral
--- OUTSIDE RECORDS SUMMARY | 2024-11-30 05:30 | XMS_ITS ---
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 Name Role Phone Ivette Ford Unavailable [phone] Summer Garcia Unavailable Bronwyn Lopes Unavailable Functional Status No Results Mental Status No Results Allergies and Intolerances Name Onset Date Reaction Severity solifenacin (Allergy) FriOct 04 12:27:00 EDT 20 25 red (food color) (Allergy) FriOct 04 12:27:00 E DT 2024 Encounters Program Name Primary Diagnosis Admission Date/Time Dis charge Date/Time [facility] FriNov 02 20:00:00 EDT 2024 [facility] FriOct 19 14:15:00 EDT 2024Nov 02 07:00:00 EDT 2024 Rehabilitation Clinic FriJul 05 19:00:00 EST 2024Aug 27 19:59:00 EDT 2024 Assisted Living Area Hypertensive heart disease with heart failure FriNov 02 08:00:00 EDT 2024 [facility] September 23 20:00 :00 EDT 2024Oct 13 19:59:59 EDT 2024 null FriJun 30 19:00 :00 [...] Other 2 Times Monthly Indication: vital signs SET UP / OPERATOR to obtain FriNov 03 01:00:00 ED2024 T.E.D. Anti-Embolism Stocking 1 EACH Other 2 Times Daily Indication: edema SET UP / OPERATOR to apply Trey hose in the AM and remove at HS. FriNov 04 01:00:00 ED2024 vitamin B complex tablet 1 tablet TABLET Oral 1 Time Daily Indication: supplement SET UP / OPERATOR supervision x1 FriNov 02 15:00:00 2024 biotin 10,000 mcg capsule 2 capsules CAP ANITA Oral 1 Time Daily Indication: supplement SET UP / OPERATOR supervision x12 capsules = 20,000mcg FriNov 02 15:00:00 ED2024 spironolactone 25 mg tablet 1 tablet TAB LET Oral 1 Time Daily Indication: heart failure SET UP / OPERATOR supervision x1 FriNov 02 15:00:00 2024 ferrous gluconate 324 mg (38 mg iron) tablet 1 tablet TABLET Oral 2 Times Daily Indication: anemia SET UP / OPERATOR supervision x1, x4 FriNov 02 15:00:00 ED2024 irbesartan 300 mg tablet 1 tablet TABLET Oral 1 Time Daily Indication: HTN BP and/or Pulse Hold: Systolic Blood Pressure < 100 Hold;SET UP / OPERATOR supervision x1 FriNov 02 15:00:00 ED2024 atorvastatin 20 mg tablet 1 tablet TABLE T Oral 1 Time Daily Indication: HDL SET UP / OPERATOR supervision x1 FriNov 02 15:00:00 ED2024 Calcium-500 500 mg (as calcium carbonate 1,250 mg) chewable tablet 1 tablet TABLET,CHEWABLE Oral 2 Times Daily Indication: supplement SET UP / OPERATOR supervision x1, x4 FriNov 02 15:00:00 EDT 2024 furosemide 40 mg tablet 40 mg TABLET Ora l 2 Times Daily Indication: heart failure SET UP / OPERATOR supervision x1, x2 FriNov 02 15:00:00 EDT 2024 metoprolol succinate ER 50 mg tablet,extended release 24 hr 1 tablet TABLET, EXTENDED RELEASE 24 HR Oral 2 Times Daily Indication: HTN BP and/or Pulse Hold: Systolic Blood Pressure < 100 Hold;SET UP / OPERATOR supervision x1, x4 FriNov 02 15:00:00 EDT 2024 Nystop 100,000 unit/gram topical powder One application POWDER (GRAM) Topical 2 Times Daily Indication: Redness SET UP / OPERATOR apply powder to red skin folds in groin area BID FriNov 02 15:00:00 ED2024 potassium chloride ER 20 mEq tablet,extended release 2 tablets TABLET, EXTENDED RELEASE Oral 1 Time Daily Indication: hypokalemia SET UP / OPERATOR supervision x1 FriNov 02 15:00:00 ED2024 TubersoL [...] * End Date: * Text: * 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 (12)* Code: * Start Date: FriOct 27 00:00:00 EDT 2024 * End Date: * Text: [id number] Sheila receives a therapeutic diet. (12) * [...] End Date: * Text: [employer] Services[employer]ito Sosa will be involved in goal development [...] EDT 2024 Systolic Blood Pressure 144.00 mm[Hg] [place] Nov 21 23:12:05 EDT 2024 Diastolic Blood Pressure 62.00 mm[Hg] [place] Nov 21 23:12:05 EDT 2024 Heart Rate [...] EDT 2024 Systolic Blood Pressure 130.00 mm[Hg] [facility] Nov 20 10:11:30 EDT 2024 Diastolic Blood [...] 2024 Systolic Blood Pressure 103.00 mm[Hg] Mon Riik 14 09:18:19 EDT 2024 Diastolic Blood Pressure [...] 21:54:44 EDT 2024 Heart Rate 82.00 /min [place] Nov 14 21:54 :44 EDT 2024 Systolic Blood Pressure 109.00 mm[Hg] [place] Nov 14 10:36:05 EDT 2024 Diastolic Blood Pressure 63.00 mm[Hg] [place] Nov 14 10:36:05 EDT 2024 Systolic Blood Pressure 109.00 mm[Hg] [place] Nov 14 10:36:05 EDT 2024 Diastolic Blood Pressure 63.00 mm[Hg] [place] Nov 14 10:36:05 EDT 2024 Heart Rate 83.00 /min [place] Nov 14 10:36 :05 EDT 2024 Systolic [...] EDT 2024 Diastolic Blood Pressure 75.00 mm[Hg] [facility] Nov 11 09:25:27 EDT 2024 Systolic Blood Pressure 120.00 mm[Hg] [facility] Nov 11 09:25:27 EDT 2024 Diastolic Blood Pressure 75.00 mm[Hg] [facility] Nov 11 09:25:27 EDT 2024 Heart Rate 65.00 /min [facility] Nov 11 09:25 :27 EDT [...] EDT 2024 Systolic Blood Pressure 143.00 mm[Hg] [facility] Nov 06 19:58:02 EDT 2024 Diastolic Blood Pressure 84.00 mm[Hg] [facility] Nov 06 19:58:02 EDT 2024 Heart Rate [...] EDT 2024 Systolic Blood Pressure 108.00 mm[Hg] [place] Oct 31 20:18:31 EDT 2024 Diastolic Blood Pressure 58.00 mm[Hg] [place] Oct 31 20:18:31 EDT 2024 Systolic Blood Pressure 108.00 mm[Hg] [place] Oct 31 20:18:31 EDT 2024 Diastolic Blood Pressure 58.00 mm[Hg] [place] Oct 31 20:18:31 EDT 2024 Pulse Oximetry 98.00 % [place] Oct 31 20:18 :31 EDT 2024 Heart Rate 84.00 /min [place] Oct 31 20:18 :31 EDT 2024 Heart Rate 84.00 /min [place] 29 20:18 :31 EDT 2024 Body [...] 09:27:24 EDT 2024 Pulse Oximetry 97.00 % [facility] 28 09:27 :24 EDT 5 Body weight 211.80 [lb_av] [facility] 28 09:27 :24 EDT 2024 Heart Rate 96.00 /min [facility] 09:27 :24 EDT 2024 Heart Rate 96.00 /min [facility] 28 09:27 :24 EDT 2024 Body temperature 98.20 [degF] [facility] 28 09:2 7:24 EDT 5 Respiratory rate 20.00 /min [facility] [place] 09:2 7:24 EDT 5 Systolic Blood [...] EDT 2024 Systolic Blood Pressure 102.00 mm[Hg] [place] Oct 24 21:32:49 EDT 2024 Diastolic Blood Pressure 52.00 mm[Hg] [place] Oct 24 21:32:49 EDT 2024 Pulse Oximetry 97.00 % FriOct 24 21:32 :49 EDT 2024 Heart Rate 102.00 /min FriOct 24 21:32 :49 EDT 2024 Body temperature 97.80 [degF] FriOct 24 21:3 2:49 EDT 2024 Respiratory rate 18.00 /min [place] Oct 24 21:3 2:49 EDT 2024 Systolic Blood Pressure 102.00 mm[Hg] [place] Oct 24 20:57:42 EDT 2024 Diastolic Blood Pressure 52.00 mm[Hg] [place] Oct 24 20:57:42 EDT 2025 Heart Rate [...] 08:49:13 EDT 2024 Pulse Oximetry 96.00 % [facility] 21 08:49 :13 EDT 2024 Heart Rate 83.00 /min [facility] 21 08:49 :13 EDT 2024 Heart Rate 83.00 /min [facility] 21 08:49 :13 EDT 2024 Body temperature 98.20 [degF] [facility] 21 08:4 9:13 EDT 2024 Respiratory rate 18.00 /min [facility] 21 08:4 9:13 EDT 2024 Systolic [...] :57 EDT 2024 Heart Rate 94.00 /min [facility] 19 23:40 :57 EDT 2024 Body temperature 97.50 [degF] [facility] 19 23:4 0:57 EDT 2024 Respiratory rate 22.00 /min [facility] 19 23:4 0:57 EDT 2024 Systolic Blood Pressure 124.00 mm[Hg] [facility] 19 22:59:12 EDT 2024 Diastolic Blood Pressure 72.00 mm[Hg] [facility] 19 22:59:12 EDT 2024 Heart Rate 94.00 /min [facility] 19 22:59 :12 EDT [...]
--- OUTSIDE RECORDS SUMMARY | 2024-11-30 05:30 | XMS_ITS | Data Portability ---
Author Organization [employer] [facility], Main Office Address [address] [place] [address] Care Team Providers Care Development Coordinator Name Role Phone [facility] FAX OTHER ANNETTE REY Primary Care Provider Assessment Encounter Date Assessment Date Assessment LastModified by Organization Details LastModified Time 10/20/2024 10/20/2024 increase KCL to 40 meq daily repeat BMP, CBC, Mg, BNP, TSH, free T4 and free T3, thyroid antibodies 10/25 f/u with cards and GI needs to be scheduled [email or web address] Not available 10/22/2024 06:29:18 10/22/2024 10/22/2024 Labs on 10/25. Add compression to BLE on AM off PM. If vaginal bleeding recurs, will need gynecology referral/eval. F/U with cardiology Dr. Wasserman in 2-4 weeks, needs to be scheduled. angus Not available 10/22/2024 14:49:12 10/25/2024 10/25/2024 F/U with cardiology Dr. Wasserman in 2-4 weeks, needs to be scheduled. Not available 10/25/2024 15:02:13 10/28/2024 10/28/2024 Pt will d/c to [facility] with [facility] on 10/29. She will stay on rehab private-pay until 11/03. Not available 10/28/2024 15:04:39 11/08/2024 11/08/2024 Check FLP, thyroid panel, & Vit D level with next lab draw. Waiting on cardiology notes from 11/04 appt. angus Not available 11/08/2024 17:31:06 Plan of Treatment Reminders Order Date Submit Date Provider Last Modified By Organization Details Last Modified Time Details Appointments None record ed. Lab None record ed. Referral None record ed. Procedures None record ed. Surgeries None record ed. Imaging None record ed. Medication Orders None record ed. Patient TargetsNo targets recorded. Patient Instructions Encounter Date Encounter Id Patient Instructions Last Modified By Organization Details Last Modified Time 10/20/2024 [id number] I spent >50 minutes providing care to the patient today. More than 50% of that time was spent in discussing the expected course of the disease, discussing prognosis, coordinating care and counseling of the patient/family. I spent 16 minutes counseling and discussing advance directives and/or end of life care planning and decisions with the patient today. I reviewed the current relevant diagnoses, treatment options, natural history, and prognosis and clarified the patient's goals of care. code status is full [email or web address] Not available 10/22/2024 06:54:32 10/22/2024 [id number] I spent 36 minutes providing care to the patient today. More than 50% of that time was spent in discussing the expected course of the disease, discussing prognosis, coordinating care and counseling of the patient/family. [email or web address] Not available 10/22/2024 14:49:40 10/25/2024 [id number] I spent 35 minutes providing care to the patient today. More than 50% of that time was spent in discussing the expected course of the disease, discussing prognosis, coordinating care and counseling of the patient/family. [email or web address] Not available 10/25/2024 15:07:21 10/28/2024 [id number] I spent 40 minutes providing care to the patient today. More than 50% of that time was spent in discussing the expected course of the disease, discussing prognosis, coordinating care and counseling of the patient/family. The patient will be discharged home with home health orders of home health RN / PT / OT to evaluate and treat. The patient is homebound because of fall risk and is unable to leave home safely because requires considerable and taxing effort to leave home. The patient requires home health nursing for instruction, observation and assessment; PT for training to restore safe independent functional ambulation in community; and OT for training to improve ability to fulfill ADLs. Please follow-up with your primary care provider within 1 week. Call your primary care provider for instructions or go to the emergency room for new or worsening symptoms. Not available 10/28/2024 15:04:25 11/08/2024 [id number] I spent 35 minutes providing care to the patient today. More than 50% of that time was spent in discussing the expected course of the disease, discussing prognosis, coordinating care and counseling of the patient/family. Not available 11/08/2024 17:31:09 Reason for Referral None Reported. Results Created Date Observation Date Name Description Value Unit Range Abnormal Flag Note LastModifiedBy Organization Detail LastModifiedTime Result Notes None recorded. Problems Name Problem SNOMED Code Status Onset Date Resolution Date Notes Provider Name and Address Organization Details Recorded Time Impaired cognition 619951501 Active 2024 DOROTHEA Ellis Velvet [facility], [place], [address] , [facility] 17:29:49 History of transient ischemic attack 119176847 Active 2024 DOROTHEA Ellis Velvet [facility], [place], [address] , [facility] 17:30:19 Obstructive sleep apnea syndrome 34886334 Active [address] [facility], [place], [address] , [facility] 17:30:22 Hypokalemia 05510554 Active 2024 DOROTHEA Ellis [address], [place], [address] , [facility] 17:30:24 Generalized osteoarthriti s 606299207 Active [address] [facility], [place], [address] , [facility] 17:30:25 Hyperlipidemi a 48189387 Active 2024 [place] [address] [address], [place], [address] , [facility] 17:30:28 Thyroid function tests abnormal 023824797 Active 2024 [place] [address] [facility], [place], [address] , [place] [facility] 17:30:30 Atrial fibrillation 06541824 Active 2024 [place] [address] [facility], [place], [address] , [place] - [facility] 17:30:31 Atrial septal defect 19435776 Active 2024 [place] [address] [facility], [place], [address] , [place] - [facility] 17:30:35 Vaginal bleeding 117321738 Active 2024 [place] [address] [facility], [place], [address] , [place] - [facility] 17:30:36 Anemia 477745741 Active 2024 [place] [address] [facility], [place], [address] , [place] - [facility] 17:30:38 Hypertensive heart disease with congestive heart failure 6918232 Active 2024 [place] [address] [facility], [place], [address] , [place] - [facility] 17:30:41 Problem Notes None recorded. Procedures Surgical History Date Name Laterality Status Provider Name and Address Organization Details Recorded Time arthroplasty of left shoulder completed Zack HEBERT - [facility] 10/21/2024 02:50:48 reverse prosthetic total arthroplasty of shoulder completed Zack Durán [place] - [facility] 10/21/2024 02:51:12 extraction of cataract completed Zack Durán [place] - [facility] 10/21/2024 02:51:21 excision of vein completed Zack HEBERT - [facility] 10/21/2024 02:51:30 destructive procedure of vein completed Zack HEBERT - [facility] 10/21/2024 02:51:53 appendectomy completed Zack HEBERT - [facility] 10/21/2024 02:51:59 Imaging Results None recorded. Procedure Notes None recorded. Medical Equipment None Reported. Allergies Allergen ID Allergen Name Allergen Category Reaction Reaction Severity Criticality Documentation Date Start Date Code Code System Note Provider Name and Address Organization Details Recorded Time 63517 solifenac in medicatio n Not available Not available Not available 10/20/2024 59069 7 RxNorm Zack [place], [place] - [facility] 5 01:28:12 Medications Name Sig Start Date Stop Date Status Note LastModified by Organization Details LastModified Time furosemide 40 mg tablet Take 1 tablet twice a day by oral route. active Not Available Not Available No t Available atorvastati n 20 mg tablet Take 1 tablet every day by oral route. active Not Available Not Available No t Available metoprolol succinate ER 50 mg tablet,exte nded release 24 hr Take 1 tablet twice a day by oral route. active Not Available Not Available No t Available Nystop 100,000 unit/gram topical powder Apply 1 applicati on twice a day by topical route. active Not Available Not Available No t Available potassium chloride ER 10 mEq tablet,exte nded release Take 4 tablets every day by oral route. 10/22 completed Not Available Not Available Not Available spironolact one 25 mg tablet Take 1 tablet every day by oral route. active Not Available Not Available No t Available vitamin B complex tablet Take 1 tablet every day by oral route. active Not Available Not Available No t Available furosemide 20 mg tablet Take 2 tablets twice a day by oral route. 10/22 completed Not Available Not Available Not Available irbesartan 300 mg tablet Take 1 tablet every day by oral route. active Not Available Not Available No t Available Calcium-500 500 mg (as calcium carbonate 1,250 mg) chewable tablet Take 1 tablet twice a day by oral route. active Not Available Not Available No t Available ferrous gluconate 324 mg (38 mg iron) tablet Take 1 tablet twice a day by oral route. active Not Available Not Available No t Available rivaroxaban 20 mg tablet Take 1 tablet every day by oral route. 10/21 completed Not Available Not Available Not Available potassium chloride ER 20 mEq tablet,exte nded release Take 2 tablets every day by oral route. active Not Available Not Available No t Available biotin 10,000 mcg chewable tablet Take 2 tablets every day by oral route. active Not Available Not Available No t Available Vitals Date Recorded Body height Body mass index (BMI) Body weight Oxygen saturation Oxygen saturation in Arterial blood by Pulse oximetry Respiratory rate Body temperature Heart rate Systolic And Diastolic Provider Name and Address Organization Details Last Updated DateTime 5 165.1 cm 34.9 kg/m2 68952.4 g 97 % 97 % 18 /min 98 [degF] 78 /min 118/58 mm[Hg] Bronwyn DO Dominique [address] [place], [address], [place] - [facility] 5 03:49:42 Date Recorded Body height Heart rate Oxygen saturation Oxygen saturation in Arterial blood by Pulse oximetry Respiratory rate Body temperature Body mass index (BMI) Body weight Systolic And Diastolic Provider Name and Address Organization Details Last Updated DateTime 5 165.1 cm 77 /min 98 % 98 % 18 /min 95 [degF] 34.9 kg/m2 79909.6 8 g 115/68 mm[Hg] [place] [address] [place], [address], [place] - [facility] 5 10:10:49 Date Recorded Body height Heart rate Body temperature Respiratory rate Oxygen saturation Oxygen saturation in Arterial blood by Pulse oximetry Body mass index (BMI) Body weight Systolic And Diastolic Provider Name and Address Organization Details Last Updated DateTime 5 165.1 cm 84 /min 98 [degF] 16 /min 97 % 97 % 34.9 kg/m2 85869.6 8 g 121/71 mm[Hg] [place] [address] [place], [address], [place] - [facility] 5 14:54:59 Date Recorded Body height Heart rate Body temperature Respiratory rate Oxygen saturation Oxygen saturation in Arterial blood by Pulse oximetry Body mass index (BMI) Body weight Systolic And Diastolic Provider Name and Address Organization Details Last Updated DateTime 5 165.1 cm 89 /min 98 [degF] 18 /min 97 % 97 % 35 kg/m2 89837.8 3 g 102/58 mm[Hg] [place] [address] [place], [address], [place] - [facility] 5 12:02:34 Date Recorded Body height Heart rate Body temperature Respiratory rate Oxygen saturation Oxygen saturation in Arterial blood by Pulse oximetry Body mass index (BMI) Body weight Systolic And Diastolic Provider Name and Address Organization Details Last Updated DateTime 165.1 cm 90 /min 97.4 [degF] 18 /min 94 % 94 % 33.7 kg/m2 74778.1 g 136/83 mm[Hg] Summer Garcia, VARNISH MELTER [address] [place], [address], [place] - [facility] 17:12:11 Social History Question Answer Notes LastModified by YuanV Details LastModified Time Tobacco Smoking Status Former Smoker Zack Durán null, [place] - [facility] 10/21/2024 02:55:27 What Is Your Code Status? Full Code Information not available 10/20/2024 Sex: Unknown Functional Status Question Answer Note LastModified by YuanV Details LastModified Time How many times per week do you consume alcohol? 1-2 times per week Information not available 10/21/2024 Do you use any illicit or recreational drugs? No Information not available 10/21/2024 What is your level of alcohol consumption? Occasional Information not available 10/21/2024 Mental Status None recorded. Family History Relationship Description Onset Age of this Age Resolved Age Notes LastModified by Organization Details LastModified Time Unspecified Relation Malignant neoplastic disease grandp arent Not available 10/21/2024 02:52:52 Unspecified Relation Hypertensive disorder grandp arent Not available 10/21/2024 02:53:05 Unspecified Relation Hyperlipidem ia siblin g Not available 10/21/2024 02:53:49 Unspecified Relation Leukemia grandp arent Not available 10/21/2024 02:54:30 Mother Malignant neoplastic disease Not available 2024 02:53:32 Father Disorder of cardiovascul ar system Not available 2024 02:54:03 Father Congestive heart failure Not available 2024 02:54:13 Medical History Condition Response Osteoporosis / Osteopenia Y Osteoarthritis / DJD Y Atrial Fibrillation Y Hyperlipidemia Y Transient ischemic attack (TIA) Y Orthostatic Hypotension Y Anemia Y GERD / Reflux Y Loss of Hearing / Deafness Y Alcohol Abuse Y Sleep Apnea / ARMEN Y Hypertension Y Gynecological HistoryNo gynecological history recorded. Obstetrics History GPAL:G 0 P 0 0 0 0 Past Encounters Encounter ID Performer Location Encounter Start Date Encounter Closed Date Diagnosis/Indication Diagnosis SNOMED-CT Code Diagnosis ICD10 Code Diagnosis Note [id number] Bronwyn AnthonyphuDO [place] [address] [place] [address] 10/21/2024 03:47:32 10/27/2024 20:21:50 Acute congestive heart failure 78229918 I50.9 continue oral lasix (dose increased from 20 mg to 40 mg BID)aldact one added to medication regimenshe continues on metoprolol and irbesartan as wellcheck a daily weightper d/c summary, echo showed EF 60-65%, severe LVH, ASD, mild , massive TR, moderate pulmonary HTN (formal report is not in hospital paperwork) trend labs - may need to eventually back off on lasix a bit if BUN and creatinine bumpoutpat ient f.u with cardiology Anemia 188699187 D64.9 s/p transfusio n of 1 unit pRBCs during her hospitaliz ationuncle ar etiology for this - previous GI scoping was reportedly negative (EGD and colonoscop y in 2019)staff is reporting some vaginal bleeding noted with toileting since admission to - there is no mention of this per hospital records but could explain iron deficiency and recent anemiashe will need MECHANICAL OXIDIZER evaluation related to this if it continuesu nfortunate ly, Hb was only 7.8 on hospital discharge, improved to 8.3 per labs done today. Anticipate Hb may continue to drop with active vaginal bleeding - will return to the hospital for repeat transfusio n if Hb < 7per d/c summary, she is to have an outpatient iron infusion which was ordered at [facility] - the patient is to call there to schedule which will need to be done post SNF stay - not certain why this wasn't just done while she was inpatients he has been started on oral iron supplement ation Atrial septal defect 701 21910 Q21.10 noted per echo done during her inpatient stayper d/c summary, bubble study reportedly negativesh e will f/u with cardiology to discuss possible atrial appendage closure as an outpatient Hypertensi ve heart disease with congestive heart failure 3899108 I11.0 continue metoprolol and irbesartan as well as diureticst rend pressures and labs and adjust meds as clinically indicated Atrial fibrillation 4943 6004 I48.91 rate is controlled with metoprolol she is on outpatient VTE prophylaxi s with xarelto which remains on hold for now due to GI bleeding / anemiashe will discuss resumption of this with cards at her f/u appointmen t Hyperlipidemia 61914469 E78.5 presumed stable, continue statin therapy Thyroid fu nction tests abnormal 682074776 R94.6 TSH was low and free T4 high on hospital admission - abnormal TSH level is mentioned as a diagnosis from her inpatient stay but not directly addressedw ill repeat TSH, Free T4, check Free T3 and antibody tests to confirm hyperthyro idism - if this is confirmed, she should be treated especially in light of a fib/CHF Obstructiv e sleep apnea syndrome 05749939 G47.33 she is intolerant to CPAPmonito r nighttime O2 saturation s Gastroesop hageal reflux disease without esophagitis 799444483 K21.9 stable without symptoms - she is currently not on meds related to this Transient cerebral ischemia 463249543 G45.9 by history - details unclearcon tinue good blood pressure control and statin therapy Generalize d osteoarthritis 753829428 M15.0 prn tylenol Hypokalemia 20065099 E87 .6 increasing daiiy supplement ation to 40 meqrepeat labs 10/25 with mg level Vaginal bleeding 2037411 06 N93.9 will continue to monitor clinically - the patient denies history of this prior to her recent hospitaliz ationif continues, she will need a MECHANICAL OXIDIZER evaluation Altered mental status 41 4928516 R41.82 no dementia by historywil l monitor for reversible causes, have speech therapy follow while she is here and get some baseline cognitive testing on her Physical deconditioning 1032370709 9102 R53.81 related to advanced age, recent hospitaliz ation, comorbidit iestherapi es are in place - will monitor progress - will likely transition to [facility] at discharge [id number] Bronwyn Fox DO [place] [address] [place] [address] 10/22/2024 09:23:22 10/27/2024 20:15:53 Anemia 198648399 D64.9 s/p transfusio n of 1 unit pRBCs during her hospitaliz ation. Unclear etiology for this - previous GI scoping was reportedly negative (EGD and colonoscop y in 2019). Per d/c summary, she is to have an outpatient iron infusion, which was ordered at [facility]. The patient is to call there to schedule, which will need to be done post SNF stay. Uncertain why this wasn't just done while she was inpatient. Staff reported some vaginal bleeding noted with toileting the evening of 10/19, has not recurred. There is no mention of this per hospital records, but could explain anemia/iro n deficiency .If vaginal bleeding recurs, will need gynecology referral/e jaylene.Contin ue iron supplement ation (new).Unfo rtunately, Hgb was only 7.8 on hospital discharge, improved to 8.3 per labs done 10/20. Anticipate Hgb may continue to drop with vaginal bleeding - will return to the hospital for repeat transfusio n if Hgb < 7.f/u with GI Dr. Flash Mo for capsule endoscopy as OP. Atrial septal defect 701 28177 Q21.10 Noted per echo done during her inpatient stay. Per d/c summary, bubble study reportedly negative.S he will f/u with cardiology Dr. Wasserman to discuss possible [facility] closure as an outpatient . Hypertensi ve heart disease with congestive heart failure 1053248 I11.0 I50.31 Per d/c summary, echo showed EF 60-65%, severe LVH, ASD, mild , massive TR, moderate pulmonary HTN (formal report is not in hospital paperwork) .Continue Lasix (OP dose increased from 20 mg to 40 mg BID) and Spironolac tone (new).Cont inues on Metoprolol and irbesartan , as well.Add compressio n to BLE on AM off PM.Continu e to trend blood pressures, monitor lytes and renal function, and adjust meds as clinically indicated. OP weights3/2 5 = 173.8 lbs4/25 184.8 lbs5/ = 204.6 lbsHospita l admission weight (10/14) = 220 lbsMay need to eventually back off on Lasix if BUN and creatinine bump up.Outpati ent f/u with cardiology Dr. Wasserman in 2-4 weeks, needs to be scheduled. Atrial fibrillation 4943 6004 I48.91 Rate is controlled with Metoprolol .She is typically on outpatient VTE prophylaxi s with Xarelto, which remains on hold for now due to GI bleeding / anemia. She will discuss resumption of this with cards at her f/u appointmen t, as well as possible SATNAM closure. Hyperlipidemia 63610964 E78.5 Presumed stable. Continue statin. Thyroid fu nction tests abnormal 499047373 R94.6 TSH was low and free T4 high on hospital admission. Abnormal TSH level is mentioned as a diagnosis from her inpatient stay but not directly addressed. Will repeat TSH, Free T4, Free T3, and antibody tests to confirm hyperthyro idism.If this is confirmed, she should be treated, especially in light of afib/CHF. Obstructiv e sleep apnea syndrome 31666845 G47.33 She is intolerant to CPAP.Monit or nighttime O2 saturation s. Gastroesop hageal reflux disease without esophagitis 119523376 K21.9 Stable without symptoms. Currently not on meds related to this, monitor for need. Transient cerebral ischemia 707769866 G45.9 By history - details unclear.Co ntinue good blood pressure control and statin. Generalize d osteoarthritis 124253426 M15.0 Stable. Continue PRN Tylenol. Hypokalemia 32494285 E87 .6 Increased supplement ation to 40 meq daily. Continue to trend level, labs on 10/25. Vaginal bleeding 0886599 06 N93.9 SEE ABOVE... Altered mental status 41 2805727 R41.82 No dementia by history.Mo nitor for reversible causes.ST following. Cog testing on 10/20 = SLUMS 30 ([facility]), BIMS 03/19. Physical deconditioning 2403551123 9102 R53.81 Related to advanced age, recent hospitaliz ation, & comorbidit ies.Therap ies are in place.Janey tor progress. Will likely transition to [facility] at discharge. [id number] Bronwyn Fox, DO [address] [address] 10/25/2024 12:02:47 10/27/2024 20:21:05 Hypertensive heart disease with congestive heart failure 2278486 I11.0 I50.31 Per d/c summary, echo showed EF 60-65%, severe LVH, ASD, mild , massive TR, moderate pulmonary HTN (formal report is not in hospital paperwork) .Continue Lasix (OP dose increased from 20 mg to 40 mg BID) and Spironolac tone (new).Cont inues on Metoprolol and irbesartan , as well.Add compressio n to BLE on AM off PM.Continu e to trend blood pressures, monitor lytes and renal function, and adjust meds as clinically indicated. OP weights3/2 5 = 173.8 lbs4/25 = 184.8 lbs5/25 = 204.6 lbsHospita l admission weight (10/14) = 220 lbsMay need to eventually back off on Lasix if BUN and creatinine bump up.Outpati ent f/u with cardiology Dr. Wasserman in 2-4 weeks, needs to be scheduled. Anemia 873581682 D64.9 s/p transfusio n of 1 unit pRBCs during her hospitaliz ation. Unclear etiology for this - previous GI scoping was reportedly negative (EGD and colonoscop y in 2019). Per d/c summary, she is to have an outpatient iron infusion, which was ordered at [facility]. The patient is to call there to schedule, which will need to be done post SNF stay. Uncertain why this wasn't just done while she was inpatient. Staff reported some vaginal bleeding noted with toileting the evening of 10/19, has not recurred. There is no mention of this per hospital records, but could explain anemia/iro n deficiency .If vaginal bleeding recurs, will need gynecology referral/e jaylene.Contin ue iron supplement ation (new).Hgb is slowly uptrending .F/U with GI Dr. Flash Mo for capsule endoscopy as OP. Vaginal bleeding 6643707 06 N93.9 SEE ABOVE... Atrial septal defect 701 61963 Q21.10 Noted per echo done during her inpatient stay. Per d/c summary, bubble study reportedly negative.S he will f/u with cardiology Dr. Wasserman to discuss possible [facility] closure as an outpatient . Atrial fibrillation 4943 6004 I48.91 Rate is controlled with Metoprolol .She is typically on outpatient VTE prophylaxi s with Xarelto, which remains on hold for now due to GI bleeding / anemia. She will discuss resumption of this with cards at her f/u appointmen t, as well as possible [facility] closure. Thyroid fu nction tests abnormal 434105622 R94.6 TSH was low (0.034) and Free T4 high (2.24) on hospital admission. Abnormal TSH level is mentioned as a diagnosis from her inpatient stay but not directly addressed. Repeat TSH & Free T4 here both mildly elevated now, 6.204 and 2.75 respective ly.Don't see that antibody tests to confirm hyperthyro idism were done, despite being ordered. Results still pending.Wi ll need further f/u.If this is confirmed, she should be treated, especially in light of afib/CHF. Hyperlipidemia 13731652 E78.5 Presumed stable. Continue statin. Gastroesop hageal reflux disease without esophagitis [id number] K21.9 Stable without symptoms. Currently not on meds related to this, monitor for need. Generalize d osteoarthritis [id number] M15.0 Stable. Continue PRN Tylenol. Hypokalemia 09845824 E87 .6 Stabilized with supplement ation. Continue to trend. Obstructiv e sleep apnea syndrome 59665996 G47.33 She is intolerant to CPAP.Monit or nighttime O2 saturation s. Transient cerebral ischemia 625985548 G45.9 By history - details unclear.Co ntinue good blood pressure control and statin. Altered mental status 41 6745516 R41.82 No dementia by history.Mo nitor for reversible causes.ST following. Cog testing on 10/20 = SLUMS 24/30 ([facility]), BIMS 03/19. Physical deconditioning [id number] 9102 R53.81 Related to advanced age, recent hospitaliz ation, & comorbidit ies.Therap ies are in place.Janey tor progress. Will likely transition to MV RAFIA at discharge. [id number] Bronwyn Fox, DO [facility] [address] [place] [address] 10/28/2024 10:17:56 10/31/2024 20:41:43 Hypertensive heart disease with congestive heart failure 9795751 I11.0 I50.31 Per d/c summary, echo showed EF 60-65%, severe LVH, ASD, mild , massive TR, moderate pulmonary HTN (formal report is not in hospital paperwork) .Continue Lasix (OP dose increased from 20 mg to 40 mg BID) and Spironolac tone (new).Cont inues on Metoprolol and irbesartan , as well.Add compressio n to BLE on AM off PM.Continu e to trend blood pressures, monitor lytes and renal function, and adjust meds as clinically indicated. OP weights3/2 5 = 173.8 lbs4/25 = 184.8 lbs5/25 = 204.6 lbsHospita l admission weight (10/14) = 220 lbsMay need to eventually back off on Lasix if BUN and creatinine bump up.F/U with cardiology Dr. Wasserman on 11/04. Anemia 370975619 D64.9 s/p transfusio n of 1 unit pRBCs during her hospitaliz ation. Unclear etiology for this - previous GI scoping was reportedly negative (EGD and colonoscop y in 2019). Per d/c summary, she is to have an outpatient iron infusion, which was ordered at [facility]. The patient is to call there to schedule, which will need to be done post SNF stay. Uncertain why this wasn't just done while she was inpatient. Staff reported some vaginal bleeding noted with toileting the evening of 10/19, has not recurred. There is no mention of this per hospital records, but could explain anemia/iro n deficiency .If vaginal bleeding recurs, will need gynecology referral/e jaylene.Contin ue iron supplement ation (new).Hgb is slowly uptrending .F/U with GI Dr. Flash Mo on 07/19/25. Vaginal bleeding 4918188 06 N93.9 SEE ABOVE... Atrial septal defect 701 95806 Q21.10 Noted per echo done during her inpatient stay. Per d/c summary, bubble study reportedly negative.S he will f/u with cardiology Dr. Wasserman to discuss possible [facility] closure on 11/04. Atrial fibrillation 4943 6004 I48.91 Rate is controlled with Metoprolol .She is typically on outpatient VTE prophylaxi s with Xarelto, which remains on hold for now due to GI bleeding / anemia. She will discuss resumption of this with cards at her f/u appointmen t on 11/04, as well as possible [facility] closure. Thyroid fu nction tests abnormal 248342494 R94.6 TSH was low (0.034) and Free T4 high (2.24) on hospital admission. Abnormal TSH level is mentioned as a diagnosis from her inpatient stay but not directly addressed. Repeat TSH & Free T4 here both mildly elevated now, 6.204 and 2.75 respective ly.Don't see that antibody tests to confirm hyperthyro idism were done, despite being ordered. Results still pending.Wi ll need further f/u.If this is confirmed, she should be treated, especially in light of afib/CHF. Hyperlipidemia 70924072 E78.5 Presumed stable. Continue statin. Gastroesop hageal reflux disease without esophagitis 799339985 K21.9 Stable without symptoms. Currently not on meds related to this, monitor for need. Generalize d osteoarthritis 675615242 M15.0 Stable. Continue PRN Tylenol. Hypokalemia 11075865 E87 .6 Stabilized with supplement ation. Continue to trend. Obstructiv e sleep apnea syndrome 29701561 G47.33 She is intolerant to CPAP.Monit or nighttime O2 saturation s. Transient cerebral ischemia 482167742 G45.9 By history - details unclear.Co ntinue good blood pressure control and statin. Altered mental status 41 3709640 R41.82 No dementia by history.Mo nitor for reversible causes.ST following. Cog testing on 10/20 = SLUMS 24 ([facility]), BIMS 03/19. [id number] Bronwyn Fox [address] [address] 11/08/2024 09:45:13 11/11/2024 11:06:24 Hypertensive heart disease with congestive heart failure 0632712 I11.0 I50.31 Per d/c summary, echo showed EF 60-65%, severe LVH, ASD, mild , massive TR, moderate pulmonary HTN (formal report is not in hospital paperwork) .Continue Lasix (OP dose increased from 20 mg to 40 mg BID) and Spironolac tone (new).Cont inues on Metoprolol and irbesartan , as well.Add compressio n to BLE on AM off PM.Continu e to trend blood pressures, monitor lytes and renal function, and adjust meds as clinically indicated. OP weights3/2 5 = 173.8 lbs4/25 = 184.8 lbs5/25 = 204.6 lbs6/12 (Hosp admit) = 220 lbs7/25 = 202.4 lbsMay need to eventually back off on Lasix if BUN and creatinine bump up.F/U with cardiology Dr. Wasserman on 11/04. Waiting for records from this appt. Anemia 359650022 D64.9 s/p transfusio n of 1 unit pRBCs during her hospitaliz ation. Unclear etiology for this - previous GI scoping was reportedly negative (EGD and colonoscop y in 2019).[place] reported some vaginal bleeding noted with toileting the evening of 10/19/24, has not recurred. There is no mention of this per hospital records, but could explain anemia/iro n deficiency . If vaginal bleeding recurs, will need gynecology referral/e jaylene.Contin ue iron supplement ation (new).On 11/04, received IV Iron infusion at [facility].Hgb is slowly uptrending . Continue to monitor.F/ U with GI Dr. Flash Mo on 07/19/25. Vaginal bleeding 7701143 06 N93.9 SEE ABOVE... Atrial septal defect 701 07659 Q21.10 Noted per echo done during her inpatient stay. Per d/c summary, bubble study reportedly negative.S he will f/u with cardiology Dr. Wasserman to discuss possible [facility] closure on 11/04. Atrial fibrillation 4943 6004 I48.91 Rate is controlled with Metoprolol .She is typically on outpatient VTE prophylaxi s with Xarelto, which remains on hold for now due to GI bleeding / anemia. Plan was to discuss resumption of this with cards at her f/u appointmen t on 11/04, as well as possible [facility] closure. Waiting for records from this appt. Thyroid fu nction tests abnormal 929151052 R94.6 TSH was low (0.034) and Free T4 high (2.24) on hospital admission. Abnormal TSH level is mentioned as a diagnosis from her inpatient stay but not directly addressed. Repeat TSH & Free T4 on 10/25 both mildly elevated now, 6.204 and 2.75 respective ly.Will repeat thyroid panel at next lab draw as these two lab draws are vastly different. Hyperlipidemia 05378048 E78.5 Presumed stable. Continue statin. Check FLP with next lab draw. Generalize d osteoarthritis 726239181 M15.0 Stable. Continue PRN Tylenol. Hypokalemia 65684040 E87 .6 Stabilized with supplement ation. Continue to trend. Obstructiv e sleep apnea syndrome 89414394 G47.33 She is intolerant to CPAP. Impaired cognition 71158 6002 G31.84 No dementia by history. ST has followed. Cognitive testing on 10/20/24 = SLUMS ([facility]), BIMS 03/19.Janey tor for reversible causes and consider repeating cognitive testing in the fall/anuel r. History of transient ischemic attack 350819053 Z86.73 By history - details unclear.Co ntinue good blood pressure control and statin. Health Concerns Section Related Observation LastModified by Organization Detai ls LastModified Time None Recorded Concern Status LastModified by Organization Details LastModified Time None Recorded Advance Directives Directive None Recorded Payers Insurance Date Sequence Insurance Name Policy Number Policy Gant Covered Member ID Gant Member ID Guarantor Name 10/20/2024 1 [employer] (MEDICARE REPLACEMENT/ ADVANTAGE - HMO) [id number] Sheila A Reising [id number] Deveron Reising 11/11/2024 1 [employer] (MEDICARE REPLACEMENT/ ADVANTAGE - PPO) [id number] Sheila A Reising [id number] Deveron Reising OBGyn Episode No OBEpisode recorded.
--- NOTE | 2024-11-30 06:59 | SUR.OPER ---
Patient brought to GI Lab. Instructions for patient undergoing Capsule Endoscopy reviewed with patient. Consent form signed. Sensor array applied to patient's abdomen and connected to recorded. Patient swallowed capsule with 2 cups of water infused with Simethicone. Patient instructed they may have clear liquids at 0830 this AM and eat or drink at 1030 this AM. Patient instructed to return to GI Lab at 1500 this afternoon for removal of recording device and to call [phone] or to return to the hospital if any nausea and vomiting or abdominal pain is experienced.
--- NOTE | 2024-11-30 15:18 | SUR.PHASEII ---
Patient returned to the GI Lab at 1500 for recorder box removal. Patient voiced no complaints. States they have understanding of instructions. Patient left ambulatory.
== END 2024-11-30 05:28 | disposition home or self-care (01) ==
PROVIDERS: Referring Provider Internal Medicine Gastroenterology; Visit Provider Internal Medicine Gastroenterology
PROC: (CPT 91110; principal; 2024-11-30 07:00)
DX: Z01.818 Encounter for other preprocedural examination (principal); D50.9 Iron deficiency anemia, unspecified
CPT/HCPCS: 91110

== ENCOUNTER 2025-01-20 00:58 | Day surgery (SDC) | payer MEDICARE, SELFPAY ==
[2025-01-19 13:45] VITALS: BMI 32.8
--- OUTSIDE RECORDS SUMMARY | 2025-01-20 01:01 | XMS_ITS | Clinical Summary ---
Author Organization [facility] Address [facility] [place] [address] Care Team Providers Care Sagger Preparer Name Role Phone Bronwyn Lopes DO Primary Care Provider Allergies Active Allergy Reactions Criticality Noted Date Comments Solifenacin Unknown 10/04/2024 Medications atorvastatin (LIPITOR) 20 mg tablet Take 1 tablet (20 mg total) by mouth daily 08/15/2023 Active irbesartan (AVAPRO) 300 mg tablet Take 1 tablet (300 mg total) by mouth daily 07/02/2024 Active spironolactone (ALDACTONE) 25 mg tablet Take by mouth 11/02/2024 Active ferrous gluconate 324 mg (38 mg of elemental iron) tablet Take 1 tablet (324 mg total) by mouth 10/19/2024 Active metoprolol XL (TOPROL-XL) 50 mg extended release tablet Take 1 tablet (50 mg total) by mouth 2 (two) times a day Active furosemide (LASIX) 40 mg tablet Take 1 tablet (40 mg total) by mouth 2 (two) times a day 10/29/2024 Active vitamin B complex capsule Take 1 capsule by mouth daily Active biotin 10,000 mcg capsule Take by mouth Active potassium chloride ER 20 mEq CR tablet 11/13/2024 Activ e calcium carbonate (TUMS) 1,250 mg (500 mg elemental) chewable tablet Take by mouth 11/02/2024 Active aspirin 81 mg chewable tabletIndicatio ns:coronary artery disease Take 1 tablet (81 mg total) by mouth daily 30 tablet 11 12/04/2024 Active clopidogreL (PLAVIX) 75 mg tabletIndicatio ns:coronary artery disease Take 1 tablet (75 mg total) by mouth daily 30 tablet 11 12/04/2024 Active Active Problems Problem Noted Date Diagnosed Date Presence of Amulet left atrial appendage closure device 01/13/2025 Septal defect, atrial 12/02/2024 History of GI bleed 12/02/2024 Atrial fibrillation 11/15/2024 Permanent atrial fibrillation 11/04/2024 Rheumatic tricuspid insufficiency 10/19/2024 Pulmonary hypertension, unspecified 10/19/2024 Polyosteoarthritis, unspecified 10/19/2024 Nonrheumatic aortic (valve) stenosis 10/19/2024 Iron deficiency anemia, unspecified 10/19/2024 Hypertensive heart disease with heart failure Atrial septal defect, unspecified 10/19/2024 Alcohol abuse, uncomplicated 10/19/2024 Acute on chronic diastolic (congestive) heart fa ilure 10/19/2024 Unspecified hearing loss, bilateral 09/24/2024 Orthostatic hypotension 09/24/2024 Hyperlipidemia, unspecified 09/24/2024 Gastro-esophageal reflux disease without esophag itis 09/24/2024 Essential (primary) hypertension 09/24/2024 Anemia, unspecified 09/24/2024 Cognitive communication deficit 07/06/2024 Hyperthyroidism 04/09/2024 Assessment & Plan (04/09/2024 1:08 PM TELEPHONE OPERATOR RECEPTIONIST): Subclinical hyperthyroidism versus euthyroid hyperthyroxinemia I explained to the patient that I am not sure about her symptoms being related this mildly elevated thyroid levels Will update TSH, free T4 and free T3 Dependent on results might start low-dose of methimazole mostly to see if this helps with the patient's symptoms Heart murmur 10/08/2023 Typical atrial flutter 10/08/2023 Venous insufficiency (chronic) (peripheral) 10/2016 Encounters Date Type Department Care Team Description 01/13/2025 11:15 AM CDT Office Visit [facility] Cardiology at [address] [place] [address] Michael Bolden MD Permanent atrial fibrillation (HCC) (Primary Dx); Presence of Amulet left atrial appendage closure device 01/13/2025 Orders Only [facility] Cardiology at [address] [place] [phone] Vince Maldonado MD 12/02/2024 8:01 AM CDT Anesthesia Event [facility] Cardiac Catheterization Lab [address] [place] [address] Parviz Hopper MD Harper, Paisley Elaine, AA 12/02/2024 8:00 AM CDT - 12/02/2024 10:30 AM CDT Surgery [facility] Cardiac Catheterization Lab [address] [place] [address] Mohan Patterson MD PERC SATNAM CLOSE W/IMPLANT [id number] 12/02/2024 7:53 AM CDT - 12/02/2024 11:59 PM CDT Hospital Encounter [facility] Cardiac Catheterization Lab [address] [place] [address] Discharge Disposition: Discharge to home or self care 12/02/2024 5:51 AM CDT - 12/03/2024 1:30 PM CDT Hospital Encounter [address] [address] Leila Roy MD Koul, Deepak, MD History of GI bleed [Z87.19] (Primary Dx); Atrial fibrillation (HCC); Longstanding persistent atrial fibrillation (HCC) [I48.11] Discharge Disposition: Discharge to nursing facility medicaid certified with plan readmit 12/02/2024 Telephone [facility] Cardiology [address] [place] [address] [place] [phone] Leila Roy MD 11/25/2024 12:15 PM CDT Pre-Admission Testing [facility] Pre Anesthesia Testing [address] [place] [address] 11/23/2024 10:30 AM CDT Office Visit [facility] Cardiology [address] [place] [address] [place] [phone] Leila Roy MD Permanent atrial fibrillation (HCC) (Primary Dx) 11/18/2024 Telephone [facility] Cardiology [address] [place] [address] [place] [phone] Leila Roy MD 11/15/2024 Orders Only [facility] Cardiac Catheterization Lab [id number] [place] [phone] Leila Roy MD Atrial fibrillation (HCC) (Primary Dx) 11/08/2024 Telephone [facility] Cardiology [address] [place] [address] [address] [place] [phone] Michael Bolden MD Review Medications 11/08/2024 Orders Only [facility] Cardiology [address] [place] [address] [address] [place] [phone] Leila Roy MD 11/04/2024 1:15 PM CDT Office Visit [place] [address] [place] [phone] Michael Bolden MD Typical atrial flutter (HCC) (Primary Dx); Permanent atrial fibrillation (HCC) 11/04/2024 Telephone [place] [address] [place] [phone] Michael Bolden MD 10/28/2024 9:53 AM CDT - 10/28/2024 11:59 PM CDT Hospital Encounter [facility] Imaging and Radiology [address] [place] [address] Typical atrial flutter (HCC) Discharge Disposition: Discharge to home or self care 10/26/2024 Orders Only [place] [address] [place] [phone] Leila Roy MD from Last 3 Months Surgical History Surgery Date Site/Laterality Comments REVERSE TOTAL SHOULDER ARTHROPLASTY Bilateral APPENDECTOMY VEIN SURGERY IMPLANTABLE CARDIAC DEVICE 12/02/2024 N/A Procedure: PERC SATNAM CLOSE W/IMPLANT [id number]; Surgeon: Mohan Patterson MD; 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 Medical History Medical History Date Comments Hypertension Hyperlipidemia Sleep apnea History of transfusion 10/2024 admitted to [facility] with Hgb 6.9 A-fib (HCC) CHF (congestive heart failure) (HCC) TR (tricuspid regurgitation) Pulmonary HTN (HCC) Venous insufficiency (chroni c) (peripheral) Anemia Family History Medical History Relation Name Comments Cancer Mother Relation Name Status Comments Brother Alive Father Mother Sister Alive Social History Tobacco Use Types Packs/Day Years Used Date Smoking Tobacco: Never Smokeless Tobacco: Never Tobacco Cessation:Counseling Given: Not Answered AUDIT-C Answer Date Recorded Q1: How often do you have a drink containing alc ohol? Monthly or less 12/02/2024 Q2: How many drinks containi ng alcohol do you have on a typical day when you are drinking? 1 or 2 12/02/2024 Q3: How often do you have si x or more drinks on one occasion? Never 12/02/2024 PHQ-2 Answer Date Recorded PHQ-2 Total Score (If total score is 3 or more points, staff should administer the PHQ-9) 0 04/09/2024 Personal Safety Answer Date Recorded Have you ever been in or are you currently in a harmful physical or emotional relationship or is someone making you feel afraid or unsafe? Denies 12/02/2024 Comments Unknown Sex and Gender Information Value Date Recorded Sex Assigned at Not on file Legal Sex Female 8:28 AM CDT Gender Identity Not on file Sexual Orientation Straight 04/09/2024 12 :01 PM TELEPHONE OPERATOR RECEPTIONIST Obstetrics History Last Filed Vital Signs Vital Sign Reading Time Taken Comments Blood Pressure 112/60 01/13/2025 11:06 AM CDT Pulse 77 01/13/2025 11:06 AM CDT Temperature 36.4 C (97.5 F) 12/03/2024 12:32 PM CDT Respiratory Rate 17 12/03/2024 12:32 PM CDT Oxygen Saturation 98% 01/13/2025 11:06 AM CDT Inhaled Oxygen Concentration - - Weight 75.8 kg (167 lb 1.6 oz) 01/13/2025 11:06 AM CDT Height 165.1 cm (5' 5) 01/13/2025 11:06 AM CDT Body Mass Index 27.81 01/13/2025 11:06 AM CDT Plan of Treatment Health Maintenance Due Date Last Done Comments Osteoporosis Screening-Bone Density Scan 1940 Hepatitis B Screening 1960 Pneumococcal vaccine 65+ (1 of 2 - PCV) 1961 Zoster Vaccine (1 of 2) 1992 Well Visit 65+ 11/22/2007 Covid-19 Vaccine (7 2024-2 6 season) 2025 02/21/2023, 02/21/2023, 02/01/2022, Additional history exists Influenza Vaccine (#1) 2025 05/05/1986 Depression Screening 04/09/2025 04/09/2024 Fall Risk Assessment 12/03/2025 12/03/2024, 04/09/20 24 DTaP/Tdap/Td Vaccine (2 - Td or Tdap) 04/10/2029 04/10/2019, 05/05/1986 Medical Devices Implanted Type Area Yeast Stacker Device Identifier Shelf Expiration Date Model / Serial / Lot [employer] Occluder Cvasc Satnam Flexible Braided Amplatzer Amulet 31mm Nitinol [id number] - [id number] Implanted:Qty: 1 on 12/02/2024 by Mohan Patterson MD at [facility] Septal Defect Closure Device [employer] 11/01/2028 [id number] / / [id number] [employer] System Closure Repair Femoral Artery Suture Mediated Perclose Prostyle 86793-72 - [id number] Implanted:Qty: 1 on 12/02/2024 by Mohan Patterson MD at [facility] [employer] 10/02/2026 [id number] / / [id number] [employer] System Closure Repair Femoral Artery Suture Mediated Perclose Prostyle 18794-00 - [id number] Implanted:Qty: 1 on 12/02/2024 by Mohan Patterson MD at [facility] Vascular 10/02/2026 [id number] / / [id number] [employer] System Closure Repair Femoral Artery Suture Mediated Perclose Prostyle 23709-74 - [id number] Implanted:Qty: 1 on 12/02/2024 by Mohan Patterson MD at [facility] [employer] 10/02/2026 [id number] / / [id number] Procedures Procedure Name Priority Date/Time Associated Diagnosis Comments SCAN - LABS Routine 01/10/2025 11:09 AM CDT EGFR STAT 12/03/2024 9:32 AM CDT COMPREHENSIVE METABOLIC PANEL STAT 12/03/2024 9:32 AM CDT TRANSTHORACIC ECHO (TTE) LIMITED/FOLLOW UP W LTD DOPPLER/CF WO CONTRAST Routine 12/03/2024 8:00 AM CDT ECG 12-LEAD Routine 12/03/2024 7:17 AM CDT DIFFERENTIAL AUTO Routine 12/03/2024 6:4 0 AM CDT CBC WITH AUTO DIFFERENTIAL Routine 12/03/2024 6:40 AM CDT APTT Routine 12/02/2024 11:06 AM CDT PROTIME-INR Routine 12/02/2024 11:06 AM CDT SC AN ELECTIVE ENDOTRACHEAL AIRWAY Routine 12/02/2024 10:17 AM CDT INTRACARDIAC ECHOCARDIOGRAM Routine 12/02/2024 9:44 AM CDT Atrial fibrillation (HCC) PERC SATNAM CLOSURE W/IMPLANT (WATCHMAN) [id number] Routine 12/02/2024 9:44 AM CDT Atrial fibrillation (HCC) POCT ACTIVATED CLOTTING TIME, HIGH RANGE Routine 12/02/2024 9:10 AM CDT POCT ACTIVATED CLOTTING TIME, HIGH RANGE Routine 12/02/2024 8:54 AM CDT TYPE AND SCREEN Timed 12/02/2024 8:44 AM CDT PREPARE RBC STAT 12/02/2024 6:38 AM CDT ECG 12-LEAD Routine 11/25/2024 1:28 PM CDT EGFR Routine 11/25/2024 1:02 PM CDT BLOOD SMEAR REVIEW Routine 11/25/2024 1: 02 PM CDT DIFFERENTIAL AUTO Routine 11/25/2024 1:0 2 PM CDT PROTIME-INR Routine 11/25/2024 1:02 PM CDT COMPREHENSIVE METABOLIC PANEL Routine 11/25/2024 1:02 PM CDT CBC WITH AUTO DIFFERENTIAL Routine 11/25/2024 1:02 PM CDT APTT Routine 11/25/2024 1:02 PM CDT TYPE AND SCREEN Timed 11/25/2024 1:[address] HEART MORPHOLOGY W CONTRAST Schedule Routine, Read Routine (OP Routine) 10/28/2024 11:11 AM CDT Typical atrial flutter (HCC) POCT CREATININE FOR CONTRAST EVALUATION Routine 10/28/2024 10:12 AM CDT from Last 3 Months Results * SCAN - LABS (01/10/2025 11:09 AM CDT) us Historical Provider MD Final Res ult * (ABNORMAL) eGFR (12/03/2024 9:32 AM CDT) eGFR 49(L) >=60 mL/min/1. 73 m2 Comment: Interpretive Data Reference Interval Normal >/= 90 mL/min/1.73m2 Mildly decreased* 60 - 89 mL/min/1.73m2 Mildly to moderately decreased 45 - 59 mL/min/1.73m2 Moderately to severely decreased 30 - 44 mL/min/1.73m2 Severely decreased 15 - 29 mL/min/1.73m2 Kidney Failure < 15 mL/min/1.73m2 *Relative to young adult level Estimated glomerular filtration rate is determined by the 2020 CKD-EPI equation recommended by the National Kidney Foundation (A Unifying Approach to GFR Estimation: Recommendations of the NKF-ASK Task Force on Reassessing the Inclusion of Race in Diagnosing Kidney Disease, JASN 2020). The CKD-EPI equation should not be used for patients with unstable renal function and has not been validated in children and those over 70. Current interpretive data was last reviewed 2021. Blood 12/03/2024 9:32 AM CDT 12/03/2024 9:43 AM CDT us Leila Roy MD LAB BLOOD ORDERABLES Final Resul t [facility] [address] Department [place] [address] * (ABNORMAL) Comprehensive metabolic panel (12/03/2024 9:32 AM CDT) Sodium 133(L) 135 - 145 mmol/L Potassium, pl 4.8 3.3 - 4.9 mmol/L [facility] Chloride 100 97 - 110 mmol/L [facility] CO2 21(L) 22 - 32 mmol/L [facility] Anion gap 12 2 - 15 mmol/L [facility] BUN 35(H) 6 - 25 mg/dL [facility] Creatinine 1.13(H) 0.60 - 1.10 mg/dL [facility] Glucose 206(H) 70 - 199 mg/dL [facility] Comment: Interpretive Data Fasting glucose >/= 126 mg/dl is diagnostic for diabetes. Fasting is defined as no caloric intake for at least 8 hours. Fasting glucose between 100 mg/dl to 125 mg/dl is diagnostic of prediabetes. In a patient with classic symptoms of hyperglycemia or hyperglycemic crisis, a random glucose >/= 200 mg/dl is diagnostic for diabetes. In the absence of unequivocal hyperglycemia, results should be confirmed by repeat testing. The classification and Diagnosis of Diabetes Diabetes Care 202; 46: S19-S40. Current interpretive data was last revised 2022. Calcium 8.5 8.5 - 10.3 mg/dL [facility] Bilirubin, total 0.5 0.1 - 1.2 mg/dL [facility] Protein, pl 6.9 6.5 - 8.5 g/dL [facility] Albumin 3.7 3.5 - 5.0 g/dL [facility] Alk phos 119 40 - 130 Units/L [facility] ALT 24 7 - 45 Units/L [facility] AST 28 10 - 45 Units/L [facility] Blood 12/03/2024 9:32 AM CDT 12/03/2024 9:43 AM CDT us Leila Roy MD LAB BLOOD ORDERABLES Final Resul t [facility] [address] Department [place] [address] * TRANSTHORACIC ECHO (TTE) LIMITED/FOLLOW UP W LTD DOPPLER/CF WO CONTRAST (12/03/2024 8:00 AM CDT) Estimated EF 62 % CONS SCIMAGE Anatomical Region Laterality Modality Ultrasound 12/03/2024 7:37 AM CDT Narrative 12/03/2024 9:33 [place] [address] Limited Echocardiogram Report ADDENDUM Patient Name: SHEILA TATUM : 1940 Study Date: 12/03/2024 7:37:23 AM Gender: F Tech: CELESTE Location: [id number] Ref Provider: LEILA ROY Height(Cm): 165 BSA: 1.9 Weight(Kg): 78.7 Heart Rate: 90 BP: 115 / 78 Quality: Good Order Provider: LEILA ROY PROCEDURES: Echocardiographic Report: Limited transthoracic echocardiogram with 2D and color Doppler. INDICATIONS: S/P LAAO. MEASUREMENTS: 2D/MM Value Range Doppler Value Range Estimated EF 62 % LVOT Diam 1.90 cm 2D/MM Value Range Doppler Value Range - FINDINGS: Atrial Septum: There is a possible septal defect related to recent left atrial access. Left Ventricle: The left ventricle is normal in size and systolic function. Left Atrium: There is severe enlargement of left atrium. Right Ventricle: The right ventricle is moderately dilated with preserved systolic function. Right Atrium: There is severe enlargement of right atrium. Aortic Valve: There is mild-moderate aortic stenosis. Mitral Valve: The mitral valve leaflets are sclerotic with no stenosis. There is mitral annular calcification. Tricuspid Valve: The tricuspid valve is normal however there is malcoaptation secondary to annular dilatation from Severe biatrial enlargement as well as RV dilatation. Pericardium: Normal pericardium with no significant pericardial effusion. CONCLUSIONS: There is no pericardial effusion. Electronically Signed By: Dr. Leila Roy 2024-12-03 09:33:34 CDT Electronically Amended By: Dr. Leila Roy 12/03/2024 11:03:53 AM CDT [ADDENDUM] Procedure Note Leila Roy MD - 12/03/2024 [place] [address] Limited Echocardiogram Report ADDENDUM Patient Name: SHEILA TATUM : 1940 Study Date: 12/03/2024 7:37:23 AM Gender: F Tech: Location: [id number] Ref Provider: LEILA ROY Height(Cm): 165 BSA: 1.9 Weight(Kg): 78.7 Heart Rate: 90 BP: 115 / 78 Quality: Good Order Provider: LEILA ROY PROCEDURES: Echocardiographic Report: Limited transthoracic echocardiogram with 2D and color Doppler. INDICATIONS: S/P LAAO. MEASUREMENTS: 2D/MM Value Range Doppler Value Range Estimated EF 62 % LVOT Diam 1.90 cm 2D/MM Value Range Doppler Value Range - FINDINGS: Atrial Septum: There is a possible septal defect related to recent left atrial access. Left Ventricle: The left ventricle is normal in size and systolic function. Left Atrium: There is severe enlargement of left atrium. Right Ventricle: The right ventricle is moderately dilated with preserved systolicfunction. Right Atrium: There is severe enlargement of right atrium. Aortic Valve: There is mild-moderate aortic stenosis. Mitral Valve: The mitral valve leaflets are sclerotic with no stenosis. There is mitralannular calcification. Tricuspid Valve: The tricuspid valve is normal however there is malcoaptation secondary toannular dilatation from Severe biatrial enlargement as well as RV dilatation. Pericardium: Normal pericardium with no significant pericardial effusion. CONCLUSIONS: There is no pericardial effusion. Electronically Signed By: Dr. Leila Roy 2024-12-03 09:33:34 CDT Electronically Amended By: Dr. Leila Roy 12/03/2024 11:03:53 AM CDT [ADDENDUM] Leila Roy MD CV ECHO PROCEDURES Edited Result - Final * ECG 12 lead (12/03/2024 7:17 AM CDT) 12/03/2024 7:17 AM CDT [facility] - 12/03/2024 8:34 AM CDT Vent Rate: 83 bpm RR Interval: 716 msec SC Interval: 0 msec QRS Duration: 102 msec QT Interval: 377 msec QTC Interval: 417 msec P-R-T [place]: 0 - 73 - -18 degrees IMPRESSION: ATRIAL FIBRILLATION WITH CONTROLLED VENTRICULAR RESPONSE INCOMPLETE RIGHT BUNDLE BRANCH BLOCK Electronically Signed By: Mohan Patterson MD, [facility] us Mohan Patterson MD ECG ORDERABLES Final Result [facility] * (ABNORMAL) Differential, auto (12/03/2024 6:40 AM CDT) Neutrophil abs 6.38 1.50 - 6.50 K/cumm Imm gran abs 0.04 0.00 - 0.10 K/cumm [facility] Lymphocyte abs 0.49(L) 0.80 - 3.30 K/cumm [facility] Monocyte abs 0.39 0.20 - 0.80 K/cumm [facility] Eosinophil abs 0.01 0.00 - 0.50 K/cumm [facility] Basophil abs 0.01 0.00 - 0.10 K/cumm [facility] Neutrophil pct 87.3 % [facility] Comment: Interpretive Data Percent cell count reference ranges are not reported, since discordance with absolute values may lead to misinterpretation of CBC data. Current Interpretive Data was last revised on 2017. Imm gran pct 0.5 % [facility] Comment: Interpretive Data Percent cell count reference ranges are not reported, since discordance with absolute values may lead to misinterpretation of CBC data. Current Interpretive Data was last revised on 2017. Lymphocyte pct 6.7 % [facility] Comment: Interpretive Data Percent cell count reference ranges are not reported, since discordance with absolute values may lead to misinterpretation of CBC data. Current Interpretive Data was last revised on 2017. Monocyte pct 5.3 % [facility] Comment: Interpretive Data Percent cell count reference ranges are not reported, since discordance with absolute values may lead to misinterpretation of CBC data. Current Interpretive Data was last revised on 2017. Eosinophil pct 0.1 % [facility] Comment: Interpretive Data Percent cell count reference ranges are not reported, since discordance with absolute values may lead to misinterpretation of CBC data. Current Interpretive Data was last revised on 2017. Basophil pct 0.1 % [facility] Comment: Interpretive Data Percent cell count reference ranges are not reported, since discordance with absolute values may lead to misinterpretation of CBC data. Current Interpretive Data was last revised on 2017. Blood 12/03/2024 6:40 AM CDT 12/03/2024 6:52 AM CDT Mohan Patterson MD LAB BLOOD ORDERABLES Final Resul t Performing Organization Address City/[facility] Co de Phone Number [facility] [address] [place] [address] * (ABNORMAL) CBC with auto differential (12/03/2024 6:40 AM CDT) WBC 7.32 3.80 - 9.90 K/cumm Hgb 12.1 11.9 - 15.5 g/dL [facility] Hct 41.0 35.6 - 45.5 % [facility] Plt 205 150 - 400 K/cumm [facility] MPV 10.5 9.1 - 12.3 fL [facility] RBC 4.75 3.90 - 5.20 M/cumm [facility] MCV 86.3 81.3 - 96.4 fL [facility] MCH 25.5(L) 27.1 - 33.3 pg [facility] MCHC 29.5(L) 32.3 - 35.7 g/dL [facility] RDW CV Not Measured 11.1 - 14.9 % [facility] RDW SD Not Measured 35.7 - 48.1 fL [facility] NRBC abs 0.04(H) 0.00 - 0.01 K/cumm [facility] Morphologic Screen Results confirmed by manual morphology review. [facility] Blood 12/03/2024 6:40 AM CDT 12/03/2024 6:52 AM CDT Mohan Patterson MD LAB BLOOD ORDERABLES Final Resul t Performing Organization Address City/[facility]/ZIP Co de Phone Number [facility] FRANKEL [address] Department [employer] [place], [place] [id number] * aPTT (12/02/2024 11:06 AM CDT) aPTT 31 28 - 38 sec Comment: Interpretive Data Heparin therapeutic range: 66.0 - 100.0 seconds. Range based on correlation with therapeutic heparin activity range of 0.3 - 0.7 Units/mL. Current interpretive data was last revised on 2023. Blood 12/02/2024 11:0 6 AM CDT 12/02/2024 11:23 AM CDT Mohan Patterson MD LAB BLOOD ORDERABLES Final Resul t Performing Organization Address [facility] de Phone Number [facility] [address] [facility] [place] [address] * Protime-INR (12/02/2024 11:06 AM CDT) PT 12.7 9.7 - 13.0 sec INR 1.17 0.90 - 1.20 [facility] Comment: Interpretive data Oral anticoagulant therapeutic ranges: Venous thromboembolism prophylaxis or treatment: 2.0-3.0 CARDIOLOGY Standard range: 2.0-3.0 High-intensity range: 2.5-3.5 Refer to indication-specific guidelines for appropriate target ranges for prosthetic heart valve replacement. Current interpretive data was last revised on 2019. Blood 12/02/2024 11:0 6 AM CDT 12/02/2024 11:06 AM CDT Mohan Patterson MD LAB BLOOD ORDERABLES Final Resul t Performing Organization Address [facility] Phone Number [facility] [address] [facility] [place] [address] * SC AN ELECTIVE ENDOTRACHEAL AIRWAY (12/02/2024 10:17 AM CDT) Narrative Calin Lucas AA - 12/02/2024 10:17 AM CDT Calin Lucas AA 12/02/2024 10:18 AM Airway Patient location: OR Urgency: elective Date/time: 12/02/2024 8:19 AM Indications for airway management: anesthesia Difficult airway: no Staff: Supervising provider: Parviz Hopper MD Placed by: AA: Calin Lucas AA Emergent airway documentation: Risks and benefits discussed: yes Consent obtained: yes Consent given by: patient Airway prep: Preoxygenated: yes Patient position: sniffing Mask difficulty assessment: 2 - vent by mask + OA or adjuvant Spontaneous ventilation during airway: absent Sedation level during airway: GA Final airway details: Final airway type: endotracheal airway Tube type: ETT ETT size: 7.0 mm Cuffed: yes Technique used for successful ETT placement: video laryngoscopy Devices/Methods used in placement: cricoid pressure and stylet Insertion site: oral Blade type: Ira Video blade type: Vicente Blade size: 3 Cormack-Lehane (video): grade I - full view of glottis Cuff volume: 7 mL Cuff inflated with: air ETT to lips: 22 cm Placement verified by: auscultation and CO2 detection Airway secured with: silk tape Number of attempts: 1 Additional comments: Ashlee REYNA-S performed intubation under direct supervision us Parviz Hopper MD ANESTHESIA ORDERABLES Final Resu lt * PERC SATNAM CLOSURE W/IMPLANT (WATCHMAN) [id number], INTRACARDIAC ECHOCARDIOGRAM (12/02/2024 9:44 AM CDT) Anatomical Region Laterality Modality X-Ray Angiograph y Addenda Addendum by Mohan Patterson MD on 12/02/2024 10:27 AM CDT LEFT ATRIAL APPENDAGE OCCLUSION (LAAO) PROCEDURE REPORT DATE OF PROCEDURE: 12/02/24 INDICATION FOR PROCEDURE: Atrial fibrillation with contraindication for anticoagulation. BRIEF CLINICAL HISTORY: Sheila Tatum is a 84 y.o. female with persistent atrial fibrillation, history of TIA, history of GI bleed. Patient was referred for percutaneous left atrial appendage closure in the setting of history of GI bleed and anemia. Current CHADsVASC score 7; HASBLED score 3. Shared decision-making strategy was pursued. Preprocedure cardiac CT was performed for assessment of the left atrial appendage. Left atrial appendage thrombus was ruled out prior to the procedure. Patient was given IV hydration with normal saline prior to the procedure. Benefits and risks of the procedure were discussed with the patient in depth, and informed consent was taken prior to the procedure. Risks of the procedure include but are not limited to vascular complications like groin hematoma, retroperitoneal bleed, vessel perforation; pericardial effusion or tamponade; cardiac arrhythmias; device embolization, air embolization, device thrombosis or leak, contrast induced nephropathy, . After discussing all the benefits, risks and alternatives, patient was willing to proceed with the procedure. PROCEDURES PERFORMED: Successful implantation of 31 mm Watson Amplatzer Amulet left atrial appendage occluder (CPT 73314) Intracardiac echocardiogram (3D/4D ICE) Deployment of 2 Perclose suture mediated closure devices at the right common femoral venous access site SEDATION: MAC - by anesthesiology guest service team leader: Leila Roy MD ACCESS SITES: Right common femoral vein PROCEDURE: After obtaining informed consent, patient was brought to the asphalt plant laborer and prepped and draped in the usual sterile manner. Time-out and immediate reassessment of the patient was performed. Patient was placed under MAC by the anesthesiologist team. Two right common femoral venous accesses were taken under ultrasound guidance with micropuncture needle. Preclose suture mediated vascular closure device were [place]. [place] [address] units of unfractionated heparin for procedural anticoagulation at different intervals during the procedure, to maintain ACT between 250-350 seconds. ACT was monitored throughout the procedure at regular intervals. Long 12 Iraqi sheath was advanced over 035 wire from the inferior access site in the right common femoral vein. 3D/4D ICE catheter was advanced in to right atrium. [place] sheath was advanced over 035 wire from the superior access site in the right common femoral vein. Atrial septal puncture was performed using [place] transseptal needle under intracardiac echo and fluoroscopic guidance. The sheath was advanced to the left atrium towards the pulmonary vein over the pre shaped wire. The sheath was taken out and it was exchanged with a 14 Iraqi amulet delivery sheath. The sheath was advanced into the left atrium, the atrial septum was dilated with the sheath, and then sheath was taken out over the wire and positioned in the right atrium/IVC junction. Next, ICE catheter was advanced into the left atrial cavity. Left atrial appendage measurement was performed. After this, the 14 Iraqi sheath was reintroduced over [place] wire. A 5 Iraqi pigtail catheter was advanced over the wire and the pre shaped wire was taken out. Left atrial pressure was measured at 13 mmHg. A 5 Iraqi pigtail catheter was later positioned in the left atrial appendage. Left atrial appendage was visualized after injection of contrast in FIGUEROA caudal projection. The tip of the sheath was advanced close to the left atrial appendage orifice over the pigtail catheter. Next, the delivery sheath of the Amplatzer amulet was thoroughly prepped and flushed with normal saline multiple times to remove any air from the device. Wet to wet connection was performed and the delivery sheath was advanced to the left atrial appendage orifice through the delivery sheath after removal of the pigtail catheter. 31 mm Amulet at device was deployed under 3D and 4D ICE and fluoroscopic guidance. The device was recaptured twice before successful final deployment. Verification of proper Amulet device deployment was performed with CLOSE signs (Cx lobe at least 2/3 distal, lobe compression, orientation of lobe in line with axis of the SATNAM neck, separation between the disc lobe and the disc, elliptical -concave disc). TUG test was performed. Post-implant ICE did not show jayson-device leak or pericardial effusion. After completion of successful procedure, hemostasis was achieved by deployment of Perclose suture mediated vascular closure devices. Patient received 50 mg protamine at the conclusion of the procedure. Patient tolerated procedure well without any immediate procedural complications. Estimated blood loss minimal. All specimens removed. Patient was transferred to the telemetry bed in hemodynamically stable condition. Patient's family was updated about the procedure. CONCLUSIONS: Successful implantation of 31 mm Amplatzer Amulet left atrial appendage closure device. PLAN/RECOMMENDATIONS: Patient will be admitted to the telemetry unit and will be monitored for any potential postprocedure complications. Follow-up EUFEMIA or CT heart in approximately 45 days for device surveillance to assess for any peridevice leak and device related thrombus. Dual antiplatelet therapy with aspirin and clopidogrel for 6 months, then single antiplatelet treatment. Endocarditis prophylaxis for 6 months. Outpatient cardiology follow-up. Voice recognition software was used to complete this document, therefore, linoleum installer variances may occur. Mohan Patterson MD, [facility] 12/02/24 us Leila Roy MD CV ELECTROPHYSIOLOGY PROCS Edite d Result - Final * (ABNORMAL) POC Activated Clotting Time, High Range (12/02/2024 9:10 AM CDT) ACT 291(H) 87 - 138 sec Blood 12/02/2024 9:10 AM CDT 12/02/2024 9:10 AM CDT Leila Roy MD LAB BLOOD ORDERABLES Final Resul t Performing Organization Address [facility] Co de Phone Number VARGAS FRANKEL [address] [facility] [employer] [place], [place] [phone] * (ABNORMAL) POC Activated Clotting Time, High Range (12/02/2024 8:54 AM CDT) ACT 335(H) 87 - 138 sec Blood 12/02/2024 8:54 AM CDT 12/02/2024 8:54 AM CDT Leila Roy MD LAB BLOOD ORDERABLES Final Resul t Performing Organization Address [facility] de Phone Number VARGAS FRANKEL [address] [facility] [place] [address] * Type and screen (12/02/2024 8:44 AM CDT) Pathologist [facility] Sheela, indirect Negative ABO Rh O Positive [facility] Blood 12/02/2024 8:44 AM CDT 12/02/2024 8:48 AM CDT Narrative [facility] - 12/02/2024 9:41 AM CDT Has the patient had Daratumumab or Isatuximab in the past 6 months?->Unknown Mohan Patterson MD LAB BLOOD BANK TEST ORDERABLES F inal Result Performing Organization Address [facility] Co de Phone Number VARGAS FRANKEL [address] [place] [address] * Prepare RBC: 2 Units (12/02/2024 6:38 AM CDT) Product code [id number] Unit Number [id number] 0-J [facility] Product Blood Type OPOS [facility] Dispense Status RETURNED [facility] Product code [id number] [facility] Unit Number [id number] 5-S [facility] Product Blood Type OPOS [facility] CH Dispense Status RETURNED [facility] Blood 12/02/2024 6:38 AM CDT Narrative [facility] - 12/03/2024 1:47 AM CDT Specify Procedure:->LAAO Are special requirements needed? (All products are leukoreduced and CMV- safe)- >No Date required:-[id number] LRRBC # of [id number] Reasons:-Hold for procedure (specify procedure)} Mohan Patterson MD BLOOD BANK PRODUCT ORDERABLES Fi nal Result Performing Organization Address [facility] Co de Phone Number VARGAS [address] [place] [address] * ECG 12 lead (11/25/2024 1:28 PM CDT) 11/25/2024 1:28 PM CDT Narrative [facility] - 11/25/2024 2:41 PM CDT Vent Rate: 87 bpm RR Interval: 688 msec SC Interval: 0 msec QRS Duration: 92 msec QT Interval: 367 msec QTC Interval: 411 msec P-R-T Searcy: 0 - 65 - 9 degrees IMPRESSION: ATRIAL FIBRILLATION INDETERMINATE AXIS INCOMPLETE RIGHT BUNDLE BRANCH BLOCK POSSIBLE ANTERIOR MYOCARDIAL INFARCTION , AGE INDETERMINATE Electronically Signed By: Mohan Patterson MD, [facility] Mohan Patterson MD ECG ORDERABLES Final Result Performing Organization Address [facility] de Phone Number [facility] [employer] [facility] * (ABNORMAL) Blood smear review (11/25/2024 1:02 PM CDT) RBC morphology Present(A ) Hypochromasia 3-7/HPF(A ) [facility] Anisocytosis Moderate( A) [facility] Platelet estimate #A; #CAC [facility] Blood 11/25/2024 1:02 PM CDT 11/25/2024 1:31 PM CDT Mohan Patterson MD LAB BLOOD ORDERABLES Final Resul t Performing Organization Address [facility] Co de Phone Number VARGAS FRANKEL [address] Department [place] [address] * (ABNORMAL) eGFR (11/25/2024 1:02 PM CDT) Pathologist [facility] eGFR 43(L) >=60 mL/min/1. 73 m2 Comment: Interpretive Data Reference Interval Normal >/= 90 mL/min/1.73m2 Mildly decreased* 60 - 89 mL/min/1.73m2 Mildly to moderately decreased 45 - 59 mL/min/1.73m2 Moderately to severely decreased 30 - 44 mL/min/1.73m2 Severely decreased 15 - 29 mL/min/1.73m2 Kidney Failure < 15 mL/min/1.73m2 *Relative to young adult level Estimated glomerular filtration rate is determined by the 2020 CKD-EPI equation recommended by the National Kidney Foundation (A Unifying Approach to GFR Estimation: Recommendations of the NKF-ASK Task Force on Reassessing the Inclusion of Race in Diagnosing Kidney Disease, JASN 2020). The CKD-EPI equation should not be used for patients with unstable renal function and has not been validated in children and those over 70. Current interpretive data was last reviewed 2021. Blood 11/25/2024 1:02 PM CDT 11/25/2024 1:31 PM CDT us Mohan Patterson MD LAB BLOOD ORDERABLES Final Resul t YUMALINA FRANKEL [address] Department [place] [address] * Differential, auto (11/25/2024 1:02 PM CDT) Neutrophil abs 4.48 1.50 - 6.50 K/cumm Imm gran abs 0.02 0.00 - 0.10 K/cumm [facility] Lymphocyte abs 0.82 0.80 - 3.30 K/cumm [facility] Monocyte abs 0.58 0.20 - 0.80 K/cumm [facility] Eosinophil abs 0.14 0.00 - 0.50 K/cumm [facility] Basophil abs 0.03 0.00 - 0.10 K/cumm [facility] Neutrophil pct 73.8 % [facility] Comment: Interpretive Data Percent cell count reference ranges are not reported, since discordance with absolute values may lead to misinterpretation of CBC data. Current Interpretive Data was last revised on 2017. Imm gran pct 0.3 % [facility] Comment: Interpretive Data Percent cell count reference ranges are not reported, since discordance with absolute values may lead to misinterpretation of CBC data. Current Interpretive Data was last revised on 2017. Lymphocyte pct 13.5 % [facility] Comment: Interpretive Data Percent cell count reference ranges are not reported, since discordance with absolute values may lead to misinterpretation of CBC data. Current Interpretive Data was last revised on 2017. Monocyte pct 9.6 % [facility] Comment: Interpretive Data Percent cell count reference ranges are not reported, since discordance with absolute values may lead to misinterpretation of CBC data. Current Interpretive Data was last revised on 2017. Eosinophil pct 2.3 % [facility] Comment: Interpretive Data Percent cell count reference ranges are not reported, since discordance with absolute values may lead to misinterpretation of CBC data. Current Interpretive Data was last revised on 2017. Basophil pct 0.5 % [facility] Comment: Interpretive Data Percent cell count reference ranges are not reported, since discordance with absolute values may lead to misinterpretation of CBC data. Current Interpretive Data was last revised on 2017. Blood 11/25/2024 1:02 PM CDT 11/25/2024 1:31 PM CDT us Mohan Patterson MD LAB BLOOD ORDERABLES Final Resul t [facility] [address] Department [place] [address] * (ABNORMAL) CBC with auto differential (11/25/2024 1:02 PM CDT) WBC 6.07 3.80 - 9.90 K/cumm Hgb 13.5 11.9 - 15.5 g/dL [facility] Hct 44.2 35.6 - 45.5 % [facility] Plt 256 150 - 400 K/cumm [facility] Comment:No clot detected in sample. MPV 9.8 9.1 - 12.3 fL [facility] RBC 5.28(H) 3.90 - 5.20 M/cumm [facility] MCV 83.7 81.3 - 96.4 fL [facility] MCH 25.6(L) 27.1 - 33.3 pg [facility] MCHC 30.5(L) 32.3 - 35.7 g/dL [facility] RDW CV Not Measured 11.1 - 14.9 % [facility] RDW SD Not Measured 35.7 - 48.1 fL [facility] NRBC abs 0.00 0.00 - 0.01 K/cumm [facility] Blood 11/25/2024 1:02 PM CDT 11/25/2024 1:31 PM CDT Mohan Patterson MD LAB BLOOD ORDERABLES Final Resul t Performing Organization Address [facility] Co de Phone Number VARGAS [address] [employer] [place], [place] [phone] * aPTT (11/25/2024 1:02 PM CDT) aPTT 29 28 - 38 sec Comment: Interpretive Data Heparin therapeutic range: 66.0 - 100.0 seconds. Range based on correlation with therapeutic heparin activity range of 0.3 - 0.7 Units/mL. Current interpretive data was last revised on 2023. Blood 11/25/2024 1:02 PM CDT 11/25/2024 1:31 PM CDT Mohan Patterson MD LAB BLOOD ORDERABLES Final Resul t Performing Organization Address City/[facility]/ZIP Co de Phone Number VARGAS [address] [facility] [employer] [place], [place] [phone] * Protime-INR (11/25/2024 1:02 PM CDT) PT 11.9 9.7 - 13.0 sec INR 1.10 0.90 - 1.20 [facility] Comment: Interpretive data Oral anticoagulant therapeutic ranges: Venous thromboembolism prophylaxis or treatment: 2.0-3.0 CARDIOLOGY Standard range: 2.0-3.0 High-intensity range: 2.5-3.5 Refer to indication-specific guidelines for appropriate target ranges for prosthetic heart valve replacement. Current interpretive data was last revised on 2019. Blood 11/25/2024 1:02 PM CDT 11/25/2024 1:31 PM CDT Mohan Patterson MD LAB BLOOD ORDERABLES Final Resul t Performing Organization Address [facility] Co de Phone Number [facility] [place] [address] [address] [place] [address] * Type and screen (11/25/2024 1:02 PM CDT) Pathologist [facility] Sheela, indirect Negative ABO Rh O Positive [facility] Blood 11/25/2024 1:02 PM CDT 11/25/2024 1:32 PM CDT Narrative [facility] - 11/25/2024 2:18 PM CDT Has the patient had Daratumumab or Isatuximab in the past 6 months?->Unknown Mohan Patterson MD LAB BLOOD BANK TEST ORDERABLES F inal Result Performing Organization Address [facility] de Phone Number [facility] [address] [employer] [place], [place] [phone] * (ABNORMAL) Comprehensive metabolic panel (11/25/2024 1:02 PM CDT) Sodium 134(L) 135 - 145 mmol/L Potassium, pl 4.9 3.3 - 4.9 mmol/L [facility] Chloride 95(L) 97 - 110 mmol/L [facility] CO2 28 22 - 32 mmol/L [facility] Anion gap 11 2 - 15 mmol/L [facility] BUN 33(H) 6 - 25 mg/dL [facility] Creatinine 1.26(H) 0.60 - 1.10 mg/dL [facility] Glucose 84 70 - 199 mg/dL [facility] Comment: Interpretive Data Fasting glucose >/= 126 mg/dl is diagnostic for diabetes. Fasting is defined as no caloric intake for at least 8 hours. Fasting glucose between 100 mg/dl to 125 mg/dl is diagnostic of prediabetes. In a patient with classic symptoms of hyperglycemia or hyperglycemic crisis, a random glucose >/= 200 mg/dl is diagnostic for diabetes. In the absence of unequivocal hyperglycemia, results should be confirmed by repeat testing. The classification and Diagnosis of Diabetes Diabetes Care 202; 46: S19-S40. Current interpretive data was last revised 2022. Calcium 9.3 8.5 - 10.3 mg/dL [facility] Bilirubin, total 0.8 0.1 - 1.2 mg/dL [facility] Protein, pl 7.6 6.5 - 8.5 g/dL [facility] Albumin 3.9 3.5 - 5.0 g/dL [facility] Alk phos 137(H) 40 - 130 Units/L [facility] ALT 26 7 - 45 Units/L [facility] AST 29 10 - 45 Units/L [facility] Blood 11/25/2024 1:02 PM CDT 11/25/2024 1:31 PM CDT us Mohan Patterson MD LAB BLOOD ORDERABLES Final Resul t [facility]ARGAS FRANKEL [address] Department [place] [address] * CT Heart Morphology W Contrast (10/28/2024 11:11 AM CDT) Anatomical Region Laterality Modality Chest N/A Computed Tomogra phy 10/28/2024 11:4 2 AM CDT Impressions 10/28/2024 5:06 PM CDT 1. Left atrial appendage measurements for placement of occlusion device as described. 2. No evidence of left atrial appendage thrombus. 3. Large hiatal hernia with aspiration changes in the right lower lobe, left upper lobe and left lower lobe. More extensive consolidation in the left lower lobe could represent developing aspiration pneumonia, although superimposed pulmonary edema could have a similar appearance given the patient's small bilateral pleural effusions. 4. Solid 8 mm left upper lobe pulmonary nodule is likely infectious or inflammatory. Recommend follow up of the Incidental lung nodule Additional Imaging in [address] chest. 5. Marked cardiomegaly with findings of right heart failure and congestive hepatopathy with likely secondary hepatic fibrosis. Dictated by: Shannan Irwin M.D. The radiology attending physician has personally reviewed this study, and had reviewed and/or edited this written report and agrees with it. Electronically signed by: Denzel Taylor M.D. Narrative 10/28/2024 5:06 PM CDT HISTORY: 83-year-old with atrial fibrillation. Measurements in preparation for left atrial appendage occlusion device placement. COMPARISON: None TECHNIQUE: Heart CT performed during administration of 93 mL of Optiray 350, intravenously per pulmonary vein protocol. Images were transferred to an independent workstation for additional 3D post-processing. FINDINGS: Left atrial depth: 20 mm Left atrial length: 34 mm Left atrial appendage ostium: Area 9.5 cm squared, Circumference 1.1 cm, Diameter 44 x 30 mm. Left atrial appendage shape: Chicken wing No evidence of left atrial appendage thrombus. Left atrial diameter (atrial diastole): 52 mm Interatrial septum measures 7 mm thick and is free of device or thrombus. Esophagus lies immediately posterior to the Left Inferior pulmonary vein. Other findings: Nodular tree-in-bud opacities in the right lower lobe consistent with aspiration. There are additional aspiration changes in the left upper and left lower lobes, more dense consolidation in the left lower lobe. There is a 9 mm left lower lobe pulmonary nodule that is likely infectious or inflammatory. There is a small right pleural effusion. There may be a component of superimposed pulmonary edema in the left lower lobe. No thoracic lymphadenopathy. Large hiatal hernia. Normal caliber thoracic aorta three-vessel arch. The heart size is markedly enlarged with severe right ventricular and right atrial enlargement. There is also left atrial enlargement. Mild aortic valve calcifications. The tubular ascending thoracic aorta measures 34 x 34 mm. Reflux of contrast into dilated inferior vena cava and hepatic veins compatible with right heart failure. There is hepatic surface nodularity and periportal widening, likely representing hepatic fibrosis in setting of congestive hepatopathy. Thickening of the adrenal glands may be in setting of adenomatous hyperplasia. Reverse shoulder arthroplasties. Procedure Note Denzel Taylor MD - 10/28/2024 HISTORY: 83-year-old with atrial fibrillation. Measurements in preparation for left atrial appendage occlusion device placement. COMPARISON: None TECHNIQUE: Heart CT performed during administration of 93 mL of Optiray 350, intravenously per pulmonary vein protocol. Images were transferred to an independent workstation for additional 3D post-processing. FINDINGS: Left atrial depth: 20 mm Left atrial length: 34 mm Left atrial appendage ostium: Area 9.5 cm squared, Circumference 1.1 cm, Diameter 44 x 30 mm. Left atrial appendage shape: Chicken wing No evidence of left atrial appendage thrombus. Left atrial diameter (atrial diastole): 52 mm Interatrial septum measures 7 mm thick and is free of device or thrombus. Esophagus lies immediately posterior to the Left Inferior pulmonary vein. Other findings: Nodular tree-in-bud opacities in the right lower lobe consistent with aspiration. There are additional aspiration changes in the left upper and left lower lobes, more dense consolidation in the left lower lobe. There is a 9 mm left lower lobe pulmonary nodule that is likely infectious or inflammatory. There is a small right pleural effusion. There may be a component of superimposed pulmonary edema in the left lower lobe. No thoracic lymphadenopathy. Large hiatal hernia. Normal caliber thoracic aorta three-vessel arch. The heart size is markedly enlarged with severe right ventricular and right atrial enlargement. There is also left atrial enlargement. Mild aortic valve calcifications. The tubular ascending thoracic aorta measures 34 x 34 mm. Reflux of contrast into dilated inferior vena cava and hepatic veins compatible with right heart failure. There is hepatic surface nodularity and periportal widening, likely representing hepatic fibrosis in setting of congestive hepatopathy. Thickening of the adrenal glands may be in setting of adenomatous hyperplasia. Reverse shoulder arthroplasties. IMPRESSION: 1. Left atrial appendage measurements for placement of occlusion device as described. 2. No evidence of left atrial appendage thrombus. 3. Large hiatal hernia with aspiration changes in the right lower lobe, left upper lobe and left lower lobe. More extensive consolidation in the left lower lobe could represent developing aspiration pneumonia, although superimposed pulmonary edema could have a similar appearance given the patient's small bilateral pleural effusions. 4. Solid 8 mm left upper lobe pulmonary nodule is likely infectious or inflammatory. Recommend follow up of the Incidental lung nodule Additional Imaging in [address] chest. 5. Marked cardiomegaly with findings of right heart failure and congestive hepatopathy with likely secondary hepatic fibrosis. Dictated by: Shannan Irwin M.D. The radiology attending physician has personally reviewed this study, and had reviewed and/or edited this written report and agrees with it. Electronically signed by: Denzel Taylor M.D. us Leila Roy MD IMG CT PROCEDURES Final Result * POCT creatinine for contrast evaluation (10/28/2024 10:12 AM CDT) Creatinine, POC 1.2 0.6 - 1.3 mg/dL Blood 10/28/2024 10:1 2 AM CDT us Leila Roy MD POINT OF CARE TEST ORDERABLES Fi nal Result from Last 3 Months Insurance [facility] [id number] [place] [id number] Care Teams Sagger Preparer Relationship Specialty [place] [address] [facility] [address] [place] [address] PCP - General Internal Medicine 12/03/24
--- OUTSIDE RECORDS SUMMARY | 2025-01-20 01:01 | XMS_ITS | Clinical Summary ---
Author Organization [facility] Address [facility] [facility] [place] [address] Care Team Providers Care Stepdown Nurse Name Role Phone Jorge Luis Peters MD Primary Care Provider [phone] Source Comments [facility],non-owned Affiliates and Associated Physician Practices is amultiple site organization consisting of ambulatory clinics and hospital sitesin [place], [place], [place] and [place]. This disclosure is being madepursuant to the Care Everywhere program and may not contain all information available regarding this patient. 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
[2025-01-20 13:00] VITALS: BP 125/97; PULSE 96; RESP 16; O2SAT 96
--- NOTE | 2025-01-20 13:00 | ECHO_ITS ---
Patient Info Name: Sheila Fernández Age: 84 years : 1940 Gender: Female Ht: 65 in Wt: 197 lbs BSA: 2.06 m2 Technical Quality: Good Exam Date: 01/20/2025 1:37 PM Patient Status: O Admit Date: 01/20/2025 Exam Type: CA echo transesophageal Complete two-dimensional, color flow and Doppler transesophageal study is performed. Mine Development Engineer: Alicia Porter Attending Provider: Gutierrez Wasserman Summary 1. There is normal biventricular size and systolic function. 2. There is biatrial enlargement. 3. There is moderate aortic stenosis. 4. There is a left atrial appendage occlusion device that is well-seated with no thrombus or jayson device leak. 5. There is a small size pericardial effusion behind the right atrium. Recommendations * Complete 6 months of dual anti-platelet therapy after which can discontinue Plavix. * Repeat transthoracic echocardiogram in 6-12 months to monitor the moderate aortic stenosis. Medications The posterior pharynx was sprayed with Cetacaine spray. Sedation provided by anesthesia team. Procedure Details The patient arrived in a fasting state after obtaining informed consent. The transesophageal probe was passed into the posterior pharynx, mid-esophagus, and distal esophagus. Imaging was performed at multiple levels. The patient tolerated the procedure well and there were no complications. The patient was transferred out of the examination area in satisfactory condition. Left Ventricle The left ventricle is normal size with normal systolic function. Right Ventricle The right ventricle is normal size with normal systolic function. Left Atria The left atrium is enlarged. Right Atria The right atrium is enlarged. Atrial Septum There is small iatrogenic septal defect with no significant shunt. Atrial Appendage There is a left atrial appendage occlusion device that is well-seated with no thrombus or jayson device leak. Aortic Valve The aortic valve is trileaflet and calcified. There is moderate aortic stenosis with a valve area of 1.1 cm2 by planimetry. Pulmonic Valve The pulmonic valve is normal. There is mild pulmonic valve regurgitation. Mitral Valve The mitral valve is normal. There is trace mitral regurgitation. Tricuspid Valve The tricuspid valve is normal. There is severe tricuspid regurgitation. Pericardium/Pleural There is a small size pericardial effusion behind the right atrium. Aorta The visualized portions of aorta has mild plaque. Report Signatures
--- NOTE | 2025-01-20 14:01 | P.PNAN_ITS ---
Anes - Initial Pre Proc Eval Procedure: Operation Date: 01/20/25 14:00 Proposed Procedures p Trans Esophageal Echo EUFEMIA - Gutierrez Wasserman MD Date/Time: 01/20/25 14:01 Surgeon: Gutierrez Wasserman MD Pre Op Diagnosis: post llao Patient Data Age: 84 Gender: F Height: 1.65 m Weight: 89.5 kg Last Vital Signs Pulse 96 01/20/25 13:00 Resp 16 01/20/25 13:00 BP 125/97 H 01/20/25 13:00 Pulse Ox 96 01/20/25 13:00 O2 Del Method Room Air 01/20/25 13:00 Allergies Allergy/AdvReac Type Severity Reaction Status Date / Time red dye AdvReac Severe Rash Verified 01/19/25 13:39 solifenacin AdvReac Mild hair loss Verified 01/19/25 13:39 Home Medications ?Medication ?Instructions ?Recorded ?Confirmed ?Type biotin 10,000 mcg chewable tablet 20,000 mcg PO DAILY 04/27/24 01/20/25 History (Hair, Skin and Nails (biotin)) vitamin B complex 1 tablet PO DAILY 04/30/24 0 01/20/25 History metoprolol succinate 50 mg 50 mg PO BID #180 tabs 09/2601/20/25 Rx tablet,extended release 24 hr Xarelto 20 mg tablet (rivaroxaban) 20 mg PO DAILY #90 tabs 08/11/24 01/20/25 Rx Held on 10/19/24. Instructions: Resume on 11/02/24. Hold until follow up with cardiology and GI. potassium chloride 10 mEq 10 meq PO DAILY 30 days #30 tabs 08/11/24 01/20/25 Rx tablet,extended release (Klor-Con) Calcium 600 mg BYMOUTH BID 09/08/24 01/20/25 History ferrous gluconate 324 mg (38 mg 324 mg PO BIDWM #60 ta bs 10/19/24 01/20/25 Rx iron) tablet furosemide 20 mg tablet 40 mg (2 x 20 mg) PO BID #90 tabs 10/19/24 01/20/25 Rx spironolactone 25 mg tablet 25 mg PO QAM #30 tabs 10/0301/20/25 Rx atorvastatin 20 mg tablet See Rx Instructions .Route 0 01/10/25 01/20/25 Rx .COMPLEX #90 tabs irbesartan 300 mg tablet See Rx Instructions .Route 0 01/10/25 Rx .COMPLEX #90 tabs aspirin 81 mg capsule 81 mg PO DAILY 01/20/2501/03 History clopidogrel 75 mg tablet 75 mg PO DAILY 01/20/2501/03 History Patient hx anesthesia problems: none Family hx anesthesia problems: none Results Review: All pre-operative results and documents have been reviewed as part of the pre- operative evaluation. 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 drinks per day Actinic keratosis Diaphragmatic hernia without obstruction or gangrene Hyperlipidemia DJD (degenerative joint disease) Mitral valve regurgitation Iron deficiency anemia ARMEN (obstructive sleep apnea) Intolerant to CPAP and noncompliant with oral appliance Ankle fracture, right (~04/2019) Gastro-esophageal reflux disease without esophagitis Osteoarthritis 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 and removal TIA (transient ischemic attack) Seasonal allergies Surgical History Surgical History History of left shoulder replacement History of reverse total replacement of right shoulder joint (~12/12/20) History of bilateral cataract extraction (~2018) Status post phlebectomy (~12/2016) Status post laser ablation of incompetent vein (~11/2016) History of appendectomy (~04/2014) Family History Family History Grandparent Family history of malignant neoplasm Hypertension Mother Family history of malignant neoplasm Hypertension Sibling Family history of elevated blood lipids Father Family history of cardiovascular disease Family history of congestive heart failure Grandparent Leukemia Social History Social History Social History: Code status: Full code (she states she would not want to be on ventilator long- term are to have long-term feeding tube.) Healthcare power of patent prosecution attorney: Merly Pedersen (stepdaughter) Smoking packs per day: 0.5 Smoking cigarettes per day: 10.0 Years smoked: 5 Smoking pack-years: 2.50 Smoking status: Never smoker Second hand tobacco smoke exposure: No Alcohol intake: former Drinks per week: 1 Alcohol use details: Patient used to drink 4-7 glasses of wine a day. She states she is down to 1 glass a day. Substance use: never Substance use type: does not use Do You Feel Safe in your Home?: Yes Lack of Transportation: No Lack of Food: Never True Current Housing: I Have Housing Concerned About Future Housing: No Difficulty Paying Gas/Electric Bills: No Difficulty Paying for Meds: No Currently Unemployed: No Education: Trade/Vocational Certificate Difficulty w/ Childcare or Family Care: No Living arrangements: assisted living Additional living arrangements comments: She has been from her 2nd for about 20 years. She has 1 adopted daughter and 2 stepdaughters. She ambulates with a walker. Gender identity (if verbalized by the patient): Female Spiritual care concerns: No Agree to blood products: Yes Anes - Eval Final PreProcedure Day of Procedure 01/20/25 14:01 Lungs: normal air movement Airway: Mallampati scale class II Neurological: alert and oriented Last oral intake: >/= 8 hours ASA classification: III Emergent: no Anesthetic plan: proceed Anesthesia type and monitoring: general GIVS and standard monitoring Results Review: All pre-operative results and documents have been reviewed as part of the pre- operative evaluation. Afib, mild , ECHO w nml LVEF, mod pulmon HTN, HTN, hyperlipidemia. Pt w hx of ETOH use but denies current daily use. Informed Consent: The patient's anesthetic plan and its attendant risks and benefits were discussed with the patient/family/POA. Questions were solicited and answers provided to the satisfaction of the patient/family/POA.
--- NOTE | 2025-01-20 14:18 | WPDHPUPDATE1 ---
History and Physical Update Update Date/Time: 01/20/25 14:10 History and Physical has been reviewed, including an updated exam of the patient. There are NO changes in the patient's condition. Risks, benefits, and alternatives have been discussed and questions answered. Patient agrees to proceed with procedure.
[2025-01-20 14:30] VITALS: BP 117/82; PULSE 86; RESP 17; TEMP 36.7; O2SAT 97
[2025-01-20 14:45] VITALS: BP 115/83; PULSE 81; RESP 13; O2SAT 97
[2025-01-20 15:00] VITALS: BP 102/63; PULSE 76; RESP 15; O2SAT 98
[2025-01-20 15:15] VITALS: BP 116/50; PULSE 67; RESP 12; O2SAT 98
[2025-01-20 15:30] VITALS: BP 129/85; PULSE 66; RESP 19; O2SAT 98
== END 2025-01-20 15:30 | disposition home or self-care (01) ==
PROVIDERS: Visit Provider Internal Medicine
PROC: (CPT 93312; principal; 2025-01-20 14:00)
DX: I35.0 Nonrheumatic aortic (valve) stenosis (principal); I31.39 Other pericardial effusion (noninflammatory); Z95.818 Presence of other cardiac implants and grafts; I48.91 Unspecified atrial fibrillation; I10 Essential (primary) hypertension; E78.5 Hyperlipidemia, unspecified; I27.20 Pulmonary hypertension, unspecified
CPT/HCPCS: 93312; 93320; 93325; J2003; J2704; J7040